=== PATIENT | female | born 1965 | race Caucasian/White ===

== ENCOUNTER → 2017-06-22 | Outpatient (CLI) | payer MEDICAID, SELFPAY | PROVIDERS: Visit Provider Nurse Practitioner | DX: R51 Headache (principal) | CPT/HCPCS: 70551 ==

== ENCOUNTER 2017-10-28 16:00 | Outpatient (RCR) | payer MEDICAID, SELFPAY ==
--- NOTE | 2017-09-26 09:28 | HMH.PTOPEV ---
Rehab Outpatient Evaluation Rehab OP Evaluation Start: 09/26/17 09:13 Freq: Status: Active Protocol: Document 09/26/17 09:14 JAYLAELMER (Rec: 09/26/17 09:28 STUART [id number]) Electronically Signed By Rudolph Verdugo PT 09/26/17 09:14 Outpatient Therapy Subjective History Subjective History This is the initial Physical Theapy evaluation for Anastasia Romero. Pt is a 51 y/o female reports to PT w/ c/o cervicalgia, URIBE's, Lumbago, and R hip pain. Pt reports she has been told she has OA. Pt reports pain in neck has been going on for years. Reports URIBE's have continued to worsen. Pt reports LBP for several months. All had insidious onset - no known trauma. Chief Complaint Pain Spasms Stiff Symptom Type Ache Throb Dull Symptoms Relieved By Rest/Positioning Prescription Meds Symptoms Aggravated By Bending/Stooping Physical Activity Prior Functional Limitations None Current Functional Limitations Housework Recreation Activity Bending/Stooping Symptom Description Intermittent Activity Dependent Pain scale - at its best (0-10) 0 Pain scale - at its worst (0-10) 7 Cervical Eval Palpation Cervical Muscles R Cervical Paraspinal L Cervical Paraspinal R SCM L SCM R Upper Trapezius L Upper Trapezius Cervical/Thoracic Palpation Findings Tenderness Passive Joint Mobility Cervical PIVM Dec: R C2/3 L C2/3 R C3/4 L C3/4 R C4/5 L C4/5 R C5/6 L C5/6 R C6/7 L C6/7 AROM Cervical Spine Extension Active Range of 20 Motion (degrees) Cervical Spine Flexion Active Range of 40 Motion (degrees)
== END 2017-10-28 16:01 | disposition home or self-care (01) ==
LOC: PT 16:00
PROVIDERS: PCP Family Medicine; Visit Provider Nurse Practitioner
DX: R51 Headache (principal); M25.50 Pain in unspecified joint; M79.7 Fibromyalgia
CPT/HCPCS: 97010; 97014; 97035; 97110; 97140; G0283

== ENCOUNTER → 2017-11-11 13:02 | Outpatient (CLI) | payer MEDICAID, SELFPAY ==
--- NOTE | 2017-11-11 13:04 | CT_ITS ---
CT sinus wo con CLINICAL INDICATION: Headache, head pressure, ringing in ears, chronic sinusitis ITS.REASON: chronic sinusitits ORDERING PHYSICIAN: Mark Newsome MD PATIENT AGE: 52 years TECHNIQUE:Axial, sagittal, and coronal images are generated and reviewed without contrast. All CT scans at the facility use one or more dose reduction, viz: automated exposure control; ma/kV adjustment per patient size (including targeted exams where dose is matched to indication; i.e. head); or iterative reconstruction technique. FINDINGS: Bones: Unremarkable. No fracture, lytic, or blastic changes evident Extracranial soft tissues: Unremarkable Sinuses: Unremarkable. No air-fluid levels or significant mucosal thickening Orbits: Unremarkable Other: No significant nasal septal deviation. No mastoid effusion. The middle ears are well aerated. Unremarkable TMJs IMPRESSION: Negative CT of the sinuses
== END ==
PROVIDERS: PCP Family Medicine; Visit Provider Otolaryngology
DX: J32.0 Chronic maxillary sinusitis (principal); J34.2 Deviated nasal septum; J30.9 Allergic rhinitis, unspecified
CPT/HCPCS: 70486

== ENCOUNTER → 2017-11-12 10:53 | Outpatient (CLI) | payer MEDICAID, SELFPAY ==
--- NOTE | 2017-11-12 | XR_ITS ---
XR foot RT min 3V HISTORY: ITS.REASON: RIGHT FOOT PAIN ORDERING PHYSICIAN: Jewell Dorado PATIENT AGE: 52 years COMPARISON: 01/22/2016 FINDINGS: There are moderate osteoarthritic changes of the first metatarsophalangeal joint which has developed since the previous exam. There are small osteophytes at the joint. Moderate osteoarthritic changes are also present at the calcaneal cuboid joint with bony hypertrophic change. No fracture or dislocation. No lytic or blastic change. IMPRESSION: Osteoarthritis of the first metatarsophalangeal joint and the calcaneocuboid joint
== END ==
PROVIDERS: PCP Nurse Practitioner; Visit Provider Nurse Practitioner
DX: M79.671 Pain in right foot (principal)
CPT/HCPCS: 73630

== ENCOUNTER 2017-12-26 08:30 | Outpatient (RCR) | payer MEDICAID, SELFPAY ==
--- NOTE | 2017-11-30 08:47 | HMH.PTOPEV ---
PT Outpatient Evaluation Rehab PT Outpatient Evaluation Start: 11/30/17 08:36 Freq: Status: Active Protocol: Document 11/30/17 08:36 TOYA (Rec: 11/30/17 08:46 TOYA [id number]) Electronically Signed By Wai Sosa, PT 11/30/17 08:36 Outpatient Therapy Subjective History Subjective History Pt reports h/o chronic B UE and LE pain and weakness secondary to fibromylagia and OA. Pt reports weakness and pain in the extremities with simple tasks daily. Pt also reports interruption of sleep and driving d/t pain. Chief Complaint Pain Weakness Symptom Type Ache Sharp Dull Symptoms Relieved By Prescription Meds Activity Symptoms Aggravated By Sitting Prior Functional Limitations Lifting Housework Current Functional Limitations Lifting Housework Driving Sleeping Sitting Symptom Description Constant but Variable Level of pain today (0-10) 7 Pain scale - at its best (0-10) 5 Pain scale - at its worst (0-10) 10 Shoulder/Elbow Eval Shoulder Objective Measurements Palpation Tenderness tenderness shoulder exam standard bilateral Shoulder Palpation Findings Tenderness Shoulder Palpation Overall Comment 2-3/4 Shoulder MMT Bilateral Anterior Deltoid Strength Grade 4- Good- Lower Trapezius Strength Grade 4- Good- Middle Trapezius Strength Grade 4- Good- Shoulder Abduction Strength Grade 3+ Fair+ Shoulder Flexion Strength Grade 3+ Fair+ Elbow Objective Measurements Elbow MMT Bilateral Elbow Flexion Strength Grade 4 Good Biceps Brachii Strength Grade 4 Good Triceps Brachii Strength Grade 4- Good- Wrist/Hand Eval Wrist Manual Muscle Testing Right Wrist Extension Strength Grade 4- Good- Wrist Flexion Strength Grade 4- Good- Left Wrist Extension Strength Grade 4- Good- Wrist Flexion Strength Grade 4- Good- Hip/Knee Eval Palpation Tenderness bilateral Knee Palpation Finding Tenderness Knee Palpation Overall Comment 2-3/4 Hip Palpation Findings Tenderness MMT Hip Flexion Strength Grade 4- Good- Hip Abduction Strength Grade 3+ Fair+ Hip Adduction Strength Grade 3+ Fair+ Hip Extension Strength Grade 3+ Fair+ Knee Extension Strength Grade 4- Good- Knee Flexion Strength Grade 4- G
== END 2017-12-26 08:31 | disposition home or self-care (01) ==
LOC: PT 08:30
PROVIDERS: PCP Nurse Practitioner; Visit Provider Nurse Practitioner
DX: M79.7 Fibromyalgia (principal)
CPT/HCPCS: 97010; 97014; 97110; 97163; G0283

== ENCOUNTER → 2018-01-09 08:43 | Outpatient (CLI) | payer MEDICAID, SELFPAY ==
[2018-01-09 10:44] LABS: Blood Urea Nitrogen 19 mg/dL (7-18); Calcium 9.1 mg/dL (8.5-10.1); Carbon Dioxide 32 mmol/L (21.0-32.0); Chloride 105 mmol/L (98-107); Creatinine,Serum 0.78 mg/dL (0.55-1.02); Estimated Glomerular Filt Rate 77 ml/min (>60); GFR (African American) 93 ML/MIN (>60); Glucose 109 mg/dL (74-106); Sodium 144 mmol/L (136-145)
== END ==
PROVIDERS: Visit Provider Surgery
DX: Z86.010 Personal history of colon polyps (principal)
CPT/HCPCS: 36415; 80048

== ENCOUNTER → 2018-01-12 08:00 | Outpatient (CLI) | payer MEDICAID, SELFPAY ==
[2018-01-11 10:33] VITALS: BMI 33.4
[2018-01-12 08:49] VITALS: BP 124/73; PULSE 73; RESP 20; TEMP 36.1; O2SAT 95
[2018-01-12 09:24] LABS: Anion Gap 10.9 mEq/L (5-15); Blood Urea Nitrogen 10 mg/dL (7-18); Calcium 9.3 mg/dL (8.5-10.1); Carbon Dioxide 32 mmol/L (21.0-32.0); Chloride 104 mmol/L (98-107); Creatinine Clearance Estimated 118 mL/min (0-300); Creatinine,Serum 0.81 mg/dL (0.55-1.02); Estimated Glomerular Filt Rate 74 ml/min (>60); GFR (African American) 89 ML/MIN (>60); Glucose 108 mg/dL (74-106); Sodium 144 mmol/L (136-145)
[2018-01-12 09:25] LABS: Potassium 2.9 mmoL/L (3.5-5.1)
--- NOTE | 2018-01-12 14:39 | SUR.PREOP ---
pt procedure cancelled today r/t low potassium 2.9. will replace potassium w/ 40 meq as ordered , pt given lab requisition of repeat potassium prior to reschedule of procedure. dr haro instructed pt to take 40 meq bid of potassium. pcp office notified per call and fax regarding potassium today of 2.9. kassie at [facility] office notified of need to reschedule and need for repeat potassium. kassie will call pt with reschedule date.
== END ==
PROVIDERS: PCP Nurse Practitioner; Visit Provider Surgery
DX: Z53.8 Procedure and treatment not carried out for other reasons (principal); E87.6 Hypokalemia
CPT/HCPCS: 80048

== ENCOUNTER → 2018-01-12 12:00 | Outpatient (CLI) | payer MEDICAID, SELFPAY | PROVIDERS: PCP Nurse Practitioner; Visit Provider Surgery | DX: Z01.818 Encounter for other preprocedural examination (principal); Z12.11 Encounter for screening for malignant neoplasm of colon | CPT/HCPCS: 80048 ==

== ENCOUNTER → 2018-01-17 08:31 | Outpatient (CLI) | payer MEDICAID, SELFPAY ==
[2018-01-17 10:02] LABS: Potassium 3.6 mmoL/L (3.5-5.1)
== END ==
PROVIDERS: Visit Provider Surgery
DX: Z01.812 Encounter for preprocedural laboratory examination (principal)
CPT/HCPCS: 36415; 84132

== ENCOUNTER → 2018-02-13 08:49 | Outpatient (CLI) | payer MEDICAID, SELFPAY ==
--- NOTE | 2018-02-13 08:51 | US_ITS ---
US abdomen limited History: Ordering Physician:Jewell Dorado Patient Age: 52 years Comparison:None Findings: Pancreas:Unremarkable. No obvious mass or abnormal fluid collection. No ductal dilatation Liver:No focal liver lesions demonstrated. Fatty liver. There is appropriate directional blood flow within the portal vein which does not appear enlarged. No intrahepatic biliary ductal dilatation evident Right Kidney:Unremarkable. Normal size and echogenicity. No hydronephrosis Gallbladder:No gallstones, gallbladder wall thickening, pericholecystic fluid, or biliary dilatation. Impression: 1. Negative gallbladder ultrasound. 2. Fatty liver
== END ==
PROVIDERS: PCP Nurse Practitioner; Visit Provider Nurse Practitioner
DX: R10.11 Right upper quadrant pain (principal)
CPT/HCPCS: 76705

== ENCOUNTER → 2018-02-22 10:50 | Outpatient (CLI) | payer MEDICAID, SELFPAY ==
--- NOTE | 2018-02-22 10:52 | XR_ITS ---
XR foot wt bearing LT 3V HISTORY: ITS.REASON: pain ORDERING PHYSICIAN: Brook Hutson DPM PATIENT AGE: 52 years COMPARISON: None FINDINGS: Moderate osteoarthritic changes involve the first metatarsophalangeal joint with dorsal bony spurring. There are mild osteoarthritic changes of the calcaneocuboid joint. No fracture or dislocation. No lytic or blastic change. Normal alignment. IMPRESSION: Osteoarthritis of the first metatarsophalangeal joint with prominent bony spurring and calcaneocuboid joint
--- NOTE | 2018-02-22 10:52 | XR_ITS ---
XR foot wt bearing RT 3V HISTORY: ITS.REASON: pain ORDERING PHYSICIAN: Brook Hutson DPM PATIENT AGE: 52 years COMPARISON: None FINDINGS: There are osteoarthritic changes of the first metatarsophalangeal joint with bony spurs posteriorly. Mild osteoarthritic changes are present at the calcaneal cuboid joint. Normal alignment. IMPRESSION: 1. Osteoarthritis of the first metatarsal phalangeal joint with bony spurring 2. Osteoarthritis of the calcaneal cuboid joint
== END ==
PROVIDERS: Visit Provider Podiatrist
DX: M79.673 Pain in unspecified foot (principal); B35.1 Tinea unguium
CPT/HCPCS: 73630; 87102; 87206; 87220

== ENCOUNTER → 2018-03-09 10:14 | Outpatient (CLI) | payer MEDICAID, SELFPAY ==
--- NOTE | 2018-03-09 10:45 | NM_ITS ---
NM hepatobiliary wo pharm HISTORY: Right upper quadrant pain ITS.REASON: ABD PAIN,RUQ PAIN ORDERING PHYSICIAN: Jewell Dorado PATIENT AGE: 52 years COMPARISON: None DOSE: 8.07 mCi technetium Choletec Fatty meal/ensure . No pain reported with fatty meal FINDINGS: Homogeneous activity is present within the hepatic parenchyma. Activity is present in the gallbladder by 30 minutes. Activity is present in the small bowel by 10 minutes. The gallbladder ejection fraction is calculated to be 63% The patient did not report pain or other symptoms during the fatty meal. IMPRESSION: Unremarkable hepatobiliary scan and gallbladder ejection fraction. No evidence of common or cystic duct obstruction with normal gallbladder ejection fraction
[2018-03-09 10:52] LABS: Anion Gap 9.1 mEq/L (5-15); Blood Urea Nitrogen 20 mg/dL (7-18); Calcium 8.7 mg/dL (8.5-10.1); Carbon Dioxide 31 mmol/L (21.0-32.0); Chloride 106 mmol/L (98-107); Creatinine,Serum 0.92 mg/dL (0.55-1.02); Estimated Glomerular Filt Rate 64 ml/min (>60); GFR (African American) 77 ML/MIN (>60); Glucose 110 mg/dL (74-106); Potassium 3.1 mmoL/L (3.5-5.1); Sodium 143 mmol/L (136-145)
--- NOTE | 2018-03-09 11:02 | HMH.ITSHM ---
topiramate pantoprazole metoprolol furosemide estradiol
--- NOTE | 2018-03-09 12:52 | MR_ITS ---
MR foot LT wo/w con Ordering Physician: Jewell Dorado Patient Age: 52 years: Female HISTORY: ITS.REASON: left foot pain . Left plantar fascial pain. History plantar fasciitis. History of surgery in 2012. Lateral and dorsal side foot pain currently. Symptoms 4years. TECHNIQUE: Multiplanar multisequence imaging 1.5 Cecilia MRI. Pre and postcontrast imaging performed. 19 mL ProHance utilized COMPARISON :Plain films both feet 02/22/2018 FINDINGS 1. Calcaneal Cuboid Arthritic Changes: Arthritic changes are seen at the calcaneus cuboid articulation. These are most evident along the lateral, superior aspect of this joint-with associated fragmented hypertrophic bone/buttressing seen most notable along lateral & superior aspect of this joint is well On precontrast STIR images note slight reactive bone changes about this narrowed and arthritic joint. On the postcontrast images there circumferential enhancement about margin of the joint best seen on coronal image 35. This enhancement is most focally pronounced laterally overlying this joint as seen on axial image 20, coronal image 34.. The enhancement surrounds the joint but also there is some mild enhancement at the narrowed/ hypertrophic lateral margin of the joint. Most likely reactive arthritic changes The peroneus longus and brevis tendons passed over this region but they appear to be intact with no significant inflammation themselves. -- 2. First MTP Joint Arthritic Changes: Is seen on previous previous plain film prominent Arthritic changes at the first metatarsophalangeal joint also noted. Pronounced Narrowing of the joint with mildly enhancing subchondral cystic changes most evident along the margin of the first metatarsal head. There is hypertrophic changes/ osteophytes circumferentially about the joint, both from the base proximal phalanx as well as about first metatarsal head. Spurring, most evident dorsally from from first metatarsal head as seen on sagittal images 9-7 \--- 3. Plantar Aponeurosis appears overall intact. No prominent findings No abnormal signal nor enhancement within plantar aponeurosis itself nor at the inferior aspect of the calcaneus... The insertion of the plantar aponeurosis appears intact with no definitive inflammation nor enhancement in this particular area... On final review there note upper normal to slightly increased signal along along inferior margin of the plantar aponeurosis as it approaches its insertion on sagittal images 16-15 extending towards heel pad. Unimpressive & equivocal observation but conceivably could reflect some scant edema & minor inflammation here. Is patient focally tender here. Small ankle joint effusion noted. Ankle Is only partially imaged on the sagittal & axial images on this study. However There is slight increased fluid most evident along the posterior aspect of the ankle joint as well at an overlying anterior aspect fibular-talar joint. The anterior talofibular ligament & anterior tibiofibular ligaments intact. IMPRESSION 1.. Arthritic changes at Calcaneal- Cuboid articulation. ... Joint space narrowing w/ reactive bone changes, hypertrophic changes about this narrowed joint. .... Also curious circumferential enhancement about, overlying this joint, along with mild enhancement bone... Suspect this reflects some enhancing inflamed synovitis in this region with mild enhancement of reactive bone changes about the noted arthritic areas. Doubt infection but requires correlation. ... Mild soft tissue swelling overlying this area also noted 2. Arthritic changes at first MTP joint No prominent joint space narrowing. Hypertrophic changes. Small Subchondral cyst shows slight enhancement. Findings again most likely reflecting arthritic
--- NOTE | 2018-03-09 14:05 | HMH.ITSHM ---
PANTOPRAZOLE HCTZ METOPROLOL POTASSIUM TOPIRAMATE MONTELUKAST CELECONXIB VITAMIN D3 VENLAFOXINE LEVOTHYROXINE TRAMADOL
== END ==
PROVIDERS: Surgery; PCP Nurse Practitioner; Visit Provider Nurse Practitioner
DX: R10.11 Right upper quadrant pain (principal); M72.2 Plantar fascial fibromatosis; M79.673 Pain in unspecified foot
CPT/HCPCS: 36415; 73720; 78226; 80048; A9537; A9576

== ENCOUNTER 2018-05-22 15:30 | Outpatient (RCR) | payer MEDICAID, SELFPAY ==
--- NOTE | 2018-05-12 17:29 | HMH.PTOPEV ---
PT Outpatient Evaluation Rehab PT Outpatient Evaluation Start: 05/12/18 16:14 Freq: Status: Active Protocol: Document 05/12/18 16:14 ALESSANDRALUANNE (Rec: 05/12/18 17:28 REJI [id number]) Electronically Signed By Jose E Santos, PT 05/12/18 16:14 Outpatient Therapy Subjective History Subjective History Patient is a 52 year old female presenting to outpatient PT with reports of L chronic foot/ankle pain of insidious onset. She reports 2 previous foot surgeries in 2010 and 2012. Patient unable to communicate particular procedures performed. Pt report previous episode of PT for current symtpom and was able to have minimal relief. Comorbidites include HTN, fibromyalgia, hypothyroidism and overall global OA. Chief Complaint Pain Stiff Gives out/Unstable Symptom Type Ache Sharp Burning Symptoms Relieved By Rest/Positioning Brace/Support Symptoms Aggravated By Standing Physical Activity Walking Prior Functional Limitations Housework Standing Squatting Recreation Activity Walking Stairs Balance Current Functional Limitations Standing Squatting Recreation Activity Walking Stairs Balance Symptom Description Intermittent Level of pain today (0-10) 0 Pain scale - at its best (0-10) 0 Pain scale - at its worst (0-10) 7 Ankle/Foot Eval Gait Observation General Gait Pattern Observation Antalgic Gait Decrease Weight Bear (L) Palpation Tenderness left Ankle/Foot Palpation Findings Tenderness Ankle/Foot Palpation Overall Comment peroneus longus and brevis distal insertions ROM right Ankle/Foot Dorsiflexion w/Knee Extended -1 Active Range Motion (degrees) Ankle/Foot Plantar Flexion Active Range 55 of Motion (degrees) Ankle/Foot Eversion Activ
== END 2018-05-22 15:35 | disposition home or self-care (01) ==
LOC: PT 15:30
PROVIDERS: Visit Provider Podiatrist
DX: M76.72 Peroneal tendinitis, left leg (principal)
CPT/HCPCS: 97010; 97014; 97033; 97035; 97163; G0283

== ENCOUNTER → 2018-09-22 15:40 | Outpatient (CLI) | payer MEDICAID, SELFPAY | PROVIDERS: PCP Nurse Practitioner; Visit Provider Nurse Practitioner | DX: G47.33 Obstructive sleep apnea (adult) (pediatric) (principal) | CPT/HCPCS: 95806 ==

== ENCOUNTER 2018-10-09 23:08 | Observation (INO) ==
[2018-10-09 23:21] LABS: Basophils # 0.1 K/mm3 (0-0.2); Basophils % 0.7 % (0.1-2.0); Eosinophils # 0.2 K/mm3 (0.0-0.4); Eosinophils % 2.5 % (0.1-12.0); Hematocrit 41.3 % (37.0-47.0); Hemoglobin 14.6 g/dL (12.2-16.2); Lymphocytes # 2.8 K/mm3 (0.7-4.5); Lymphocytes % 36.2 % (10-50); Mean Corpuscular HGB Conc 35.4 g/dL (31.8-35.4); Mean Corpuscular Hemoglobin 30.9 pg (27.0-31.2); Mean Corpuscular Volume 87.2 fl (81-99); Monocytes # 0.5 K/mm3 (0.1-1.0); Monocytes % 5.9 % (1.7-9.3); Neutrophils # 4.3 K/mm3 (1.8-7.8); Neutrophils % 54.8 % (37.0-80.0); Platelet Count 230 K/mm3 (142-424); Red Blood Count 4.73 M/mm3 (4.20-5.40); Red Cell Distribution Width 13.4 % (11.5-17.5); White Blood Count 7.8 K/mm3 (4.8-10.8)
--- NOTE | 2018-10-09 23:29 | Emergency Department Note ---
ED Disposition Clinical Impression: Hypokalemia, Obesity (BMI 30-39.9) Chest pain Qualifiers: Chest pain type: precordial pain Qualified Code(s): R07.2 - Precordial pain Disposition: Admitted as Observation Condition on Discharge: Good Referrals: Les Reeder MD [Primary Care Provider] - - Critical Care Critical Care Time: No Attestation: On 10/09/18, the high probability of a clinically significant, sudden or life threatening deterioration of the following system(s) required my full and direct attention, intervention and personal management. The time I documented below is in addition to time spent performing reported procedures but includes the following listed in this critical care notation. Medical Decision Making - Medical Records Medical records reviewed: Yes: I reviewed the patient's medical records. - [place] Inquiry Pt receiving controlled substance: No Vital Signs: 10/09/18 23:09 10/10/18 00:08 Temperature 97.8 F Temperature Source Oral Pulse Rate [Right Radial] 78 64 Respiratory Rate 18 15 Blood Pressure [Right Arm] 140/88 137/64 Blood Pressure Mean [Right Arm] 105 88 02 Sat by Pulse Oximetry 97 97 Oxygen Delivery Method Room Air - Lab Data Lab results reviewed: Yes: I reviewed the patient's lab results. Lab Results 10/09/18 23:15: WBC 7.8, RBC 4.73, Hgb 14.6, Hct 41.3, MCV 87.2, MCH 30.9, MCHC 35.4, RDW 13.4, Plt Count 230, MPV 8.0, Neut % (Auto) 54.8, Lymph % (Auto) 36.2, [place] % (Auto) 5.9, Eos % (Auto) 2.5, Baso % (Auto) 0.7, Neut # (Auto) 4.3, Lymph # (Auto) 2.8, [place] # (Auto) 0.5, Eos # (Auto) 0.2, Baso # (Auto) 0.1 10/09/18 23:15: Sodium 143, Potassium 3.1 L, Chloride 104, Carbon Dioxide 26, A nion Gap 16.1 H, BUN 21 H, Creatinine 0.95, Estimated Creat Clear 109, Estimated GFR 61, Est GFR ( Amer) 74, Glucose 108 H, Calcium 9.1, Troponin I < 0.02 Result diagrams: 10/09/18 23:15 10/09/18 23:15 Orders (Tests/Meds): ED MEDICATIONS Generic Name Dose Route Start Last Admin Trade Name Fregenoveva PRN Reason Stop Dose Admin Sodium Chloride 1,000 mls @ 999 mls/hr 10/09/18 23:15 10/09/18 23:30 Sod Chlor 0.9% 1000ml Bag IV 10/10/18 00:15 999 mls/hr .Q1H1M BAN Administration Sodium Chloride 10 ml 10/09/18 23:13 Saline Flush 10ml Syringe IV 11/08/18 23:12 NEEDED PRN Maintain IV Site Discontinued Medications Generic Name Dose Route Start Last Admin Trade Name Fregenoveva PRN Reason Stop Dose Admin Acetaminophen 1,000 mg 10/09/18 23:29 10/09/18 23:30 Tylenol 500mg Tablet PO 10/09/18 23:30 1,000 mg ONCE ONE Administration Famotidine 20 mg 10/09/18 23:13 10/09/18 23:30 Pepcid 20mg/2ml Vial IV 10/09/18 23:14 20 mg ONCE ONE Administration Ibuprofen 800 mg 10/09/18 23:14 10/09/18 23:29 Motrin 400mg Tablet PO 10/09/18 23:15 Not Given ONCE ONE Metoclopramide HCl 10 mg 10/09/18 23:13 10/09/18 23:30 Reglan 10mg/2ml Vial IVP 10/09/18 23:14 10 mg ONCE ONE Administration Morphine Sulfate 2 mg 10/10/18 00:07 10/10/18 00:13 Morphine 4mg/Ml Syringe IV 10/10/18 00:08 2 mg ONCE ONE Administration Nitroglycerin 1 gm 10/10/18 00:07 10/10/18 00:13 Nitroglycerin 1 Inch Oint Udp TD 10/10/18 00:08 1 gm ONCE ONE Administration Ondansetron HCl 4 mg 10/10/18 00:08 10/10/18 00:13 Zofran 4mg/2ml Vial IV 10/10/18 00:09 4 mg ONCE ONE Administration ORDERS Category Date Time Status XR chest 2V Stat Exams 10/09/18 23:13 Taken - Radiology Data #1 Image(s): Chest Image Reviewed: Yes I reviewed the patient's radiology image Preliminary Findings: Normal/NAD - ECG Data Tracing #1 Normal Sinus Rhythm: Yes Ischemic changes: t wave inversions ECG compared to prior tracings: this ECG reveals significant changes - Physician Consults Physician Consulted: charles Reason -: Admission Chest Pain HPI - General Chief Complaint: Chest Pain Stated Complaint: CHEST PAIN Time Seen by Provider: 10/09/18 23:15 Mode of Arrival: Family Vehicle Source of Information: Patient, Medical Record Limitations: No Limitations Description of Symptoms (Recalled from ER Triage Doc. by RN): MIDSTERNAL CHEST HEAVINESS, SHORTNESS OF BREATH, HEARTBURN AND HEADACHE THAT BEGAN LAST PM THAT HAS CONTINUED TODAY ON AND OFF. - History of Present Illness HPI narrative: new onset of chest pain with pain in midsternal chest pain with rad to shoulders -no known ht dis but has hx of cva MD complaint: chest pain indicative of cardiac Onset (ago): hour(s) Duration: intermittent Activity at onset: during rest Pain location: epigastric Severity: moderate Risk Factors for CAD: Family Hx of CAD Treatments prior to or on arrival for Cardiac Chest Pain: none - CHUYITA Score for Non-Stemi Age of Patient: 50-59 years old Heart Rate: 70-89 bpm Systolic Blood Pressure: 140-159 mmHg Serum Creatinine: 0.40-0.79 mg/dl CHF [place] Class: I-No CHF Other Risk Factors: None Non-Stemi Risk Score: 78 - Related Data On Oral Contraceptives: No Home Medications Medication Instructions Recorded Confirmed hydrochlorothiazide 25 mg tablet 12.5 mg PO QAM 10/31/17 10/09/18 levothyroxine 50 mcg tablet 50 mcg PO ONCE 10/31/17 10/09/[address] 40 mg granules 40 mg PO QAM 10/31/17 10/09/18 delayed-release for susp in packet potassium chloride 20 mEq oral 20 meq PO BID 10/31/17 10/09/18 packet topiramate 25 mg tablet 25 mg PO BID 10/31/17 10/09/18 duloxetine 30 mg capsule,delayed 30 mg PO DAILY 05/02/18 10/09/18 release meloxicam 7.5 mg tablet 7.5 mg PO DAILY 05/02/18 10/09/18 Aspirin [Aspir 81] 81 mg PO DAILY 08/27/18 10/09/18 Atorvastatin Calcium [Atorvastatin 20 mg PO DAILY 08/27/18 10/09/18 20mg Tab] Cholecalciferol (Vitamin D3) 1 tab PO DAILY 08/27/18 10/09/18 [Vitamin D3 50,000 unit Cap] Sucralfate [Sucralfate 1gm 1 tab PO DAILY 08/27/18 10/09/18 Tab] Tramadol HCl [Tramadol 50mg 50 mg PO DAILY 08/27/18 10/09/18 Tab] Previous Rx's Medication Instructions Recorded montelukast 10 mg tablet 10 mg PO QAM 90 Days #90 tab 02/22/18 Allergies Allergy/AdvReac Type Severity Reaction Status Date / Time ketorolac Allergy Mild I-HIVES Verified 10/09/18 23:14 Iodinated Contrast Media - Allergy Verified 10/09/18 23:14 Oral and [facility] History - Hepatitis A Screen Drug use history?: No High risk sexual behaviors?: No History of sexually transmitted infection?: No Currently employed?: No Childcare worker?: No Do you have indoor plumbing?: Yes Do you have electricity?: Yes Attestation statement:: This patient has been screened for Hepatitis A risk factors. I have reviewed the patient's past medical history: Yes Medical History: Reports:: Depression, Hypertension, Migraine Denies:: Cancer, Diabetes Mellitus Type 1, Diabetes Mellitus Type 2, Internal Pacemaker, Lung Disease, MRSA, Seizures Other Medical History: Reports: Arthritis, Hormone Therapy, Hypothyroidism, Thyroid Disease, Other Comment: chronic neck pain Laterality Cases: Left: Arthroscopy Knee, Bilateral: Other Other Surgeries: Yes: Appendectomy, Colonoscopy, , EGD. No: Pacemaker Amputation: No Fractures: No Comment: foot x2, left breast cyst, CTR right - Social History Smoking Status: Former smoker Alcohol Intake: never Alcohol Intake Frequency:: other Substance Use Type: denies use Occupational Status: unemployed - Psychiatric History Expresses thoughts of harming self/others: None Suicide Plan Description: No Plan Pschychiatric History:: Reports:: Depression Family Hx:: Diabetes ROS Obtained: Yes All systems reviewed & no additional complaints - Constitutional Constitutional: Denies fever(s) - Eyes Eyes: Denies change in vision - ENT Ears, Nose, Mouth, and Throat: Denies sore throat - Cardiovascular Cardiovascular: Reports chest pain - Respiratory Respiratory: No cough - Gastrointestinal Gastrointestingal: Denies: abdominal pain, vomiting - Genitourinary Female Genitourinary: Denies hematuria - Musculoskeletal Musculoskeletal: Denies joint swelling - Integumentary/Breasts Skin/Breast: Denies rash - Neurologic Neurologic: Denies seizure-like activity Physical Exam - General General appearance: in no apparent distress, obese - Head Head exam: normocephalic - Eye Eye exam: Present: PERRL, EOMI - ENT ENT exam: Present: mucous membranes moist - Neck Neck exam: Present: trachea midline - Respiratory Respiratory exam: Absent: respiratory distress - Cardiovascular Cardiovascular exam: Present: regular rate - Abdominal Exam Abdominal exam: Present: soft, tenderness Abdominal tenderness: Present: epigastrium, moderate - Extremities Exam Extremities exam: Present: full ROM. Absent: calf tenderness - Neurological Exam Neurological exam: Present: alert, oriented X3, CN II-XII intact - Psychiatric Psychiatric exam: Present: normal affect - Skin Skin exam: Absent: rash
[2018-10-09 23:39] LABS: Anion Gap 16.1 mEq/L (5-15); Blood Urea Nitrogen 21 mg/dL (7-18); Calcium 9.1 mg/dL (8.5-10.1); Carbon Dioxide 26 mmol/L (21.0-32.0); Chloride 104 mmol/L (98-107); Glucose 108 mg/dL (74-106); Potassium 3.1 mmoL/L (3.5-5.1); Sodium 143 mmol/L (136-145)
[2018-10-10 05:57] LABS: Basophils % 0.4 % (0.1-2.0); Eosinophils # 0.2 K/mm3 (0.0-0.4); Eosinophils % 2.4 % (0.1-12.0); Hemoglobin 13.6 g/dL (12.2-16.2); Lymphocytes # 2.6 K/mm3 (0.7-4.5); Lymphocytes % 40.6 % (10-50); Mean Corpuscular HGB Conc 34.9 g/dL (31.8-35.4); Mean Corpuscular Hemoglobin 30.9 pg (27.0-31.2); Mean Corpuscular Volume 88.4 fl (81-99); Mean Platelet Volume 8.2 fl (7.4-10.4); Monocytes # 0.4 K/mm3 (0.1-1.0); Monocytes % 6.6 % (1.7-9.3); Neutrophils # 3.2 K/mm3 (1.8-7.8); Neutrophils % 50.1 % (37.0-80.0); Platelet Count 201 K/mm3 (142-424); Red Blood Count 4.41 M/mm3 (4.20-5.40); Red Cell Distribution Width 13.5 % (11.5-17.5); White Blood Count 6.3 K/mm3 (4.8-10.8)
[2018-10-10 06:01] LABS: Anion Gap 13.2 mEq/L (5-15); Blood Urea Nitrogen 21 mg/dL (7-18); Calcium 8.2 mg/dL (8.5-10.1); Carbon Dioxide 27 mmol/L (21.0-32.0); Chloride 108 mmol/L (98-107); Chol/HDL Ratio 2.9 (1-3.5); Cholesterol 118 mg/dL (140-200); Glucose 101 mg/dL (74-106); HDL Cholesterol 41 mg/dL (29-89); LDL Cholesterol 63 mg/dL (0-130); Potassium 3.2 mmoL/L (3.5-5.1); Sodium 145 mmol/L (136-145); Triglycerides 70 mg/dL (30-200); VLDL Cholesterol 14 mg/dL (0-40)
--- NOTE | 2018-10-10 07:28 | History & Physical Report ---
*Admission Date: 10/10/18 *Chief complaint: Chest tightness *History of present illness: 52-year-old female presented to the emergency department with chest tightness that had been recurring throughout the day. Patient reports initial episode was around 3 PM on October 09 when she developed chest tightness and a burning sensation in the chest that radiated up into the shoulders. She became sick and vomited and chest discomfort resolved shortly thereafter. However she had a persistent discomfort in the shoulders as well as headache. Patient rested the remainder of the day and symptoms began again in the evening. They were not triggered by food. This time when chest tightness developed and radiated into the shoulder she decided to seek treatment at the emergency department. Patient has a history of multiple TIAs. Her manager rail is Dr. Samayoa. She has had cardiac catheterization in the past although she cannot recall the date. She does not know the date of any stress testing. She apparently had her last appointment with cardiology 2 weeks ago. [facility] History I have reviewed the patient's past medical history: Yes Medical History: Reports:: Atrial Fibrillation, Depression, Hyperlipidemia, Hypertension, Internal Pacemaker (INTERNAL LOOP RECORDER), Migraine, Palpitations Denies:: Cancer, Diabetes Mellitus Type 1, Diabetes Mellitus Type 2, Lung Disease, MRSA, Seizures *Have you ever received a pneumonia vaccine?: No *Have you received a flu vaccine this season?: Yes Other Medical History: Reports: Arthritis, Fibromyalgia, Hormone Therapy, Hyp othyroidism, Thyroid Disease, Other Laterality Cases: Left: Arthroscopy Knee, Bilateral: Other Other Surgeries: Yes: Appendectomy, Colonoscopy, , EGD, Pacemaker (INTERNAL LOOP RECORDER), Other (CYST REMOVAL L BREAST) Amputation: No Fractures: No - *Social History Educational Level: Completed GED/General Educational Development Smoking Status: Former smoker Tobacco Type: cigarettes # Packs/Day (cigarettes): 1 #Yrs smoked (if former smoker): 19 Smoking End Date: 1998 Alcohol Intake: never Alcohol Intake Frequency:: other Substance Use Type: denies use *Occupational Status:: unemployed *Travel in the last 8 weeks: None - Psychiatric History Expresses thoughts of harming self/others: None Suicide Plan Description: No Plan Pschychiatric History:: Reports:: Depression Family Hx:: Adopted, Diabetes, Hypertension Review of Systems - Review of Systems Review of systems:: pertinent systems reviewed and negative unless documented below - Constitutional Denies body ache(s), Denies chills - *Cardiovascular Reports chest pain, Reports chest pain at rest, Denies chest pain with activity, Denies shortness of breath with activity - *Respiratory Denies change in phlegm color, Denies chest congestion, Denies cough - *Gastrointestinal Reports vomiting - *Neurologic Denies seizure-like activity Meds Home Medications Medication Instructions Recorded Confirmed Type hydrochlorothiazide 25 mg tablet 12.5 mg PO QAM 10/31/17 10/09/18 History levothyroxine 50 mcg tablet 50 mcg PO ONCE 10/31/17 10/09/[address] 40 mg granules 40 mg PO QAM 10/31/17 10/09/18 History delayed-release for susp in packet potassium chloride 20 mEq oral 20 meq PO BID 10/31/17 10/09/18 History packet topiramate 25 mg tablet 25 mg PO BID 10/31/17 10/09/18 History montelukast 10 mg tablet 10 mg PO QAM 90 Days #90 tab 02/22/18 10/09/18 Rx duloxetine 30 mg capsule,delayed 30 mg PO DAILY 05/02/18 10/09/18 History release meloxicam 7.5 mg tablet 7.5 mg PO DAILY 05/02/18 10/09/18 History Aspirin [Aspir 81] 81 mg PO DAILY 08/27/18 10/09/18 History Atorvastatin Calcium [Atorvastatin 20 mg PO DAILY 08/27/18 10/09/18 History 20mg Tab] Cholecalciferol (Vitamin D3) 1 tab PO DAILY 08/27/18 10/09/18 History [Vitamin D3 50,000 unit Cap] Sucralfate [Sucralfate 1gm 1 tab PO DAILY 08/27/18 10/09/18 History Tab] Tramadol HCl [Tramadol 50mg 50 mg PO DAILY 08/27/18 10/09/18 History Tab] Allergies Allergy/AdvReac Type Severity Reaction Status Date / Time ketorolac Allergy Mild I-HIVES Verified 10/09/18 23:14 Iodinated Contrast Media - Allergy Verified 10/09/18 23:14 Oral and Exam Vital signs and Labs for Last 24 Hours: Temp Pulse Resp BP Pulse Ox 97.5 F L 58 L 18 94/56 L 99 10/10/18 04:50 10/10/18 04:50 10/10/18 04:50 10/10/18 04:50 10/10/18 04:50 Laboratory Results - last 24 hr 10/09/18 23:15: WBC 7.8, RBC 4.73, Hgb 14.6, Hct 41.3, MCV 87.2, MCH 30.9, MCHC 35.4, RDW 13.4, Plt Count 230, MPV 8.0, Neut % (Auto) 54.8, Lymph % (Auto) 36.2, [place] % (Auto) 5.9, Eos % (Auto) 2.5, Baso % (Auto) 0.7, Neut # (Auto) 4.3, Lymph # (Auto) 2.8, [place] # (Auto) 0.5, Eos # (Auto) 0.2, Baso # (Auto) 0.1 10/09/18 23:15: Sodium 143, Potassium 3.1 L, Chloride 104, Carbon Dioxide 26, Anion Gap 16.1 H, BUN 21 H, Creatinine 0.95, Estimated Creat Clear 109, Estimated GFR 61, Est GFR ( Amer) 74, Glucose 108 H, Calcium 9.1, Troponi n I < 0.02 10/10/18 03:30: Troponin I < 0.02 10/10/18 05:39: WBC 6.3, RBC 4.41, Hgb 13.6, Hct 39.0, MCV 88.4, MCH 30.9, MCHC 34.9, RDW 13.5, Plt Count 201, MPV 8.2, Neut % (Auto) 50.1, Lymph % (Auto) 40.6, [place] % (Auto) 6.6, Eos % (Auto) 2.4, Baso % (Auto) 0.4, Neut # (Auto) 3.2, Lymph # (Auto) 2.6, [place] # (Auto) 0.4, Eos # (Auto) 0.2, Baso # (Auto) 0.0 10/10/18 05:39: Sodium 145, Potassium 3.2 L, Chloride 108 H, Carbon Dioxide 27, Anion Gap 13.2, BUN 21 H, Creatinine 0.82, Estimated Creat Clear 131, Estimated GFR 73, Est GFR ( Amer) 88, Glucose 101, Calcium 8.2 L, Magnesium 2.0, Troponin I < 0.02, Triglycerides 70, Cholesterol 118 L, LDL Cholesterol 63, VLDL Cholesterol 14, HDL Cholesterol 41, Cholesterol/HDL Ratio 2.9 I & O for Last 24 hours: Intake & Output 10/07/18 10/08/18 10/09/18 10/10/18 11:59 11:59 11:59 11:59 Intake Total 1165 / 1165 Balance 1165 / 1165 Weight 232 lb 7 oz - Constitutional no acute distress - *Routine HEENT Exam Eye: Present: EOMI ENT: Present: mucous membranes moist - *Routine Neck Exam Present: supple - *Routine Respiratory Exam Present: CTA bilaterally - *Routine Cardiovascular Exam Present: RRR, Normal S1, Normal S2 - *Routine Abdominal Exam Present: soft, normoactive bowel sounds Assessment and Plan (1) Chest pain Current visit: Yes Status: Acute Qualifiers: Chest pain type: precordial pain Qualified Code(s): R07.2 - Precordial pain Category: Medical Code(s): R07.9 - Chest pain, unspecified (2) Hypokalemia Current visit: Yes Status: Acute Category: Medical Code(s): E87.6 - Hypokalemia (3) Obesity (BMI 30-39.9) Current visit: Yes Status: Acute Category: Medical Code(s): E66.9 - Obesity, unspecified - Assessment and plan all Dx Assessment and Plan for all problems:: Patient has had an echocardiogram with preliminary reading of ejection fraction of 45-50%. She will undergo Lexiscan stress test today
--- NOTE | 2018-10-10 07:28 | Pharmacy Consult Notes ---
[facility] Pharmacy VTE Monitoring - Patient Demographics Admission date: 10/09/18 Report Date: 10/10/18 Time: 07:28 Allergies/Adverse Reactions: Patient Allergies ketorolac Allergy (Mild, Verified 10/09/18 23:14) I-HIVES Iodinated Contrast Media - Oral and Allergy (Verified 10/09/18 23:14) Height: 1.68 m Weight: 105.432 kg Patient Problems: Current Active Problems Chest pain (Acute) Hypokalemia (Acute) Obesity (BMI 30-39.9) (Acute) - VTE Risk Labs: VTE Related Lab Results Hgb 13.6 g/dL (12.2-16.2) 10/10/18 05:39 Hct 39.0 % (37.0-47.0) 10/10/18 05:39 Plt Count 201 K/mm3 (142-424) 10/10/18 05:39 BUN 21 mg/dL (7-18) H 10/10/18 05:39 Creatinine 0.82 mg/dL (0.55-1.02) 10/10/18 05:39 Estimated Creat Clear 131 mL/min (50-200) 10/10/18 05:39 Was VTE Risk Assessment Performed: Yes VTE Score: 3 VTE Risk Level: Low Risk - Prophylaxis VTE Prophylaxis Ordered?: Yes Types of VTE Prophylaxis: TEDS Knee High Location of Applied Device: Bilateral Lower Extremeties - VTE Diagnosis Confirmed Treatment or plan recommended: Continue Current Treatment
--- NOTE | 2018-10-10 21:18 | Cardiology Report ---
PROCEDURE: 2-D M-mode and color Doppler study INDICATIONS FOR THE TEST: Chest pain+ COPD Heart Murmur Tobacco SmokingEX Palpitations Fatigue Syncope Edema Hypertension+Diabetes Mellitus Rheumatic Fever SOB FUENTES Obesity+Hyperlipidemia+ Family History HD Additional History AFIB, LOOP RECORDER PATIENT INFORMATION HEIGHT: 64 WEIGHT:232 GENDER: Female B/P:137/64 2-D/M-MODE INTERPRETATION: 2-D MEASUREMENTS OBSERVED VALUES IN CMS Right Ventricular Dimension (RVDd) 1.9 Interventricular Septum (Thickness)(IVsd) 0.7 Left Ventricular Internal Dimensions(LVIDd) 5.6 Left Ventricular Posterior Wall (Thickness)(LVPWd) 1.0 Aortic Root 2.8 Aortic Cusp Separation 1.9 Left Atrial Dimensions (LAD) 3.8 2D 1. Left atrium is mildly enlarged, left ventricle is normal size, mild concentric left ventricular hypertrophy visually estimated ejection fraction 50% with no regional wall motion abnormality, endocardial surfaces are poorly visualized. 2. The right atrium and right ventricle are normal size and contractility. 3. The aortic valve is minimally thickened and fibrosed . 4. The mitral and tricuspid valvular grossly normal. 5. The pulmonic valve is poorly present 6. No significant pericardial effusion noted. DOPPLER INTERROGATION: Doppler interrogation of the aortic, mitral and tricuspid valvular presence of mild mitral and tricuspid regurgitation, tricuspid regurgitation jet velocity is inadequate for calculation of the right ventricular systolic pressure, diastolic parameters are inconclusive. CONCLUSION: 1. Mildly enlarged left atrium, normal left ventricular size, mild concentric left ventricular hypertrophy, visually estimated ejection fraction 50% with no regional wall motion abnormality, diastolic parameters are inconclusive. 2. Mild mitral and tricuspid regurgitation 3. Significant pericardial effusion noted.
--- NOTE | 2018-10-11 07:20 | Progress Note ---
Internal Medicine - PN: Subj *Date: 10/11/18 *Time: 07:18 Interval history: Patient had abnormal stress test which resulted yesterday afternoon. Cardiology has been consulted. Patient reports continued to have some episodes of chest tightness Exam Vital signs and Labs for Last 24 Hours: Temp Pulse Resp BP Pulse Ox 97.6 F 57 L 17 106/60 L 96 10/11/18 04:00 10/11/18 04:00 10/11/18 04:00 10/11/18 04:00 10/11/18 04:00 I & O for Last 24 hours: Intake & Output 10/08/18 10/09/18 10/10/18 10/11/18 11:59 11:59 11:59 11:59 Intake Total 1165 / 1165 480 / 480 Output Total 1400 / 1400 Balance 1165 / 1165 -920 / -920 Weight 232 lb 7 oz 232 lb 7.992 oz Narrative: She is awake and alert sitting up in the chair this morning. Lungs are clear. Heart has a regular rate and rhythm. Assessment and Plan (1) Abnormal stress test Current visit: Yes Status: Acute Category: Medical Code(s): R94.39 - Abnormal result of other cardiovascular function study (2) Chest pain Current visit: Yes Status: Acute Qualifiers: Chest pain type: precordial pain Qualified Code(s): R07.2 - Precordial pain Category: Medical Code(s): R07.9 - Chest pain, unspecified (3) Hypokalemia Current visit: Yes Status: Acute Category: Medical Code(s): E87.6 - Hypokalemia (4) Obesity (BMI 30-39.9) Current visit: Yes Status: Acute Category: Medical Code(s): E66.9 - Obesity, unspecified (5) History of TIA (transient ischemic attack) Current visit: Yes Status: Acute Category: Medical Code(s): Z86.73 - Personal history of transient ischemic attack (TIA), and cerebral infarction without residual deficits - Assessment and plan all Dx Assessment and Plan for all problems:: 1. Cardiology consult
--- NOTE | 2018-10-11 07:30 | Consult Report ---
History of Present Illness Consult date: 10/11/18 Requesting physician: William Schmitt Consult reason: chest pain Chief complaint: chest pain Additional Medical History:: 1. History of CVA, 08/2018 with left-sided weakness, speech and memory imp airment A. Loop recorder in place, patient believes it is [employer] 2. History of cardiac catheterization approximately 2009, [place], [place], Dr. Samayoa, branch disease per patient. Reportedly has contrast allergy but patient is unsure of the severity. A. Stress myoview, 10/2018, 1. Ejection fraction of 62%. 2. Partially reversible defect in the anterolateral septal apical region with some reversibility at the apex consistent with an area of infarction with marlena- infarct ischemia. 3. Small fixed defect in the inferolateral aspect of the apex consistent with an area of infarction 3. Remote history of tobacco use, [id number] history, discontinued many years ago 4. History of hypertension A. Echo, 10/2018, mild left atrial enlargement, normal LV size with mild concentric LVH. EF 50% no wall motion abnormalities. Diastolic parameters inconclusive. Mild MR and TR. No significant pericardial effusion noted. 5. Hyperlipidemia History of present illness: 52-year-old white female admitted for shortness of breath and chest discomfort. Symptoms have been present with exertion for several weeks but recently have progressed to include waking her up from sleep. Patient was admitted and underwent nuclear stress testing yesterday which was abnormal with evidence of ischemia but normal ejection fraction. Cardiology consulted for evaluation and recommendations. [facility] History Medical History: Reports:: Atrial Fibrillation, Depression, Hyperlipidemia, Hypertension, Internal Pacemaker (INTERNAL LOOP RECORDER), Migraine, Palpitations Denies:: Cancer, Diabetes Mellitus Type 1, Diabetes Mellitus Type 2, Lung Disease, MRSA, Seizures *Have you ever received a pneumonia vaccine?: No *Have you received a flu vaccine this season?: Yes Other Medical History: Reports: Arthritis, Fibromyalgia, Hormone Therapy, Hypothyroidism, Thyroid Disease, Other Laterality Cases: Left: Arthroscopy Knee, Bilateral: Other Other Surgeries: Yes: Appendectomy, Colonoscopy, , EGD, Pacemaker (INTERNAL LOOP RECORDER), Other (CYST REMOVAL L BREAST) Amputation: No Fractures: No - *Social History Educational Level: Completed GED/General Educational Development Smoking Status: Former smoker Tobacco Type: cigarettes # Packs/Day (cigarettes): 1 #Yrs smoked (if former smoker): 19 Smoking End Date: 1998 Alcohol Intake: never Alcohol Intake Frequency:: other Substance Use Type: denies use *Occupational Status:: unemployed *Travel in the last 8 weeks: None - Psychiatric History Expresses thoughts of harming self/others: None Suicide Plan Description: No Plan Pschychiatric History:: Reports:: Depression Family Hx:: Adopted, Diabetes, Hypertension Meds Home Medications Medication Instructions Recorded Confirmed Type hydrochlorothiazide 25 mg tablet 12.5 mg PO DAILY 10/31/17 10/10/18 History levothyroxine 50 mcg tablet 50 mcg PO DAILY 10/31/17 10/10/18 History topiramate 25 mg tablet 25 mg PO BID 10/31/17 10/09/18 History duloxetine 30 mg capsule,delayed 30 mg PO DAILY 05/02/18 10/09/18 History release Atorvastatin Calcium [Atorvastatin 20 mg PO HS 08/27/18 10/10/18 History 20mg Tab] Tramadol HCl [Tramadol 50mg 50 mg PO Q6HP PRN 08/27/18 10/10/18 History Tab] Aspirin [Aspirin 325mg Tab] 325 mg PO DAILY 10/10/18 10/10/18 History Meloxicam 15 mg PO HS 10/10/18 10/10/18 History Montelukast Sodium [Montelukast 10 mg PO HS 10/10/18 10/10/18 History 10mg Tab] Pantoprazole Sodium [Protonix 40mg 40 mg PO DAILY 10/10/18 10/10/18 History tablet] Potassium Chloride 20 meq PO QID PRN 10/10/18 10/10/18 History Tizanidine HCl [Zanaflex 4mg 4 mg PO TID PRN 10/10/18 10/10/18 History tab] Allergies Allergy/AdvReac Type Severity Reaction Status Date / Time ketorolac Allergy Mild I-HIVES Verified 10/09/18 23:14 Iodinated Contrast Media - Allergy Verified 10/09/18 23:14 Oral and Review of Systems - *Cardiovascular Reports chest pain, Reports shortness of breath with activity - *Respiratory Reports shortness of breath with activity - *Gastrointestinal Reports nausea, Denies abdominal pain, Denies loose stools - *Genitourinary Denies blood in urine - *Musculoskeletal Denies joint pain, Denies back pain - *Neurologic Denies seizure-like activity Exam Vital signs and Labs for Last 24 Hours: Temp Pulse Resp BP Pulse Ox 97.6 F 57 L 17 106/60 L 96 10/11/18 04:00 10/11/18 04:00 10/11/18 04:00 10/11/18 04:00 10/11/18 04:00 I & O for Last 24 hours: Intake & Output 10/08/18 10/09/18 10/10/18 10/11/18 11:59 11:59 11:59 11:59 Intake Total 1165 / 1165 480 / 480 Output Total 1400 / 1400 Balance 1165 / 1165 -920 / -920 Weight 232 lb 7 oz 232 lb 7.992 oz - *Routine HEENT Exam Head: Present: normocephalic Eye: Present: EOMI, PERRL ENT: Present: mucous membranes moist - *Routine Neck Exam Present: supple. Absent: JVD, carotid bruit - *Routine Respiratory Exam Present: CTA bilaterally. Absent: accessory muscle use, rales, rhonchi, wheezes - *Routine Cardiovascular Exam Present: RRR. Absent: murmur, gallop, rubs - *Routine Abdominal Exam Present: soft. Absent: tenderness, distended, guarding - *Routine Extremities Exam Absent: edema, calf tenderness - *Routine Neurological Exam Present: alert, oriented X3, moving all extremities Assessment and Plan (1) Abnormal stress test Current visit: Yes Status: Acute Category: Medical Code(s): R94.39 - Abnormal result of other cardiovascular function study (2) Chest pain Current visit: Yes Status: Acute Qualifiers: Chest pain type: precordial pain Qualified Code(s): R07.2 - Precordial pain Category: Medical Code(s): R07.9 - Chest pain, unspecified (3) Hypokalemia Current visit: Yes Status: Acute Category: Medical Code(s): E87.6 - Hypokalemia (4) Obesity (BMI 30-39.9) Current visit: Yes Status: Acute Category: Medical Code(s): E66.9 - Obesity, unspecified (5) History of TIA (transient ischemic attack) Current visit: Yes Status: Acute Category: Medical Code(s): Z86.73 - Personal history of transient ischemic attack (TIA), and cerebral infarction without residual deficits - Assessment and plan all Dx Assessment and Plan for all problems:: 1. With abnormal stress test in former smoker with accelerating angina, will recommend LHC with contrast allergy precautions. Discussed with patient and she agrees to proceed. 2. Further recommendations to follow.
--- NOTE | 2018-10-11 16:19 | Discharge Summary ---
General - General Admission date:: 10/10/18 Discharge date: 10/11/18 HPI HPI: 52-year-old female presented to the emergency department with chest tightness that had been recurring throughout the day. Patient reports initial episode was around 3 PM on October 09 when she developed chest tightness and a burning sensation in the chest that radiated up into the shoulders. She became sick and vomited and chest discomfort resolved shortly thereafter. However she had a persistent discomfort in the shoulders as well as headache. Patient rested the remainder of the day and symptoms began again in the evening. They were not triggered by food. This time when chest tightness developed and radiated into the shoulder she decided to seek treatment at the emergency department. Patient has a history of multiple TIAs. 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 She has had cardiac catheterization in the past although she cannot recall the date. She does not know the date of any stress testing. She apparently had her last appointment with cardiology 2 weeks ago. Hospital Course Hospital Course: Patient was admitted to second floor medical surgical unit for additional observation, testing and referral to cardiology. Troponins were negative but due to risk factors of abnormal stress test and former tob use a LHC was performed. Site used: right radial. No intervention required and patient plan will be to medically manage. She will continue atorvastatin 20 mg daily as current LDL is 63. New discharge medications: lasix 40 mg BID and KCl 20 meq daily. Follow up will be with Jose Stevens APRN in one week, 11am please. Will draw BMP to evaluate electrolytes and renal function. Objective Vital signs: Temp Pulse Resp BP Pulse Ox 97.6 F 63 20 143/81 H 97 10/11/18 11:36 10/11/18 15:40 10/11/18 15:40 10/11/18 15:40 10/11/18 15:40 no acute distress, obese - *Routine HEENT Exam Head: Present: normocephalic, atraumatic ENT: Present: mucous membranes moist - *Routine Respiratory Exam Present: CTA bilaterally. Absent: accessory muscle use - *Routine Cardiovascular Exam Present: RRR, Normal S1, Normal S2. Absent: irregular rhythm - *Routine Abdominal Exam Present: soft, normoactive bowel sounds - *Routine Extremities Exam Absent: cyanosis, edema - *Routine Skin Exam Present: intact. Absent: pallor - *Routine Neurological Exam Present: alert, oriented X3 - Routine Psychiatric Exam Present: normal affect DS: Diagnosis - Discharge Diagnosis (1) Abnormal stress test Status: Acute (2) Chest pain Status: Acute (3) Hypokalemia Status: Acute (4) Obesity (BMI 30-39.9) Status: Acute (5) History of TIA (transient ischemic attack) Status: Acute Discharge Plan - Patient Discharge Instructions ACTIVITY: Continue current activity Patient Instructions: How to Care for a Surgical Wound, Angina, Cardiac Catheterization, Surgical Site Infection, Hypokalemia - Follow up Plan Follow up with: Lindy Stevens APRN [Nurse Practitioner] - 10/18/18 11:00 am Disposition: Home, Self-Alf Medications: Home Medications Medication Instructions Recorded Confirmed Type hydrochlorothiazide 25 mg tablet 12.5 mg PO DAILY 10/31/17 10/10/18 History levothyroxine 50 mcg tablet 50 mcg PO DAILY 10/31/17 10/10/18 History topiramate 25 mg tablet 25 mg PO BID 10/31/17 10/09/18 History duloxetine 30 mg capsule,delayed 30 mg PO DAILY 05/02/18 10/09/18 History release Atorvastatin Calcium [Atorvastatin 20 mg PO HS 08/27/18 10/10/18 History 20mg Tab] Tramadol HCl [Tramadol 50mg 50 mg PO Q6HP PRN 08/27/18 10/10/18 History Tab] Aspirin [Aspirin 325mg Tab] 325 mg PO DAILY 10/10/18 10/10/18 History Meloxicam 15 mg PO HS 10/10/18 10/10/18 History Montelukast Sodium [Montelukast 10 mg PO HS 10/10/18 10/10/18 History 10mg Tab] Pantoprazole Sodium [Protonix 40mg 40 mg PO DAILY 10/10/18 10/10/18 History tablet] Potassium Chloride 20 meq PO QID PRN 10/10/18 10/10/18 History Tizanidine HCl [Zanaflex 4mg 4 mg PO TID PRN 10/10/18 10/10/18 History tab] Furosemide [Furosemide 40MG tAB] 40 mg PO BID 30 Days #60 tab 10/11/18 Rx Potassium Chloride [Klor-con 20 40 meq PO DAILY 30 Days #60 tab 10/11/18 Rx mEq tablet] Prescriptions/Medication Reconciliation: New Furosemide [Furosemide 40MG tAB] 40 mg PO BID 30 Days #60 tab Continue hydrochlorothiazide 25 mg tablet 12.5 mg PO DAILY levothyroxine 50 mcg tablet 50 mcg PO DAILY topiramate 25 mg tablet 25 mg PO BID duloxetine 30 mg capsule,delayed release 30 mg PO DAILY Tramadol HCl [Tramadol 50mg Tab] 50 mg PO Q6HP PRN PRN Reason: pain Meloxicam 15 mg PO HS Tizanidine HCl [Zanaflex 4mg tab] 4 mg PO TID PRN PRN Reason: muscle relaxant Montelukast Sodium [Montelukast 10mg Tab] 10 mg PO HS Atorvastatin Calcium [Atorvastatin 20mg Tab] 20 mg PO HS Pantoprazole Sodium [Protonix 40mg tablet] 40 mg PO DAILY Aspirin [Aspirin 325mg Tab] 325 mg PO DAILY Discontinued Potassium Chloride 20 meq PO QID PRN PRN Reason: leg cramps
== END 2018-10-11 19:49 | disposition home or self-care (01) ==
LOC: 2ND 23:08 → ER 23:08 → 2ND 10-10 01:12
PROVIDERS: ADMIT Internal Medicine Adolescent Medicine; ATTEND Family Medicine
CPT/HCPCS: 36415; 71020; 71046; 78452; 80048; 80061; 83735; 84484; 85025; 93005; 93017; 93306; 93458; 96365; 96375; 99152; 99284; A9502; C1725; C1769; G0378; J1644; J2405; J2785; Q9967

== ENCOUNTER 2018-10-12 08:00 | Outpatient (RCR) | payer MEDICAID, SELFPAY ==
--- NOTE | 2018-09-22 15:50 | HMH.PTOPEV ---
PT Outpatient Evaluation Rehab PT Outpatient Evaluation Start: 09/22/18 15:38 Freq: Status: Active Protocol: Document 09/22/18 15:38 TOYA (Rec: 09/22/18 15:50 TOYA [id number]) Electronically Signed By Wai Sosa, PT 09/22/18 15:38 Outpatient Therapy Subjective History Subjective History Pt presents s/p CVA on 06/04/18 , L side effected. Pt reports global weakness, aphasia ( resolved), balance deficits, 2 falls, and decreased endurance. Pt reports L LE becomes heavy and weak w/ prolonged wt. bearing activities, leads to trip and falls. Pt reports episode on w/rapid increase and decrease in BP, O2, and HR d/t BP med issue, has since been resolved , 'I've felt really weak since then'. PMH: L knee sx. 'scope- meniscus, ACL'-2016 Chief Complaint Pain Gives out/Unstable Paresthesia Weakness Symptom Type Ache Dull Numbness Tingling Symptoms Relieved By Rest/Positioning Symptoms Aggravated By Sitting Standing Physical Activity Walking Prior Functional Limitations Lifting Housework Standing Sitting Squatting Walking Stairs Balance Current Functional Limitations Lifting Housework Standing Sitting Squatting Walking Stairs Balance Symptom Description Constant but Variable Level of pain today (0-10) 6 Pain scale - at its best (0-10) 2 Pain scale - at its worst (0-10) 6 Lumbopelvic Eval Palapation tenderness bilateral paraspinal tenderness Yes: 2/4 buttock tenderness Yes: 2/4 Lumbar/Sacral Palpation Findings Tenderness Manual Mu
== END 2018-10-12 08:05 | disposition home or self-care (01) ==
LOC: PT 08:00
PROVIDERS: Visit Provider Nurse Practitioner
DX: I63.9 Cerebral infarction, unspecified (principal)
CPT/HCPCS: 97163

== ENCOUNTER → 2018-10-23 10:51 | Outpatient (CLI) | payer MEDICAID, SELFPAY ==
[2018-10-23 12:29] LABS: Anion Gap 11.9 mEq/L (5-15); Blood Urea Nitrogen 19 mg/dL (7-18); Calcium 9.6 mg/dL (8.5-10.1); Carbon Dioxide 33 mmol/L (21.0-32.0); Chloride 101 mmol/L (98-107); Creatinine,Serum 0.83 mg/dL (0.55-1.02); Estimated Glomerular Filt Rate 72 ml/min (>60); GFR (African American) 87 ML/MIN (>60); Glucose 116 mg/dL (74-106); Sodium 143 mmol/L (136-145)
[2018-10-23 13:56] LABS: Potassium 2.9 mmoL/L (3.5-5.1)
== END ==
PROVIDERS: Visit Provider Nurse Practitioner Family
DX: R07.2 Precordial pain (principal); R06.09 Other forms of dyspnea; R94.30 Abnormal result of cardiovascular function study, unspecified; E66.9 Obesity, unspecified; I51.89 Other ill-defined heart diseases; Z86.73 Personal history of transient ischemic attack (TIA), and cerebral infarction without residual deficits
CPT/HCPCS: 36415; 80048

== ENCOUNTER 2018-11-02 14:55 | Outpatient (RCR) | payer MEDICAID, SELFPAY | END 2019-01-12 13:15 | disposition home or self-care (01) | LOC: PT 14:55 | PROVIDERS: Visit Provider Internal Medicine | DX: R94.30 Abnormal result of cardiovascular function study, unspecified (principal); I51.89 Other ill-defined heart diseases; R06.00 Dyspnea, unspecified; R60.9 Edema, unspecified | CPT/HCPCS: 93798 ==

== ENCOUNTER → 2018-11-04 11:43 | Outpatient (CLI) | payer MEDICAID, SELFPAY ==
[2018-11-04 13:10] LABS: Anion Gap 11.1 mEq/L (5-15); Blood Urea Nitrogen 30 mg/dL (7-18); Calcium 9.4 mg/dL (8.5-10.1); Carbon Dioxide 30 mmol/L (21.0-32.0); Chloride 102 mmol/L (98-107); Creatinine,Serum 0.93 mg/dL (0.55-1.02); Estimated Glomerular Filt Rate 63 ml/min (>60); GFR (African American) 76 ML/MIN (>60); Glucose 105 mg/dL (74-106); Potassium 4.1 mmoL/L (3.5-5.1); Sodium 139 mmol/L (136-145)
== END ==
PROVIDERS: Visit Provider Nurse Practitioner Family
DX: M79.10 Myalgia, unspecified site (principal); E87.6 Hypokalemia
CPT/HCPCS: 36415; 80048

== ENCOUNTER → 2019-01-01 09:43 | Outpatient (CLI) | payer MEDICAID, SELFPAY ==
[2019-01-01 11:58] LABS: Anion Gap 15.6 mEq/L (5-15); Blood Urea Nitrogen 17 mg/dL (7-18); Calcium 8.9 mg/dL (8.5-10.1); Carbon Dioxide 28 mmol/L (21.0-32.0); Chloride 104 mmol/L (98-107); Creatinine,Serum 0.88 mg/dL (0.55-1.02); Estimated Glomerular Filt Rate 67 ml/min (>60); GFR (African American) 81 ML/MIN (>60); Glucose 111 mg/dL (74-106); Potassium 3.6 mmoL/L (3.5-5.1); Sodium 144 mmol/L (136-145)
== END ==
PROVIDERS: Visit Provider Urology
DX: I51.89 Other ill-defined heart diseases (principal); R06.00 Dyspnea, unspecified; R60.0 Localized edema
CPT/HCPCS: 36415; 80048; 83880

== ENCOUNTER → 2019-01-05 09:21 | Outpatient (CLI) | payer MEDICAID, SELFPAY ==
--- NOTE | 2019-01-05 09:29 | MM_ITS ---
MM Dig screening mamm BI w/CAD CAD Screening COMPARISON: Digital mammograms with CAD 05/10/2017 and 03/02/2016 INDICATION: There is been previous biopsy left breast for benign disease. There is a history of breast cancer patient maternal aunt diagnosed after menopause. TECHNIQUE: Standard CC and MLO images were obtained. R2 CAD reviewed. FINDINGS: Scattered fibroglandular densities are seen throughout both breasts. There is metallic object inner quadrant left breast consistent with a loop recorder. There is a mole marker right breast. There are stable asymmetric density inner quadrant right breast. There is no suspicious lesion in either breast and there are no suspicious microcalcifications. IMPRESSION: Fibrofatty parenchyma with no suspicious lesion seen BI-RADS Category: 2 Benign Finding(s) RECOMMENDED FOLLOW-UP: 1YR - 1 YEAR FOLLOW-UP (A letter has been sent to the patient regarding results of the study.)
--- NOTE | 2019-01-05 09:30 | XR_ITS ---
XR knee LT 3V HISTORY: Knee pain ITS.REASON: JOINT PAIN ORDERING PHYSICIAN: Ramana Castro PATIENT AGE: 53 years COMPARISON: 10/12/2011 FINDINGS: There are moderate to severe osteoarthritic changes of the medial compartment with mild osteoarthritis of the lateral compartment and patellofemoral joint. No fracture or dislocation. IMPRESSION: Osteoarthritis. This has progressed since 10/12/2011
== END ==
PROVIDERS: PCP Nurse Practitioner; Visit Provider Obstetrics & Gynecology
DX: Z12.31 Encounter for screening mammogram for malignant neoplasm of breast (principal); M25.50 Pain in unspecified joint
CPT/HCPCS: 73562; 77067

== ENCOUNTER 2019-02-01 16:30 | Outpatient (RCR) | payer MEDICAID, SELFPAY ==
--- NOTE | 2019-01-16 09:07 | HMH.PTOPEV ---
PT Outpatient Evaluation Rehab PT Outpatient Evaluation Start: 01/16/19 08:55 Freq: Status: Active Protocol: Document 01/16/19 08:55 IRWINMALENA (Rec: 01/16/19 09:07 STUART [id number]) Electronically Signed By Rduolph Verdugo PT 01/16/19 08:55 Outpatient Therapy Subjective History Subjective History This is the initial physical therapy evaluation for for Anastasia Romero. Pt is a 53 y/o female referred to PT for c/o L knee pain. Pt reports she had arthroscopic debridement of meniscus and ACL in 2017 in L knee. Pt reports she did therapy and had some improvement, but recently had CVA w/ L side affect. Pt reprots she was doing therapy for CVA but her cardilogist insisted she do cardio- pulmonary therapy. Pt now reports t PT for continued PT for L knee pain and weakness. Chief Complaint Pain,Stiff,Swelling Symptom Type Ache,Throb,Sharp Symptoms Relieved By Rest/Positioning,Heat Symptoms Aggravated By Physical Activity,Twisting Prior Functional Limitations None Current Functional Limitations Housework,Squatting,Recreation Activity,Stairs Symptom Description Constant but Variable Level of pain today (0-10) 4 Pain scale - at its best (0-10) 2 Pain scale - at its worst (0-10) 8 Hip/Knee Eval Gait Observation General Gait Pattern Observation Antalgic Gait,Decrease Weight Bear (L) Assistive Device Assistive Devices None / NA Palpation Tenderness left Knee Palpation Finding Tenderness,Trigger Point MMT right Hip Strength Reason Not Measured WFL Knee Strength Reason Not Measured WFL left Hip Flexion Strength Grade 4- Good- Hip Abduction Strength Grade 4- Good- Hip Adduction Strength Grade 4- Good- Hip External Rotation Strength Grade 4- Good- Hip Internal Rotation Strength Grade 4- Good- Knee Extension Strength Grade 4- Good- Knee Flexion Strength Grade 4- Good- Knee Extensors Muscle Tone Description Mild Hypotonicity Knee Flexors Muscle Tone Description Mild Hypotonicity Hip Extensors Muscle Tone Description Mild Hypotonicity Hip Flexors Muscle Tone Description Mild Hypotonicity ROM right Knee ROM Reason Not Measured Within Functional Limits left Knee Extension Active Range of Motion ( 5 degrees) Knee Flexion Active Range of
== END 2019-02-01 16:35 | disposition home or self-care (01) ==
LOC: PT 16:30
PROVIDERS: Visit Provider Nurse Practitioner
DX: M17.12 Unilateral primary osteoarthritis, left knee (principal)
CPT/HCPCS: 97010; 97014; 97110; 97163; G0283

== ENCOUNTER → 2019-02-12 15:57 | Outpatient (CLI) | payer MEDICAID, SELFPAY ==
--- NOTE | 2019-02-12 16:01 | MR_ITS ---
MR knee LT wo con HISTORY: Left knee pain medial and anterior. ITS.REASON: PAIN IN LEFT KNEE, OTHER CHRONIC PAIN ORDERING PHYSICIAN: Jewell Dorado APRN PATIENT AGE: 53 years Comparison: 01/05/2019 TECHNIQUE: Standard multiplanar multiecho sequences are performed without contrast. FINDINGS: The ACL and TCL appear intact. The medial collateral and lateral collateral ligament complex appears intact. There is buckling of the patellar tendon but no evidence of tendon tear. Quadriceps tendon has an unremarkable appearance. There is severe osteoarthritis of the medial compartment with bone on bone. The medial meniscus is extruded medially. The anterior most aspect of the anterior horn of the medial meniscus is missing and could be due to prior meniscectomy or diffuse meniscal maceration/tear. There are no previous exams available for comparison. Please correlate with patient's surgical history. The lateral meniscus has an unremarkable appearance as does the posterior horn medial meniscus. There is decreased T1 and increased T2 signal along the proximal aspect of the medial tibial condyle and system with bone marrow edema from osteoarthritis versus osteochondrosis. Subcortical decreased T1 and increased T2 signal present in the medial femoral condyle and triangular pattern suggestive of osteochondrosis. There is severe thinning of the patellar cartilage. There is a small knee joint effusion. IMPRESSION: 1. Severe osteoarthritis of the medial compartment with bone on bone and medial extrusion of the body and anterior horn of the medial meniscus with increased T2 signal of the subarticular region of the medial femoral condyle and medial tibial plateau which may be due to osteochondrosis or reactive bone marrow edema. 2. The anterior horn medial meniscus is very small and could be due to chronic meniscal maceration or postsurgical change. 3. Severe thinning of the patellar cartilage with osteoarthritic change of the patellofemoral joint
== END ==
PROVIDERS: PCP Nurse Practitioner; Visit Provider Nurse Practitioner
DX: M25.562 Pain in left knee (principal); G89.29 Other chronic pain
CPT/HCPCS: 73721

== ENCOUNTER → 2019-03-09 07:41 | Outpatient (CLI) | payer MEDICAID, SELFPAY ==
--- NOTE | 2019-03-09 07:46 | US_ITS ---
PROCEDURE: US THYROID CLINICAL INDICATION: DYSPHAGIA Follow-up thyroid nodules COMPARISON: THY US THYROID from 04/22/2017 FINDINGS: Right lobe: The right lobe measures 1.5 x 3.9 x 1.6 cm. There is a solid slightly hypoechoic nodule upper pole right lobe measuring 0.8 by 0.9 x 0.4 cm showing homogeneous echogenicity. There is a 2nd solid nodule right lobe mid pole with slightly heterogenic echogenicity measuring 1.0 by 0.8 x 0.6 cm. There is a 3rd basically I seal colic nodule lower pole measuring 1.0 x 0.6 by 0.9 cm. Left lobe: There is a small hypoechoic nodule upper pole by 0.7 x 0.5 cm with fairly homogeneous echogenicity. There is a 2nd isoechoic nodule mid pole measuring 0.6 by 0.8 x 0.6 cm. There is a 3rd slightly hypoechoic nodule lower pole measuring 0.5 by 0.7 x 0.3 cm. There is no significant lymphadenopathy on either side of the neck. All of the thyroid nodules a basically stable unchanged in overall appearance and size from the previous exam. Isthmus: The isthmus measures 0.6 cm. Additional findings: IMPRESSION: Basically stable multinodular thyroid gland Dictated by: Dr. Pino Cavazos MD 03/09/2019 10:[address] Pino Cavazos MD in [facility] 03/09/2019 10:27
== END ==
PROVIDERS: PCP Nurse Practitioner; Visit Provider Nurse Practitioner
DX: R13.19 Other dysphagia (principal)
CPT/HCPCS: 76536

== ENCOUNTER → 2019-03-12 12:45 | Outpatient (CLI) | payer MEDICAID, SELFPAY ==
--- NOTE | 2019-03-12 12:47 | MR_ITS ---
PROCEDURE: MR HEAD/BRAIN WO CON CLINICAL INDICATION: SYNCOPE AND COLLAPSE, HEADACHE, DIZZINESS, FALLS FREQUENTLY Headaches, severe at times, dizziness COMPARISON: BRW/O MRI-BRAIN W/O from 06/22/2017 TECHNIQUE: Routine multiplanar multi echo sequences are performed without gadolinium enhancement. FINDINGS: No midline shift, mass effect, intracranial hemorrhage, hydrocephalus, or acute infarction is evident. The cerebellopontine angle, cerebellum, and brainstem are unremarkable. Unremarkable white matter signal intensity. The pituitary, optic chiasm, corpus callosum, and craniocervical junction have an unremarkable appearance. No mastoid effusion or sinus air-fluid level. There is a small asymmetric area of CSF signal intensity posterior medial to the left thalamus measuring approximately 1 cm. This may merely represent asymmetry in the subarachnoid space at this region versus a small arachnoid cyst. This is not changed compared to the previous study and is of doubtful clinical significance. IMPRESSION: No acute intracranial findings with no significant change compared to the previous exam Dictated by: Angel Gomez MD 03/15/2019 07:00 Electronically signed by Angel Gomez MD in [facility] 03/15/2019 07:00
== END ==
PROVIDERS: PCP Nurse Practitioner; Visit Provider Nurse Practitioner
DX: R55 Syncope and collapse (principal); R51 Headache; R42 Dizziness and giddiness; R29.6 Repeated falls
CPT/HCPCS: 70551

== ENCOUNTER → 2019-08-14 11:33 | Outpatient (CLI) | payer OTHER, SELFPAY ==
[2019-08-14 14:42] LABS: Alanine Aminotransferase 24 U/L (9-52); Albumin Level 3.7 g/dL (3.4-5.0); Alkaline Phosphatase 121 U/L (46-116); Anion Gap 15.6 mEq/L (5-15); Aspartate Amino Transferase 17 U/L (15-37); Bilirubin,Direct 0.1 mg/dL (0.0-0.2); Bilirubin,Indirect 0.4 mg/dL (0.0-0.9); Bilirubin,Total 0.5 mg/dL (0.2-1.0); Blood Urea Nitrogen 14 mg/dL (7-18); Calcium 9.6 mg/dL (8.5-10.1); Carbon Dioxide 25 mmol/L (21.0-32.0); Chloride 109 mmol/L (98-107); Chol/HDL Ratio 3.3 (1-3.5); Cholesterol 149 mg/dL (140-200); Creatinine,Serum 0.84 mg/dL (0.55-1.02); Estimated Glomerular Filt Rate 70 ml/min (>60); GFR (African American) 85 ML/MIN (>60); Glucose 104 mg/dL (74-106); HDL Cholesterol 45 mg/dL (29-89); LDL Cholesterol 86 mg/dL (0-130); Potassium 4.6 mmoL/L (3.5-5.1); Sodium 145 mmol/L (137-145); Total Protein,Serum 6.9 g/dL (6.4-8.2); Triglycerides 91 mg/dL (30-200); VLDL Cholesterol 18 mg/dL (0-40)
== END ==
PROVIDERS: Visit Provider Physician Assistant
DX: R06.00 Dyspnea, unspecified (principal); I25.10 Atherosclerotic heart disease of native coronary artery without angina pectoris; E78.5 Hyperlipidemia, unspecified; F41.9 Anxiety disorder, unspecified; I51.89 Other ill-defined heart diseases; R60.0 Localized edema; R94.30 Abnormal result of cardiovascular function study, unspecified
CPT/HCPCS: 36415; 80048; 80061; 80076; 83880

== ENCOUNTER 2019-10-15 15:47 | Emergency (ER) | payer OTHER, SELFPAY ==
[2019-10-15 15:47] VITALS: BP 156/79; PULSE 64; RESP 18; TEMP 36.8; O2SAT 97; BMI 35.5
--- NOTE | 2019-10-15 15:55 | CT_ITS ---
Procedure: CT ANGIO HEAD CLINICAL HISTORY: neuro symptoms Headaches with visual disturbance and left-sided deficits COMPARISON: CT HEAD/BRAIN WO CON from 10/15/2019 TECHNIQUE: IV Contrast: 100ml Optiray 350 Axial images obtained with sagittal and coronal reformats. All CT scans at the facility use one or more dose reduction, viz: automated exposure control, ma/kV adjustment per patient size (including targeted exams where dose is matched to indication, i.e. head), or iterative reconstruction technique. FINDINGS: No aneurysm, AVM, or major intracranial occlusive process is evident. No enhancing lesions. No midline shift or mass effect. IMPRESSION: Negative CTA of the brain Dictated by: Angel Gomez MD 10/15/2019 17:03 Electronically signed by Angel Gomez MD in [facility] 10/15/2019 17:03
--- NOTE | 2019-10-15 15:55 | CT_ITS ---
Procedure: CT ANGIO NECK CLINICAL HISTORY: neuro symptoms Headache, visual disturbance, left-sided deficits COMPARISON: No exams were available for comparison TECHNIQUE: IV Contrast: 100ml Optiray 350 Axial images obtained with sagittal and coronal reformats. All CT scans at the facility use one or more dose reduction, viz: automated exposure control, ma/kV adjustment per patient size (including targeted exams where dose is matched to indication, i.e. head), or iterative reconstruction technique. FINDINGS: The aortic arch and great vessels have an unremarkable appearance. There is a small segment of the proximal right common carotid artery which is not well demonstrated due to beam hardening artifact from contrast within the superior vena cava. No significant stenotic lesion or significant atheromatous changes are evident. There is a small amount of calcific and soft plaque involving the left carotid bifurcation with a mild amount of soft plaque in the left common carotid artery. There are scattered small nodes in the neck. Lung apices are clear. There is degenerative disc disease at C4-C5 with moderate bilateral foraminal narrowing. There is narrowing of the canal at 8 mm at that level. IMPRESSION: 1. No significant stenotic lesions evident. 2. Degenerative disc disease at C4-C5 with canal stenosis and bilateral foraminal narrowing Dictated by: Angel Gomez MD 10/15/2019 16:59 Electronically signed by Angel Gomez MD in [facility] 10/15/2019 16:59
--- NOTE | 2019-10-15 16:04 | HMH.EDGENADL ---
ED Disposition Clinical Impression: Left hand weakness, History of TIA (transient ischemic attack) Migraine headache with aura Qualifiers: Status migrainosus presence: without status migrainosus Intractability: not intractable Qualified Code(s): G43.109 - Migraine with aura, not intractable, without status migrainosus Disposition: Home, Self-Care Condition on Discharge: Fair Instructions: DI for Migraine Additional Instructions: You have been evaluated for left hand weakness, likely due to a complex migraine. It does not appear to be a new ischemic or hemorrhagic stroke. You should follow-up with your primary care doctor as soon as available. Take your prescribed medications for pain. Keep a headache journal. Return to the emergency department if you have new or worsening symptoms, headache, slurred speech, vision changes, numbness, weakness, tingling in your arms or legs. Referrals: Provider,Referral, [Primary Care Provider] - Time of Disposition: 17:27 - Critical Care Critical Care Time: No Attestation: On 10/15/19, the high probability of a clinically significant, sudden or life threatening deterioration of the following system(s) required my full and direct attention, intervention and personal management. The time I documented below is in addition to time spent performing reported procedures but includes the following listed in this critical care notation. Medical Decision Making - Medical Records Medical records reviewed: Yes: I reviewed the patient's medical records. - Doron Inquiry Pt receiving controlled substance: No Vital Signs: 10/15/19 15:47 Temperature 98.2 F Temperature Source Oral Pulse Rate [Radial] 64 Respiratory Rate 18 Blood Pressure [Right Arm] 156/79 H Blood Pressure Mean [Right Arm] 104 Blood Pressure Source [Right Arm] Automatic Cuff Blood Pressure Position [Right Arm] Sitting 02 Sat by Pulse Oximetry 97 Oxygen Delivery Method Room Air - Lab Data Lab Results 10/15/19 15:50: WBC 7.3, RBC 5.01, Hgb 15.3, Hct 45.4, MCV 90.7, MCH 30.6, MCHC 33.7, RDW 13.3, Plt Count 250, MPV 8.1, Neut % (Auto) 63.2, Lymph % (Auto) 29.8, Gentry % (Auto) 5.6, Eos % (Auto) 1.2, Baso % (Auto) 0.3, Neut # (Auto) 4.6, Lymph # (Auto) 2.2, Gentry # (Auto) 0.4, Eos # (Auto) 0.1, Baso # (Auto) 0.0 10/15/19 15:50: Sodium 138, Potassium 4.1, Chloride 102, Carbon Dioxide 29, Anion Gap 11.1, BUN 16, Creatinine 0.90, Estimated Creat Clear 111, Estimated GFR 65, Est GFR ( Amer) 79, Glucose 96, Calcium 9.7, Total Bilirubin 0.4, AST 29, ALT 16, Alkaline Phosphatase 115, Total Protein 7.9, Albumin 4.5, Globulin 3.4 H, Albumin/Globulin Ratio 1.3 10/15/19 15:50: PT 10.7, INR 1.03, APTT 27.5 Result diagrams: 10/15/19 15:50 10/15/19 15:50 Orders (Tests/Meds): ED MEDICATIONS Discontinued Medications Generic Name Dose Route Start Last Admin Trade Name Freq PRN Reason Stop Dose Admin Diphenhydramine HCl 12.5 mg 10/15/19 16:08 10/15/19 16:10 Benadryl 50mg/1ml Vial IV 10/15/19 16:09 12.5 mg ONCE ONE Administration Iohexol 100 ml 10/15/19 16:40 10/15/19 16:42 Rad-Omnipaque 350 100ml Bottle IV 10/15/19 16:41 100 ml ONCE ONE Administration Metoclopramide HCl 5 mg 10/15/19 17:03 10/15/19 17:08 Reglan 10mg/2ml Vial IVP 10/15/19 17:04 5 mg ONCE ONE Administration Sodium Chloride 50 ml 10/15/19 16:40 10/15/19 16:42 Rad-Ns 50ml Vial IV 10/15/19 16:41 50 ml ONCE ONE Administration Sodium Chloride 10 ml 10/15/19 16:40 10/15/19 16:42 Rad-Saline Flush 10ml Syringe IV 10/15/19 16:41 10 ml ONCE ONE Administration - CT Data CT Scan: Head Time Received: 17:[address] Reviewed: Yes: I have reviewed the patient's CT results, I have viewed the radiologist's interpretation Findings Narrative: CTA NECK IMPRESSION: 1. No significant stenotic lesions evident. 2. Degenerative disc disease at C4-C5 with canal stenosis and bilateral foraminal narrowing C
[2019-10-15 16:06] LABS: Basophils % 0.3 % (0.1-2.0); Chloride 102 mmol/L (98-107); Eosinophils # 0.1 K/mm3 (0.0-0.4); Eosinophils % 1.2 % (0.1-12.0); Hematocrit 45.4 % (37.0-47.0); Hemoglobin 15.3 g/dL (12.2-16.2); Lymphocytes # 2.2 K/mm3 (0.7-4.5); Lymphocytes % 29.8 % (10-50); Mean Corpuscular HGB Conc 33.7 g/dL (31.8-35.4); Mean Corpuscular Hemoglobin 30.6 pg (27.0-31.2); Mean Corpuscular Volume 90.7 fl (81-99); Mean Platelet Volume 8.1 fl (7.4-10.4); Monocytes # 0.4 K/mm3 (0.1-1.0); Monocytes % 5.6 % (1.7-9.3); Neutrophils # 4.6 K/mm3 (1.8-7.8); Neutrophils % 63.2 % (37.0-80.0); Platelet Count 250 K/mm3 (142-424); Potassium 4.1 mmoL/L (3.5-5.1); Red Blood Count 5.01 M/mm3 (4.20-5.40); Red Cell Distribution Width 13.3 % (11.5-17.5); Sodium 138 mmol/L (136-145); White Blood Count 7.3 K/mm3 (4.8-10.8)
[2019-10-15 16:09] LABS: Alanine Aminotransferase 16 U/L (12-78); Albumin Level 4.5 g/dl (3.5-5.0); Albumin/Globulin Ratio 1.3 (1.1-1.8); Alkaline Phosphatase 115 U/L (38-126); Anion Gap 11.1 mEq/L (5-15); Aspartate Amino Transferase 29 U/L (14-36); Bilirubin,Total 0.4 mg/dl (0.2-1.3); Blood Urea Nitrogen 16 mg/dl (7-17); Carbon Dioxide 29 mmol/L (22.0-30.0); Creatinine Clearance Estimated 111 mL/min (50-200); Estimated Glomerular Filt Rate 65 ml/min (>60); GFR (African American) 79 ML/MIN (>60); Globulin 3.4 g/dL (1.3-3.2); Total Protein,Serum 7.9 g/dl (6.3-8.2)
[2019-10-15 16:10] LABS: Calcium 9.7 mg/dl (8.4-10.2); Glucose 96 mg/dl (74-100)
--- NOTE | 2019-10-15 16:13 | CT_ITS ---
PROCEDURE: CT HEAD/BRAIN WO CON CLINICAL INDICATION: headache COMPARISON: HEADWO CT head/brain wo con from 08/27/2018 TECHNIQUE: Axial images obtained. All CT scans at the facility use one or more dose reduction, viz: automated exposure control, ma/kV adjustment per patient size (including targeted exams where dose is matched to indication, i.e. head), or iterative reconstruction technique. FINDINGS: No midline shift, mass effect, intracranial hemorrhage, hydrocephalus, or extra-axial fluid collection is evident. The calvarium has an unremarkable appearance. No mastoid effusion. No sinus air-fluid level. IMPRESSION: No acute intracranial finding Dictated by: Angel Gomez MD 10/15/2019 16:49 Electronically signed by Angel Gomez MD in [place] 10/15/2019 16:49
[2019-10-15 16:56] LABS: Activated Partial Thrombo Time 27.5 seconds (23.6-34.0); INR 1.03 (0.9-1.1); Prothrombin Time 10.7 seconds (9.4-11.8)
[2019-10-15 17:40] VITALS: BP 156/79; PULSE 64; RESP 18; TEMP 36.8; O2SAT 97
== END 2019-10-15 17:41 | disposition home or self-care (01) ==
PROVIDERS: Emergency Provider Emergency Medicine
DX: G43.109 Migraine with aura, not intractable, without status migrainosus (principal); G45.8 Other transient cerebral ischemic attacks and related syndromes; I48.91 Unspecified atrial fibrillation; E78.5 Hyperlipidemia, unspecified; I10 Essential (primary) hypertension; Z95.0 Presence of cardiac pacemaker; M79.7 Fibromyalgia; E03.9 Hypothyroidism, unspecified; Z87.891 Personal history of nicotine dependence
CPT/HCPCS: 70450; 70496; 70498; 80053; 85025; 85610; 85730; 96374; 96375; 99283; Q9967

== ENCOUNTER 2019-11-29 11:00 | Outpatient (RCR) | payer OTHER, SELFPAY | END 2019-11-29 11:05 | disposition home or self-care (01) | LOC: PT 11:00 | PROVIDERS: Visit Provider Orthopaedic Surgery Adult Reconstructive Orthopaedic Surgery | DX: M25.562 Pain in left knee (principal); Z96.652 Presence of left artificial knee joint | CPT/HCPCS: 97010; 97014; 97016; 97110; 97140; 97163; 97164; G0283 ==

== ENCOUNTER → 2020-02-05 11:12 | Outpatient (POV) | payer OTHER, SELFPAY | PROVIDERS: PCP Nurse Practitioner; Visit Provider Otolaryngology | DX: Z00.00 Encounter for general adult medical examination without abnormal findings (principal) ==

== ENCOUNTER 2020-02-05 14:00 | Outpatient (RCR) | payer OTHER, SELFPAY | END 2020-02-05 14:05 | disposition home or self-care (01) | LOC: PT 14:00 | PROVIDERS: Visit Provider Orthopaedic Surgery Adult Reconstructive Orthopaedic Surgery | DX: Z96.652 Presence of left artificial knee joint (principal); M25.562 Pain in left knee | CPT/HCPCS: 97010; 97014; 97016; 97110; 97140; 97163; G0283 ==

== ENCOUNTER → 2020-02-26 12:29 | Outpatient (CLI) | payer OTHER, SELFPAY ==
--- NOTE | 2020-02-26 12:41 | XR_ITS ---
PROCEDURE: XR CHEST PORTABLE CLINICAL HISTORY: COVID Cough and shortness of air with chest pain COMPARISON: CR CXR2V XR chest 2V from 08/27/2018 CR CXR2V XR chest 2V from 10/09/2018 CR CXR2V XR chest 2V from 11/12/[address] angio chest from 11/12/2018 FINDINGS: The cardiomediastinal silhouette and pulmonary vascularity are within normal limits. The lungs are clear without infiltrates, suspicious nodules, or pleural effusions. There is a loop recorder device projecting over the lower chest medially on the left. No acute bony anomalies. IMPRESSION: No acute findings. Dictated by: Angel Gomez MD 02/26/2020 13:04 Angel Gomez MD in [place] 02/26/2020 13:04
[2020-02-27 15:56] LABS: Covid-19 Nasal PCR Sendout Lex NOT DETECTED
== END ==
PROVIDERS: PCP Nurse Practitioner; Visit Provider Nurse Practitioner
DX: Z20.828 Contact with and (suspected) exposure to other viral communicable diseases (principal)
CPT/HCPCS: 71045; U0004

== ENCOUNTER → 2020-05-20 15:34 | Outpatient (CLI) | payer OTHER, SELFPAY ==
--- NOTE | 2020-05-20 15:37 | MM_ITS ---
PROCEDURE: MM DIG SCREENING MAMM BI W/CAD Digital Breast Tomosynthesis Included CLINICAL INDICATION: SCREENING There is a history of breast cancer in the patient's maternal aunt. There has been a previous biopsy left breast for benign disease. COMPARISON: MG DMSB DIG MAMM-SCREEN ADY W/CAD from 05/10/2017 MG DIG MAMM-SCREEN ADY from 01/05/2019 TECHNIQUE: Standard CC and MLO images and 3D Tomosynthesis was obtained. R2 CAD reviewed. FINDINGS: Scattered fibroglandular densities are seen in the central portions of both breasts. There is metallic loop recorder device within the left breast medially there is a mole marker upper right breast. There is no suspicious lesion in either breast and no suspicious microcalcifications.. IMPRESSION: Fibrofatty parenchyma with no suspicious lesions seen BI-RAD Category: 2 Benign Finding(s) FOLLOW-UP: 1YR 1 Year Follow-up (A letter has been sent to the patient regarding results of the study.) Dictated by: Dr. Pino Cavazos MD 05/23/2020 13:11 Dr. Pino Cavazos MD in [place] 05/23/2020 13:11
== END ==
PROVIDERS: PCP Nurse Practitioner; Visit Provider Nurse Practitioner
DX: Z12.31 Encounter for screening mammogram for malignant neoplasm of breast (principal)
CPT/HCPCS: 77063; 77067

== ENCOUNTER → 2020-05-21 08:58 | Outpatient (CLI) | payer OTHER, SELFPAY ==
--- NOTE | 2020-05-21 09:01 | US_ITS ---
PROCEDURE: US THYROID CLINICAL INDICATION: THYROID GOITER F/u thyroid nodules COMPARISON: US THY US THYROID from 04/22/2017 US US THYROID from 03/09/2019 FINDINGS: Right lobe: 1.5cm x 4.1cm 1.7cm Left lobe: 1.2cm x 3.5cm x 1.6cm Isthmus: The isthmus is thickened mm. There is a 10 mm isoechoic nodule along the central aspect of the isthmus which is not significantly changed There is diffuse heterogeneous echogenicity the thyroid gland with ill-defined areas of decreased echogenicity that may or not be due to small nodules overall not significantly changed. In the lower pole there is a hypoechoic nodule measuring 9 x 5 mm which is stable. On the left there is heterogeneous echogenicity with a 10 mm hypoechoic area/nodule in the upper pole probably not significantly changed given the difference in imaging technique. In the mid polar region there is a 9 mm hypoechoic area not significantly changed. In the lower pole there is a 6 mm hypoechoic region unchanged. Additional findings: IMPRESSION: Overall no significant change in the diffuse heterogeneous echogenicity of the thyroid gland with stable bilateral nodules. Stable isthmus nodule. Dictated by: Angel Gomez MD 05/22/2020 11:26 Angel Gomez MD in [place] 05/22/2020 11:26
--- NOTE | 2020-05-21 09:01 | US_ITS ---
PROCEDURE: US ABDOMEN LIMITED CLINICAL INDICATION: ABD PAIN,RUQ ABD PAIN COMPARISON: US ABDLM US abdomen limited from 02/13/2018 FINDINGS: PANCREAS: Unremarkable. No obvious mass or abnormal fluid collection. No ductal dilatation LIVER: No focal liver lesions demonstrated. Homogeneous echogenicity. No intrahepatic biliary ductal dilatation evident. There is appropriate direction of blood flow within a non dilated portal vein RIGHT KIDNEY: Unremarkable. Normal size and echogenicity. No hydronephrosis GALLBLADDER: No gallstones, gallbladder wall thickening, pericholecystic fluid, or biliary dilatation. IMPRESSION: Unremarkable limited abdominal ultrasound as detailed above disc Dictated by: Angel Gomez MD 05/21/2020 15:55 Angel Gomez MD in [place] 05/21/2020 15:55
== END ==
PROVIDERS: PCP Nurse Practitioner; Visit Provider Nurse Practitioner
DX: R10.11 Right upper quadrant pain (principal); R10.9 Unspecified abdominal pain; E04.9 Nontoxic goiter, unspecified
CPT/HCPCS: 76536; 76705

== ENCOUNTER → 2020-05-30 10:28 | Outpatient (CLI) | payer OTHER, SELFPAY ==
--- NOTE | 2020-05-30 10:31 | NM_ITS ---
PROCEDURE: NM HEPATOBILIARY W PHARM CLINICAL INDICATION: ABD PAIN COMPARISON: No exams were available for comparison TECHNIQUE: DOSE: 7.93 mCi technetium Choletec and 2 mcg of CCK FINDINGS: Homogeneous activity is present within the hepatic parenchyma. Activity is present in the gallbladder by 20 minutes. Activity is present in the small bowel by 5 minutes. The gallbladder ejection fraction is calculated to be 85 percent. CCK-The patient did not report pain or other symptoms during CCK infusion. IMPRESSION: Unremarkable hepatobiliary scan with normal gallbladder ejection fraction. No evidence of common or cystic duct obstruction. Dictated by: Angel Gomez MD 05/31/2020 10:47 Angel Gomez MD in [place] 05/31/2020 10:47
--- NOTE | 2020-05-30 11:04 | HMH.ITSHM ---
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 []tramadol TOPIRAMATE SPIRONOLACTONE METOPROLOL LEVOTHYROXINE DULOXETINE CYCLOBENZAPRINE PANTOPRAZOLE FUROSEMIDE ATORVASTATIN ASA
== END ==
PROVIDERS: PCP Nurse Practitioner; Visit Provider Nurse Practitioner
DX: R10.9 Unspecified abdominal pain (principal)
CPT/HCPCS: 78227; A9537; J2805

== ENCOUNTER → 2020-07-28 08:26 | Outpatient (POV) | payer OTHER, SELFPAY | PROVIDERS: Visit Provider Nurse Practitioner Family | DX: Z00.00 Encounter for general adult medical examination without abnormal findings (principal) ==

== ENCOUNTER → 2020-08-23 11:24 | Outpatient (CLI) | payer OTHER, SELFPAY ==
[2020-08-23 13:21] LABS: Coronavirus 19 IgG Antibody Positive (Negative); Coronavirus 19 IgM Antibody Negative (Negative)
== END ==
PROVIDERS: Visit Provider Internal Medicine Gastroenterology
DX: Z01.818 Encounter for other preprocedural examination (principal); Z20.822 Contact with and (suspected) exposure to COVID-19; Z86.16 Personal history of COVID-19; Z13.810 Encounter for screening for upper gastrointestinal disorder
CPT/HCPCS: 36415; 86328

== ENCOUNTER 2020-08-25 12:59 | Day surgery (SDC) | payer OTHER, SELFPAY ==
[2020-08-19 12:31] VITALS: BMI 35.8
[2020-08-25 13:37] VITALS: BP 148/80; PULSE 59; RESP 18; TEMP 36.3; O2SAT 99
--- NOTE | 2020-08-25 14:03 | P.PCN_ITS ---
[facility] Procedure Note Procedure Note:: Upper Endoscopy Procedure Report: Esophagogastroduodenoscopy with cold biopsies and TTS balloon dilation Endoscopost: Tra Amador II, MD Referring Physician: April MCKEON Date of Procedure: August 25, 2020 Equipment: Olympus GIF 180 standard upper endoscope Sedation: MAC sedation Indications: Mrs. Romero is a 54-year-old female who is here for diagnostic upper endoscopy secondary to some right upper quadrant pain and right precordial chest pain. She has had nausea, belching, bloating and gassiness. She reports early satiety and occasional regurgitation. She has heartburn and reflux. She has been taking Carafate, pantoprazole and the fiber bowel regimen (combined MiraLAX plus Metamucil). The patient has had multiple colonoscopies since 2014. She had a colonoscopy in [address] Endy Downey. She had subsequent colonoscopies at [facility]. She had been diagnosed with H. pylori in 2015 and treated with antibiotics. Procedure: Prior to the procedure, a history and physical exam was performed, and patient's medications and allergies were reviewed. The risks, benefits and alternatives of the sedation and procedure were discussed with the patient. All questions were answered and informed consent was obtained. The patient was brought to the procedure room. Patient identification and proposed procedure were verified by the physician and the nurse. The patient was placed in a left lateral decubitus position and the scope was passed under direct vision. Throughout the procedure, the patient's blood pressure, pulse, and oxygen saturations were monitored continuously. The upper GI endoscopy was accomplished without difficulty. The patient tolerated the procedure well. Findings: The scope was passed directly into the upper esophagus and advanced to the third portion of the duodenum. The post bulbar duodenum and duodenal bulb were normal with normal mucosa and conniventes. The scope was withdrawn through a normal duodenal bulb and pylorus into the stomach. There was bile reflux with moderate linear reactive gastropathy. There was a nodule/gastric polyp (6 mm) in the antrum of the stomach that was removed via cold biopsy. The remainder of the fundus of the stomach were grossly normal. Upon retroflexion there was no hiatal hernia. 2 biopsies were taken in the antrum and along the lesser curvature for histology to rule out gastritis and/or H pylori. The scope was then withdrawn into the esophagus. There was no evidence of reflux esophagitis, Hansen's or Schatzki's ring. There were strong tertiary contractions and evidence of moderate esophageal dysmotility. The entire esophagus was dilated to 60 [place]/20 mm with a TTS hydrostatic balloon. The remainder of the esophageal mucosa was normal. Impression: 1. Nonerosive GERD with moderate esophageal dysmotility 2. Bile reflux with linear reactive gastropathy 3. Antral nodule/polyp (6 mm) Plan: I will follow-up the biopsies. The patient does have functional dyspepsia and functional GERD with esophageal dyskinesia. We will discuss additional dietary measures and treatment options.
[2020-08-25 14:06] VITALS: O2SAT 97
[2020-08-25 14:29] VITALS: BP 94/62; PULSE 78; RESP 12; TEMP 36.6; O2SAT 92
[2020-08-25 14:39] VITALS: BP 111/68; PULSE 77; RESP 16; O2SAT 95
[2020-08-25 14:49] VITALS: BP 115/79; PULSE 75; RESP 16; O2SAT 97
[2020-08-25 14:59] VITALS: BP 124/90; PULSE 64; RESP 16; TEMP 36.6; O2SAT 100
--- NOTE | 2020-08-25 15:35 | P.PN_ITS ---
[facility] Anesthesia Checklist - Patient Identification Patient Identification: Verbal (Name & ) - Structural Data Admitted From: Home Planned Operative Procedure/s: egd Consent for Planned Operative Procedure(s) Verified: Yes Verified Documents: Surgical Consent - Additional verifications Anesthesia Reactions: No - Anesthesia Plan Anesthesia Risk discussed: Yes Anesthesia Plan: Verified ASA Class: II Anesthesia Type: General [facility] History Medical History: Reports:: Atrial Fibrillation, Depression, Hyperlipidemia, Hypertension, Internal Pacemaker, Migraine, Palpitations Denies:: Cancer, Diabetes Mellitus Type 1, Diabetes Mellitus Type 2, Lung Disease, MRSA, Seizures *Have you ever received a pneumonia vaccine?: Yes *Have you received a flu vaccine this season?: Yes Other Medical History: Reports: Arthritis, Fibromyalgia, Hormone Therapy, Hypothyroidism, Thyroid Disease, Other Anesthesia experience/problems:: none Laterality Cases: Left: Arthroscopy Knee, Carpal Tunnel Release, Total Knee Replacement, Bilateral: Other Other Surgeries: Yes: Appendectomy, Colonoscopy, , EGD, Pacemaker, Other (CYST REMOVAL L BREAST) Amputation: No Fractures: No - *Social History Last grade of school completed: 11th or 12th Smoking Status: Former smoker Tobacco Type: cigarettes # Packs/Day (cigarettes): 1 #Yrs smoked (if former smoker): 19 Alcohol Intake: never Alcohol Intake Frequency:: other Substance Use Type: denies use *Occupational Status:: other Housing: house Household Members: spouse *Travel in the last 8 weeks: None - Psychiatric History Pschychiatric History:: Reports:: Depression Family Hx:: Adopted, Diabetes, Hypertension
== END 2020-08-25 15:05 | disposition home or self-care (01) ==
LOC: OUTP 13:01
PROVIDERS: PCP Nurse Practitioner; Visit Provider Internal Medicine Gastroenterology
PROC: 0DJ08ZZ Inspection of Upper Intestinal Tract, Via Natural or Artificial Opening Endoscopic (ICD-10-PCS; CPT 43235; principal; 2020-08-25 14:00)
DX: K21.9 Gastro-esophageal reflux disease without esophagitis (principal); K22.4 Dyskinesia of esophagus; K31.9 Disease of stomach and duodenum, unspecified; K31.7 Polyp of stomach and duodenum; E78.5 Hyperlipidemia, unspecified; I10 Essential (primary) hypertension; I48.91 Unspecified atrial fibrillation; Z95.0 Presence of cardiac pacemaker; G43.909 Migraine, unspecified, not intractable, without status migrainosus; R00.2 Palpitations; M19.90 Unspecified osteoarthritis, unspecified site; Z79.899 Other long term (current) drug therapy
CPT/HCPCS: 43239; 43249; C1726

== ENCOUNTER → 2020-09-02 11:56 | Outpatient (CLI) | payer OTHER, SELFPAY ==
--- NOTE | 2020-09-02 | XR_ITS ---
PROCEDURE: XR LUMBAR SPINE MIN 4V CLINICAL INDICATION: ACUTE MIDLINE LOW BAKC PAIN W/ RT SIDED SCIATICA COMPARISON: No exams were available for comparison FINDINGS: Alignment: Normal alignment. Bony structures: No fracture or dislocation. No lytic or blastic change. Disc spaces: Degenerative disc disease is present in the lower thoracic spine and upper lumbar spine. Small anterior osteophytes are present involving the lumbar spine. Additional findings: IMPRESSION: Degenerative changes Dictated by: Angel Gomez MD 09/02/2020 16:49 Angel Gomez MD in [place] 09/02/2020 16:49
--- NOTE | 2020-09-02 | XR_ITS ---
PROCEDURE: XR HIP RT 2-3V W/PELVIS CLINICAL INDICATION: RT HIP PAIN COMPARISON: No exams were available for comparison FINDINGS: There are mild osteoarthritic changes involving the right hip. No fracture or dislocation. There are hypertrophic changes of the superior aspect of the right greater trochanter. Mixed sclerotic and lucency noted involving right greater trochanter. Minimal osteoarthritic changes are present involving the left hip is well. IMPRESSION: Mild osteoarthritis of the hips. Mixed sclerotic and lucent area of the right greater trochanter which could be response to previous trauma, infection or even neoplasm. CT may provide further evaluation. Dictated by: Angel Gomez MD 09/02/2020 16:55 Angel Gomez MD in [place] 09/02/2020 16:55
== END ==
PROVIDERS: PCP Nurse Practitioner Family; Visit Provider Nurse Practitioner Family
DX: M25.551 Pain in right hip (principal); M54.41 Lumbago with sciatica, right side
CPT/HCPCS: 72110; 73502

== ENCOUNTER → 2020-09-12 07:41 | Outpatient (CLI) | payer OTHER, SELFPAY ==
--- NOTE | 2020-09-12 07:44 | CT_ITS ---
PROCEDURE: CT HIP RT WO CON CLINICAL HISTORY: ABN RT HIP X-RAY Rt hip pain x2wks No injury COMPARISON: CR XR HIP RT 2-3V W/PELVIS from 09/02/2020 TECHNIQUE: Axial images obtained with sagittal and coronal reformats. All CT scans at the facility use one or more dose reduction, viz: automated exposure control, ma/kV adjustment per patient size (including targeted exams where dose is matched to indication, i.e. head), or iterative reconstruction technique. FINDINGS: No fracture or dislocation is evident. There is slight decrease in the joint space superiorly suggesting minimal osteoarthritic change. Enthesophyte is present at greater trochanter laterally. There was a question of a lucent region within the bone at this area. No bony destructive process is evident. The lucency was created by soft tissue between the exostosis and the greater trochanter. An additional small enthesophytes is present along the anterior aspect of the proximal femur laterally. Enthesophyte is also present along the iliac crest laterally. There is some mild prominence of the soft tissues along the enthesophyte of the greater trochanter. Inflammation of the soft tissues is a consideration. IMPRESSION: 1. No acute finding. 2. Enthesophyte/exostosis at the greater trochanter resulted in the radiographic abnormality. Mild soft tissue swelling at the enthesophyte of the greater trochanter which could be related overlying inflammation Dictated by: Angel Gomez MD 09/13/2020 13:17 Angel Gomez MD in [place] 09/13/2020 13:17
== END ==
PROVIDERS: PCP Nurse Practitioner Family; Visit Provider Nurse Practitioner Family
DX: M25.551 Pain in right hip (principal); R93.89 Abnormal findings on diagnostic imaging of other specified body structures
CPT/HCPCS: 73700

== ENCOUNTER 2020-10-10 16:00 | Outpatient (RCR) | payer OTHER, SELFPAY ==
--- NOTE | 2020-09-22 15:35 | HMH.PTOPEV ---
PT Outpatient Evaluation Rehab PT Outpatient Evaluation Start: 09/22/20 15:24 Freq: Status: Active Protocol: Document 09/22/20 15:24 TOYA (Rec: 09/22/20 15:35 TOYA [id number]) Electronically Signed By Wai Sosa, PT 09/22/20 15:24 Outpatient Therapy Subjective History Subjective History Pt reports acute injury to R hip ~3 weeks when she 'walked into the corner of the dresser ', direct impact to R greater trochanter. Pt reports immediate onset R hip pain, reports that pain has improved with Diclofenac, however, 'it 's still sore to the touch and I can't lay on that side'. PMH:fibromyalgia Chief Complaint Pain,Stiff Symptom Type Ache,Sharp,Dull Symptoms Relieved By Rest/Positioning,Heat,Ice, Prescription Meds Symptoms Aggravated By Physical Activity Prior Functional Limitations None Current Functional Limitations Housework,Squatting,Walking, Stairs Symptom Description Constant but Variable Level of pain today (0-10) 6 Pain scale - at its best (0-10) 3 Pain scale - at its worst (0-10) 7 Hip/Knee Eval Gait Observation General Gait Pattern Observation Antalgic Gait Assistive Device Assistive Devices None / NA Palpation Tenderness right Knee Palpation Overall Comment 3/4 GRT TRO Hip Palpation Findings Tenderness MMT Hip Flexion Strength Grade 4- Good- Hip Abduction Strength Grade 3+ Fair+ Hip Adduction Strength Grade 4 Good Hip Extension Strength Grade 4 Good Gluteus Tucker Strength Grade 4 Good Hip External Rotation Strength Grade 4 Good Hip Internal Rotation Strength Grade 4- Good- Knee Extension Strength Grade 4 Good Knee Flexion Strength Grade 4 Good ROM Hip Flexion w/Knee Flexed Passive Range 0-100 of Motion (degrees) Hip Flexion w/Knee Extended Passive 0-90 Range of Motion (degrees) Hip Abduction Active Range of Motion ( 0-20 degrees) Hip Abduction Passive Range of Motion ( 0-30 degrees) Outpatient Therapy Assessment Impairments Problems/Impairmments Palpation Tenderness,Impaired Range of Motion,Impaired Strength,Impaired Gait Pattern ,Impaired Walking,Impaired Stair Climbing,Impaired Squatting,Subjective C/O Pain,
== END 2020-10-10 16:05 | disposition home or self-care (01) ==
LOC: PT 16:00
PROVIDERS: PCP Nurse Practitioner Family; Visit Provider Nurse Practitioner Family
DX: M70.61 Trochanteric bursitis, right hip (principal)
CPT/HCPCS: 97010; 97014; 97033; 97035; 97110; 97163; G0283

== ENCOUNTER → 2020-10-13 14:45 | Outpatient (CLI) | payer OTHER, SELFPAY ==
--- NOTE | 2020-10-13 14:51 | MM_ITS ---
PROCEDURE: MM DIG SCREENING MAMM BI W/CAD Digital Breast Tomosynthesis Included CLINICAL INDICATION: SCREENING There is a history of breast cancer in the patient's maternal there has been a previous biopsy left breast disease. COMPARISON: MG DMSB DIG MAMM-SCREEN ADY W/CAD from 05/10/2017 MG DIG MAMM-SCREEN ADY from 01/05/2019 MG MM DIG SCREENING MAMM BI W/CAD from 05/20/2020 TECHNIQUE: Standard CC and MLO images and 3D Tomosynthesis was obtained. R2 CAD reviewed. FINDINGS: Scattered fibroglandular densities are seen in both breasts. Again noted is a loop recorder lower inner quadrant left breast. There is a stable benign-appearing asymmetric density upper-outer quadrant right breast. There is no new or suspicious lesion in either breast and no suspicious microcalcifications. IMPRESSION: Stable moderate breast density with no suspicious lesions seen BI-RAD Category: 2 Benign Finding(s) FOLLOW-UP: 1YR 1 Year Follow-up (A letter has been sent to the patient regarding results of the study.) Dictated by: Dr. Pino Cavazos MD 10/17/2020 08:04 Dr. Pino Cavazos MD in [place] 10/17/2020 08:04
--- NOTE | 2020-10-13 14:51 | XR_ITS ---
PROCEDURE: XR DEXA AXIAL SKELETON CLINICAL HISTORY: OSTEOPOROSIS SCREENING COMPARISON: No exams were available for comparison FINDINGS: The right hip BMD is 0.904 with a T-score of 0.5. The left hip BMD is 1.030 with a T-score of 0.7. The lumbar spine BMD is 1.26 with a T-score of 2.0. IMPRESSION: This patient is considered normal according to the World Health Organization criteria. Fracture risk is low. Based on these results a follow-up exam is recommended in 2 year. Dictated by: Angel Gomez MD 10/15/2020 09:41 Angel Gomez MD in [place] 10/15/2020 09:41
== END ==
PROVIDERS: PCP Nurse Practitioner Family; Visit Provider Nurse Practitioner
DX: Z12.31 Encounter for screening mammogram for malignant neoplasm of breast (principal); Z13.820 Encounter for screening for osteoporosis
CPT/HCPCS: 77063; 77067; 77080

== ENCOUNTER 2021-02-20 16:00 | Outpatient (RCR) | payer OTHER, SELFPAY ==
--- NOTE | 2021-01-30 15:17 | HMH.RHREAS ---
Rehab Reassessment Rehab OP Re-assessment Start: 01/30/21 15:12 Freq: Status: Active Protocol: Document 01/30/21 15:12 REJI (Rec: 01/30/21 15:16 REJI [id number]) Electronically Signed By Jose E Santos, PT 01/30/21 15:12 Rehab Re-assessment Subjective Subjective Patient reports 50% improvement since start of care. Objective Objective Notes AROM: -4-107 MMT: hip flx 4+5; hip abd 4+/5 ; hip add 4+/5; hip ext 4/5; hip ER/IR 4+/5; knee ext 4/5; knee flx 4+/5 Pain: 6/10 today; 9/10 at worst over past week Neuro: WNL Special tests: - Assessment Progress Assessment Progressing as Expected Assessment Notes Objective improvement as noted above. She has been experiencing some increased swelling over the past week. She will see a CLT next week to address this. Persistent funcitonal limitations with all standing/ambulatory activities. Patient goals met STG 2 Goals Not Met All others Revised Goals NA Plan Plan Continue with current POC Frequency of Therapy 2x/week Duration of therapy 4 weeks Time and Billing Re-Eval Time 15 Re-Eval Billing Units 1 PHYSICIAN CERTIFICATION: I certify the specified therapy services for Anastasia Romreo are required, authorized, and reviewed every 30 days.
== END 2021-02-20 16:05 | disposition home or self-care (01) ==
LOC: PT 16:00
PROVIDERS: PCP Internal Medicine; Visit Provider Orthopaedic Surgery Adult Reconstructive Orthopaedic Surgery
DX: M25.561 Pain in right knee (principal); Z96.651 Presence of right artificial knee joint
CPT/HCPCS: 97010; 97016; 97110; 97140; 97163; 97164; 97760

== ENCOUNTER → 2021-04-03 15:47 | Outpatient (CLI) | payer OTHER, SELFPAY ==
[2021-04-03 18:11] LABS: Alanine Aminotransferase 21 U/L (12-78); Albumin/Globulin Ratio 1.4 (1.1-1.8); Alkaline Phosphatase 109 U/L (38-126); Anion Gap 9.2 mEq/L (5-15); Aspartate Amino Transferase 25 U/L (14-36); Bilirubin,Total 0.5 mg/dl (0.2-1.3); Blood Urea Nitrogen 11 mg/dl (7-17); Calcium 9.1 mg/dl (8.4-10.2); Carbon Dioxide 30 mmol/L (22.0-30.0); Chloride 104 mmol/L (98-107); Chol/HDL Ratio 4.6 (1-3.5); Cholesterol 171 mg/dl (140-200); Estimated Glomerular Filt Rate 103 ml/min (>60); GFR (African American) 125 ML/MIN (>60); Globulin 2.8 g/dL (1.3-3.2); Glucose 81 mg/dl (74-100); HDL Cholesterol 37 mg/dl (40-60); Potassium 4.2 mmoL/L (3.5-5.1); Sodium 139 mmol/L (136-145); Total Protein,Serum 6.8 g/dl (6.3-8.2); Triglycerides 230 mg/dl (30-150); Uric Acid 6.9 mg/dl (2.5-6.2); VLDL Cholesterol 46 mg/dL (0-40)
[2021-04-03 18:15] LABS: Erythrocyte Sedimentation Rate 16 mm/hr (0-30)
[2021-04-03 18:22] LABS: C-Reactive Protein 8.3 mg/L (0-4); Direct LDL Cholesterol 93.55 mg/dL (100-129)
[2021-04-03 18:27] LABS: Free T4 (Free Thyroxine) 0.99 ng/dl (0.78-2.19)
[2021-04-05 09:09] LABS: RA Latex Turbid. <10.0 IU/mL (0.0-13.9)
[2021-04-06 18:42] LABS: Antinuclear Antibodies, IFA Positive (.)
[2021-07-01 04:02] LABS: Antinuclear Antibodies (ANA) NEGATIVE
== END ==
PROVIDERS: Visit Provider Nurse Practitioner Family
DX: E03.9 Hypothyroidism, unspecified (principal); E78.2 Mixed hyperlipidemia; M25.50 Pain in unspecified joint
CPT/HCPCS: 36415; 80053; 80061; 84439; 84443; 84550; 85651; 86038; 86140; 86431

== ENCOUNTER → 2022-01-15 12:41 | Outpatient (CLI) | payer MEDICARE, MEDICAID, SELFPAY ==
--- NOTE | 2022-01-15 12:44 | MM_ITS ---
PROCEDURE INFORMATION: Exam: MG Bilateral Screening 3D Mammography Exam date and time: 01/15/2022 1:03 PM Age: 56 years old Clinical indication: Screening mammogram TECHNIQUE: Imaging protocol: Bilateral Screening tomosynthesis and 2D mammography including computer-aided detection (CAD) when performed. COMPARISON: 1. MG MM DIG SCREENING MAMM BI W/CAD 10/13/2020 3:15 PM 2. MG MM DIG SCREENING MAMM BI W/CAD 05/20/2020 3:59 PM 3. MG DIG MAMM-SCREEN ADY 01/05/2019 10:00 AM 4. MG DMSB DIG MAMM-SCREEN ADY W/CAD 05/10/2017 3:53 PM FINDINGS: MAMMOGRAPHY: Breast composition: There are scattered areas of fibroglandular density. Mass: Stable benign-appearing subcentimeter nodules are present in the bilateral breasts. No new or morphologically suspicious nodule has developed to suggest malignancy. Architectural distortion: No new or suspicious architectural distortion. Calcifications: No new or suspicious calcifications are present Asymmetric density: No new or suspicious asymmetric density is present Skin thickening: None. Axillary adenopathy: None. IMPRESSION: No mammographic evidence of malignancy. Recommend annual screening mammography unless otherwise clinically indicated. ASSESSMENT: BI-RADS category 2: Benign
== END ==
PROVIDERS: PCP Nurse Practitioner Family; Visit Provider Nurse Practitioner Family
DX: Z12.31 Encounter for screening mammogram for malignant neoplasm of breast (principal)
CPT/HCPCS: 77063; 77067

== ENCOUNTER → 2022-07-15 14:14 | Outpatient (CLI) | payer MEDICARE, SELFPAY ==
[2022-07-15 16:16] LABS: Alanine Aminotransferase 23 U/L (12-78); Albumin Level 4.4 g/dl (3.5-5.0); Alkaline Phosphatase 116 U/L (38-126); Aspartate Amino Transferase 28 U/L (14-36); Bilirubin,Direct 0.2 mg/dl (0.0-0.4); Bilirubin,Indirect 0.3 mg/dL (0.0-0.9); Bilirubin,Total 0.5 mg/dl (0.2-1.3); Bilirubin,Unconjugated 0.3 mg/dL (0.0-1.1); Chol/HDL Ratio 6.1 (1-3.5); Cholesterol 215 mg/dl (140-200); HDL Cholesterol 35 mg/dl (40-60); Total Protein,Serum 7.3 g/dl (6.3-8.2); Triglycerides 383 mg/dl (30-150); VLDL Cholesterol 77 mg/dL (0-40)
[2022-07-15 16:27] LABS: Direct LDL Cholesterol 131.19 mg/dL (100-129)
== END ==
PROVIDERS: PCP Nurse Practitioner Family; Visit Provider Nurse Practitioner Family
DX: E78.5 Hyperlipidemia, unspecified (principal); I25.10 Atherosclerotic heart disease of native coronary artery without angina pectoris; R06.00 Dyspnea, unspecified; R94.30 Abnormal result of cardiovascular function study, unspecified; Z01.810 Encounter for preprocedural cardiovascular examination
CPT/HCPCS: 36415; 80061; 80076

== ENCOUNTER → 2022-09-22 09:21 | Day surgery (SDC) | payer MEDICARE, MEDICAID, SELFPAY ==
--- NOTE | 2022-09-22 09:27 | CA_ITS ---
APPROVED REPORT EXAM: Comprehensive 2D, Doppler, and color-flow Echocardiogram Quick Print Operator: Candi Loera, RCS, RVS Ht: 5 ft 6 in Wt: 235lbs BSA: 2.14 BP: 137/71 mmHg Rhythm: Bradycardia Indications: SOA, Loop recorder end of life-removal today. Abn EKG, CAD, Edema, FUENTES Echo Enhancing Agent Comments: Technically limited acoustic window due to large body habitus,and lung impedence 2D Dimensions IVSd 0.98 cm LVEF (Visual) 40.00 % PWd 1.06 cm LA Volume 72.20 mL LVDd 4.06 cm LA Volume Index 33.00 mL/m2 (M/F) 16-34 LVDs 3.11 cm Aortic Root 2.46 cm Left Atrium 3.70 cm LVOT 1.90 cm (M/F) 1.5-2.5 M-Mode Dimensions LA Diam 3.39 cm (1.9-4.0) LVDd 4.81 cm (3.5-5.7) Ao Diam 3.20 cm (2.0-3.7) LVDs 3.77 cm (3.5-5.7) EF (Teich) 43.70% EPSs 1.30 cm FS 21.60% EDV (Teich) 108.00 mL ESV (Teich) 60.80 mL LV Diastology E Decel Time 160.00 (160-240 msec) E/A Ratio 0.89 MED E' 5.30 (< 7 cm/sec) MED A' 7.50 cm/s E'/MED E' Ratio 17.02 (>14) LAT E' 5.90 (<10 cm/sec) LAT A' 9.70 cm/s E/LAT E' Ratio 15.29 (>14) Aortic Valve LVOT Max 90.00 (70-110 cm/s) LVOT VTI 20.49 cm AoV Peak Carlos. 112.00 (50-130 cm/s) AI PHT 330.00 ms AO Peak GR. 5.00 mmHg AO Mean GR. 2.60 (<5 mmHg) AO VTI 24.71 (18-25 cm) DEVYN (VTI) 2.35 (2.5-4.5 cm2) Mitral Valve MV A Velocity 101.00 (40-130 cm/s) E/A Ratio 0.89 MV Decel. Time 160.00 (160-240 ms) MV PHT 67.00 ms Pulmonary Valve PV Peak Velocity 100.00 (50-150 cm/s) NV End VMAX 181.00 cm/s Tricuspid Valve TR P. Velocity 237.00 cm/s RAP Estimate 10.00 mmHg RVSP 32.40 mmHg Left Ventricle Technically difficult study because of the patient factors and poor acoustic windows. Endocardial surfaces are poorly visualized. If clinically indicated repeat study with Definity contrast is recommended. Left atrium is mildly enlarged, left ventricle is normal size, mild concentric left ventricular hypertrophy, estimated ejection fraction is probably 40%, there appears to be moderate hypokinesis involving mid to distal septum, anterior apical and anterolateral wall. Grade 1 diastolic dysfunction seen with tissue Doppler evidence of late left atrial pressure. Right Ventricle Right atrium and right ventricular mildly enlarged with normal contractility. Aortic Valve Aortic valve is minimally thickened and calcified without aortic stenosis, there is trace aortic insufficiency. Mitral Valve Mitral valve is grossly normal, there is trace mitral regurgitation. Tricuspid Valve Tricuspid grossly normal, there is trace tricuspid regurgitation, calculated right ventricular systolic pressure is 32 mmHg. Pulmonic Valve Pulmonic valve is poorly visualized. Great Vessels Aortic root is normal size. Inferior vena cava is poorly visualized. Pericardium No significant pericardial effusion noted. Conclusion 1. Technically difficult study because of the patient factors and poor acoustic windows. If clinically indicated repeat study with Definity contrast is recommended. Mild biatrial enlargement, normal left ventricular size, estimated ejection fraction is probably 40% with multiple segmental wall motion abnormality described above, grade 1 diastolic dysfunction seen with tissue Doppler evidence of raise left atrial pressure. 2. Mildly enlarged right ventricle with normal contractility. 3. Trace aortic, mitral and tricus
[2022-09-22 09:54] VITALS: BMI 37.9
== END ==
PROVIDERS: PCP Nurse Practitioner Family; Visit Provider Internal Medicine
DX: I25.10 Atherosclerotic heart disease of native coronary artery without angina pectoris (principal); R06.00 Dyspnea, unspecified; R60.0 Localized edema
CPT/HCPCS: 93306

== ENCOUNTER 2022-09-23 07:52 | Day surgery (SDC) | payer MEDICARE, MEDICAID, SELFPAY ==
[2022-09-23 07:55] VITALS: BMI 37.9
[2022-09-23 08:16] VITALS: BP 156/100; PULSE 69; RESP 18; TEMP 36.9; O2SAT 95
[2022-09-23 08:32] VITALS: BP 173/100; PULSE 84; PULSE 98; RESP 18; O2SAT 97
[2022-09-23 08:38] VITALS: BP 172/91; PULSE 74; RESP 18; O2SAT 94
--- NOTE | 2022-09-23 08:39 | P.PCN_ITS ---
[facility] Loop Recorder Date: 09/23/22 Time: 08:40 Procedure Performed:: Loop recorder removal Indication:: End-of-life Technique:: Patient was brought to the cardiac Flooring Machine Operator as an outpatient. After informed consent was obtained, lidocaine with epinephrine was used to anesthetize the area over the loop recorder. Scalpel was used to dissect down to the loop recorder and forceps used for removal. Surgical glue was used for closure along with gauze and pressure dressing using Tegaderm. Patient tolerated procedure without complications. Impression:: Successful removal of loop recorder Serial Number:: Not recorded Plan:: Routine postop care
[2022-09-23 08:42] VITALS: BP 157/84; PULSE 76; RESP 18; O2SAT 96
== END 2022-09-23 08:44 | disposition home or self-care (01) ==
PROVIDERS: PCP Nurse Practitioner Family; Visit Provider Internal Medicine
DX: Z45.09 Encounter for adjustment and management of other cardiac device (principal); Z79.899 Other long term (current) drug therapy; I25.10 Atherosclerotic heart disease of native coronary artery without angina pectoris; E03.9 Hypothyroidism, unspecified
CPT/HCPCS: 33286

== ENCOUNTER → 2023-02-10 14:18 | Outpatient (CLI) | payer MEDICARE, SELFPAY ==
--- NOTE | 2023-02-10 14:28 | US_ITS ---
FINAL REPORT TECHNIQUE: Limited sonographic images of the thyroid were obtained. CLINICAL HISTORY: THYROID NODULE COMPARISON: 05/21/2020 FINDINGS: There is an echogenic, heterogeneous thyroid. The right lobe of the thyroid measures 3.4 x 1.3 x 1.5 cm. There is a solid, hypoechoic nodule in the upper pole measuring 7 x 6 x 4 mm consistent with TI-RADS category 4. This is stable since the prior. There is also a solid, hypoechoic nodule in the lower lobe measuring 8 x 5 x 7 cm consistent with TI-RADS category 4, also stable. The left lobe of the thyroid measures 3.9 x 1.4 x 1.5 cm. There is a solid, hypoechoic nodule in the lower lobe measuring 9 x 5 x 7 mm consistent with TI-RADS category 4. This is stable since the prior. The isthmus measures 0.43 cm. There is a solid, hypoechoic nodule measuring 12 mm consistent with TI-RADS category 4. IMPRESSION: Stable bilateral thyroid lobe nodules. Nodule in the isthmus measures 12 mm, not well seen on prior exam. Recommend follow-up ultrasound in 6-12 months. Reviewed, Interpreted and Dictated by Stanford Ross III, MD Transcribed by Genie Rand Authenticated and [facility]
[2023-02-10 15:39] LABS: Basophils % 0.6 % (0.1-2.0); Eosinophils # 0.1 K/mm3 (0.0-0.4); Eosinophils % 1.5 % (0.1-12.0); Hematocrit 46.9 % (37.0-47.0); Hemoglobin 15.3 g/dL (12.2-16.2); Lymphocytes # 2.6 K/mm3 (0.7-4.5); Mean Corpuscular HGB Conc 32.6 g/dL (31.8-35.4); Mean Corpuscular Hemoglobin 29.8 pg (27.0-31.2); Mean Corpuscular Volume 91.3 fl (81-99); Monocytes # 0.6 K/mm3 (0.1-1.0); Monocytes % 7.3 % (1.7-9.3); Neutrophils # 4.5 K/mm3 (1.8-7.8); Neutrophils % 57.7 % (37.0-80.0); Platelet Count 240 K/mm3 (142-424); Red Blood Count 5.13 M/mm3 (4.20-5.40); Red Cell Distribution Width 13.8 % (11.5-17.5); White Blood Count 7.8 K/mm3 (4.8-10.8)
[2023-02-10 16:27] LABS: Alanine Aminotransferase 23 U/L (12-78); Albumin Level 4.1 g/dl (3.5-5.0); Alkaline Phosphatase 98 U/L (38-126); Anion Gap 10.4 mEq/L (5-15); Aspartate Amino Transferase 27 U/L (14-36); Bilirubin,Indirect 0.5 mg/dL (0.0-0.9); Bilirubin,Total 0.5 mg/dl (0.2-1.3); Bilirubin,Unconjugated 0.6 mg/dL (0.0-1.1); Blood Urea Nitrogen 18 mg/dl (7-17); Calcium 9.2 mg/dl (8.4-10.2); Carbon Dioxide 33 mmol/L (22.0-30.0); Chloride 103 mmol/L (98-107); Chol/HDL Ratio 6.1 (1-3.5); Cholesterol 215 mg/dl (140-200); Estimated Glomerular Filt Rate 73 ml/min (>60); GFR (African American) 89 ML/MIN (>60); Glucose 89 mg/dl (74-100); HDL Cholesterol 35 mg/dl (40-60); Potassium 4.4 mmoL/L (3.5-5.1); Sodium 142 mmol/L (136-145); Total Protein,Serum 7.2 g/dl (6.3-8.2); Triglycerides 295 mg/dl (30-150); VLDL Cholesterol 59 mg/dL (0-40)
[2023-02-10 16:38] LABS: Direct LDL Cholesterol 127.39 mg/dL (100-129)
[2023-02-10 16:42] LABS: Free T4 (Free Thyroxine) 0.93 ng/dl (0.78-2.19)
[2023-02-10 17:00] LABS: Thyroid Stimulating Hormone 1.69 uIU/mL (0.465-4.68)
== END ==
PROVIDERS: Nurse Practitioner; PCP Internal Medicine; Visit Provider Otolaryngology
DX: E66.9 Obesity, unspecified (principal); E78.5 Hyperlipidemia, unspecified; I25.10 Atherosclerotic heart disease of native coronary artery without angina pectoris; R06.00 Dyspnea, unspecified; R07.9 Chest pain, unspecified; R60.9 Edema, unspecified; R94.30 Abnormal result of cardiovascular function study, unspecified; E11.9 Type 2 diabetes mellitus without complications; I63.9 Cerebral infarction, unspecified; I11.9 Hypertensive heart disease without heart failure; Z68.37 Body mass index [BMI] 37.0-37.9, adult
CPT/HCPCS: 36415; 76536; 80048; 80061; 80076; 84439; 84443; 85025

== ENCOUNTER → 2023-02-24 11:15 | Outpatient (CLI) | payer MEDICARE, SELFPAY ==
--- NOTE | 2023-02-24 11:15 | NM_ITS ---
APPROVED REPORT Exam: Nuclear Stress Test Indication: Chest pain, SOB, Palpitations, Fatigue, HTN, High cholesterol Patient Location: Outpatient Stress Tech: Koki Zuniga IN Tech:Maddison Silverio ARRT RT(R)(N) Ht: 5 ft 6 in Wt: 228 lbs Bra Size: 44DD HR: 57 bpm BP: 132/61 mmHg BSA: 2.11 m2 Rhythm: NSR, LBBB TID: 1.15 BMI: 36.7 History: Chest pain, SOB, Palpitations, Fatigue, HTN, High cholesterol Procedure: Patient received 0.4 mg of intravenous 4Lexiscan, resting heart rate 57 bpm, resting blood pressure 132/61 mmHg, with Lexiscan maximum heart rate achieved was 85 bpm which is % of the maximum predicted heart rate and blood pressure was 132/61 mmHg. With Lexiscan, patient denied any complaint of chest pain. Electrocardiogram Resting and stress imaging in both supine and prone positions demonstrate Cardiac Stress and Resting SPECT Images: Cardiac Stress and Resting SPECT images were obtained using technetium 99m Myoview 32.8 mCi stress and 10.17 mCi at rest. Resting and stress imaging in both supine and prone positions demonstrate a medium sized, moderate, fixed perfusion defect in the mid to distal anterior and anteroseptal LV back. Gated imaging demonstrates low normal global LV systolic function. There is mild hypokinesis of the mid to distal anterior and anteroseptal LV back. The septum appears asynchronous, consistent with history of LBBB. LVEF is calculated at 52%. Conclusion: Medium sized, moderate, fixed perfusion defect in the mid to distal anterior and anteroseptal LV back. No evidence of reversible ischemia. Gated imaging demonstrates low normal global LV systolic function. There is mild hypokinesis of the mid to distal anterior and anteroseptal LV back. The septum appears asynchronous, consistent with history of LBBB. LVEF is calculated at 52%. Electronically signed by : Mackenzie Jama, 02/28/2023 22:16:27
--- NOTE | 2023-02-24 13:18 | CA_ITS ---
APPROVED REPORT Exam: Pharmacologic Technologist: Koki Allen, Ht: 5 ft 6 in Wt: 234 lbs BSA: 2.14 m2 HR: 53 bpm BP: 132/61 mmHg Rhythm: NSR, LBBB Medical History Medications: Levothyroxine,,,,, Aspirin,,,,, Cephalexin,,,,, Diazepam,,,,, Metoprolol Tartrate,,,,, Pantoprazole,,,,, Estradiol,,,,, Tramadol,,,,, DulOXETINE,,,,, LoraTADINE,,,,, Aldactone,,,,, Vitamin D2,,,,, Stress Test Details Test: LEXISCAN Reason for pharmacologic stress test: physical limitation. HR Resting HR: 57 bpm Max Heart Rate (APMHR): 161 bpm Max HR Achieved: 85 bpm Target HR (85% APMHR): 137 bpm % of APMHR: 53 Recovery HR: 73 bpm BP Resting BP: 132/61 mmHg Max BP: 132/61 mmHg Recovery BP: 131.0/65.0 mmHg ECG Resting ECG: Sinus bradycardia, LBBB Stress ECG: No change Arrhythmia: None Clinical Exercise duration: 04:00 min Highest Stage Achieved: Stress ECG Conclusion Symptoms: Head discomfort, mild SOA & mild nausea. No CP. Arrhythmias/Ectopy: None ST-T Changes: No significant ST changes. Conclusion: Non-diagnostic Lexiscan stress due to LBBB. Myoview images reported separately. Test Summary REST . . . . . . . Resting REST 04:52 . . 57 . 132/ 61 . . Stage 1 01:00 . . 79 . . . . Stage 2 01:00 . . 83 . . . . Stage 3 01:00 . . 80 . 125/ 59 . . Stage 4 01:00 . . 77 . 119/ 45 . Stop exercise at 04:00 RECOVERY 01:00 . . 80 . . . . RECOVERY 02:00 . . 81 . 119/ 53 . . RECOVERY 03:00 . . 75 . 119/ 53 . . RECOVERY 04:00 . . 77 . 125/ 59 . . RECOVERY 04:55 . . 71 . 131/ 65 . . Electronically signed by : Mackenzie Jama, 02/28/2023 22:12:29
== END ==
LOC: RAD 11:15
PROVIDERS: PCP Nurse Practitioner Family; Visit Provider Nurse Practitioner
DX: E66.9 Obesity, unspecified (principal); E78.5 Hyperlipidemia, unspecified; I25.10 Atherosclerotic heart disease of native coronary artery without angina pectoris; I51.89 Other ill-defined heart diseases; R06.00 Dyspnea, unspecified; R07.9 Chest pain, unspecified; R60.9 Edema, unspecified; R94.30 Abnormal result of cardiovascular function study, unspecified; Z68.36 Body mass index [BMI] 36.0-36.9, adult
CPT/HCPCS: 78452; 93017; A9502; J2785

== ENCOUNTER → 2023-03-17 15:13 | Outpatient (CLI) | payer MEDICARE, SELFPAY ==
--- NOTE | 2023-03-17 15:20 | MM_ITS ---
PROCEDURE INFORMATION: Exam: MG Bilateral Screening 3D Mammography Exam date and time: 03/17/2023 3:12 PM Age: 57 years old Clinical indication: Screening examination TECHNIQUE: Imaging protocol: Bilateral Screening tomosynthesis and 2D mammography including computer-aided detection (CAD) when performed. COMPARISON: 1. MG MM DIG SCREENING MAMM BI W/CAD 01/15/2022 1:03 PM 2. MG MM DIG SCREENING MAMM BI W/CAD 10/13/2020 3:15 PM FINDINGS: MAMMOGRAPHY: Breast composition: There are scattered areas of fibroglandular density. Mass: None. Architectural distortion: None. Calcifications: No suspicious calcifications. Asymmetric density: None. Skin thickening: None. Axillary adenopathy: None. IMPRESSION: No mammographic evidence of malignancy. Annual screening is recommended unless otherwise clinically indicated. ASSESSMENT: BI-RADS Category 1: Negative
== END ==
PROVIDERS: PCP Nurse Practitioner Family; Visit Provider Nurse Practitioner Family
DX: Z12.31 Encounter for screening mammogram for malignant neoplasm of breast (principal)
CPT/HCPCS: 77063; 77067

== ENCOUNTER 2023-09-08 13:52 | Emergency (ER) | payer MEDICARE, SELFPAY ==
[2023-09-08] VITALS (13 sets, daily range): BP systolic 115–216; BP diastolic 64–103; PULSE 54–69; RESP 10–19; TEMP 36.4–36.6; O2SAT 92–99; BMI 36.4
--- NOTE | 2023-09-08 | ECG_ITS ---
APPROVED REPORT Exam: Resting ECG HR:70 bpm ECG Measurements Heart Rate 70 AXES [place] 173 P 64 QRSd 150 QRS -30 QT 429 T 86 QTc 451 Conclusion SINUS RHYTHM LEFT BUNDLE BRANCH BLOCK [120+ ms QRS DURATION, 80+ ms Q/S IN V1/V2, 85+ ms R IN I/aVL/V5/V6] ABNORMAL ECG UNCONFIRMED REPORT Electronically signed by : ELIZABETH LAURENT, 09/09/2023 05:37:05
--- NOTE | 2023-09-08 14:16 | CT_ITS ---
FINAL REPORT CLINICAL HISTORY: hypertensive emergency, acute confusion FINDINGS: Axial images of the head were obtained without contrast. Coronal reformatted images were also obtained.This study was performed with techniques to keep radiation doses as low as reasonably achievable (ALARA). Individualized dose reduction techniques using automated exposure control or adjustment of mA and/or kV according to the patient's size were employed. There is no evidence of intracranial hemorrhage or mass. The ventricular size is within normal limits. There is no evidence of shift of the midline structures. No abnormal extra axial fluid collection is identified. No skull abnormality is seen on the bone window images. IMPRESSION: No acute intracranial abnormality. Reviewed, Interpreted and Dictated by Stanford Ross III, MD Transcribed by Genie Rand Authenticated and . [facility]
--- NOTE | 2023-09-08 14:19 | ED_ITS ---
<Statement entered by Sera Hardy MD - 09/09/23 09:17> I was consulted by the ARMANDO, and we discussed the complexity of the problems being addressed. I approved the treatment and management plan for this patient's care in the emergency department, thus performing a substantive portion of the medical decision making. Sera Hardy MD, ADAN, FACEP Discharge Plan Disposition Patient Disposition: Home, Self-Care Condition: Good Prescriptions Prescriptions: No Action spironolactone [Aldactone] 100 mg tablet 100 mg PO DAILY tramadol 50 mg tablet 50 mg PO DAILY PRN (Reason: pain) diclofenac sodium 75 mg tablet,delayed release (DR/EC) 75 mg PO BID diazepam 2 mg tablet 2 mg PO HS PRN loratadine 10 mg tablet 10 mg PO DAILY Patient Comments: TAKE ONE (1) TABLET EVERY DAY BY ORAL ROUTE FOR 90 DAYS. losartan 25 mg tablet 25 mg PO DAILY Qty: 30 5RF levothyroxine [Synthroid] 50 mcg tablet 50 mcg PO DAILY duloxetine 30 mg capsule,delayed release(DR/EC) 30 mg PO DAILY metoprolol tartrate 25 mg tablet 25 mg PO DAILY ergocalciferol (vitamin D2) 1,250 mcg (50,000 unit) capsule 1,250 mcg PO WEEKLY Patient Comments: TAKE ONE (1) CAPSULE EVERY WEEK BY ORAL ROUTE FOR 90 DAYS. estradiol 0.01 % (0.1 mg/gram) cream vaginal cephalexin 500 mg capsule 500 mg PO BID rosuvastatin [Crestor] 40 mg tablet 40 mg PO DAILY Qty: 30 5RF Clenpiq 10 mg-3.5 gram- 12 gram/175 mL solution 175 ml PO DAILY Qty: 350 0RF Rx Instructions: take first dose at 5-9PM evening before colonoscopy; 2nd dose the next day approximately 5 hrs before colonoscopy pantoprazole 40 MG tablet,delayed release (DR/EC) 40 mg PO DAILY furosemide 40 MG tablet 40 mg PO NEEDED PRN (Reason: Edema) aspirin 81 MG tablet,delayed release (DR/EC) 81 mg PO DAILY Referrals Follow up/Referrals: Provider,Referral, MD [Primary Care Provider] - See instructions Activity Restrictions/Add. Instructions Additional Instructions/Restrictions: Please follow-up closely with cardiology. Return to PCP or to the emergency department if any return change or worsening of her symptoms. Clinical Impressions Clinical Impression: Hypertensive emergency, Acute confusion Chest pain Qualifiers: Chest pain type: unspecified Qualified Code(s): R07.9 - Chest pain, unspecified Discharge ED Provider: Zaid Martinez HPI <JOSE Quintana - Last Filed: 09/08/23 17:21> General Chief Complaint: Chest Pain Stated Complaint: CHEST PAIN Time Seen by Provider: 09/08/23 14:06 Mode of Arrival: Ambulatory Source of Information: Patient Limitations: No Limitations Description of Symptoms (Recalled from ER Triage Doc. by RN): Patient ambulatory to ED accompanied by PA from Cardiology office. Patient with complaints of right side chest pressure since this morning, arms feel heavy. Pt also expressed concerns with memory loss over past couple of weeks. History of Present Illness HPI narrative: Patient is a 57-year-old female presents to the emergency department with acute confusion and chest pain. Patient was at the cardiology clinic today for a routine cardiac visit follow-up. She was noted to be somewhat confused and hence sent to the emergency department for evaluation. At the time of my exam patient systolic blood pressure was 230 on the bedside monitor but showed what appeared to be sinus rhythm on the bedside monitor patient reports chest pain no shortness of breath fever chills hemoptysis hematochezia vomiting or diarrhea but does report nausea. Patient is oriented to self circumstance but not the year. Patient acknowledges that she feels confused but cannot describe how. She denies any loss of taste or smell inability to walk any altered sensorium she does report a headache. She has had a previous history of stroke several years ago but is not on any anticoagulants. Related Data Home Medications Medication Instructions Recorded Confirmed levothyroxine 50 mcg tablet 50 mcg PO DAILY thyroid 10/31/17 09/08/23 (Synthroid) duloxetine 30 mg capsule,delayed 30 mg PO DAILY Depression 05/02/18 09/08/23 release pantoprazole 40 mg tablet,delayed 40 mg PO DAILY GERD 10/10/18 09/08/23 release furosemide 40 mg tablet 40 mg PO NEEDED PRN Edema 11/12/18 09/08/23 spironolactone 100 mg tablet 100 mg PO DAILY Fluid 01/01/19 09/08/23 (Aldactone) tramadol 50 mg tablet 50 mg PO DAILY PRN pain 08/14/19 09/08/23 aspirin 81 mg tablet,delayed 81 mg PO DAILY heart health 08/19/20 09/08/23 release diazepam 2 mg tablet 2 mg PO HS PRN 09/16/20 09/08/23 diclofenac sodium 75 mg 75 mg PO BID 09/16/20 09/08/23 tablet,delayed release metoprolol tartrate 25 mg tablet 25 mg PO DAILY BP 09/16/20 09/08/23 ergocalciferol (vitamin D2) 1,250 1,250 mcg PO WEEKLY 07/15/22 09/08/23 mcg (50,000 unit) capsule estradiol 0.01% (0.1 mg/gram) g vaginal 07/15/22 09/08/23 vaginal cream cephalexin 500 mg capsule 500 mg PO BID 09/14/22 09/08/23 loratadine 10 mg tablet 10 mg PO DAILY 02/09/23 09/08/23 Previous Rx's Medication Instructions Recorded losartan 25 mg tablet 25 mg PO DAILY #30 tabs 02/09/23 rosuvastatin 40 mg tablet (Crestor) 40 mg PO DAILY #30 tabs 04/27/23 sod picosulf 10 mg-magnes 3.5 175 ml PO DAILY 2 doses #350 mL 09/02/23 gram-citric 12 gram/175 mL oral solution (Clenpiq) Allergies Allergy/AdvReac Type Severity Reaction Status Date / Time ketorolac Allergy Mild I-HIVES Verified 03/09/23 13:30 rosuvastatin [From Crestor] Allergy Mild Redness of Verified 09/08/23 13:21 Skin Iodinated Contrast Media Allergy Verified 03/09/23 13:30 [facility] <JOSE Quintana - Last Filed: 09/08/23 17:21> [facility] Disclaimer: The information contained in this section may have been updated after the patient was seen, as this information can be updated by other users. Medical History Encounter for pre-operative cardiovascular clearance HLD (hyperlipidemia) CAD (coronary artery disease) Social History Smoking Status: Former smoker tobacco type: cigarettes packs per day: 1 second hand exposure: No alcohol intake: never substance use type: denies use current occupational status: other Travel in the last 8 weeks: Inside the [place] household members: spouse housing: house current occupational exposures/hazards: No caffeine: Yes <JOSE Quintana - Last Filed: 09/08/23 17:21> ROS Obtained: Yes Systems reviewed as appropriate & no additional complaints except as documented Physical Exam <JOSE Quintana Last Filed: 09/08/23 17:21> General General appearance: alert and in no apparent distress Head Head exam: atraumatic and normal inspection Eye Eye exam: Present normal appearance, PERRL and EOMI; Absent conjunctival redness or jaundice ENT ENT exam: Present normal exam, normal oropharynx and mucous membranes moist Neck Neck exam: Present normal inspection, full ROM and trachea midline; Absent tenderness, meningismus or lymphadenopathy Chest Chest inspection: Present normal inspection and symmetric chest wall rise; Absent tenderness Respiratory Respiratory exam: Present normal lung sounds bilaterally; Absent respiratory distress, wheezes, stridor or accessory muscle use Cardiovascular Cardiovascular exam: Present regular rate, normal rhythm, normal heart sounds, +S1 and +S2 Abdominal Exam Abdominal exam: Present soft and normal bowel sounds; Absent tenderness, guarding or rebound Extremities Exam Extremities exam: Present normal inspection and full ROM Back Exam Back exam: Present normal inspection and full ROM Neurological Exam Neurological exam: Present alert, oriented X3, CN II-XII intact, normal gait (Patient ambulated to the bathroom without assistance but under my observation) and motor sensory deficit Psychiatric Psychiatric exam: Present normal affect and normal mood Skin Skin exam: Present warm, dry and normal color Lymphatic Lymphatic Findings: no adenopathy HEART Score <JOSE Quintana - Last Filed: 09/08/23 17:21> HEART Score HEART Score assessment performed?: Yes History (anamnesis): Moderately suspicious ECG: Non-specific disturbance Age: 45-65 years Risk factors: 3 or more risk factors Troponin: </= normal limit HEART Score: 5 Critical Care <JOSE Quintana Last Filed: 09/08/23 17:21> Critical Care Time Critical Care Time: No Medical Decision Making <JOSE Quintana Last Filed: 09/08/23 17:21> Medical Records Medical records reviewed: Yes I reviewed the patient's medical records. Doron Inquiry Pt receiving controlled substance: No Vital Signs Vital Signs: 09/08/23 13:53 09/08/23 14:34 09/08/23 14:45 Temperature 97.6 F Temperature Source Oral Pulse Rate 69 60 Pulse Rate [Left] 60 Respiratory Rate 10 L 14 19 Blood Pressure 124/73 147/68 H Blood Pressure [Right Arm] 216/103 H Blood Pressure Mean Blood Pressure Mean [Right Arm] 140 Blood Pressure Source Blood Pressure Source [Right Arm] Automatic Cuff Blood Pressure Position Blood Pressure Position [Right Arm] Sitting 02 Sat by Pulse Oximetry 99 97 97 Oxygen Delivery Method Room Air 09/08/23 14:53 09/08/23 15:00 09/08/23 15:11 Temperature Temperature Source Pulse Rate 58 L 58 L 60 Pulse Rate [Left] Respiratory Rate 16 13 Blood Pressure 127/66 122/72 Blood Pressure [Right Arm] Blood Pressure Mean Blood Pressure Mean [Right Arm] Blood Pressure Source Blood Pressure Source [Right Arm] Blood Pressure Position Blood Pressure Position [Right Arm] 02 Sat by Pulse Oximetry 96 97 Oxygen Delivery Method Room Air 09/08/23 15:12 09/08/23 15:15 09/08/23 15:30 Temperature Temperature Source Pulse Rate 60 55 L 56 L Pulse Rate [Left] Respiratory Rate 18 14 Blood Pressure 134/84 129/69 139/76 Blood Pressure [Right Arm] Blood Pressure Mean 89 Blood Pressure Mean [Right Arm] Blood Pressure Source Manual Cuff/ Auscultation Blood Pressure Source [Right Arm] Blood Pressure Position Supine Blood Pressure Position [Right Arm] 02 Sat by Pulse Oximetry 95 95 96 Oxygen Delivery Method Room Air Room Air Room Air 09/08/23 15:46 09/08/23 16:00 09/08/23 16:16 Temperature Temperature Source Pulse Rate 54 L 54 L 56 L Pulse Rate [Left] Respiratory Rate 16 12 13 Blood Pressure 115/64 120/68 125/65 Blood Pressure [Right Arm] Blood Pressure Mean Blood Pressure Mean [Right Arm] Blood Pressure Source Blood Pressure Source [Right Arm] Blood Pressure Position Blood Pressure Position [Right Arm] 02 Sat by Pulse Oximetry 93 L 96 92 L Oxygen Delivery Method Room Air Room Air Room Air Lab Data Lab results reviewed: Yes I reviewed the patient's lab results. Labs: Lab Results 09/08/23 14:00: WBC 9.1, RBC 5.29, Hgb 16.6 H, Hct 50.2 H, MCV 94.9, MCH 31.3 H, MCHC 33.0, RDW 13.6, Plt Count 260, MPV 9.2, Neut % (Auto) 62.9, Lymph % (Auto) 26.9, [place] % (Auto) 7.7, Eos % (Auto) 1.4, Baso % (Auto) 1.1, Neut # (Auto) 5.7, Lymph # (Auto) 2.4, [place] # (Auto) 0.7, Eos # (Auto) 0.1, Baso # (Auto) 0.1, PT 11.2, INR 1.04, D-Dimer 0.36, Sodium 139, Potassium 4.7, Chloride 102, Carbon Dioxide 31 H, Anion Gap 10.7, BUN 15, Creatinine 0.80, Estimated Creat Clear 123, Estimated GFR 73, Est GFR ( Amer) 89, Glucose 96, Calcium 9.4, Magnesium 2.1, Total Bilirubin 0.6, AST 41 H, ALT 28, Alkaline Phosphatase 90, Troponin I < 0.01, NT-Pro-B Natriuret Pep 37.9, Total Protein 7.2, Albumin 4.4, Globulin 2.8, Albumin/Globulin Ratio 1.6, Triglycerides 274 H, Cholesterol 135 L , LDL Cholesterol Direct 65.22 L, VLDL Cholesterol 55 H, HDL Cholesterol 32 L, C holesterol/HDL Ratio 4.2 H, TSH 1.70 09/08/23 14:25: SARS-CoV-2 (PCR) Not detected, Influenza A Untype (PCR) Not detected, Influenza Type B (PCR) Not detected 09/08/23 14:45: Urine Color Yellow, Urine Appearance Clear, Urine pH 7.5, Ur Specific Ralph 1.015, Urine Protein Negative, Urine Glucose (UA) Negative, Urine Ketones Negative, Urine Blood Negative, Urine Nitrate Negative, Urine Bilirubin Negative, Urine Urobilinogen 0.2, Ur Leukocyte Esterase 1+ A, Urine RBC None, Urine WBC Occasional, Ur Squamous Epith Cells Occasional, Urine Bacteria None 09/08/23 16:30: Troponin I 0.02 09/08/23 14:00 09/08/23 14:00 Response Orders (Tests/Meds): ED MEDICATIONS Generic Name Dose Route Start Last Admin Trade Name Freq PRN Reason Stop Dose Admin Nicardipine HCl 25 mg/ Sodium 250 mls @ 50 mls/hr 09/08/23 14:25 09/08/23 15:41 Chloride IV 10/08/23 14:24 Not Given .Q5H BAN Protocol Sodium Chloride 10 ml 09/08/23 14:10 Sodium Chloride 0.9% 10ml Flush Syringe IV 10/08/23 14:09 NEEDED PRN Maintain IV Site Discontinued Medications Generic Name Dose Route Start Last Admin Trade Name Anselmo PRN Reason Stop Dose Admin Acetaminophen 1,000 mg 09/08/23 14:13 09/08/23 14:22 Acetaminophen 1,000mg/100ml Vial IV 09/08/23 14:14 1,000 mg ONCE ONE Administration Nicardipine HCl 25 mg/ Sodium 250 mls @ 50 mls/hr 09/08/23 14:14 09/08/23 14:38 Chloride IV 10/08/23 14:13 Not Given .Q5H BAN Protocol Nicardipine HCl 25 mg 09/08/23 14:19 09/08/23 14:38 Nicardipine 25mg/10ml Vial IV 09/08/23 14:20 Not Given ONCE ONE Ondansetron HCl 4 mg 09/08/23 14:13 09/08/23 14:22 Ondansetron 4mg Odt SL 09/08/23 14:14 4 mg ONCE ONE Administration ORDERS Category Date Time Status CT head/brain wo con Stat Cat Scan 09/08/23 14:16 Completed Chest XR -- portable [XR chest portable] Stat Exams 09/08/23 14:24 Completed BNP [Brain Natriuretic Peptide] Stat Lab 09/08/23 14:00 Completed CBC w/Auto Diff [Complete Blood Count Auto Diff] Stat Lab 09/08/23 14:00 Completed CMP [Comprehensive Metabolic Panel] Stat Lab 09/08/23 14:00 Completed D-Dimer Stat Lab 09/08/23 14:00 Completed INR [Prothrombin Time INR] Stat Lab 09/08/23 14:00 Completed Lipid Panel Stat Lab 09/08/23 14:00 Completed Magnesium Stat Lab 09/08/23 14:00 Completed Rapid PCR Covid and Flu A/B Stat Lab 09/08/23 14:25 Completed TSH [Thyroid Stimulating Hormone] Stat Lab 09/08/23 14:00 Completed Trop I [Troponin I] Stat Lab 09/08/23 14:00 Completed Troponin I Q3H Lab 09/08/23 16:30 Completed Troponin I Q3H Lab 09/08/23 20:15 Ordered UA [Urinalysis and Microscopic] Stat Lab 09/08/23 14:45 Completed Urine Culture Stat Micro 09/08/23 14:45 Received MDM Narrative Medical Decision Narrative: In summary patient is a 87-year-old female who presents to the emergency department for evaluation of chest pain and acute confusion. Patient is malignantly hypertensive upon arrival with a systolic blood pressure greater than 230 at the time of my exam but with normal heart rate satting at 99% on room air, and afebrile. Physical exam is remarkable for flushed facies, tearful countenance and patient is somewhat confused/disoriented but is awake and interactive. Patient has no nuchal rigidity no meningeal signs and the remainder of her physical exam is unremarkable and nonfocal.. Differential diagnosis includes stroke, seizure, intracranial bleed, intracranial mass, PRES syndrome, ACS, etc. Initial workup will be conducted with hematologic labs twelve-lead EKG CT of the head without contrast and hypertension lowering strategies of no more than 25%. Initial interventions include Cardene drip Tylenol. Initial workup reviewed by me shows that her initial troponin is negative and the remainder of her hematologic labs are nonactionable. My informal interpretation of CT scan of the head shows no acute processes.. Upon repeat evaluation patient has had complete resolution of her chest pain and she is now normotensive with a systolic of 139 and [place] Coma Score 15 with no focal neurologic deficits or findings. Given this the patient was placed in observation status at 1533. Medical necessity for observational status is serial troponins. The patient was provided serial reevaluations and cardiac monitoring while awaiting results. Her repeat troponin wasb 0.02. 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 Total time in observation was 172 minutes. <Sera Hardy MD - Last Filed: 09/08/23 15:14> Vital Signs Vital Signs: 09/08/23 13:53 09/08/23 14:34 09/08/23 14:45 Temperature 97.6 F Temperature Source Oral Pulse Rate 69 60 Pulse Rate [Left] 60 Respiratory Rate 10 L 14 19 Blood Pressure 124/73 147/68 H Blood Pressure [Right Arm] 216/103 H Blood Pressure Mean Blood Pressure Mean [Right Arm] 140 Blood Pressure Source Blood Pressure Source [Right Arm] Automatic Cuff Blood Pressure Position Blood Pressure Position [Right Arm] Sitting 02 Sat by Pulse Oximetry 99 97 97 Oxygen Delivery Method Room Air 09/08/23 14:53 09/08/23 15:00 09/08/23 15:11 Temperature Temperature Source Pulse Rate 58 L 58 L 60 Pulse Rate [Left] Respiratory Rate 16 13 Blood Pressure 127/66 122/72 Blood Pressure [Right Arm] Blood Pressure Mean Blood Pressure Mean [Right Arm] Blood Pressure Source Blood Pressure Source [Right Arm] Blood Pressure Position Blood Pressure Position [Right Arm] 02 Sat by Pulse Oximetry 96 97 Oxygen Delivery Method Room Air 09/08/23 15:12 09/08/23 15:15 09/08/23 15:30 Temperature Temperature Source Pulse Rate 60 55 L 56 L Pulse Rate [Left] Respiratory Rate 18 14 Blood Pressure 134/84 129/69 139/76 Blood Pressure [Right Arm] Blood Pressure Mean 89 Blood Pressure Mean [Right Arm] Blood Pressure Source Manual Cuff/ Auscultation Blood Pressure Source [Right Arm] Blood Pressure Position Supine Blood Pressure Position [Right Arm] 02 Sat by Pulse Oximetry 95 95 96 Oxygen Delivery Method Room Air Room Air Room Air 09/08/23 15:46 09/08/23 16:00 09/08/23 16:16 Temperature Temperature Source Pulse Rate 54 L 54 L 56 L Pulse Rate [Left] Respiratory Rate 16 12 13 Blood Pressure 115/64 120/68 125/65 Blood Pressure [Right Arm] Blood Pressure Mean Blood Pressure Mean [Right Arm] Blood Pressure Source Blood Pressure Source [Right Arm] Blood Pressure Position Blood Pressure Position [Right Arm] 02 Sat by Pulse Oximetry 93 L 96 92 L Oxygen Delivery Method Room Air Room Air Room Air Lab Data Labs: Lab Results 09/08/23 14:00: WBC 9.1, RBC 5.29, Hgb 16.6 H, Hct 50.2 H, MCV 94.9, MCH 31.3 H, MCHC 33.0, RDW 13.6, Plt Count 260, MPV 9.2, Neut % (Auto) 62.9, Lymph % (Auto) 26.9, [place] % (Auto) 7.7, Eos % (Auto) 1.4, Baso % (Auto) 1.1, Neut # (Auto) 5.7, Lymph # (Auto) 2.4, [place] # (Auto) 0.7, Eos # (Auto) 0.1, Baso # (Auto) 0.1, PT 11.2, INR 1.04, D-Dimer 0.36, Sodium 139, Potassium 4.7, Chloride 102, Carbon Dioxide 31 H, Anion Gap 10.7, BUN 15, Creatinine 0.80, Estimated Creat Clear 123, Estimated GFR 73, Est GFR ( Amer) 89, Glucose 96, Calcium 9.4, Magnesium 2.1, Total Bilirubin 0.6, AST 41 H, ALT 28, Alkaline Phosphatase 90, Troponin I < 0.01, NT-Pro-B Natriuret Pep 37.9, Total Protein 7.2, Albumin 4.4, Globulin 2.8, Albumin/Globulin Ratio 1.6, Triglycerides 274 H, Cholesterol 135 L , LDL Cholesterol Direct 65.22 L, VLDL Cholesterol 55 H, HDL Cholesterol 32 L, C holesterol/HDL Ratio 4.2 H, TSH 1.70 09/08/23 14:25: SARS-CoV-2 (PCR) Not detected, Influenza A Untype (PCR) Not detected, Influenza Type B (PCR) Not detected 09/08/23 14:45: Urine Color Yellow, Urine Appearance Clear, Urine pH 7.5, Ur Specific Ralph 1.015, Urine Protein Negative, Urine Glucose (UA) Negative, Urine Ketones Negative, Urine Blood Negative, Urine Nitrate Negative, Urine Bilirubin Negative, Urine Urobilinogen 0.2, Ur Leukocyte Esterase 1+ A, Urine RBC None, Urine WBC Occasional, Ur Squamous Epith Cells Occasional, Urine Bacteria None 09/08/23 16:30: Troponin I 0.02 Response Orders (Tests/Meds): ED MEDICATIONS Generic Name Dose Route Start Last Admin Trade Name Freq PRN Reason Stop Dose Admin Nicardipine HCl 25 mg/ Sodium 250 mls @ 50 mls/hr 09/08/23 14:25 09/08/23 15:41 Chloride IV 10/08/23 14:24 Not Given .Q5H BAN Protocol Sodium Chloride 10 ml 09/08/23 14:10 Sodium Chloride 0.9% 10ml Flush Syringe IV 10/08/23 14:09 NEEDED PRN Maintain IV Site Discontinued Medications Generic Name Dose Route Start Last Admin Trade Name Freq PRN Reason Stop Dose Admin Acetaminophen 1,000 mg 09/08/23 14:13 09/08/23 14:22 Acetaminophen 1,000mg/100ml Vial IV 09/08/23 14:14 1,000 mg ONCE ONE Administration Nicardipine HCl 25 mg/ Sodium 250 mls @ 50 mls/hr 09/08/23 14:14 09/08/23 14:38 Chloride IV 10/08/23 14:13 Not Given .Q5H BAN Protocol Nicardipine HCl 25 mg 09/08/23 14:19 09/08/23 14:38 Nicardipine 25mg/10ml Vial IV 09/08/23 14:20 Not Given ONCE ONE Ondansetron HCl 4 mg 09/08/23 14:13 09/08/23 14:22 Ondansetron 4mg Odt SL 09/08/23 14:14 4 mg ONCE ONE Administration ORDERS Category Date Time Status CT head/brain wo con Stat Cat Scan 09/08/23 14:16 Completed Chest XR -- portable [XR chest portable] Stat Exams 09/08/23 14:24 Completed BNP [Brain Natriuretic Peptide] Stat Lab 09/08/23 14:00 Completed CBC w/Auto Diff [Complete Blood Count Auto Diff] Stat Lab 09/08/23 14:00 Completed CMP [Comprehensive Metabolic Panel] Stat Lab 09/08/23 14:00 Completed D-Dimer Stat Lab 09/08/23 14:00 Completed INR [Prothrombin Time INR] Stat Lab 09/08/23 14:00 Completed Lipid Panel Stat Lab 09/08/23 14:00 Completed Magnesium Stat Lab 09/08/23 14:00 Completed Rapid PCR Covid and Flu A/B Stat Lab 09/08/23 14:25 Completed TSH [Thyroid Stimulating Hormone] Stat Lab 09/08/23 14:00 Completed Trop I [Troponin I] Stat Lab 09/08/23 14:00 Completed Troponin I Q3H Lab 09/08/23 16:30 Completed Troponin I Q3H Lab 09/08/23 20:15 Ordered UA [Urinalysis and Microscopic] Stat Lab 09/08/23 14:45 Completed Urine Culture Stat Micro 09/08/23 14:45 Received ECG Data Tracing #1: Attestation: I reviewed this ECG and interpreted as documented below: ECG Narrative: Left bundle branch block negative Sgarbossa's criteria cannot rule out ischemia ventricular rate of 70 with sinus rhythm
[2023-09-08] MEDS: ACETAMINOPHEN 1,000MG/100ML VIAL 1000 MG IV (14:22)
[2023-09-08] MEDS: ONDANSETRON 4MG ODT 4 MG SL (14:22)
--- NOTE | 2023-09-08 14:24 | XR_ITS ---
FINAL REPORT CLINICAL HISTORY: Hypertensive emergency, acute confusion, chest jr FINDINGS: SINGLE-VIEW CHEST The heart size is normal. The mediastinum is normal. The lungs are clear. There is no pneumothorax. IMPRESSION: No acute cardiopulmonary process. Reviewed, Interpreted and Dictated by Stanford Ross III, MD Transcribed by Genie Rand Authenticated and [facility]
[2023-09-08 14:25] LABS: Basophils # 0.1 K/mm3 (0-0.2); Basophils % 1.1 % (0.1-2.0); Eosinophils # 0.1 K/mm3 (0.0-0.4); Eosinophils % 1.4 % (0.1-12.0); Hematocrit 50.2 % (37.0-47.0); Hemoglobin 16.6 g/dL (12.2-16.2); Lymphocytes # 2.4 K/mm3 (0.7-4.5); Lymphocytes % 26.9 % (10-50); Mean Corpuscular Hemoglobin 31.3 pg (27.0-31.2); Mean Corpuscular Volume 94.9 fl (81-99); Mean Platelet Volume 9.2 fl (7.4-10.4); Monocytes # 0.7 K/mm3 (0.1-1.0); Monocytes % 7.7 % (1.7-9.3); Neutrophils # 5.7 K/mm3 (1.8-7.8); Neutrophils % 62.9 % (37.0-80.0); Platelet Count 260 K/mm3 (142-424); Red Blood Count 5.29 M/mm3 (4.20-5.40); Red Cell Distribution Width 13.6 % (11.5-17.5); White Blood Count 9.1 K/mm3 (4.8-10.8)
[2023-09-08 14:29] LABS: Coronavirus 19, PCR Not Detected (NotDetected); Influenza A, PCR Not Detected (NotDetected); Influenza B, PCR Not Detected (NotDetected)
[2023-09-08 14:30] LABS: INR 1.04 (0.9-1.1); Prothrombin Time 11.2 seconds (10.1-12.5)
[2023-09-08 14:35] LABS: Alanine Aminotransferase 28 U/L (12-78); Albumin Level 4.4 g/dl (3.5-5.0); Albumin/Globulin Ratio 1.6 (1.1-1.8); Alkaline Phosphatase 90 U/L (38-126); Anion Gap 10.7 mEq/L (5-15); Aspartate Amino Transferase 41 U/L (14-36); Bilirubin,Total 0.6 mg/dl (0.2-1.3); Blood Urea Nitrogen 15 mg/dl (7-17); Calcium 9.4 mg/dl (8.4-10.2); Carbon Dioxide 31 mmol/L (22.0-30.0); Chloride 102 mmol/L (98-107); Chol/HDL Ratio 4.2 (1-3.5); Cholesterol 135 mg/dl (140-200); Creatinine Clearance Estimated 123 mL/min (50-200); Estimated Glomerular Filt Rate 73 ml/min (>60); GFR (African American) 89 ML/MIN (>60); Globulin 2.8 g/dL (1.3-3.2); Glucose 96 mg/dl (74-100); HDL Cholesterol 32 mg/dl (40-60); Magnesium 2.1 mg/dl (1.6-2.3); Potassium 4.7 mmoL/L (3.5-5.1); Sodium 139 mmol/L (136-145); Total Protein,Serum 7.2 g/dl (6.3-8.2); Triglycerides 274 mg/dl (30-150); VLDL Cholesterol 55 mg/dL (0-40)
[2023-09-08 14:45] LABS: Direct LDL Cholesterol 65.22 mg/dL (100-129)
[2023-09-08 14:46] LABS: NT Pro Brain Natriuretic Pep. 37.9 pg/mL (0-125)
[2023-09-08 14:47] LABS: D-Dimer 0.36 ug/mL (0.0-0.5)
[2023-09-08 14:51] LABS: Microscopic, Urine URINE MICROSCOPIC (MICROSCOPIC)
[2023-09-08 14:55] LABS: Troponin I < 0.01 ng/ml (0.00-0.034)
[2023-09-08 14:58] LABS: Appearance,Urine CLEAR (Clear); Bilirubin,Urine Negative (Negative); Blood, Urine Negative (Negative); Color,Urine YELLOW (Yellow); Glucose,Urine (UA) Negative (Negative); Ketones,Urine Negative (Negative); Leukocyte Esterase,Urine 1+ (Negative); Nitrate,Urine Negative (Negative); PH,Urine 7.5 (5.0-8.5); Protein,Urine Negative (Negative); Specific Gravity, Urine 1.015 (1.005-1.030); Urobilinogen,Urine 0.2 EU/dl (0.2)
--- NOTE | 2023-09-08 15:10 | PC.NURSE ---
pt went to the bathroom, ambulated back to bed, bp cuff and monitor hooked back up. bp at this time 127/66, retook the bp multi time (see chart) wnl, cardene held due to change in bp. Don aware and does not want the drip started at this time. Pt is more calm with at bs at this time
[2023-09-08 15:20] LABS: Squamous Epithelial Cell,Urine Occasional #/hpf (0-5); WBC,Urine Occasional #/hpf (0-3)
--- NOTE | 2023-09-08 16:44 | PC.NURSE ---
PT AMBULATED TO RESTROOM AND BACK TO ROOM. NURSE CEZAR JUST UPDATED PT THAT WE WERE WAITING ON TO COME BACK
[2023-09-08 17:13] LABS: Troponin I 0.02 ng/ml (0.00-0.034)
--- NOTE | 2023-09-11 10:07 | PC.NURSE ---
PRELIMINARY URINE CULTURE DISCUSSED WITH DR NICOLAS, SPOKE WITH PT AND NOTIFIED OF NEW RX CALLED INTO [facility] MACROBID 100MG PO BIDX 5 DAYS
== END 2023-09-08 17:43 | disposition home or self-care (01) ==
PROVIDERS: Physician Assistant; Emergency Provider Emergency Medicine
DX: I16.1 Hypertensive emergency (principal); R07.89 Other chest pain; B96.29 Other Escherichia coli [E. coli] as the cause of diseases classified elsewhere; B96.89 Other specified bacterial agents as the cause of diseases classified elsewhere; R41.0 Disorientation, unspecified; I44.7 Left bundle-branch block, unspecified; R51.9 Headache, unspecified; R11.0 Nausea; I11.9 Hypertensive heart disease without heart failure; I25.10 Atherosclerotic heart disease of native coronary artery without angina pectoris; E78.5 Hyperlipidemia, unspecified; E03.9 Hypothyroidism, unspecified; Z87.891 Personal history of nicotine dependence
CPT/HCPCS: 70450; 71045; 80053; 80061; 81001; 83735; 83880; 84443; 84484; 85025; 85378; 85610; 87086; 87636; 93005; 96365; 96366; 96375; 99285; J0131

== ENCOUNTER 2023-09-20 14:15 | Outpatient (CLI) | payer MEDICARE, SELFPAY ==
[2023-09-20 15:26] LABS: Basophils # 0.1 K/mm3 (0-0.2); Basophils % 1.5 % (0.1-2.0); Eosinophils # 0.1 K/mm3 (0.0-0.4); Eosinophils % 1.2 % (0.1-12.0); Hemoglobin 16.5 g/dL (12.2-16.2); Lymphocytes # 2.7 K/mm3 (0.7-4.5); Lymphocytes % 31.7 % (10-50); Mean Corpuscular HGB Conc 32.9 g/dL (31.8-35.4); Mean Corpuscular Hemoglobin 31.5 pg (27.0-31.2); Mean Corpuscular Volume 95.6 fl (81-99); Mean Platelet Volume 8.7 fl (7.4-10.4); Monocytes # 0.7 K/mm3 (0.1-1.0); Monocytes % 7.7 % (1.7-9.3); Neutrophils # 4.9 K/mm3 (1.8-7.8); Neutrophils % 57.9 % (37.0-80.0); Platelet Count 242 K/mm3 (142-424); Red Blood Count 5.23 M/mm3 (4.20-5.40); Red Cell Distribution Width 13.8 % (11.5-17.5); White Blood Count 8.5 K/mm3 (4.8-10.8)
[2023-09-20 15:41] LABS: Chloride 102 mmol/L (98-107); Potassium 4.4 mmoL/L (3.5-5.1); Sodium 139 mmol/L (136-145)
[2023-09-20 15:44] LABS: Alanine Aminotransferase 31 U/L (12-78); Albumin Level 4.3 g/dl (3.5-5.0); Albumin/Globulin Ratio 1.6 (1.1-1.8); Alkaline Phosphatase 107 U/L (38-126); Anion Gap 9.4 mEq/L (5-15); Aspartate Amino Transferase 35 U/L (14-36); Bilirubin,Total 0.6 mg/dl (0.2-1.3); Blood Urea Nitrogen 12 mg/dl (7-17); Calcium 9.5 mg/dl (8.4-10.2); Carbon Dioxide 32 mmol/L (22.0-30.0); Estimated Glomerular Filt Rate 64 ml/min (>60); GFR (African American) 78 ML/MIN (>60); Globulin 2.7 g/dL (1.3-3.2); Glucose 74 mg/dl (74-100)
[2023-09-21 15:38] LABS: Deamidated Gliadin Abs, IgA 4 units (0-19); Deamidated Gliadin Abs, IgG 3 units (0-19); Endomysial IgA Antibody Negative (Negative); Tissue Transglutaminase IgA Ab <2 U/mL (0-3); Tissue Transglutaminase IgG Ab <2 U/mL (0-5)
[2023-09-23 14:59] LABS: Reticulin IgA Antibody Negative titer (Neg:<1:2.5)
[2023-09-24 12:37] LABS: Antinuclear Antibodies, IFA Positive
== END 2023-09-20 23:59 ==
LOC: LAB 14:16
PROVIDERS: PCP Nurse Practitioner Family; Visit Provider Allergy & Immunology
DX: L30.8 Other specified dermatitis (principal); E04.1 Nontoxic single thyroid nodule; L29.8 Other pruritus; E66.9 Obesity, unspecified; Z68.35 Body mass index [BMI] 35.0-35.9, adult
CPT/HCPCS: 36415; 80053; 82306; 83516; 83520; 85025; 86038; 86255; 86256

== ENCOUNTER 2023-09-30 11:45 | Outpatient (CLI) | payer MEDICARE, SELFPAY ==
--- NOTE | 2023-09-30 | CA_ITS ---
APPROVED REPORT Exam: Pharmacologic Technologist: Laurie Burleson, Ht: 5 ft 6 in Wt: 221 lbs BSA: 2.09 m2 HR: 63 bpm BP: 133/77 mmHg Rhythm: NSR, LBBB Medical History Medical History: Hyperlipidemia, Smoking Medications: Levothyroxine,,,,, Aspirin,,,,, Metoprolol Tartrate,,,,, Pantoprazole,,,,, Tramadol,,,,, DulOXETINE,,,,, Nitroglycerin,,,,, SpirOnolactone,,,,, EnTRESTO,,,,, EMpagliflozin,,,,, Vit D2,,,,, NitrofurantioIN,,,,, Allergies: KETOROLAC, ROSUVASTATIN, IODINATED CONTRAST Cardiac Risk Factors: Hyperlipidemia, Smoking Stress Test Details Test: LEXISCAN HR Resting HR: 63 bpm Max Heart Rate (APMHR): 161 bpm Max HR Achieved: 93 bpm Target HR (85% APMHR): 137 bpm % of APMHR: 58 Recovery HR: 70 bpm BP Resting BP: 133/77 mmHg Max BP: 133/77 mmHg Recovery BP: 120.0/64.0 mmHg ECG Resting ECG: NSR, LBBB Stress ECG: No significant ST changes Clinical Exercise duration: 04:10 min Highest Stage Achieved: Stress ECG Conclusion PT PLACED IN [place] POSITION PT HAD SOA, LIGHT HEADED, HEADACHE, AND MILD STOMACH DISCOMFORT NO SIGNIFICANT ST CHANGES CONCLUSION: NON-DIAGNOSTIC LEXISCAN STRESS DUE TO BASELINE LBBB MYOVIEW IMAGES REPORTED SEPARATELY Test Summary REST 03:50 . . 63 . 133/ 77 . . Stage 1 01:00 . . 89 . . . . Stage 2 01:00 . . 91 . 120/ 63 . . Stage 3 01:00 . . 88 . 123/ 58 . . Stage 4 01:00 . . 87 . 109/ 56 . . Stage 4 01:10 . . 87 . 109/ 56 . Stop exercise at 04:10 RECOVERY 01:00 . . 88 . . . . RECOVERY 02:00 . . 85 . 94/ 57 . . RECOVERY 03:00 . . 83 . 113/ 62 . . RECOVERY 04:00 . . 85 . 113/ 62 . . RECOVERY 05:00 . . 80 . 123/ 59 . . RECOVERY 06:00 . . 84 . 123/ 59 . . RECOVERY 07:00 . . 78 . 123/ 68 . . RECOVERY 08:00 . . 75 . 124/ 76 . . RECOVERY 09:00 . . 73 . 124/ 76 . . RECOVERY 09:58 . . 76 . 124/ 76 . . Electronically signed by : Mackenzie Jama MD 10/03/2023 10:50:08
--- NOTE | 2023-09-30 11:46 | NM_ITS ---
APPROVED REPORT Exam: Nuclear Stress Test Indication: Chest pain, SOB, HTN, High cholesterol Patient Location: Outpatient Stress Tech: Laurie Burleson [place] Tech:Maddison SilverioAYLEEN RT(R)(N) Ht: 5 ft 6 in Wt: 216 lbs Bra Size: 44DD HR: 63 bpm BP: 133/77 mmHg BSA: 2.07 m2 TID: 1.39 BMI: 34.8 History: Chest pain, SOB, HTN, High cholesterol Procedure: Patient received 0.4 mg of intravenous Lexiscan, resting heart rate 63 bpm, resting blood pressure 133/77 mmHg, with Lexiscan maximum heart rate achieved was 93 bpm which is % of the maximum predicted heart rate and blood pressure was 133/77 mmHg. With Lexiscan, patient denied any complaint of chest pain. Cardiac Stress and Resting SPECT Images: Cardiac Stress and Resting SPECT images were obtained using technetium 99m Myoview 32.5 mCi stress and 10.68 mCi at rest. Resting and stress imaging in supine and prone positions demonstrate a medium sized, moderate, fixed perfusion defect in the mid to distal anterior, septal, and anteroseptal LV back towards the LV apex. There is also increased transient ischemic dilatation ratio (TID 1.39), suggestive of possible multivessel disease or balanced ischemia. Gated imaging demonstrates normal global LV systolic function. There is mild reduction and the distal anterior and anteroseptal LV back. LVEF is calculated at 54%. Conclusion: Medium sized, moderate, fixed perfusion defect in the mid to distal anterior, septal, and anteroseptal LV back towards the LV apex. There is also increased transient ischemic dilatation ratio (TID 1.39), suggestive of possible multivessel disease or balanced ischemia. Gated imaging demonstrates normal global LV systolic function. There is mild reduction and the distal anterior and anteroseptal LV back. LVEF is calculated at 54%. Electronically signed by : Mackenzie Jama MD 10/05/2023 12:59:31
--- NOTE | 2023-09-30 12:32 | CA_ITS ---
APPROVED REPORT EXAM: Comprehensive 2D, Doppler, and color-flow Echocardiogram Grid Operator: Candi Loera, RCS, RVS Ht: 5 ft 6 in Wt: 221lbs BSA: 2.09 BP: 136/76 mmHg Indications: Diastolic dysfunction, CAD, CP, Abn EKG, Exsmoker, obesity, HTN, HLD 2D Dimensions IVSd 1.29 cm LVEF (Visual) 67.90 % PWd 0.90 cm LA Volume 27.50 mL LVDd 4.71 cm LA Volume Index 12.90 mL/m2 (M/F) 16-34 LVDs 2.93 cm EF AP4 55.10 % Left Atrium 3.10 cm GL Strain -24.5 % M-Mode Dimensions RVDd 1.47 cm (0.9-2.6) LA Diam 3.87 cm (1.9-4.0) LVDd 4.95 cm (3.5-5.7) LVDs 3.51 cm (3.5-5.7) IVSd 0.97 cm (0.6-1.1) PWd 0.94 cm (0.6-1.1) EF (Teich) 55.70% EPSs 0.87 cm FS 29.10% EDV (Teich) 115.50 mL TAPSE 2.26 (<1.7) ESV (Teich) 51.20 mL LV Diastology E Decel Time 167 (160-240 msec) E/A Ratio 0.74 MED A' 8.20 cm/s LAT A' 9.40 cm/s Aortic Valve DEVYN Index 0.84 cm2/m2 AoV Peak Carlos. 121.0 (50-130 cm/s) AO Peak GR. 5.90 mmHg AO Mean GR. 2.90 (<5 mmHg) AO VTI 23.1 (18-25 cm) DEVYN (VTI) 1.80 (2.5-4.5 cm2) Mitral Valve MV A Velocity 93.0 (40-130 cm/s) E/A Ratio 0.74 Pulmonary Valve PV Peak Velocity 126.0 (50-150 cm/s) OR End VMAX 163.0 cm/s Tricuspid Valve TR P. Velocity 252.00 cm/s RAP Estimate 10.00 mmHg RVSP 35.40 mmHg Left Ventricle The left ventricle is normal size. The left ventricular systolic function is normal. The left ventricular ejection fraction is within the normal range. There is increased LV wall thickness. There is mild hypokinesis of the septal and anteroseptal LV back. The left ventricular diastolic function is normal. LVEF is 55%. Right Ventricle The right ventricle is normal size. The right ventricular systolic function is normal. Atria The left atrium size is normal. The right atrium size is normal. There is no Doppler evidence of interatrial shunt. Aortic Valve The aortic valve is mildly thickened. There is no aortic valvular stenosis. No aortic regurgitation is present. Mitral Valve The mitral valve leaflets are mildly thickened. No evidence of mitral valve stenosis. Trace mitral regurgitation. Tricuspid Valve The tricuspid valve leaflets are thin and pliable. Mild tricuspid regurgitation. RVSP is 24 mmHg + RA pressure. Pulmonic Valve The pulmonary valve is normal in structure. Mild pulmonic regurgitation. Great Vessels The aortic root is normal in size. The ascending aorta is not well-visualized. The IVC is not well-visualized. Pericardium There is no pericardial effusion. Other Information Study Quality: Fair Conclusion Normal biventricular systolic function. Mild hypokinesis of the septal and anteroseptal LV back. Mild TR, mild PI. Electronically signed by : Mackenzie Jama MD 10/03/2023 13:50:59
[2023-09-30] MEDS: ISOTOPE MYOVIEW (PER STUDY) 1 DOSE IV (13:31)
[2023-09-30] MEDS: SODIUM CHLORIDE 0.9% 10ML SYR (RAD ONLY) 10 ML IV ×2 (13:31)
[2023-09-30] MEDS: REGADENOSON 0.4MG/5ML SYRINGE 0.400000000000000022 MG IV (13:31)
== END 2023-09-30 23:59 ==
LOC: RAD 11:46
PROVIDERS: PCP Nurse Practitioner Family; Visit Provider Physician Assistant
DX: R07.9 Chest pain, unspecified (principal); R41.0 Disorientation, unspecified; I16.1 Hypertensive emergency; Z01.810 Encounter for preprocedural cardiovascular examination; I25.10 Atherosclerotic heart disease of native coronary artery without angina pectoris; E78.5 Hyperlipidemia, unspecified; I51.89 Other ill-defined heart diseases; R94.31 Abnormal electrocardiogram [ECG] [EKG]
CPT/HCPCS: 78452; 93017; 93018; 93306; A9502; J2785

== ENCOUNTER 2023-10-19 07:39 | Day surgery (SDC) | payer MEDICARE, SELFPAY ==
[2023-10-19] VITALS (12 sets, daily range): BP systolic 54–131; BP diastolic 44–84; PULSE 54–73; RESP 15–18; TEMP 36.9; O2SAT 90–100; BMI 35.6
--- NOTE | 2023-10-19 07:08 | IR_ITS ---
APPROVED REPORT Patient Location: Outpatient PROCEDURES Left heart catheterization Left ventriculogram Selective coronary angiogram INDICATION Abnormal Myoview, Angina pectoris, Informed consent was obtained prior to the procedure. COMPLICATIONS NONE Estimated Blood Loss: LESS THAN 10 ML TECHNIQUE One percent lidocaine used to anesthetize the right anterior aspect of the wrist. The right radial artery was accessed via the Seldinger technique. A 6 [place] sheath was placed in the right radial artery. 2.5 mg of Verapamil, 800 mcg of nitroglycerin, 1mg Lidocaine and 5000 U Heparin were given through the arterial sheath. The papa catheter was also used to perform left heart catheterization, left ventriculogram and selective coronary angiogram. At the end of the procedure the sheath was removed good hemostasis was achieved using Traclet band, patient was transferred to the postop holding area in stable condition. ANGIOGRAPHIC RESULTS The left main artery Normal The left anterior descending artery Proximally normal with mid vessel 10 to 20% luminal irregularity The circumflex artery Nondominant normal The right coronary artery Dominant with proximal mid vessel 10% luminal irregularity The STEINER ventriculogram reveals Normal 65% The left ventricular end-diastolic pressure 15 mmHg IMPRESSION Slow flow down the right coronary artery consistent with endothelial dysfunction Mild nonflow limiting coronary disease Normal ejection fraction Borderline LVEDP PLAN 1. Medical management Electronically signed by : William Sneed MD 10/19/2023 10:07:16
[2023-10-19 08:34] LABS: Basophils # 0.2 K/mm3 (0-0.2); Basophils % 2.3 % (0.1-2.0); Eosinophils # 0.1 K/mm3 (0.0-0.4); Eosinophils % 1.9 % (0.1-12.0); Hematocrit 48.4 % (37.0-47.0); Hemoglobin 16.2 g/dL (12.2-16.2); Lymphocytes % 26.9 % (10-50); Mean Corpuscular HGB Conc 33.4 g/dL (31.8-35.4); Mean Corpuscular Hemoglobin 31.5 pg (27.0-31.2); Mean Corpuscular Volume 94.4 fl (81-99); Mean Platelet Volume 8.7 fl (7.4-10.4); Monocytes # 0.5 K/mm3 (0.1-1.0); Monocytes % 7.2 % (1.7-9.3); Neutrophils # 4.6 K/mm3 (1.8-7.8); Neutrophils % 61.7 % (37.0-80.0); Platelet Count 229 K/mm3 (142-424); Red Blood Count 5.13 M/mm3 (4.20-5.40); Red Cell Distribution Width 13.9 % (11.5-17.5); White Blood Count 7.4 K/mm3 (4.8-10.8)
[2023-10-19 08:47] LABS: Chloride 104 mmol/L (98-107)
[2023-10-19 08:48] LABS: Sodium 140 mmol/L (136-145)
[2023-10-19 08:51] LABS: Blood Urea Nitrogen 13 mg/dl (7-17); Calcium 9.7 mg/dl (8.4-10.2); Carbon Dioxide 31 mmol/L (22.0-30.0); Creatinine Clearance Estimated 107 mL/min (50-200); Estimated Glomerular Filt Rate 64 ml/min (>60); GFR (African American) 78 ML/MIN (>60); Glucose 109 mg/dl (74-100)
[2023-10-19] MEDS: NITROGLYCERIN 800MCG/8ML SYR (CATH LAB) 800 MCG IA (09:25)
[2023-10-19] MEDS: 0.9 % SODIUM CHLORIDE 500 ML 25 ML IV (09:25)
[2023-10-19] MEDS: HEPARIN 1,000 UNITS/500ML NS (CATH LAB) 3000 UNIT IV (09:25)
[2023-10-19] MEDS: LIDOCAINE 1% 10ML MDV 20 ML IJ (09:26)
[2023-10-19] MEDS: METHYLPREDNISOLONE SOD SUCC 125MG VIAL 125 MG IV (09:26)
[2023-10-19] MEDS: VERAPAMIL 2.5MG/ML 2ML VIAL 2.5 MG IV (09:26)
[2023-10-19] MEDS: HEPARIN 1,000 UNITS/ML 10ML VIAL (CATH LAB) 10000 UNIT IV (09:26)
[2023-10-19] MEDS: diphenhydrAMINE 50MG/ML VIAL 50 MG IV (09:26)
[2023-10-19] MEDS: FAMOTIDINE 20MG/2ML VIAL 20 MG IV (09:27)
[2023-10-19] MEDS: MIDAZOLAM HCL 1MG/1ML 5ML VIAL 1 MG IV (10:03)
[2023-10-19] MEDS: FENTANYL 100MCG/2ML VIAL 50 MCG IV (10:03)
[2023-10-19] MEDS: IOPAMIDOL-370 (76%);100ML BOTTLE 50 ML IV (10:34)
== END 2023-10-19 12:54 | disposition home or self-care (01) ==
PROVIDERS: PCP Nurse Practitioner Family; Visit Provider Internal Medicine
DX: I25.118 Atherosclerotic heart disease of native coronary artery with other forms of angina pectoris (principal); Z79.899 Other long term (current) drug therapy; E78.5 Hyperlipidemia, unspecified; R94.31 Abnormal electrocardiogram [ECG] [EKG]; Z87.891 Personal history of nicotine dependence; R41.0 Disorientation, unspecified; I50.20 Unspecified systolic (congestive) heart failure; I11.0 Hypertensive heart disease with heart failure
CPT/HCPCS: 80048; 85025; 93458; 99152; C1725; C1760; C1769; J1644; Q9967

== ENCOUNTER 2023-11-15 12:06 | Outpatient (CLI) | payer MEDICARE, SELFPAY ==
--- NOTE | 2023-11-15 12:08 | US_ITS ---
FINAL REPORT CLINICAL HISTORY: thyroid nodule COMPARISON: 02/10/2023 FINDINGS: Sonographic images of the thyroid gland were obtained. The right thyroid lobe measures 4.6 cm. in length. The left thyroid lobe measures 4.6 cm. in length. The thyroid isthmus measures 0.4 cm. There is a heterogeneous echotexture of the thyroid gland, with several nodules in each lobe of the thyroid gland. The largest nodule is in the right lobe of the thyroid, measuring 10 x 10 x 5 mm in size, solid, hypoechoic, a TI-RADS category 4 nodule. Previously this nodule measured 9 x 7 x 5 mm in size. There are several other small nodules which are visually stable when compared to the prior exam. There is a nodule noted in the isthmus on the prior ultrasound, that on today's exam measures 12 x 10 x 3 mm in size, was previously noted to measure 12 mm in size. This appears visually slightly increased in size when compared to the prior exam. IMPRESSION: Heterogeneous echotexture and multiple nodules remain present in the thyroid gland. The majority of nodules are stable in size and appearance. There is a slight increase in the size of the nodule in the isthmus of the thyroid gland, and would recommend 12-month follow-up thyroid ultrasound for further evaluation. Reviewed, Interpreted and Dictated by Stanford Ross III, MD Transcribed by Linda Fernandez Authenticated and [facility]
[2023-11-15 13:52] LABS: Free T4 (Free Thyroxine) 0.94 ng/dl (0.78-2.19)
[2023-11-15 14:07] LABS: Thyroid Stimulating Hormone 1.54 uIU/mL (0.465-4.68)
== END 2023-11-15 23:59 | disposition home or self-care (01) ==
LOC: RAD 12:08
PROVIDERS: PCP Nurse Practitioner Family; Visit Provider Nurse Practitioner
DX: E04.1 Nontoxic single thyroid nodule (principal)
CPT/HCPCS: 36415; 76536; 84439; 84443

== ENCOUNTER 2024-05-17 12:31 | Outpatient (CLI) | payer MEDICARE, MEDICAID, SELFPAY ==
--- NOTE | 2024-05-17 12:38 | MM_ITS ---
PROCEDURE INFORMATION: Exam: MG Bilateral Screening 3D Mammography Exam date and time: 05/17/2024 12:47 PM Age: 58 years old Clinical indication: Screening examination TECHNIQUE: Imaging protocol: Bilateral Screening tomosynthesis and 2D mammography including computer-aided detection (CAD) when performed. COMPARISON: MG MM DIG SCREENING MAMM BI W/CAD 03/17/2023 3:12 PM FINDINGS: MAMMOGRAPHY: Breast composition: There are scattered areas of fibroglandular density. Mass: No suspicious masses. Architectural distortion: None. Calcifications: No suspicious calcifications. Asymmetric density: None. Skin thickening: None. Axillary adenopathy: None. IMPRESSION: No mammographic evidence of malignancy. Annual screening is recommended unless otherwise clinically indicated. ASSESSMENT: BI-RADS Category 1: Negative.
--- NOTE | 2024-05-17 12:38 | XR_ITS ---
PROCEDURE INFORMATION: Exam: XR Left Foot Exam date and time: 05/17/2024 12:40 PM Age: 58 years old Clinical indication: Injury or trauma; Other: Crushing; Foot; Left; Additional info: Crushing injury of left foot TECHNIQUE: Imaging protocol: Radiologic exam of the left foot. Views: 1 or 2 views. COMPARISON: No relevant prior studies available. FINDINGS: Bones/joints: There is a plantar calcaneal enthesophyte. There is mild degenerative change of the tarsus and interphalangeal joints. The osseous structures are intact, with no signs of acute fracture, dislocation, or malalignment. Age-related degenerative changes are observed. There is no evidence of abnormal bone density or destructive lesions. Soft tissues: The soft tissues appear within normal limits. IMPRESSION: At the time of imaging, the study shows no acute osseous abnormalities but does reveal signs of age-related degenerative changes.
== END 2024-05-17 23:59 | disposition home or self-care (01) ==
LOC: RAD 12:32
PROVIDERS: PCP Nurse Practitioner Family; Visit Provider Nurse Practitioner Family
DX: Z12.31 Encounter for screening mammogram for malignant neoplasm of breast (principal); S97.82XA Crushing injury of left foot, initial encounter
CPT/HCPCS: 73620; 77063; 77067

== ENCOUNTER 2024-06-19 09:22 | Day surgery (SDC) | payer MEDICARE, MEDICAID, SELFPAY ==
[2024-06-18 13:49] VITALS: BMI 35.5
--- NOTE | 2024-06-19 09:52 | HMH.SCOPE ---
Procedure: Date: 06/19/24 Patient Date of :: 1965 Procedure Performed:: Colonoscopy with polypectomy Indications:: History of colon polyps Note: January 2018 she underwent colonoscopy at this facility with noted benign polypoid tissue at 60 cm and at 45 cm. Prior colonoscopy in 2014 revealed an adenomatous polyp at 30 cm. She states that she has undergone a colonoscopy since 2018 in [place] . She states that her most recent colonoscopy was normal . Performing Provider:: Man Downey MD Referring Provider:: . Sedation:: Monitored anesthesia care Procedure:: After informed consent was obtained the patient was taken to the endoscopy suite. Sedation ensued after the patient was transferred to the left lateral decubitus position. Pulse, blood pressure, and oxygen saturation were monitored throughout the procedure. Digital rectal exam revealed no significant abnormality. The colonoscope was placed in position. The entire colon was evaluated. The colonoscope was carefully removed and the patient was transferred to recovery in stable condition. Please see findings and specimens below for detail. Findings:: Bowel preparation fair Moderate spasticity/lack of relaxation Moderate tortuosity Right colon polyp Specimens:: Right colon polyp (cold snare) Recommendations:: Timing of repeat colonoscopy is pending pathology will likely be around 3 years secondary to history of multiple polyps on multiple occasions, spasticity/lack of relaxation, and tortuosity. Complications:: No immediate Estimated blood obtained (mL): 1 Colonoscopy Component Colonoscopy Component Was a colonoscopy performed during today's procedure?: Yes Recommended follow up colonoscopy of at least 10 years?: No If no, follow up colonoscopy recommended in ___ years?: (See above) Reason for not recommending >/= 10 yr follow-up interval?: (See above)
--- NOTE | 2024-06-19 09:52 | EXP.ANES.CKL ---
[facility] Disclaimer: The information contained in this section may have been updated after the patient was seen, as this information can be updated by other users. Medical History Hypothyroidism Thyroid nodule Abnormal electrocardiogram [ECG] [EKG] Encounter for pre-operative cardiovascular clearance HLD (hyperlipidemia) CAD (coronary artery disease) Surgical History History of colonoscopy with polypectomy History of foot surgery History of removal of cyst History of appendectomy History of section Family History Other No significant family history Social History Smoking Status: Former smoker tobacco type: cigarettes packs per day: 1 second hand exposure: No alcohol intake: never substance use type: denies use current occupational status: other Travel in the last 8 weeks: None household members: spouse housing: house current occupational exposures/hazards: No caffeine: Yes Have you lived/traveled outside [place] in past 30 days?: No Contact w/someone who lives/traveled outside US past 30 days?: No Exposure to someone with infectious disease in past 14 days?: No Do you have a fever (greater than 100.4 F or 38 C)?: No Have you tested positive for COVID-19: No Exposed to someone with COVID-19 in past 14 days?: No Do you have a sore throat?: No Do you have a cough?: No Do you have any weakness?: No Are you experiencing any nausea/vomitting?: No Do you have any diarrhea?: No Are you experiencing any unusual bleeding?: No Do you have any muscle aches/pain?: No Do you have any abdominal pain?: No Are you experiencing loss of taste or smell?: No [facility] Anesthesia Checklist Patient Identification Patient Identification: Arm Band and Verbal (Name & ) Structural Data Admitted From: Home Planned Operative Procedure/s: Colonoscopy Consent for Planned Operative Procedure(s) Verified: Yes Verified Documents: Surgical Consent and History and Physical NPO Status Verified Time NPO: 00:00 Additional verifications Anesthesia Reactions: No Airway Assessment Mallampati Score:: Class II C-Spine Mobility Assessed: Yes TMJ Mobility Assessed: Yes Dentition: Good Dentition Neurological Assessment Level of Consciousness: Awake Hx Seizures: No Numbness or tingling in extremities: No Anesthesia Plan Anesthesia Risk discussed: Yes Anesthesia Plan: Verified ASA Class: III Anesthesia Type: MAC
[2024-06-19] MEDS: LACTATED RINGERS 1000ML 1,000 ML 25 ML IV (09:53)
[2024-06-19 09:54] VITALS: BP 118/61; PULSE 65; RESP 18; TEMP 36.3; O2SAT 98
[2024-06-19 10:08] VITALS: O2SAT 100
[2024-06-19 10:32] VITALS: BP 89/45; PULSE 72; RESP 16; TEMP 36.1; O2SAT 100
[2024-06-19 10:42] VITALS: BP 106/61; PULSE 72; RESP 16; O2SAT 100
[2024-06-19 10:52] VITALS: BP 97/68; PULSE 72; RESP 16; O2SAT 100
[2024-06-19 10:53] VITALS: BP 111/61; PULSE 74; RESP 16; O2SAT 100
== END 2024-06-19 11:03 | disposition home or self-care (01) ==
PROVIDERS: PCP Nurse Practitioner Family; Visit Provider Surgery
PROC: 0DJD8ZZ Inspection of Lower Intestinal Tract, Via Natural or Artificial Opening Endoscopic (ICD-10-PCS; CPT 45385; principal; 2024-06-19 10:30)
DX: K63.5 Polyp of colon (principal); Z09 Encounter for follow-up examination after completed treatment for conditions other than malignant neoplasm; Z86.0100 Personal history of colon polyps, unspecified
CPT/HCPCS: 45385; J7120

== ENCOUNTER 2024-09-27 09:36 | Outpatient (CLI) | payer MEDICARE, MEDICAID, SELFPAY ==
--- NOTE | 2024-09-27 09:40 | XR_ITS ---
FINAL REPORT CLINICAL HISTORY: PAIN nki FINDINGS: AP, oblique, and lateral views of the right ankle were obtained. There is no prior for comparison. There is no fracture or dislocation. Degenerative joint disease is noted. Soft tissues are unremarkable. IMPRESSION: Degenerative change without acute osseous abnormality of the right ankle. Reviewed, Interpreted and Dictated by Franci Thompson MD Transcribed by Renuka Benedict Authenticated and [facility]
--- NOTE | 2024-09-27 09:40 | XR_ITS ---
FINAL REPORT CLINICAL HISTORY: right foot pain nki COMPARISON: None FINDINGS: AP, oblique and lateral views of the right foot were obtained. There is no acute fracture or dislocation. Multijoint degenerative disease is most pronounced at the first MTP joint and midfoot. Soft tissues are unremarkable. IMPRESSION: Degenerative changes without acute osseous abnormality of the right foot. Reviewed, Interpreted and Dictated by Franci Thompson MD Transcribed by Renuka Benedict Authenticated and [facility]
--- NOTE | 2024-09-27 10:02 | XR_ITS ---
FINAL REPORT CLINICAL HISTORY: Foot Pain states heel pain COMPARISON: 05/17/2024 FINDINGS: AP, oblique and lateral views of the left foot were obtained. There is no acute fracture or dislocation. Multijoint degenerative disease is unchanged. Soft tissues are unremarkable. IMPRESSION: No acute osseous abnormality of the left foot. Reviewed, Interpreted and Dictated by Franci Thompson MD Transcribed by Renuka Benedict Authenticated and [facility]
[2024-09-27 10:12] LABS: Basophils % 0.3 % (0.1-2.0); Eosinophils # 0.1 K/mm3 (0.0-0.4); Eosinophils % 1.8 % (0.1-12.0); Hematocrit 45.8 % (37.0-47.0); Hemoglobin 15.7 g/dL (12.2-16.2); Lymphocytes # 1.8 K/mm3 (0.7-4.5); Lymphocytes % 29.3 % (10-50); Mean Corpuscular HGB Conc 34.3 g/dL (31.8-35.4); Mean Corpuscular Hemoglobin 30.8 pg (27.0-31.2); Mean Corpuscular Volume 89.8 fl (81-99); Mean Platelet Volume 10.8 fl (7.4-10.4); Monocytes # 0.6 K/mm3 (0.1-1.0); Monocytes % 9.4 % (1.7-9.3); Neutrophils # 3.6 K/mm3 (1.8-7.8); Platelet Count 220 K/mm3 (142-424); Red Cell Distribution Width 12.6 % (11.5-17.5); White Blood Count 6.1 K/mm3 (4.8-10.8)
[2024-09-27 10:33] LABS: Albumin Level 4.5 g/dl (3.5-5.0); Chloride 102 mmol/L (98-107)
[2024-09-27 10:34] LABS: Potassium 4.4 mmoL/L (3.5-5.1); Sodium 139 mmol/L (136-145)
[2024-09-27 10:36] LABS: Alanine Aminotransferase 27 U/L (12-78); Anion Gap 9.4 mEq/L (5-15); Aspartate Amino Transferase 30 U/L (14-36); Bilirubin,Unconjugated 0.6 mg/dL (0.0-1.1); Blood Urea Nitrogen 14 mg/dl (7-17); Carbon Dioxide 32 mmol/L (22.0-30.0); Estimated Glomerular Filt Rate 85 ml/min (>60); GFR (African American) 103 ML/MIN (>60); Total Protein,Serum 6.6 g/dl (6.3-8.2)
[2024-09-27 10:37] LABS: Alkaline Phosphatase 83 U/L (38-126); Bilirubin,Indirect 0.6 mg/dL (0.0-0.9); Bilirubin,Total 0.6 mg/dl (0.2-1.3); Calcium 9.8 mg/dl (8.4-10.2); Chol/HDL Ratio 2.5 (1-3.5); Cholesterol 103 mg/dl (140-200); Glucose 107 mg/dl (74-100); HDL Cholesterol 41 mg/dl (40-60); Triglycerides 107 mg/dl (30-150); VLDL Cholesterol 21 mg/dL (0-40)
[2024-09-27 10:48] LABS: Direct LDL Cholesterol 43.26 mg/dL (100-129)
[2024-09-27 10:53] LABS: Free T4 (Free Thyroxine) 0.91 ng/dl (0.78-2.19)
[2024-09-27 11:08] LABS: Thyroid Stimulating Hormone 2.52 uIU/mL (0.465-4.68)
[2024-09-27 12:06] LABS: Hemoglobin A1C 5.6 % (4.0-6.0)
== END 2024-09-27 23:59 | disposition home or self-care (01) ==
LOC: RAD 09:37
PROVIDERS: Nurse Practitioner; PCP Nurse Practitioner; Visit Provider Nurse Practitioner
DX: M79.671 Pain in right foot (principal); M79.672 Pain in left foot; M25.571 Pain in right ankle and joints of right foot; E87.6 Hypokalemia; E03.9 Hypothyroidism, unspecified; E78.5 Hyperlipidemia, unspecified; I25.10 Atherosclerotic heart disease of native coronary artery without angina pectoris; Z13.1 Encounter for screening for diabetes mellitus
CPT/HCPCS: 36415; 73610; 73630; 80048; 80061; 80076; 83036; 84439; 84443; 85025

== ENCOUNTER 2025-03-28 08:02 | Outpatient (CLI) | payer MEDICARE, MEDICAID, SELFPAY ==
--- NOTE | 2025-03-28 08:00 | US_ITS ---
FINAL REPORT TECHNIQUE: Sonographic images of the thyroid gland were obtained in the longitudinal and transverse planes. CLINICAL HISTORY: yearly f/u COMPARISON: 04/22/2017 FINDINGS: The right lobe measures 1.5 x 3.5 x 1.2 cm. Hypoechoic nodule in the mid right thyroid measuring 8 mm was 11 mm. Hypoechoic lower pole nodule is stable measuring 8 mm. Subcentimeter hypoechoic nodule is also stable. The left lobe measures 3.5 x 1.2 x 1.4 cm. Hypoechoic 11 mm upper pole nodule is unchanged. 10 mm hypoechoic mid thyroid nodule is also unchanged. The isthmus measures 5 mm. Isoechoic right isthmus nodule is unchanged from 2017 measuring 10 mm. No new nodules or masses identified. IMPRESSION: Bilateral stable thyroid nodules since 2017. No further follow-up required per TI-RADS criteria. Reviewed, Interpreted and Dictated by Franci Thompson MD Transcribed by Renuka Benedict Authenticated and [facility]
[2025-03-28 10:25] LABS: Free T4 (Free Thyroxine) 0.85 ng/dl (0.78-2.19)
[2025-03-28 10:37] LABS: Thyroid Stimulating Hormone 3.25 uIU/mL (0.465-4.68)
== END 2025-03-28 23:59 | disposition home or self-care (01) ==
LOC: RAD 08:02
PROVIDERS: PCP Nurse Practitioner; Visit Provider Nurse Practitioner
DX: E04.2 Nontoxic multinodular goiter (principal); E03.9 Hypothyroidism, unspecified
CPT/HCPCS: 36415; 76536; 84439; 84443

== ENCOUNTER 2025-05-09 09:04 | Outpatient (CLI) | payer MEDICARE, MEDICAID, SELFPAY ==
--- NOTE | 2025-05-09 09:10 | XR_ITS ---
FINAL REPORT CLINICAL HISTORY: RT WRIST PAIN pt states that she hit the posterior aspect of the wrist 2 wks ago, there is a knot/swelling FINDINGS: AP, oblique, and lateral views of the right wrist were obtained. There is no prior exam for comparison. There is no acute fracture or dislocation. There is a bony protuberance along the dorsal wrist, likely related to degenerative disease. There is multilevel degenerative joint disease, most pronounced at the first carpometacarpal joint. The soft tissues are normal. IMPRESSION: Multilevel degenerative joint disease. Reviewed, Interpreted and Dictated by Franci Thompson MD Transcribed by Genie Rand Authenticated and [facility]
--- OUTSIDE RECORDS SUMMARY | 2025-05-09 09:11 | XMS_ITS | Encounter Summary ---
Author Organization [employer] ([place], [place], [place], [place], [place]) Address [address] [place] [address] Care Team Providers Care Shot Bagger Name Role Phone Unavailable Primary Care Provider Unavailabl e Encounter Details Date Type Department Care Team (Late st Contact Info) Description 07/21/2018 Transcribed Document [facility] [place] [facility] [place] [address] ProviderLisbet MD [address] [place] [address] Social History Tobacco Use Types Packs/Day Years Used Date Smoking Tobacco: Never Assessed Comments Unknown Sex and Gender Information Value Date Recorded Sex Assigned at Not on file Legal Sex Female 3:31 PM CDT Gender Identity Not on file Sexual Orientation Not on file documented as of this encounter Miscellaneous Notes * Cerner Conversion Note - Lisbet ProviderMD - 07/21/2018 9:48 AM TOP FRAME FITTER [address] , [place] [address] Patient Copy Patient Information: Name: DANYEL HOGUE Current Date: 07/21/2018 09:48:25 : 1965 Patient Address: [address] [facility] [id number] Patient Attending Physician: SOFIA ANDINO MD-CAR Primary Care Provider: CORINNA CROOKS APRN Primary Care Provider Discharge Diagnosis: Weight at Discharge: 220 lb Comment: Follow-up Instructions: With: Address: When: RINA DICK [address] [place] [address], [address] [place] [address] Business (1) Within 1 month Discharge Instructions: Diet after Discharge: Resume usual diet as tolerated Activity after Discharge: As tolerated Driving after Discharge: May drive today Showering/Bathing:Other: May shower in 2 days. Keep back to spray and pat site dry Notify Provider of: Any signs of infection Wound/Incision Care after Discharge: Keep operative site/wound site clean and dry, Other: Remove dressing in AM. Steri-strips will come off on their own over the next 2 weeks Immunizations Documented During Stay: No Immunizations Found Heart Failure Discharge Instructions (if any): Stroke Related Discharge Instructions (if any): Warfarin Related Discharge Instructions (if any): Final Medication List: Other Medications aspirin (aspirin 325 mg oral tablet) 1 Tablet(s) Oral Every Day. atorvastatin 20 Milligram(s) Oral At Bedtime. DULoxetine (Cymbalta 30 mg oral delayed release capsule) 1 Capsule(s) Oral Every Day. hydroCHLOROthiazide (hydroCHLOROthiazide 25 mg oral tablet) 1 Tablet(s) Oral Every Day. levothyroxine (levothyroxine 50 mcg (0.05 mg) oral tablet) 1 Tablet(s) Oral Every Day. meclizine 25 Milligram(s) Oral Two Times A Day. meloxicam (meloxicam 15 mg oral tablet) 1 Tablet(s) Oral Every Day. metoprolol (Lopressor 50 mg oral tablet) 1 Tablet(s) Oral Two Times A Day. montelukast (montelukast 10 mg oral tablet) 1 Tablet(s) Oral Every Evening. pantoprazole (pantoprazole 40 mg oral delayed release tablet) 1 Tablet(s) Oral Every Day. potassium chloride (potassium chloride 20 mEq oral tablet, extended release) 1 Tablet(s) Oral Every Day as needed Cramping. predniSONE 20 Milligram(s) Oral Two Times A Day. sucralfate (sucralfate 1 g oral tablet) 1 Tablet(s) Oral Two Times A Day as needed Indigestion. tiZANidine 4 Milligram(s) Oral Three Times A Day as needed Muscle Spasms. topiramate (topiramate 25 mg oral tablet) 1 Tablet(s) Oral Two Times A Day. traMADol (traMADol 50 mg oral tablet) 1 Tablet(s) Oral Every 6 Hours as needed for pain. Patient Allergies: iodinated radiocontrast dyes; ketorolac Medication Instructions: Take your medications faithfully. Do NOT skip medication. Do NOT stop taking medications without the direction of a physician. Carry a list of your medications with you at all times, and take this medication list with you to your first follow up visit. Report any side effects. Avoid herbal remedies unless discussed with your physician. As part of your treatment plan, your physician may have prescribed a limited course of a controlled substance. This medication may be given to help people with moderate or severe pain or for other medical conditions, but there are risks involved with treatment. Common side effects may include nausea, constipation, drowsiness, sweating, itching, dry mouth, and rash. More serious side effects may include cognitive and motor impairment, like problems with thinking, concentrating, alertness, and movement (e.g. slowed reflexes), and driving and operating heavy machinery can be dangerous. It is important for you to talk to your physician if you have these side effects or questions. These controlled substances can produce physical dependence and be habit-forming if taken for an extended period of time, which means that the body has gotten used to them and may experience withdrawal symptoms if they are abruptly stopped. Withdrawal symptoms can include runny nose, sweating, goose bumps, diarrhea, abdominal cramping, rapid heartbeat, difficulty sleeping, and nervousness. Patient education materials: Implantable Loop Recorder Placement, Care After Introduction Refer to this sheet in the next few weeks. These instructions provide you with information about caring for yourself after your procedure. Your health care provider may also give you more specific instructions. Your treatment has been planned according to current medical practices, but problems sometimes occur. Call your health care provider if you have any problems or questions after your procedure. What can I expect after the procedure? After the procedure, it is common to have:??? Soreness or pain near the cut from surgery (incision). ??? Some swelling or bruising near the incision. Follow these instructions at home: Medicines??? Take qjdb-psv-xppixfk and prescription medicines only as told by your health care provider. ??? If you were prescribed an antibiotic medicine, take it as told by your health care provider. Do not stop taking the antibiotic even if you start to feel better. Bathing??? Do nottake baths, swim, or use a hot tub until your health care provider approves. Ask your health care provider if you can take showers. You may only be allowed to take sponge baths for bathing. Incision care??? Follow instructions from your health care provider about how to take care of your incision. Make sure you:? Wash your hands with soap and water before you change your bandage (dressing). If soap and water are not available, use hand licensed psychologist manager. ? Change your dressing as told by your health care provider. ? Keep your dressing dry. ? Leave stitches (sutures), skin glue, or adhesive strips in place. These skin closures may need to stay in place for 2 weeks or longer. If adhesive strip edges start to loosen and curl up, you may trim the loose edges. Do not remove adhesive strips completely unless your health care provider tells you to do that. ??? Check your incision area every day for signs of infection. Check for:? More redness, swelling, or pain. ? Fluid or blood. ? Warmth. ? Pus or a bad smell. Driving??? If you received a sedative, do not drive for 24 hours after the procedure. ??? If you did not receive a sedative, ask your health care provider when it is safe to drive. Activity??? Return to your normal activities as told by your health care provider. Ask your health care provider what activities are safe for you. ??? Until your health care provider says it is safe:? Do notlift anything that is heavier than 10 lb (4.5 kg). ? Do notdo activities that involve lifting your arms over your head. General instructions ??? Follow instructions from your health care provider about how and when to use your implantable loop recorder. ??? Do notgo through a metal detection gate, and do not let someone hold a metal detector over your chest. Show your ID card. ??? Do nothave an MRI unless you check with your health care provider first. ??? Do notuse any tobacco products, such as cigarettes, chewing tobacco, and e-cigarettes. Tobacco can delay healing. If you need help quitting, ask your health care provider. ??? Keep all follow-up visits as told by your health care provider. This is important. Contact a health care provider if: ??? You have more redness, swelling, or pain around your incision. ??? You have more fluid or blood coming from your incision. ??? Your incision feels warm to the touch. ??? You have pus or a bad smell coming from your incision. ??? You have a fever. ??? You have pain that is not relieved by your pain medicine. ??? You have triggered your device because of fainting (syncope) or because of a heartbeat that feels like it is racing, slow, fluttering, or skipping (palpitations). Get help right away if: ??? You have chest pain. ??? You have difficulty breathing. This information is not intended to replace advice given to you by your health care provider. Make sure you discuss any questions you have with your health care provider. Document Released: 05/31/2016 Document Revised: 11/25/2016 Document Reviewed: 03/24/2016 ? 2017 Elsevier CIGARETTE SMOKING: The facts are clear, cigarette smoking will shorten your life. Smoking can cause many illnesses along the way. As a healthcare provider, we recommend that you stop smoking. Assistance with quitting is available by contacting 0-010-TRAI-NOW. This is a free resource providing counseling, support, and referral. Or you may contact your personal physician. STROKE is an EMERGENCY Every Minute Counts ACT F.A.S.T! FACE ?? Facial droop ?? Uneven smile ARM ?? Arm numbness ?? Arm weakness SPEECH ?? Slurred speech ?? Difficulty speaking or understanding TIME ?? Call 911 and get to the hospital immediately Have the ambulance go to the nearest stroke center. STROKE Risk Factors High blood pressure High cholesterol Heart Disease Diabetes Smoking Heavy alcohol use Physical inactivity and obesity Atrial Fibrillation (irregular heartbeat) Family history of stroke Reminder: Be sure to sign up for the [employer] patient portal, which gives you 24/01 access to your medical information ??? including these discharge instructions ??? using your computer, smartphone, or tablet. Just go to [employer] to get started. Questions? Call . [facility] would like to thank you for allowing us to assist you with your healthcare needs. MYKEL Mascorro CAROLYN ELIZABETH, (or desk representative) have received the above patient education materials/instructions and have verbalized understanding: Patient Signature _ Date/Time Patient Pharmacology Associate Signature (if needed) Date/Time Clinician/Hospital Pharmacology Associate Signature (if needed) Date/Time Electronically signed by Mikael, [facility] Conversion Ordnance Handler Ita at 10/19/2022 9:45 AM CDT documented in this encounter Plan of Treatment Not on file documented as of this encounter Visit Diagnoses Not on filedocumented in this encounter
--- OUTSIDE RECORDS SUMMARY | 2025-05-09 09:11 | XMS_ITS | Encounter Summary ---
Author Organization [employer] ([place], [place], [place], [place], [place]) Address [address] [place] [address] Care Team Providers Care Design Engineer Name Role Phone Unavailable Primary Care Provider Unavailabl e Encounter Details Date Type Department Care Team (Late st Contact Info) Description 07/21/2018 Transcribed Document [facility] [facility] [place] [address] [place] [address] ProviderLisbet MD [address] [place] [address] Social History Tobacco Use Types Packs/Day Years Used Date Smoking Tobacco: Never Assessed Comments Unknown Sex and Gender Information Value Date Recorded Sex Assigned at Not on file Legal Sex Female 3:31 PM CDT Gender Identity Not on file Sexual Orientation Not on file documented as of this encounter Miscellaneous Notes * Cerner Conversion Note - Lisbet ProviderMD - 07/21/2018 9:37 AM SCHEDULING ADMINISTRATOR [address] [address] Patient Copy Patient Information: Name: DANYEL HOGUE Current Date: 07/21/2018 09:37:25 : 1965 Patient Address: [address] [facility] [id number] Patient Attending Physician: SOFIA ANDINO MD-CAR Primary Care Provider: CORINNA CROKOS APRN Primary Care Provider Discharge Diagnosis: Weight at Discharge: 220 lb Comment: Discharge Instructions: Diet after Discharge: Resume usual diet as tolerated Activity after Discharge: As tolerated Driving after Discharge: May drive today Wound/Incision Care after Discharge: Keep operative site/wound site clean and dry, Other: Remove dressing in 3 days. Steri-strips will come off on their own [...] Follow these instructions at home: Medicines??? Take wgkd-ecm-cktqpgg and prescription medicines only as told by [...] and water are not available, use hand rigging loft repairer. ? Change your dressing as told by [...] Assistance with quitting is available by contacting 5-193-JYNG-NOW. This is a free resource providing counseling, [...] Be sure to sign up for the [facility] patient portal, which gives you 24/ access to your medical information ??? including these discharge instructions ??? using your computer, smartphone, or tablet. Just go to [employer] to get started. Questions? Call . [facility] would like to thank you for allowing us to assist you with your healthcare needs. MYKEL Mascorro CAROLYN ELIZABETH, (or senior patient account representative) have received the above patient education materials/instructions and have verbalized understanding: Patient Signature _ Date/Time Patient Logging Assistant Signature (if needed) Date/Time Clinician/Hospital Logging Assistant Signature (if needed) Date/Time documented in this encounter Plan of Treatment Not on file documented as of this encounter Visit Diagnoses Not on filedocumented in this encounter
--- OUTSIDE RECORDS SUMMARY | 2025-05-09 09:11 | XMS_ITS | Encounter Summary ---
Author Organization [employer] ([place], [place], [place], [place], [place]) Address [address] [place] [address] Care Team Providers Care Chief Of Hospital Medicine Name Role Phone Unavailable Primary Care Provider Unavailabl e Encounter Details Date Type Department Care Team (Late st Contact Info) Description 07/11/2018 Transcribed Document [facility] [place] [address] [place] [address] ProviderLisbet MD [address] [place], [place] [id number] Social History Tobacco Use Types Packs/Day Years Used Date Smoking Tobacco: Never Assessed Comments Unknown Sex and Gender Information Value Date Recorded Sex Assigned at Not on file Legal Sex Female 3:31 PM CDT Gender Identity Not on file Sexual Orientation Not on file documented as of this encounter Miscellaneous Notes * Cerner Conversion Note - Historical ProviderMD - 07/11/2018 10:31 AM GOLD RECLAIMER Nursing Discharge Summary Entered On: 07/11/2018 10:33 EST Performed On: 07/11/2018 10:31 EST by MAYELA BUCKLEY, electronic data interchange specialist Documentation Patient Disposition, General : Discharge Discharge To : Other: dc per wheelcahir IV Discontinued : Yes Discharge, Comment : 1. No driving or operation of machinery for 24 hrs post sedation. 2. Return 07-21-2017. 0800. link- loop device 3. Report any changes from your baseline health to md immediately. MAYELA BUCKLEY, RAJNI - 07/11/2018 10:31 EST documented in this encounter Plan of Treatment Not on file documented as of this encounter Visit Diagnoses Not on filedocumented in this encounter
--- OUTSIDE RECORDS SUMMARY | 2025-05-09 09:11 | XMS_ITS | Encounter Summary ---
Author Organization [employer] ([place], [place], [place], [place], [place]) Address [address] [place] [address] Care Team Providers Care Hand Mold Maker Name Role Phone Unavailable Primary Care Provider Unavailabl e Encounter Details Date Type Department Care Team (Late st Contact Info) Description 07/21/2018 Transcribed Document [facility] [place] [address] [place] [address] ProviderLisbet MD [address] [place], [place] [id number] Social History Tobacco Use Types Packs/Day Years Used Date Smoking Tobacco: Never Assessed Comments Unknown Sex and Gender Information Value Date Recorded Sex Assigned at Not on file Legal Sex Female 3:31 PM CDT Gender Identity Not on file Sexual Orientation Not on file documented as of this encounter Miscellaneous Notes * Cerner Conversion Note - Lisbet ProviderMD - 07/21/2018 9:36 AM SAP ENTERPRISE PORTAL CONSULTANT Discharge Instructions Entered On: 07/21/2018 9:37 EST Performed On: 07/21/2018 9:36 EST by Marcy Allen RN DC Instructions HWD Showering/Bathing : Other: May shower in 2 days. Keep back to spray and pat site dry Notify Provider of : Any signs of infection Marcy Allen RN - 07/21/2018 9:47 EST Stroke/TIA Discharge Ins : N/A Heart Failure Discharge Ins : N/A Warfarin Discharge Ins : N/A Diet After Discharge : Resume usual diet as tolerated Activity After Discharge : As tolerated Driving After Discharge : May drive today Marcy Allen RN - 07/21/2018 9:36 EST Wound/Incision Care After Discharge : Keep operative site/wound site clean and dry, Other: Remove dressing in AM. Steri-strips will come off on their own over the next 2 weeks Marcy Allen RN - 07/21/2018 9:47 EST Electronically signed by Mikael, [facility] Conversion Double End Tenoner Operator Cerner at 10/19/2022 9:55 AM CDT documented in this encounter Plan of Treatment Not on file documented as of this encounter Visit Diagnoses Not on filedocumented in this encounter
--- OUTSIDE RECORDS SUMMARY | 2025-05-09 09:11 | XMS_ITS | Encounter Summary ---
Author Organization [employer] ([place], [place], [place], [place], [place]) Address [address] [place] [address] Care Team Providers Care Tire Mechanic Name Role Phone Unavailable Primary Care Provider Unavailabl e Encounter Details Date Type Department Care Team (Late st Contact Info) Description 07/21/2018 Transcribed Document [facility] [place] [address] [place] [address] ProviderLisbet MD [address] [id number] Social History Tobacco Use Types Packs/Day Years Used Date Smoking Tobacco: Never Assessed Comments Unknown Sex and Gender Information Value Date Recorded Sex Assigned at Not on file Legal Sex Female 3:31 PM CDT Gender Identity Not on file Sexual Orientation Not on file documented as of this encounter Miscellaneous Notes * Cerner Conversion Note - Lisbet ProviderMD - 07/21/2018 9:48 AM NIB ASSEMBLER Patient Education Materials Follows: Implantable Loop Recorder Placement, Care After Introduction [...] Follow these instructions at home: Medicines??? Take wahl-ugs-asjhsux and prescription medicines only as told by [...] and water are not available, use hand wooden barrel mechanic. ? Change your dressing as told by [...] 11/25/2016 Document Reviewed: 03/24/2016 ? 2017 Elsevier documented in this encounter Plan of Treatment Not on file documented as of this encounter Visit Diagnoses Not on filedocumented in this encounter
--- OUTSIDE RECORDS SUMMARY | 2025-05-09 09:11 | XMS_ITS | Encounter Summary ---
Author Organization [employer] ([place], [place], [place], [place], [place]) Address [address] [place] [address] Care Team Providers Care Supervisor Ovens Name Role Phone Unavailable Primary Care Provider Unavailabl e Encounter Details Date Type Department Care Team (Late st Contact Info) Description 07/11/2018 Transcribed Document [facility] [place] [address] [place] [address] ProviderLisbet MD [address] [place], [place] [id number] Social History Tobacco Use Types Packs/Day Years Used Date Smoking Tobacco: Never Assessed Comments Unknown Sex and Gender Information Value Date Recorded Sex Assigned at Not on file Legal Sex Female 3:31 PM CDT Gender Identity Not on file Sexual Orientation Not on file documented as of this encounter Miscellaneous Notes * Cerner Conversion Note - Historical ProviderMD - 07/11/2018 7:34 AM TRACK BROOM OPERATOR Event Note Entered On: 07/11/2018 7:36 EST Performed On: 07/11/2018 7:34 EST by MAYELA BUCKLEY, RAJNI Event Note Event Location : Other: 0734- iv pedal - started in left foot- 22 gauge.flushed well Description of Event : iv site - cdi left foot. flushed well. started as directed to do, secondary to the nature of the testing being done today - pedal iv requested. MAYELA BUCKLEY, RAJNI - 07/11/2018 7:34 EST Electronically signed by Todd Youssef Conversion Integrated Circuit Design Engineer Ita at 10/19/2022 10:03 AM CDT documented in this encounter Plan of Treatment Not on file documented as of this encounter Visit Diagnoses Not on filedocumented in this encounter
--- OUTSIDE RECORDS SUMMARY | 2025-05-09 09:11 | XMS_ITS | Encounter Summary ---
Author Organization [employer] ([place], [place], [place], [place], [place]) Address [address] [place] [address] Care Team Providers Care Communications Project Manager Name Role Phone Unavailable Primary Care Provider Unavailabl e Encounter Details Date Type Department Care Team (Late st Contact Info) Description 07/21/2018 Transcribed Document [facility] [place] [address] [place] [address] ProviderLisbet MD [address] [place], [place] [phone] Social History Tobacco Use Types Packs/Day Years Used Date Smoking Tobacco: Never Assessed Comments Unknown Sex and Gender Information Value Date Recorded Sex Assigned at Not on file Legal Sex Female 3:31 PM CDT Gender Identity Not on file Sexual Orientation Not on file documented as of this encounter Miscellaneous Notes * Cerner Conversion Note - Historical ProviderMD - 07/21/2018 9:30 AM MEDICAL CUSTOMER SERVICE REPRESENTATIVE Event Note Entered On: 07/21/2018 9:38 EST Performed On: 07/21/2018 9:30 EST by Marcy Allen, RAJNI Event Note Description of Event : Pt returned from EP lab with dressing to mid-chest, CDI. Pt placed on monitor, call nuñez within reach, family at BS. Marcy Allen, RN - 07/21/2018 9:38 EST Electronically signed by Mikael [facility] Conversion Bilingual Social Worker Cerner at 10/19/2022 9:57 AM CDT documented in this encounter Plan of Treatment Not on file documented as of this encounter Visit Diagnoses Not on filedocumented in this encounter
--- OUTSIDE RECORDS SUMMARY | 2025-05-09 09:11 | XMS_ITS | Encounter Summary ---
Author Organization [employer] ([place], [place], [place], [place], [place]) Address [address] [place] [address] Care Team Providers Care Risk Officer Name Role Phone Unavailable Primary Care Provider Unavailabl e Encounter Details Date Type Department Care Team (Late st Contact Info) Description 07/11/2018 Transcribed Document [facility] [place] Family Medicine [facility] [place] [address] ProviderLisbet MD [address] [place] [address] Social History Tobacco Use Types Packs/Day Years Used Date Smoking Tobacco: Never Assessed Comments Unknown Sex and Gender Information Value Date Recorded Sex Assigned at Not on file Legal Sex Female 3:31 PM CDT Gender Identity Not on file Sexual Orientation Not on file documented as of this encounter Miscellaneous Notes * [employer]ner Conversion Note - Lisbet ProviderMD - 07/11/2018 10:33 AM PARTS DELIVERY DRIVER [address] [address] Patient Copy Patient Information: Name: DANYEL HOGUE Current Date: 07/11/2018 10:33:46 : 1965 Patient Address: [address] [facility] [id number] Patient Attending Physician: SOFIA ANDINO MD-CAR Primary Care Provider: CORINNA CROOKS APRN Primary Care Provider Discharge Diagnosis: Weight on Admission: 215 lb, 0 oz Comment: Follow-up Instructions: With: Address: When: Follow up - 07-21-2017. 0800 - loop/link device placement Within 2 to 3 days Discharge Instructions: Diet after Discharge: Resume usual diet as tolerated Activity after Discharge: Rest and relax today, No strenuous activities Driving after Discharge: Other: no driving- for 24 hrs post procedure Immunizations Documented During Stay: No Immunizations Found Heart Failure Discharge Instructions (if any): Stroke Related Discharge Instructions (if any): Warfarin Related Discharge Instructions (if any): Final Medication List: Other Medications aspirin (aspirin 325 mg oral tablet) 1 Tablet(s) Oral Every Day. atorvastatin 1 Tablet(s) Oral Every Day. cholecalciferol (Vitamin D3 50,000 units oral capsule) 1 Capsule(s) Oral Tuesday, Tuesday. DULoxetine (Cymbalta 30 mg oral delayed release capsule) 1 Capsule(s) Oral Every Day. hydroCHLOROthiazide (hydroCHLOROthiazide 25 mg oral tablet) 1 Tablet(s) Oral Every Day. levothyroxine (levothyroxine 50 mcg (0.05 mg) oral tablet) 1 Tablet(s) Oral Every Day. meclizine 25 mg Oral TID. meloxicam (meloxicam 15 mg oral tablet) 1 [...] Tablet(s) Oral Every Day as needed Cramping. sucralfate (sucralfate 1 g oral tablet) 1 Tablet(s) Oral Two Times A Day as needed Indigestion. topiramate (topiramate 25 mg oral tablet) 1 [...] difficulty sleeping, and nervousness. Patient education materials: Transesophageal Echocardiogram Transesophageal echocardiography (YISSEL) is a picture test of your heart using sound waves. The pictures taken can give very detailed pictures of your heart. This can help your doctor see if there are problems with your heart. YISSEL can check: ??? If your heart has blood clots in it. ??? How well your heart valves are working. ??? If you have an infection on the inside of your heart. ??? Some of the major arteries of your heart. ??? If your heart valve is working after a repair. ??? Your heart before a procedure that uses a shock to your heart to get the rhythm back to normal. What happens before the procedure? Do noteat or drink for 6 hours before the procedure or as told by your doctor. ??? Make plans to have someone drive you home after the procedure. Do not drive yourself home. ??? An IV tube will be put in your arm. What happens during the procedure? You will be given a medicine to help you relax (sedative). It will be given through the IV tube. ??? A numbing medicine will be sprayed or gargled in the back of your throat to help numb it. ??? The tip of the probe is placed into the back of your mouth. You will be asked to swallow. This helps to pass the probe into your esophagus. ??? Once the tip of the probe is in the right place, your doctor can take pictures of your heart. ??? You may feel pressure at the back of your throat. What happens after the procedure? You will be taken to a recovery area so the sedative can wear off. ??? Your throat may be sore and scratchy. This will go away slowly over time. ??? You will go home when you are fully awake and able to swallow liquids. ??? You should have someone stay with you for the next 24 hours. ??? Do not drive or operate machinery for the next 24 hours. This information is not intended to replace advice given to you by your health care provider. Make sure you discuss any questions you have with your health care provider. Document Released: 04/17/2010 Document Revised: 11/25/2016 Document Reviewed: 12/20/2013 [employer] Interactive Patient Education ? 2017 [employer] Moderate Conscious Sedation, Adult, Care After These instructions provide you with information about caring for yourself after your procedure. Your health care provider may also give you more specific instructions. Your treatment has been planned according to current medical practices, but problems sometimes occur. Call your health care provider if you have any problems or questions after your procedure. What can I expect after the procedure? After your procedure, it is common: ??? To feel sleepy for several hours. ??? To feel clumsy and have poor balance for several hours. ??? To have poor judgment for several hours. ??? To vomit if you eat too soon. Follow these instructions at home: For at least 24 hours after the procedure: ??? Do not: ? Participate in activities where you could fall or become injured. ? Drive. ? Use heavy machinery. ? Drink alcohol. ? Take sleeping pills or medicines that cause drowsiness. ? Make important decisions or sign legal documents. ? Take care of children on your own. ??? Rest. Eating and drinking ??? Follow the diet recommended by your health care provider. ??? If you vomit: ? Drink water, juice, or soup when you can drink without vomiting. ? Make sure you have little or no nausea before eating solid foods. General instructions ??? Have a responsible adult stay with you until you are awake and alert. ??? Take [id number] and prescription medicines only as told by your health care provider. ??? If you smoke, do not smoke without supervision. ??? Keep all follow-up visits as told by your health care provider. This is important. Contact a health care provider if: ??? You keep feeling nauseous or you keep vomiting. ??? You feel light-headed. ??? You develop a rash. ??? You have a fever. Get help right away if: ??? You have trouble breathing. This information is not intended to replace advice given to you by your health care provider. Make sure you discuss any questions you have with your health care provider. Document Released: 04/10/2014 Document Revised: 11/22/2016 Document Reviewed: 10/09/2016 [employer] Interactive Patient Education ? 2017 [employer] CIGARETTE SMOKING: The facts are clear, cigarette smoking will shorten your life. Smoking can cause many illnesses along the way. As a healthcare provider, we recommend that you stop smoking. Assistance with quitting is available by contacting 1-335-BPPV-NOW. This is a free resource providing counseling, [...] Be sure to sign up for the [facility] patient portal, which gives you 24 access to your medical information ??? including these discharge instructions ??? using your computer, smartphone, or tablet. Just go to [employer] to get started. Questions? Call . [facility] would like to thank you for allowing us to assist you with your healthcare needs. MYKEL Mascorro CAROLYN ELIZABETH, (or loan servicing representative) have received the above patient education materials/instructions and have verbalized understanding: Patient Signature _ Date/Time Patient Data Quality Consultant Signature (if needed) Date/Time Clinician/Hospital Data Quality Consultant Signature (if needed) Date/Time Electronically signed by Mikael, [facility] Conversion Data Input Clerk Zananer at 10/19/2022 10:08 AM CDT documented in this encounter Plan of Treatment Not on file documented as of this encounter Visit Diagnoses Not on filedocumented in this encounter
--- OUTSIDE RECORDS SUMMARY | 2025-05-09 09:11 | XMS_ITS | Encounter Summary ---
Author Organization [employer] ([place], [place], [place], [place], [place]) Address [address] [place] [address] Care Team Providers Care Double Cut Off Saw Operator Name Role Phone Unavailable Primary Care Provider Unavailabl e Encounter Details Date Type Department Care Team (Late st Contact Info) Description 07/21/2018 Transcribed Document [facility] [place] Family Medicine [address] [place] [address] ProviderLisbet MD [address] [place], [place] [id number] Social History Tobacco Use Types Packs/Day Years Used Date Smoking Tobacco: Never Assessed Comments Unknown Sex and Gender Information Value Date Recorded Sex Assigned at Not on file Legal Sex Female 3:31 PM CDT Gender Identity Not on file Sexual Orientation Not on file documented as of this encounter Miscellaneous Notes * [employer]ner Conversion Note - Historical ProviderMD - 07/21/2018 9:26 AM VOLUNTEER SERVICES MANAGER Nursing Discharge Summary Entered On: 07/21/2018 9:36 EST Performed On: 07/21/2018 9:26 EST by Marcy Allen cruller maker machine Documentation Discharge Date/Time : 07/21/2018 10:54 EST Marcy Allen RN - 07/21/2018 10:56 EST Discharge To : Home with ambulatory/outpatient follow-up Marcy Allen RN - 07/21/2018 9:47 EST Patient Disposition, General : Discharge Mode Of Departure, General Discharge : Private vehicle Accompanied By, Discharge : Spouse IV Discontinued : Yes Personal Belongings With Patient : Yes Discharge Instructions Reviewed With, Opportunity For Questions Given : Patient, Spouse Patient Education Completed : Yes Teaching Method : Explanation Teaching Evaluation : Returns demonstration, Verbalizes understanding Marcy Allen RN - 07/21/2018 9:26 EST documented in this encounter Plan of Treatment Not on file documented as of this encounter Visit Diagnoses Not on filedocumented in this encounter
--- OUTSIDE RECORDS SUMMARY | 2025-05-09 09:12 | XMS_ITS | Encounter Summary ---
Author Organization [employer] ([place], [place], [place], [place], [place]) Address [address] [place] [address] Care Team Providers Care Data Entry Email Processor Name Role Phone Unavailable Primary Care Provider Unavailabl e Encounter Details Date Type Department Care Team (Late st Contact Info) Description 07/25/2018 Transcribed Document [facility] Cardiology [address] [place] [address] Juli Samayoa MD [address] [facility] [address] [place] [address] Social History Tobacco Use Types Packs/Day Years Used Date Smoking Tobacco: Never Assessed Comments Unknown Sex and Gender Information Value Date Recorded Sex Assigned at Not on file Legal Sex Female 3:31 PM CDT Gender Identity Not on file Sexual Orientation Not on file documented as of this encounter Miscellaneous Notes * Cerner Conversion Note - Juli Samayoa MD - 07/25/2018 5:18 PM EST DATE OF PROCEDURE: 07/21/2018 PROCEDURE DONE: Loop recorder implantation. PARKING LOT ATTENDANT AND CASHIER: Juli Samayoa MD PROCEDURE IN DETAIL: The patient was brought to the cardiac procedure laboratory. The site of the deployment of the LINQ loop recorder was anesthetized appropriately with the use of lidocaine then the device was deployed in the usual fashion. Subsequent assessment revealed a R-wave of 0.21 millivolt essentially affirming an effective and appropriate device function. At that point in time, the procedure ended without any complication. IMPRESSION: Successful loop recorder implantation. Juli Samayoa M.D. Dict: 07/25/2018 16:18:51 Trans: 07/25/2018 19:51:57 CC1: Juli Samayoa M.D. documented in this encounter Plan of Treatment Not on file documented as of this encounter Visit Diagnoses Not on filedocumented in this encounter
--- OUTSIDE RECORDS SUMMARY | 2025-05-09 09:12 | XMS_ITS | Encounter Summary ---
Author Organization [employer] ([place], [place], [place], [place], [place]) Address [address] [place] [address] Care Team Providers Care Heating Equipment Installer Name Role Phone Unavailable Primary Care Provider Unavailabl e Encounter Details Date Type Department Care Team (Late st Contact Info) Description 08/27/2018 Transcribed Document [facility] [place] [address] [place] [address] ProviderLisbet MD [address] [place] [address] Social History Tobacco Use Types Packs/Day Years Used Date Smoking Tobacco: Never Assessed Comments Unknown Sex and Gender Information Value Date Recorded Sex Assigned at Not on file Legal Sex Female 3:31 PM CDT Gender Identity Not on file Sexual Orientation Not on file documented as of this encounter Miscellaneous Notes * [employer]ner Conversion Note - Lisbet ProviderMD - 08/27/2018 8:51 PM SENIOR LANDSCAPE ARCHITECT Spiritual Care Assessment Entered On: 08/28/2018 10:51 EST Performed On: 08/28/2018 10:17 EST by REBECCA REID General Information Initial Visit : Yes Referred by : Patient Referral Reason Comment : Advance directive Ministry Provided to : Patient, Family/Significant other Active in a Yazdanism/Yoanna Group : Yes REBECCA REID - 08/28/2018 10:40 EST Spiritual Assessment Patient's Community/Relationship : Strength in patient's life Supportive/Healthy Relationships : Yes Supportive Uatsdin Community : Yes Spiritual Assessment Comment/Summary Points : Provided advance directive info. to patient, daughter and son in law. Patient supported by her adventist. She plans to discuss living will with . District Claims Manager available as needed. Spirital Assessment Comment/Summary Report : SPIRITUAL ASSESSMENT COMMENT/SUMMARY No qualifying data available. REBECCA REID - 08/28/2018 10:40 EST Interventions Advance Directive Information Provided : Yes Emotional Support : Empathic/Engaged listening, Family/Significant other supported, Information provided Spiritual and Uatsdin : Verify yoanna group connection, Spiritual/Uatsdin support provided REBECCA REID - 08/28/2018 10:40 EST Electronically signed by Mikael, [facility] Conversion Facilities Supervisor Cerner at 10/19/2022 9:43 AM CDT documented in this encounter Plan of Treatment Not on file documented as of this encounter Visit Diagnoses Not on filedocumented in this encounter
--- OUTSIDE RECORDS SUMMARY | 2025-05-09 09:12 | XMS_ITS | Data Portability ---
Author Organization [facility] Address [address] [place] [address] Assessment Encounter Date Assessment Date Assessment LastModified by Organization Details LastModified Time 05/17/2023 05/17/2023 -stop crestor at this time -stop claritin and start xyzal -monitor for continued itching, continue moisturizer free of dyes/perfumes -f/u prn continued or worsening symptoms. [email or web address] Not available 05/17/2023 22:05:32 06/16/2023 06/16/2023 Advised to drink plenty of fluids, run a cool-mist humidifier in room at night, and get plenty of rest. Patient should avoid over-exertion and reduce exposure to irritants such as smoke, cold, dry air, and dust. Antihistamine and decongestant usage was discussed and recommendations made. Injection administered as written below. Patient understood these instructions and will follow up in the office in 7-10 days if symptoms not improving. Or sooner if symptoms worsen. [email or web address] Not available 07/05/2023 13:40:26 08/08/2023 08/08/2023 stop losartan, continue antihistamines as needed. referral to vocational training instructor if symptoms continue. [email or web address] Not available 08/14/2023 21:41:03 10/26/2023 10/26/2023 continue meds as prescribed, continue care with Dr. Ramirez as recommended [email or web address] Not available 12/08/2023 22:07:45 Plan of Treatment Reminders Order Date Submit Date Provider Last Modified By Organization Details Last Modified Time Details Appointments None recorded. Lab HIV 1 + 2, meaningful use set 2023 024 KATHLEEN [facility], [address], [place] [address], [place], [address], 4 07:37:18 Hepatitis C IgG Ab, qual, serum 2023 024 KATHLEEN [facility], [address], [place], [place], [address], 4 07:37:19 CMP, serum or plasma 2023 024 KATHLEEN [facility], [address], [place], [place], [address], 4 07:37:17 food allergen panel, serum 2023 024 KATHLEEN [facility], [address], [place], [place], [address], 4 07:37:21 unlisted lab - allergens, zone 5 2023 024 KATHLEEN [facility], [address], [place] [address], [place], [address], 4 07:37:19 TSH + free T4, serum 2023 024 KATHLEEN [facility], [address], [place], [place], [address], 4 07:37:16 uric acid, serum or plasma 2022 023 KATHLEEN [facility], [address], [place], [place], [address], 3 04:36:19 CMP, serum or plasma 2022 023 KATHLEEN [facility], [address], [place], [place], [address], 3 04:36:17 vitamin B12 + folate, serum or blood 2022 023 KATHLEEN [facility], [address], [place], [place], [address], 3 04:36:18 TSH + free T4, serum 2022 023 KATHLEEN [facility], [address], [place], [place], [address], 3 04:36:16 T3, free, serum or plasma 2022 023 KATHLEEN [facility], [address], [place], [place], [address], 3 04:36:20 CBC w/ auto diff 2022 023 KATHLEEN [facility], [address], [place], [place], [address], 3 04:36:17 rapid strep group A, throat [address], [address] [place] [address] Rd[address] [place], [address], 3 15:32:42 urinalysis, dipstick [address], [address] [place] [address] Rd[address] [place], [address], 3 15:32:42 culture, urine 2022 023 WAYNE [facility], [address], [place], [place], [address], 3 04:36:14 Referral None recorded. Procedures None recorded. Surgeries None recorded. Imaging None recorded. Medication Orders dexamethaso ne sodium phosphate 4 mg/mL injection solution 2022 023 [email or web address] [facility], [address], [place], [address], 3 13:52:01 levocetiriz ine 5 mg tablet 2022 023 [email or web address] [facility], [address] [place] [address], [place], [address], 3 11:20:10 amoxicillin 500 mg-potisakiu m clavulanate 125 mg tablet 2022 023 [email or web address] [facility], [address] [place] [address], [place], [address], 3 08:57:25 Patient TargetsNo targets recorded. Patient Instructions Encounter Date Encounter Id Patient Instructions Last Modified By Organization Details Last Modified Time 04/13/2023 [id number] All questions answered and pt/guardian satisfied with treatment plan. Call with changes RTC or ED if symptoms change or worsen Keep next interval checkup Cont. chronic meds as prescribed Chronic conditions are stable Discussed natural and expected course of this diagnosis and need to alert the office if symptoms do not follow expected course or if any worsens Declines scheduling FU visit at this time, will FU PRN. [email or web address] Not available 04/13/2023 15:23:48 08/08/2023 [id number] learning about healthy weight [email or web address] Not available 08/08/2023 17:41:22 body mass index: care instructions [email or web address] Not available 08/08/2023 17:41:22 10/26/2023 [id number] learning about healthy weight [email or web address] Not available 10/26/2023 18:30:10 body mass index: care instructions [email or web address] Not available 10/26/2023 18:30:10 Reason for Referral None Reported. Results Created Date Observation Date Name Description Value Unit Range Abnormal Flag Note LastModifiedBy Organization Detail LastModifiedTime 04/13/2004/15/2023 URINE CULTU RE, RUDDY NE urine culture, routine Final report abnormal Not Available [facility] ([facility]) [address], [place], [address], 04/15/2023 04:36:13 04/13/2004/15/2023 URINE CULTU RE, ROUTI NE result 1 COMMEN T abnormal Beta hemol ytic Strep tococ cus, group B 25,00 0-50, 000 colon y formi ng units per mL Penic illin and ampic illin are drugs of choic e for treat ment of beta- hemol ytic strep tococ joseph infec tions . Susce ptibi lity testi ng of penic illin s and other beta- lacta m agent s appro jerry by the FDA for treat ment of beta- hemol ytic strep tococ joseph infec tions need not be perfo rmed routi lashay becau se nonsu scept ible isola willi are extre ivelisse rare in any beta- hemol ytic strep tococ cus and have not been repor jodie for Strep tococ cus pyoge reyna (grou p A). (CLSI ) Not Available [facility] ([facility]) [address] [facility], [place], [address], 04/15/2023 04:36:13 04/13/2004/13/2023 urina lysis , dipst ick Leukocytes Small Not Available [address] [place], [address], 04/13/2023 15:01:51 04/13/20 23 04/13/2023 urina lysis , dipst ick Nitrite negati ve Not Available [facility] [address] [place], [address], 04/13/2023 15:01:51 04/13/20 23 04/13/2023 urina lysis , dipst ick Urobilinogen .2 Not Available [facility] [address] [place], [address], 04/13/2023 15:01:51 04/13/20 23 04/13/2023 urina lysis , dipst ick Protein Negati ve Not Available [address] [place], [address], 04/13/2023 15:01:51 04/13/20 23 04/13/2023 urina lysis , dipst ick pH 5.5 Not Available [address] [place], [address], 04/13/2023 15:01:51 04/13/2004/13/2023 urina lysis , dipst ick Blood Negati ve Not Available [address] [place], [address], 04/13/2023 15:01:51 04/13/20 23 04/13/2023 urina lysis , dipst ick Specific [place] 1.020 Not Available [address] [place], [address], 04/13/2023 15:01:51 04/13/2004/13/2023 urina lysis , dipst ick Ketone Negati ve Not Available [address] [place], [address], 04/13/2023 15:01:51 04/13/20 23 04/13/2023 urina lysis , dipst ick Bilirubin Negati ve Not Available [address] [place], [address], 04/13/2023 15:01:51 04/13/2004/13/2023 urina lysis , dipst ick Glucose Negati ve Not Available [address] [place], [address], 04/13/2023 15:01:51 04/13/20 23 04/13/2023 urina lysis , dipst ick Appearance Slight ly Cloudy Not Available [address] [place], [address], 04/13/2023 15:01:51 04/13/20 23 04/13/2023 urina lysis , dipst ick Color Pale Yellow Not Available [address] [place], [address], 04/13/2023 15:01:51 04/13/20 23 04/13/2023 rapid strep group A, throa t Strep positi ve Not Available [address] [place], [address], 04/13/2023 14:56:12 04/13/2004/13/2023 rapid strep group A, throa t Culture No Not Available [address] [place], [address], 04/13/2023 14:56:12 05/17/20 23 05/18/2023 TSH+F REE T4 TSH 2.350 uIU/m L 0.450- 4.500 Not Available [facility] ([facility]) [address] [place], [address], 05/18/2023 04:36:16 05/17/20 23 05/18/2023 TSH+F REE T4 T4,free(dire ct) 1.08 NG/dL 0.82-1 .77 Not Available [facility] ([facility]) [address] [facility], [place], [address], 05/18/2023 04:36:16 05/17/20 23 05/18/2023 CBC WITH DIFFE RENTI AL/PL ATELE T WBC 6.6 x10e3 /uL 3.4-10 .8 Not Available [facility] ([facility]) [address] [facility], [place], [address], 05/18/2023 04:36:17 05/17/20 23 05/18/2023 CBC WITH DIFFE RENTI AL/PL ATELE T RBC 4.67 x10e6 /uL 3.77-5 .28 Not Available [facility] ([facility]) [address] [facility], [place], [address], 05/18/2023 04:36:17 05/17/20 23 05/18/2023 CBC WITH DIFFE RENTI AL/PL ATELE T hemoglobin 14.4 g/dL 11.1-1 5.9 Not Available [facility] ([facility]) [address] [facility], [place], [address], 05/18/2023 04:36:17 05/17/20 23 05/18/2023 CBC WITH DIFFE RENTI AL/PL ATELE T hematocrit 43.0 % 34.0-4 6.6 Not Available [facility] ([facility]) [address] [facility], [place], [address], 05/18/2023 04:36:17 05/17/20 23 05/18/2023 CBC WITH DIFFE RENTI AL/PL ATELE T MCV 92 fL 79-97 Not Available [facility] ([facility]) [address] [place], [address], 05/18/2023 04:36:17 05/17/20 23 05/18/2023 CBC WITH DIFFE RENTI AL/PL ATELE T MCH 30.8 pg 26.6-3 3.0 Not Available [facility] ([facility]) [address] [place], [address], 05/18/2023 04:36:17 05/17/20 23 05/18/2023 CBC WITH DIFFE RENTI AL/PL ATELE T MCHC 33.5 g/dL 31.5-3 5.7 Not Available [facility] ([facility]) [address] [facility], [place], [address], 05/18/2023 04:36:17 05/17/20 23 05/18/2023 CBC WITH DIFFE RENTI AL/PL ATELE T RDW 13.1 % 11.7-1 5.4 Not Available [facility] ([facility]) [address] [facility], [place], [address], 05/18/2023 04:36:17 05/17/20 23 05/18/2023 CBC WITH DIFFE RENTI AL/PL ATELE T platelets 227 x10e3 /uL 150-45 0 Not Available [facility] ([facility]) [address] [facility], [place], [address], 05/18/2023 04:36:17 05/17/20 23 05/18/2023 CBC WITH DIFFE RENTI AL/PL ATELE T neutrophils 62 % not estab. Not Available [facility] ([facility]) [address] [facility], [place], [address], 05/18/2023 04:36:17 05/17/20 23 05/18/2023 CBC WITH DIFFE RENTI AL/PL ATELE T lymphs 26 % not estab. Not Available [facility] ([facility]) [address] [facility], [place], [address], 05/18/2023 04:36:17 05/17/20 23 05/18/2023 CBC WITH DIFFE RENTI AL/PL ATELE T monocytes 10 % not estab. Not Available [facility] ([facility]) [address] [facility], [place], [address], 05/18/2023 04:36:17 05/17/20 23 05/18/2023 CBC WITH DIFFE RENTI AL/PL ATELE T eos 2 % not estab. Not Available [facility] ([facility]) [address] [facility], [place], [address], 05/18/2023 04:36:17 05/17/20 23 05/18/2023 CBC WITH DIFFE RENTI AL/PL ATELE T basos 0 % not estab. Not Available [facility] ([facility]) [address] [place], [address], 05/18/2023 04:36:17 05/17/20 23 05/18/2023 CBC WITH DIFFE RENTI AL/PL ATELE T immature cells CODER OPERATOR Not Available [facility] ([facility]) [address] [place], [address], 05/18/2023 04:36:17 05/17/20 23 05/18/2023 CBC WITH DIFFE RENTI AL/PL ATELE T neutrophils (absolute) 4.1 x10e3 /uL 1.4-7. 0 Not Available [facility] ([facility]) [address] [place], [address], 05/18/2023 04:36:17 05/17/20 23 05/18/2023 CBC WITH DIFFE RENTI AL/PL ATELE T lymphs (absolute) 1.7 x10e3 /uL 0.7-3. 1 Not Available [facility] ([facility]) [address] [place], [address], 05/18/2023 04:36:17 05/17/20 23 05/18/2023 CBC WITH DIFFE RENTI AL/PL ATELE T monocytes(ab solute) 0.6 x10e3 /uL 0.1-0. 9 Not Available [facility] ([facility]) [address] [place], [address], 05/18/2023 04:36:17 05/17/20 23 05/18/2023 CBC WITH DIFFE RENTI AL/PL ATELE T eos (absolute) 0.1 x10e3 /uL 0.0-0. 4 Not Available [facility] ([facility]) [address] [place], [address], 05/18/2023 04:36:17 05/17/20 23 05/18/2023 CBC WITH DIFFE RENTI AL/PL ATELE T baso (absolute) 0.0 x10e3 /uL 0.0-0. 2 Not Available [facility] ([facility]) [address] [facility], [place], [address], 05/18/2023 04:36:17 05/17/20 23 05/18/2023 CBC WITH DIFFE RENTI AL/PL ATELE T immature granulocytes 0 % not estab. Not Available [facility] ([facility]) [address] [facility], [place], [address], 05/18/2023 04:36:17 05/17/20 23 05/18/2023 CBC WITH DIFFE RENTI AL/PL ATELE T immature grans (abs) 0.0 x10e3 /uL 0.0-0. 1 Not Available [facility] ([facility]) [address] [facility], [place], [address], 05/18/2023 04:36:17 05/17/20 23 05/18/2023 CBC WITH DIFFE RENTI AL/PL ATELE T NRBC CODER OPERATOR Not Available [facility] ([facility]) [address] [facility], [place], [address], 05/18/2023 04:36:17 05/17/20 23 05/18/2023 CBC WITH DIFFE RENTI AL/PL ATELE T hematology comments: CODER OPERATOR Not Available [facility] ([facility]) [address] [facility], [place], [address], 05/18/2023 04:36:17 05/17/20 23 05/18/2023 COMP. METAB OLIC PANEL (14) glucose 114 mg/dL 70-99 above high normal Not Available [facility] ([facility]) [address] [facility], [place], [address], 05/18/2023 04:36:17 05/17/20 23 05/18/2023 COMP. METAB OLIC PANEL (14) BUN 12 mg/dL 6-24 Not Available [facility] ([facility]) [address] [place], [address], 05/18/2023 04:36:17 05/17/20 23 05/18/2023 COMP. METAB OLIC PANEL (14) creatinine 0.82 mg/dL 0.57-1 .00 Not Available [facility] ([facility]) [address] [facility], [place], [address], 05/18/2023 04:36:17 05/17/20 23 05/18/2023 COMP. METAB OLIC PANEL (14) eGFR 82 mL/mi n/1.7 3 >59 Not Available [facility] ([facility]) [address] [facility], [place], [address], 05/18/2023 04:36:17 05/17/20 23 05/18/2023 COMP. METAB OLIC PANEL (14) BUN/creatini ne ratio 15 9-23 Not Available [facility] ([facility]) [address] [place], [address], 05/18/2023 04:36:17 05/17/20 23 05/18/2023 COMP. METAB OLIC PANEL (14) sodium 141 mmol/ L 134-14 4 Not Available [facility] ([facility]) [address] [place], [address], 05/18/2023 04:36:17 05/17/20 23 05/18/2023 COMP. METAB OLIC PANEL (14) potassium 4.2 mmol/ L 3.5-5. 2 Not Available [facility] ([facility]) [address] [place], [address], 05/18/2023 04:36:17 05/17/20 23 05/18/2023 COMP. METAB OLIC PANEL (14) chloride 101 mmol/ L 96-106 Not Available [facility] ([facility]) [address], [place], [address], 05/18/2023 04:36:17 05/17/20 23 05/18/2023 COMP. METAB OLIC PANEL (14) carbon dioxide, total 25 mmol/ L 20-29 Not Available [facility] ([facility]) [address], [place], [address], 05/18/2023 04:36:17 05/17/20 23 05/18/2023 COMP. METAB OLIC PANEL (14) calcium 9.2 mg/dL 8.7-10 .2 Not Available [facility] ([facility]) [address], [address], 05/18/2023 04:36:17 05/17/20 23 05/18/2023 COMP. METAB OLIC PANEL (14) protein, total 6.5 g/dL 6.0-8. 5 Not Available [facility] ([facility]) [address] [place], [address], 05/18/2023 04:36:17 05/17/20 23 05/18/2023 COMP. METAB OLIC PANEL (14) albumin 4.0 g/dL 3.8-4. 9 Not Available [facility] ([facility]) [address], [address], 05/18/2023 04:36:17 05/17/20 23 05/18/2023 COMP. METAB OLIC PANEL (14) globulin, total 2.5 g/dL 1.5-4. 5 Not Available [facility] ([facility]) [address] [place], [address], 05/18/2023 04:36:17 05/17/20 23 05/18/2023 COMP. METAB OLIC PANEL (14) A/G ratio 1.6 1.2-2. 2 Not Available [facility] ([facility]) [address] [place], [address], 05/18/2023 04:36:17 05/17/20 23 05/18/2023 COMP. METAB OLIC PANEL (14) bilirubin, total 0.5 mg/dL 0.0-1. 2 Not Available [facility] ([facility]) [address] [place], [address], 05/18/2023 04:36:17 05/17/20 23 05/18/2023 COMP. METAB OLIC PANEL (14) alkaline phosphatase 100 IU/L 44-121 Not Available [facility] ([facility]) [address] [place], [address], 05/18/2023 04:36:17 05/17/20 23 05/18/2023 COMP. METAB OLIC PANEL (14) AST (SGOT) 18 IU/L 0-40 Not Available [facility] ([facility]) [address] [place], [address], 05/18/2023 04:36:17 05/17/20 23 05/18/2023 COMP. METAB OLIC PANEL (14) ALT (SGPT) 19 IU/L 0-32 Not Available [facility] ([facility]) [address] [place], [address], 05/18/2023 04:36:17 05/17/20 23 05/18/2023 VITAM IN B12 AND FOLAT E vitamin B12 1889 pg/mL 232-12 45 above high normal Not Available [facility] ([facility]) [address] [place], [address], 05/18/2023 04:36:18 05/17/20 23 05/18/2023 VITAM IN B12 AND FOLAT E folate (folic acid), serum 19.5 NG/mL >3.0 A serum folat e andrew ntrat ion of less than 3.1 ng/mL is consi dered to repre sent clini joseph defic iency . Not Available [facility] ([facility]) [address] [place], [address], 05/18/2023 04:36:18 05/17/20 23 05/18/2023 URIC ACID uric acid 5.2 mg/dL 3.0-7. 2 Thera peuti c targe t for gout patie nts: <6.0 Not Available [facility] ([facility]) [address] [place], [address], 05/18/2023 04:36:19 05/17/20 23 05/18/2023 TRIIO DOTHY NANNETTE E (T3), FREE triiodothyro nine (T3), free 3.0 pg/mL 2.0-4. 4 Not Available [facility] ([facility]) [address] [place], [address], 05/18/2023 04:36:20 08/08/19 24 08/10/2023 TSH+F REE T4 TSH 1.720 uIU/m L 0.450- 4.500 Not Available [facility] ([facility]) [address] [place], [address], 08/13/2023 07:37:16 08/08/19 24 08/10/2023 TSH+F REE T4 T4,free(dire ct) 1.07 NG/dL 0.82-1 .77 Not Available [facility] ([facility]) [address] [place], [address], 08/13/2023 07:37:16 08/08/19 24 08/10/2023 COMP. METAB OLIC PANEL (14) glucose 97 mg/dL 70-99 Not Available [facility] ([facility]) [address] [place], [address], 08/13/2023 07:37:17 08/08/19 24 08/10/2023 COMP. METAB OLIC PANEL (14) BUN 14 mg/dL 6-24 Not Available [facility] ([facility]) [address] [place], [address], 08/13/2023 07:37:17 08/08/19 24 08/10/2023 COMP. METAB OLIC PANEL (14) creatinine 0.81 mg/dL 0.57-1 .00 Not Available [facility] ([facility]) [address] [place], [address], 08/13/2023 07:37:17 08/08/19 24 08/10/2023 COMP. METAB OLIC PANEL (14) eGFR 84 mL/mi n/1.7 3 >59 Not Available [facility] ([facility]) [address] [place], [address], 08/13/2023 07:37:17 08/08/19 24 08/10/2023 COMP. METAB OLIC PANEL (14) BUN/creatini ne ratio 17 9-23 Not Available [facility] ([facility]) [address] [place], [address], 08/13/2023 07:37:17 08/08/19 24 08/10/2023 COMP. METAB OLIC PANEL (14) sodium 141 mmol/ L 134-14 4 Not Available [facility] ([facility]) [address] [place], [address], 08/13/2023 07:37:17 08/08/19 24 08/10/2023 COMP. METAB OLIC PANEL (14) potassium 4.3 mmol/ L 3.5-5. 2 Not Available [facility] ([facility]) [address] [place], [address], 08/13/2023 07:37:17 08/08/19 24 08/10/2023 COMP. METAB OLIC PANEL (14) chloride 103 mmol/ L 96-106 Not Available [facility] ([facility]) [address] [place], [address], 08/13/2023 07:37:17 08/08/19 24 08/10/2023 COMP. METAB OLIC PANEL (14) carbon dioxide, total 25 mmol/ L 20-29 Not Available [facility] ([facility]) [address] [facility], [place], [address], 08/13/2023 07:37:17 08/08/19 24 08/10/2023 COMP. METAB OLIC PANEL (14) calcium 9.4 mg/dL 8.7-10 .2 Not Available [facility] ([facility]) [address] [place], [address], 08/13/2023 07:37:17 08/08/19 24 08/10/2023 COMP. METAB OLIC PANEL (14) protein, total 6.6 g/dL 6.0-8. 5 Not Available [facility] ([facility]) [address] [place], [address], 08/13/2023 07:37:17 08/08/19 24 08/10/2023 COMP. METAB OLIC PANEL (14) albumin 4.1 g/dL 3.8-4. 9 Not Available [facility] ([facility]) [address] [facility], [place], [address], 08/13/2023 07:37:17 08/08/19 24 08/10/2023 COMP. METAB OLIC PANEL (14) globulin, total 2.5 g/dL 1.5-4. 5 Not Available [facility] ([facility]) [address] [place], [address], 08/13/2023 07:37:17 08/08/19 24 08/10/2023 COMP. METAB OLIC PANEL (14) A/G ratio 1.6 1.2-2. 2 Not Available [facility] ([facility]) [address] [place], [address], 08/13/2023 07:37:17 08/08/19 24 08/10/2023 COMP. METAB OLIC PANEL (14) bilirubin, total 0.3 mg/dL 0.0-1. 2 Not Available [facility] ([facility]) [address] [place], [address], 08/13/2023 07:37:17 08/08/19 24 08/10/2023 COMP. METAB OLIC PANEL (14) alkaline phosphatase 95 IU/L 44-121 Not Available [facility] ([facility]) [address] [place], [address], 08/13/2023 07:37:17 08/08/19 24 08/10/2023 COMP. METAB OLIC PANEL (14) AST (SGOT) 17 IU/L 0-40 Not Available [facility] ([facility]) [address] [place], [address], 08/13/2023 07:37:17 08/08/19 24 08/10/2023 COMP. METAB OLIC PANEL (14) ALT (SGPT) 15 IU/L 0-32 Not Available [facility] ([facility]) [address] [place], [address], 08/13/2023 07:37:17 08/08/19 24 08/10/2023 HIV AB/P2 4 AG WITH REFLE X HIV Ab/P24 Ag screen Non Reacti ve non reacti ve HIV Negat lavelle HIV-1 /HIV- 2 antib odies and HIV-1 p24 antig en were NOT detec jodie. There is no labor atory evide nce of HIV infec tion. Not Available [facility] ([facility]) [address] [facility], [place], [address], 08/13/2023 07:37:18 08/08/19 24 08/11/2023 HCV ANTIB TERESA hep C virus Ab Non Reacti ve non reacti ve HCV antib teresa alone does not diffe renti ate betwe en previ ously resol jerry infec tion and activ e infec tion. Equiv ocal and React lavelle HCV antib teresa resul ts shoul d be follo wed up with an HCV RNA test to suppo rt the diagn osis of activ e HCV infec tion. Not Available [facility] ([facility]) [address] [facility], [place], [address], 08/13/2023 07:37:19 08/08/19 24 08/09/2023 ALLER GENS, ZONE 5 class description Commen t Level s of Speci fic IgE Class Descr iptio n of Class ----- ----- ----- ----- ----- -- ----- ----- ----- ----- ----- < 0.10 0 Negat lavelle 0.10 - 0.31 0/I Equiv ocal/ Low 0.32 - 0.55 I Low 0.56 - 1.40 II Moder ate 1.41 - 3.90 III High 3.91 - 19.00 IV Very High 19.01 - 100.0 0 V Very High >100. 00 Very High Not Available [facility] ([facility]) [address] [place], [address], 08/13/2023 07:37:19 08/08/19 24 08/13/2023 ALLER GENS, ZONE 5 [id number] D pteronyssinu s <0.10 kU/L class 0 Not Available [facility] ([facility]) [address] [place], [address], 08/13/2023 07:37:19 08/08/19 24 08/13/2023 ALLER GENS, ZONE 5 [id number] D farinae <0.10 kU/L class 0 Not Available [facility] ([facility]) [address] [place], [address], 08/13/2023 07:37:19 08/08/19 24 08/13/2023 ALLER GENS, ZONE 5 [id number] CAT dander <0.10 kU/L class 0 Not Available [facility] ([facility]) [address] [place], [address], 08/13/2023 07:37:19 08/08/19 24 08/13/2023 ALLER GENS, ZONE 5 [id number] dog dander <0.10 kU/L class 0 Not Available [facility] ([facility]) [address] [place], [address], 08/13/2023 07:37:19 08/08/19 24 08/13/2023 ALLER GENS, ZONE 5 k282-ZcJ bermuda grass <0.10 kU/L class 0 Not Available [facility] ([facility]) [address] [facility], [place], [address], 08/13/2023 07:37:19 08/08/19 24 08/13/2023 ALLER GENS, ZONE 5 z106-ThT rye grass, perennial <0.10 kU/L class 0 Not Available [facility] ([facility]) [address] [place], [address], 08/13/2023 07:37:19 08/08/19 24 08/13/2023 ALLER GENS, ZONE 5 e203-KpM remington grass <0.10 kU/L class 0 Not Available [facility] ([facility]) [address] [place], [address], 08/13/2023 07:37:19 08/08/19 24 08/13/2023 ALLER GENS, ZONE 5 d329-LyZ bahia grass <0.10 kU/L class 0 Not Available [facility] ([facility]) [address] [place], [address], 08/13/2023 07:37:19 08/08/19 24 08/13/2023 ALLER GENS, ZONE 5 L770-OvJ cockroach, french <0.10 kU/L class 0 Not Available [facility] ([facility]) [address] [place] [place], [address], 08/13/2023 07:37:19 08/08/19 24 08/13/2023 ALLER GENS, ZONE 5 L639-FpJ penicillium chrysogen <0.10 kU/L class 0 Not Available [facility] ([facility]) [address] [place] [place], [address], 08/13/2023 07:37:19 08/08/19 24 08/13/2023 ALLER GENS, ZONE 5 R889-KcY cladosporium herbarum <0.10 kU/L class 0 Not Available [facility] ([facility]) [address] [place] [place], [address], 08/13/2023 07:37:19 08/08/19 24 08/13/2023 ALLER GENS, ZONE 5 X242-OpB aspergillus fumigatus <0.10 kU/L class 0 Not Available [facility] ([facility]) [address] [place] [place], [address], 08/13/2023 07:37:19 08/08/19 24 08/13/2023 ALLER GENS, ZONE 5 A377-HaX mucor racemosus <0.10 kU/L class 0 Not Available [facility] ([facility]) [address] [place] [place], [address], 08/13/2023 07:37:19 08/08/19 24 08/13/2023 ALLER GENS, ZONE 5 C143-QoY alternaria alternata <0.10 kU/L class 0 Not Available [facility] ([facility]) [address] [place] [place], [address], 08/13/2023 07:37:19 08/08/19 24 08/13/2023 ALLER GENS, ZONE 5 D347-EvG stemphylium herbarum <0.10 kU/L class 0 Not Available [facility] ([facility]) [address], [place], [address], 08/13/2023 07:37:19 08/08/19 24 08/13/2023 ALLER GENS, ZONE 5 G265-CuL elm, french <0.10 kU/L class 0 Not Available [facility] ([place] [facility]) [address], [place], [address], 08/13/2023 07:37:19 08/08/19 24 08/13/2023 ALLER GENS, ZONE 5 K319-OuD eucalyptus <0.10 kU/L class 0 Not Available [facility] ([place] [facility]) [address], [place], [address], 08/13/2023 07:37:19 08/08/19 24 08/13/2023 ALLER GENS, ZONE 5 L701-TtO maple/box elder <0.10 kU/L class 0 Not Available [facility] ([place] [facility]) [address], [place], [address], 08/13/2023 07:37:19 08/08/19 24 08/13/2023 ALLER GENS, ZONE 5 C560-EwM cypress, taiwanese <0.10 kU/L class 0 Not Available [facility] ([place] [facility]) [address] [facility], [place], [address], 08/13/2023 07:37:19 08/08/19 24 08/13/2023 ALLER GENS, ZONE 5 X359-CgK pepper tree <0.10 kU/L class 0 Not Available [facility] ([place] [facility]) [address] [facility], [place], [address], 08/13/2023 07:37:19 08/08/19 24 08/13/2023 ALLER GENS, ZONE 5 X288-ZqC oak, live/virgini a <0.10 kU/L class 0 Not Available [facility] ([place] [facility]) [address] [facility], [place], [address], 08/13/2023 07:37:19 08/08/19 24 08/13/2023 ALLER GENS, ZONE 5 P802-MxV privet, common <0.10 kU/L class 0 Not Available [facility] ([place] [facility]) [address], [place], [address], 08/13/2023 07:37:19 08/08/19 24 08/13/2023 ALLER GENS, ZONE 5 E136-HsR bayberry/swe et gale <0.10 kU/L class 0 Not Available [facility] ([place] [facility]) [address], [place], [address], 08/13/2023 07:37:19 08/08/19 24 08/13/2023 ALLER GENS, ZONE 5 I983-SbC palm, bobby <0.10 kU/L class 0 Not Available [facility] ([place] [facility]) [address], [place], [address], 08/13/2023 07:37:19 08/08/19 24 08/13/2023 ALLER GENS, ZONE 5 E301-KwW ragweed, short <0.10 kU/L class 0 Not Available [facility] ([place] [facility]) [address], [place], [address], 08/13/2023 07:37:19 08/08/19 24 08/13/2023 ALLER GENS, ZONE 5 N693-RvQ plantain, amharic <0.10 kU/L class 0 Not Available [facility] ([place] [facility]) [address], [place], [address], 08/13/2023 07:37:19 08/08/19 24 08/13/2023 ALLER GENS, ZONE 5 M391-UkX davis's quarters <0.10 kU/L class 0 Not Available [facility] ([place] [facility]) [address], [place], [address], 08/13/2023 07:37:19 08/08/19 24 08/13/2023 ALLER GENS, ZONE 5 I714-LxX sheep sorrel <0.10 kU/L class 0 Not Available [facility] ([facility]) [address] [facility], [place], [address], 08/13/2023 07:37:19 08/08/19 24 08/13/2023 ALLER GENS, ZONE 5 Z055-EdO fennel, dog <0.10 kU/L class 0 Not Available [facility] ([facility]) [address] [facility], [place], [address], 08/13/2023 07:37:19 08/08/19 24 08/13/2023 ALLER GENS W/TOT AL IGE AREA 8 immunoglobul in E, total 6 IU/mL 6-495 Not Available [facility] ([facility]) [address] [place], [address], 08/13/2023 07:37:20 08/08/19 24 08/13/2023 ALLER GENS W/TOT AL IGE AREA 8 l133-HqR adriano grass <0.10 kU/L class 0 Not Available [facility] ([facility]) [address] [facility], [place], [address], 08/13/2023 07:37:20 08/08/19 24 08/13/2023 ALLER GENS W/TOT AL IGE AREA 8 S042-YrT cockroach, south african <0.10 kU/L class 0 Not Available [facility] ([place] [facility]) [address] [facility], [place], [address], 08/13/2023 07:37:20 08/08/19 24 08/13/2023 ALLER GENS W/TOT AL IGE AREA 8 S376-RqF cedar, mountain <0.10 kU/L class 0 Not Available [facility] ([place] [facility]) [address] [place], [address], 08/13/2023 07:37:20 08/08/19 24 08/13/2023 ALLER GENS W/TOT AL IGE AREA 8 R647-XaR oak, white <0.10 kU/L class 0 Not Available [facility] ([place] [facility]) [address], [place], [address], 08/13/2023 07:37:20 08/08/19 24 08/13/2023 ALLER GENS W/TOT AL IGE AREA 8 T645-PxX maple leaf sycamore <0.10 kU/L class 0 Not Available [facility] ([place] [facility]) [address], [place], [address], 08/13/2023 07:37:20 08/08/19 24 08/13/2023 ALLER GENS W/TOT AL IGE AREA 8 Y130-EhS cottonwood <0.10 kU/L class 0 Not Available [facility] ([place] [facility]) [address], [place], [address], 08/13/2023 07:37:20 08/08/19 24 08/13/2023 ALLER GENS W/TOT AL IGE AREA 8 B165-HqJ chase, white <0.10 kU/L class 0 Not Available [facility] ([place] [facility]) [address], [place], [address], 08/13/2023 07:37:20 08/08/19 24 08/13/2023 ALLER GENS W/TOT AL IGE AREA 8 G706-NwG walnut <0.10 kU/L class 0 Not Available [facility] ([place] [facility]) [address], [place], [address], 08/13/2023 07:37:20 08/08/19 24 08/13/2023 ALLER GENS W/TOT AL IGE AREA 8 M352-XrB pecan, hickory <0.10 kU/L class 0 Not Available [facility] ([place] [facility]) [address], [place], [address], 08/13/2023 07:37:20 08/08/19 24 08/13/2023 ALLER GENS W/TOT AL IGE AREA 8 I473-SjG white mulberry <0.10 kU/L class 0 Not Available [facility] ([facility]) [address] [place], [address], 08/13/2023 07:37:20 08/08/19 24 08/13/2023 ALLER GENS W/TOT AL IGE AREA 8 M687-NeD thistle, anguillan <0.10 kU/L class 0 Not Available [facility] ([facility]) [address] [place], [address], 08/13/2023 07:37:20 08/08/19 24 08/13/2023 ALLER GENS W/TOT AL IGE AREA 8 E522-MwE pigweed, common <0.10 kU/L class 0 Not Available [facility] ([facility]) [address] [place], [address], 08/13/2023 07:37:20 08/08/19 24 08/13/2023 ALLER GENS W/TOT AL IGE AREA 8 D363-UuH rough marshelder <0.10 kU/L class 0 Not Available [facility] ([facility]) [address] [place], [address], 08/13/2023 07:37:20 08/08/19 24 08/13/2023 ALLER GENS W/TOT AL IGE AREA 8 G043-AhI mouse urine <0.10 kU/L class 0 Not Available [facility] ([facility]) [address] [place], [address], 08/13/2023 07:37:20 08/08/19 24 08/13/2023 FOOD ALLER GY PROFI LE R311-IeS egg white <0.10 kU/L class 0 Not Available [facility] ([facility]) [address] [place], [address], 08/13/2023 07:37:21 08/08/19 24 08/13/2023 FOOD ALLER GY PROFI LE D199-QnP peanut <0.10 kU/L class 0 Not Available [facility] ([facility]) [address] [facility], [place], [address], 08/13/2023 07:37:21 08/08/19 24 08/13/2023 FOOD ALLER GY PROFI LE I339-HpQ soybean <0.10 kU/L class 0 Not Available [facility] ([facility]) [address] [facility], [place], [address], 08/13/2023 07:37:21 08/08/19 24 08/13/2023 FOOD ALLER GY PROFI LE M022-ZxN milk <0.10 kU/L class 0 Not Available [facility] ([facility]) [address] [place], [address], 08/13/2023 07:37:21 08/08/19 24 08/13/2023 FOOD ALLER GY PROFI LE L342-OcO clam <0.10 kU/L class 0 Not Available [facility] ([facility]) [address] [place], [address], 08/13/2023 07:37:21 08/08/19 24 08/13/2023 FOOD ALLER GY PROFI LE J230-EfZ shrimp <0.10 kU/L class 0 Not Available [facility] ([facility]) [address] [place], [address], 08/13/2023 07:37:21 08/08/19 24 08/13/2023 FOOD ALLER GY PROFI LE K108-YbI walnut <0.10 kU/L class 0 Not Available [facility] ([facility]) [address] [place], [address], 08/13/2023 07:37:21 08/08/19 24 08/13/2023 FOOD ALLER GY PROFI LE O321-DyS codfish <0.10 kU/L class 0 Not Available [facility] ([facility]) [address] [place], [address], 08/13/2023 07:37:21 08/08/19 24 08/13/2023 FOOD ALLER GY PROFI LE Q637-FpY scallop <0.10 kU/L class 0 Not Available [facility] ([facility]) [address] [facility], [place], [address], 08/13/2023 07:37:21 08/08/19 24 08/13/2023 FOOD ALLER GY PROFI LE R404-VbH wheat <0.10 kU/L class 0 Not Available [facility] ([facility]) [address] [facility], [place], [address], 08/13/2023 07:37:21 08/08/19 24 08/13/2023 FOOD ALLER GY PROFI LE Y851-UrW corn <0.10 kU/L class 0 Not Available [facility] ([facility]) [address] [facility], [place], [address], 08/13/2023 07:37:21 08/08/19 24 08/13/2023 FOOD ALLER GY PROFI LE G945-TaU sesame seed <0.10 kU/L class 0 Not Available [facility] ([facility]) [address] [place], [address], 08/13/2023 07:37:21 03/18/20 23 03/17/2023 MAMMO , scree luda, bilat eral No observ ation record ed. [facility] [address], [place], [address], 03/20/2023 14:29:35 10/03/19 24 09/30/2023 katina can cardi olite stres s test (PROC ) No observ ation record ed. [email or web address] [facility] [address], [place], [address], 10/10/2023 09:00:53 10/03/19 24 09/30/2023 [place], echoc ardio gram No observ ation record ed. [address], [place], [place], [address], 10/10/2023 09:00:32 10/05/19 24 09/30/2023 NM, myoca rdial perfu roxanna scan No observ ation record ed. [address], [place], [place], [address], 10/10/2023 09:00:15 11/16/19 24 11/15/2023 US, thyro id No observ ation record ed. [email or web address] [facility] [address], [place], [address], 12/14/2023 08:56:06 Result Notes None recorded. Problems Name Problem SNOMED Code Status Onset Date Resolution Date Notes Provider Name and Address Organization Details Recorded Time Gastroesop hageal reflux disease 540398985 Active 2020 Laurie Whitt APRN [address], [place], [address], [place] - [facility] 15:36:37 Hypothyroi dism 44401317 Active 2020 Laurie Whitt APRN [address], [place], [address], [place] [facility] 22:06:13 Hypertensi ve disorder 24274190 Active 2020 Laurie Whitt APRN [address], [place], [address], [place] [facility] 4 22:06:10 Hyperlipid emia 15730731 Active 2020 Laurie Whitt APRN [address], [place], [address], [place] [facility] 4 22:06:08 Thyroid nodule 164983334 Active 2020 stable on ULS 11/24 Lauriesara Whitt APRN [address], [place], [address] [facility] 4 08:56:25 History of cerebrovas cular accident 431663612 Active 2020 Lauriesara Whitt APRN [address], [place], [address] [facility] 4 22:06:06 Fibromyalg ia 082677680 Active 2020 Lauriesara Whitt APRN [address], [place], [address] [facility] 15:36:12 Neuropathy 274118551 Active 2020 Lauriesara Whitt APRN [address], [place], [address] [facility] 4 22:06:20 Genital lichen sclerosus 785684858 Active 2021 Lauriesara Whitt APRN [address], [place], [address] [facility] 15:36:17 Acute bronchitis 80988132 Completed 202103/22/2022 Lauriesara Whitt APRN [address], [place], [address] [facility] 2 23:17:26 Vitamin D deficiency 21689663 Active 2021 Laurie Whitt APRN [address], [place], [address] [facility] 4 22:06:39 Postmenopa usal bleeding 56105964 Completed 202112/08/2023 Laurie Whitt APRN [address], [place], [address] [facility] 4 22:06:27 Body mass index 30+ - obesity 571275202 Active 2021 Laurie Whitt APRN [address], [place], [address] [facility] 4 22:06:03 Stenosis of cervix 76842919 Active 2021 Laurie Whitt APRN [address], [place], [address], [place] [facility] 4 22:06:30 Postcoital bleeding 69645388 Completed 202112/08/2023 Laurie Whitt APRN [address], [place], [address], [place] [facility] 4 22:06:24 Streptococ joseph sore throat 27348833 Completed 202212/08/2023 Laurie Whitt APRN [address], [place], [address], [place] [facility] 4 22:06:34 Acute urinary tract infection 493767667 Completed 202212/08/2023 Laurie Whitt APRN [address], [place], [address], [place] [facility] 4 22:05:59 Itching of skin 353253958 Completed 202312/08/2023 Laurie Whitt APRN [address], [place], [address], [place] [facility] 4 22:06:17 Problem Notes None recorded. Procedures Surgical History Date Name Laterality Status Provider Name and Address Organization Details Recorded Time 10/19 cardiac catheterization completed Kia Castillo [place] - [facility] 4 16:30:32 10/18 cardiac catheterization completed Jake Elizabeth [place] - [facility] 4 11:38:17 12/27 Advance Care Planning completed Jake Elizabeth [place] [facility] 08:14:35 12/27 Functional Status Assessed completed Get Rehmanbestclifford [place] - [facility] 08:14:35 07/27 Hysteroscopy completed Zoila [place] [facility] 12:57:45 06/17 Endometrial Biopsy completed Anaya Castro APRN [address], [place], [address], [place] [facility] 11:24:00 04/12 Date of Last Pap Smear completed Anaya Castro, SURVEILLANCE DIRECTOR [address], [place], [address], [place] - [facility] 13:12:36 01/15 Date of Last Mammogram completed Laurie Jose Eduardo, SURVEILLANCE DIRECTOR [address], [place], [address], [place] [facility] 2 20:52:55 07/06 Advance Care Planning completed Jake Martinezeganohelia [place] - [facility] 09:17:54 07/06 Functional Status Assessed completed Get on Snedegar [place] - [facility] 09:17:54 10/13 Most Recent Bone Density completed Guero [place] [facility] 07:44:39 08/20 Knee Surgery [place]aci Tan [place] [facility] 15:54:37 10/10 cardiac catheterization completed Jay [place] [facility] 16:01:55 05/08 esophagogastroduodenoscopy completed Ana María [place] [facility] 16:02:05 04/03 Appendectomy completed [place]aci [place] [facility] 15:44:55 03/20 Caesarean Section [place]aci [place] [facility] 16:01:13 05/31 Caesarean Section [place]aci [place] [facility] 16:01:13 10/04 Caesarean Section [place]aci [place] [facility] 15:44:55 plantar fasciectomy completed Get avila [place] [facility] 14:14:44 total knee replacement completed Socrates Rehmanedegar [place] [facility] 14:14:53 Carpal tunnel surgery completed Ger Rehmanedegar [place] [facility] 14:15:09 Breast Cystectomy completed Laurie Jose Eduardo, SURVEILLANCE DIRECTOR [address], [place], [address], [place] [facility] 09:44:49 cryosurgery completed Zoila [place] [facility] 3 11:59:55 Tubal Ligation completed [place]aci Tan [place] [facility] 16:02:58 Endometrial Ablation completed Rey [place] [facility] 12:00:18 Imaging Results None recorded. Procedure Notes None recorded. Medical Equipment None Reported. Allergies Allergen ID Allergen Name Allergen Category Reaction Reaction Severity Criticality Documentation Date Start Date Code Code System Note Provider Name and Address Organization Details Recorded Time 087999 Toradol medicatio n hives Not available Not available 06/05/2021 50535 RxNorm Kaci bee, [place] - [facility] 2 16:01:34 586288 Iodinated contrast media (substanc e) medicatio n Not available Not available Not available 06/05/2021 19827 2004 SNOMED Kaci bee, [place] - [facility] 2 16:01:32 905879 Jardiance medicatio n dyspnea Not available Not available 10/26/2023 19219 59 RxNorm jitte ry/so b-sto pped by vidal sweeney Laurie Garcíaall, SURVEILLANCE DIRECTOR [address], [place], [address], [place] [facility] 4 16:48:50 Medications Name Sig Start Date Stop Date Status Note LastModified by Organization Details LastModified Time amoxicillin 500 mg capsule TAKE ONE (1) CAPSULE TWICE A DAY BY ORAL ROUTE FOR 10 DAYS. 01/25 completed Not Available Not Available Not Available furosemide 40 mg tablet TAKE ONE (1) TABLET EVERY DAY BY ORAL ROUTE DIRECTED. 09/09 completed Not Available Not Available Not Available atorvastati n 20 mg tablet Take 1 tablet every day by oral route as directed for 30 days. 09/09 completed Not Available Not Available Not Available azithromyci n 250 mg tablet TAKE 2 TABLETS (500 MG) BY ORAL ROUTE ONCE DAILY FOR 1 DAY THEN 1 TABLET (250 MG) BY ORAL ROUTE ONCE DAILY FOR 4 DAYS 06/17 completed Not Available Not Available Not Available benzonatate 200 mg capsule TAKE ONE (1) CAPSULE THREE (3) TIMES A DAY BY ORAL ROUTE NEEDED FOR 7 DAYS. 01/25 completed Not Available Not Available Not Available spironolact one 100 mg tablet TAKE 1 TABLET BY MOUTH ONCE DAILY DIRECTED active Not Available Not Available No t Available clindamycin HCl 150 mg capsule 01/25 completed Not Available Not Available Not Available promethazin e 6.25 mg-codeine 10 mg/5 mL syrup ONE TEASPOON EVERY FOUR HOURS NEEDED 02/22 completed Not Available Not Available Not Available dextrometho rphan-guaif enesin 10 mg-100 mg/5 mL oral syrup Take 10 mL every 4 hours by oral route as needed for 7 days. 08/08 completed Not Available Not Available Not Available ciprofloxac in 500 mg tablet TAKE ONE (1) TABLET EVERY 12 HOURS BY ORAL ROUTE FOR 7 DAYS. 03/22 completed Not Available Not Available Not Available tramadol 50 mg tablet TAKE ONE (1) TABLET EVERY SIX (6) HOURS BY ORAL ROUTE NEEDED FOR 10 DAYS. 12/27 completed Not Available Not Available Not Available triamcinolo ne acetonide 0.1 % topical cream APPLY A THIN LAYER TO THE AFFECTED AREA(S) BY TOPICAL ROUTE TWO (2) TIMES PER DAY 08/08 completed Not Available Not Available Not Available ceftriaxone 1 gram solution for injection Take 500 mg by injection route. 03/08 completed Not Available Not Available Not Available linezolid 600 mg tablet TAKE ONE (1) TABLET EVERY 12 HOURS BY ORAL ROUTE FOR 7 DAYS. 03/22 completed Not Available Not Available Not Available phenazopyri dine 100 mg tablet TAKE ONE (1) TABLET THREE (3) TIMES A DAY BY ORAL ROUTE DIRECTED FOR 7 DAYS. 03/24 completed Not Available Not Available Not Available levothyroxi ne 50 mcg tablet TAKE 1 TABLET BY MOUTH ONCE DAILY DIRECTED active Not Available Not Available No t Available cephalexin 500 mg capsule Take 1 capsule twice a day by oral route for 10 days. 12/27 completed Not Available Not Available Not Available pantoprazol e 40 mg tablet,zak yed release TAKE 1 TABLET BY MOUTH ONCE DAILY active Not Available Not Available No t Available losartan 25 mg tablet Take 1 tablet every day by oral route as directed for 30 days. 10/25 completed Not Available Not Available Not Available nitroglycer in 0.[address] 1 tablet as needed by sublingua l route. active Not Available Not Available No t Available diclofenac sodium 75 mg tablet,zak yed release TAKE ONE (1) TABLET TWICE A DAY BY ORAL ROUTE WITH MEALS FOR 90 DAYS. 06/16 completed Not Available Not Available Not Available clobetasol 0.05 % topical ointment APPLY A THIN LAYER TO THE AFFECTED AREA(S) BY TOPICAL ROUTE TWO (2) TIMES PER DAY 02/14 completed Not Available Not Available Not Available dexamethaso ne sodium phosphate 4 mg/mL injection solution Inject 4 mg by intramusc ular route. 06/22 completed Not Available Not Available Not Available prednisone 5 mg tablets in a dose pack TAKE ONE (1) DOSE PACKET BY ORAL ROUTE DIRECTED. 12/17 completed Not Available Not Available Not Available estradiol 0.01% (0.1 mg/gram) vaginal cream Insert 1 g twice a week by vaginal route at bedtime. 02/14 completed Not Available Not Available Not Available methylpredn isolone 4 mg tablets in a dose pack TAKE PER PACKAGE INSTRUCTI ONS FOR SIX (6) DAYS 12/08 completed Not Available Not Available Not Available albuterol sulfate HFA 90 mcg/actuati on aerosol inhaler INHALE TWO (2) PUFFS EVERY FOUR (4) HOURS BY INHALATIO N ROUTE NEEDED. active Not Available Not Available No t Available Vitamin D2 1,250 mcg (50,000 unit) capsule TAKE 1 CAPSULE BY MOUTH ONCE A WEEK active Not Available Not Available No t Available bromphenira mine-pseudo ephedrine-D M 2 mg-30 mg-10 mg/5 mL oral syrup TAKE 10 ML EVERY FOUR (4) HOURS BY ORAL ROUTE NEEDED. 05/17 completed Not Available Not Available Not Available fluticasone propionate 50 mcg/actuati on nasal spray,suspe nsion INSTILL ONE (1) SPRAY IN EACH NOSTRIL EVERY DAY 09/09 completed Not Available Not Available Not Available doxycycline hyclate 100 mg tablet Take 1 tablet twice a day by oral route for 7 days. 12/08 completed Not Available Not Available Not Available loratadine 10 mg tablet TAKE ONE (1) TABLET EVERY DAY BY ORAL ROUTE FOR 90 DAYS. 05/17 completed Not Available Not Available Not Available metoclopram dayna 10 mg tablet TAKE ONE (1) TABLET FOUR (4) TIMES A DAY BY ORAL ROUTE DIRECTED FOR 90 DAYS. 09/09 completed Not Available Not Available Not Available amoxicillin 500 mg-potassiu m clavulanate 125 mg tablet TAKE ONE (1) TABLET EVERY 12 HOURS BY ORAL ROUTE FOR 10 DAYS. 05/17 completed Not Available Not Available Not Available Asprin Ec Low Dose 81 mg tablet,zak yed release Take 1 tablet every day by oral route. 06/16 completed Not Available Not Available Not Available rosuvastati n 40 mg tablet Take 1 tablet every day by oral route as directed for 100 days. active Not Available Not Available No t Available metoprolol tartrate 25 mg tablet TAKE (1/2) TABLET BY MOUTH EVERY 12 HOURS DIRECTED 2023 active Not Available Not Available Not Avai lable nitrofurant oin monohydrate /macrocryst als 100 mg capsule 10/25 completed Not Available Not Available Not Available duloxetine 30 mg capsule,del ayed release TAKE 1 CAPSULE BY MOUTH ONCE DAILY active Not Available Not Available No t Available Vitamin C ONE TABLET DAILY 10/25 completed Not Available Not Available Not Available levocetiriz ine 5 mg tablet TAKE ONE (1) TABLET EVERY DAY BY ORAL ROUTE FOR 90 DAYS. 06/16 completed Not Available Not Available Not Available cetirizine 10 mg capsule Take 1 capsule every day by oral route as directed. active Not Available Not Available No t Available levothyroxi ne 50 mcg capsule Take 1 capsule every day by oral route as directed for 90 days. 06/17 completed Not Available Not Available Not Available Mucus Relief ER 600 mg tablet, extended release TAKE ONE (1) TABLET EVERY 12 HOURS BY ORAL ROUTE NEEDED FOR 7 DAYS. 08/08 completed Not Available Not Available Not Available Jardiance 10 mg tablet Take 1 tablet every day by oral route in the morning. 10/25 completed Not Available Not Available Not Available Womens Daily Gummies ONE GUMMY DAILY active Not Available Not Available No t Available Entresto 24 mg-26 mg tablet Take 1 tablet twice a day by oral route. active Not Available Not Available No t Available Fish Oil 1,000 mg (120 mg-180 mg) capsule Take 2 capsules every day by oral route in the morning. 10/25 completed Not Available Not Available Not Available clobetasol 0.025 % topical cream APPLY A THIN LAYER TO THE AFFECTED AREA(S) BY TOPICAL ROUTE 2 TIMES PER DAY ; RUB IN GENTLY AND COMPLETEL Y 09/04 completed Not Available Not Available Not Available Ruchi-Tussin DM 10 mg-100 mg/5 mL oral liquid TAKE 10 ML EVERY FOUR (4) HOURS BY ORAL ROUTE NEEDED FOR 7 DAYS. 08/08 completed Not Available Not Available Not Available aspirin 81 mg capsule Take 1 capsule every day by oral route as directed. active Not Available Not Available No t Available Clenpiq 10 mg-3.5 gram-12 gram/175 mL oral solution 10/25 completed Not Available Not Available Not Available Vitals Date Recorded Body height Body mass index (BMI) Body weight Body temperature Heart rate Oxygen saturation Oxygen saturation in Arterial blood by Pulse oximetry Respiratory rate Pain severity - 0-10 verbal numeric rating [Score] - Reported Systolic And Diastolic Provider Name and Address Organization Details Last Updated DateTime 4 167.64 cm 35.9 kg/m2 027853. 61 g 97.7 [degF] 63 /min 97 % 97 % 18 /min 0 122/68 mm[Hg] [facility] 15:51:37 Date Recorded Body height Body mass index (BMI) Body weight Body temperature Heart rate Oxygen saturation Oxygen saturation in Arterial blood by Pulse oximetry Respiratory rate Pain severity - 0-10 verbal numeric rating [Score] - Reported Systolic And Diastolic Provider Name and Address Organization Details Last Updated DateTime 4 167.64 cm 35.7 kg/m2 533361. 91 g 98 [degF] 64 /min 98 % 98 % 18 /min 0 108/62 mm[Hg] Kia Castillo [place] - [facility] 4 16:15:28 Date Recorded Body height Body mass index (BMI) Body weight Body temperature Heart rate Oxygen saturation Oxygen saturation in Arterial blood by Pulse oximetry Systolic And Diastolic Provider Name and Address Organization Details Last Updated DateTime 3 167.64 cm 35.7 kg/m2 619676. 91 g 97.6 [degF] 60 /min 97 % 97 % 118/72 mm[Hg] Candida Ochoa [facility] 3 14:59:17 Date Recorded Body height Body mass index (BMI) Body weight Body temperature Heart rate Oxygen saturation Oxygen saturation in Arterial blood by Pulse oximetry Respiratory rate Pain severity - 0-10 verbal numeric rating [Score] - Reported Systolic And Diastolic Provider Name and Address Organization Details Last Updated DateTime 3 167.64 cm 35.5 kg/m2 89345.3 2 g 97.8 [degF] 51 /min 98 % 98 % 18 /min 0 124/70 mm[Hg] Kia Castillo [facility] 3 08:57:12 Date Recorded Body height Body mass index (BMI) Body weight Body temperature Heart rate Oxygen saturation Oxygen saturation in Arterial blood by Pulse oximetry Respiratory rate Pain severity - 0-10 verbal numeric rating [Score] - Reported Systolic And Diastolic Provider Name and Address Organization Details Last Updated DateTime 3 167.64 cm 35 kg/m2 55959.2 4 g 98 [degF] 94 /min 96 % 96 % 20 /min 0 126/78 mm[Hg] Lisette Zarate [facility] 3 11:18:49 Social History Question Answer Notes LastModified by Organizat ion Details LastModified Time Tobacco Smoking Status Former Smoker Jake bestclifford bee [facility] 06/05/2021 14:16:38 Do You Have An Advance Directive? No [email or web address] Information not available 04/12/2022 Are You Blind Or Do You Have Difficulty Seeing? No [email or web address] Information not available 04/12/2022 Is Blood Transfusion Acceptable In An Emergency? Yes [email or web address] Information not available 04/12/2022 What Is Your Level Of Caffeine Consumption? Moderate [email or web address] Information not available 04/12/2022 How Much Tobacco Do You Chew? None Information not available 04/12/2022 In The 14 Days Before Symptom Onset, Have You Had Close Contact With A Laboratory-confir med COVID-19 While That Case Was Ill? No [email or web address] Information not available 06/17/2022 In The 14 Days Before Symptom Onset, Have You Had Close Contact With A Person Who Is Under Investigation For COVID-19 While That Person Was Ill? No [email or web address] Information not available 06/17/2022 Have You Been To An Area Known To Be High Risk For COVID-19? No [email or web address] Information not available 06/17/2022 Are You Deaf Or Do You Have Serious Difficulty Hearing? No Information not available 06/05/2021 What Type Of Diet Are You Following? REGULAR [email or web address] Information not available 04/12/2022 Which Illicit Or Recreational Drugs Have You Used? None [email or web address] Information not available 04/12/2022 Have You Processed Blood Or Body Fluids From An Ebola Virus Disease Patient Without Appropriate PPE? No [email or web address] Information not available 06/17/2022 Do You Reside In Or Have You Traveled To An Area Where Ebola Virus Transmission Is Active? No [email or web address] Information not available 06/17/2022 What Is The Highest Grade Or Level Of School You Have Completed Or The Highest Degree You Have Received? [id number] [email or web address] Information not available 04/12/2022 Have There Been Any Changes To Your Family Or Social Situation? No Information no t available 06/17/2022 What Is The Fluoride Status Of Your Home? Fluoridated [email or web address] Information not available 06/17/2022 When Did You Quit Smoking? 16+yearssincelast cigarette 1998 Information not available 06/05/2021 Have You Recently Or Are You Planning To Travel To An Area With Zika Virus? No [email or web address] Information not available 06/17/2022 How Many Years Have You Used Illicit Or Recreational Drugs? 0 [email or web address] Information not available 04/12/2022 Do You Have A Medical Power Of Senior Games Technician? No [email or web address] Information not available 06/17/2022 What Was The Date Of Your Most Recent Tobacco Screening? 08/08/2023 [email or web address] Information not available 08/08/2023 How Many Children Do You Have? 3 Information not available 06/05/2021 What Is Your Current Pack Years? 20-29packyears [email or web address] Information not available 12/27/2022 Do You Use Protection During Sex? No [email or web address] Information not available 04/12/2022 Do You Use Protection Against STDs? No [email or web address] Information not available 06/17/2022 What Is Your Relationship Status? Information not available 06/05/2021 Do You Use Your Seat Belt Or Car Seat Routinely? Yes [email or web address] Information not available 04/12/2022 Are You Sexually Active? Yes Information not available 04/12/2022 Do You Have Smoke And Carbon Monoxide Detectors In Your Home? Yes [email or web address] Information not available 04/12/2022 At What Age Did You Start Smoking Tobacco? 13 [email or web address] Information not available 04/12/2022 Are You Passively Exposed To Smoke? No [email or web address] Information no t available 04/12/2022 How Much Tobacco Do You Smoke? 1 PPD [email or web address] Information not available 04/12/2022 Do You Use Sunscreen Routinely? Yes [email or web address] Information not available 04/12/2022 Has Tobacco Cessation Counseling Been Provided? Yes [email or web address] Information not available 08/08/2023 On What Date Was Tobacco Cessation Counseling Provided? 08/08/2023 [email or web address] Information not available 08/08/2023 How Many Years Have You Smoked Tobacco? 21 [email or web address] Information not available 04/12/2022 Do You Have Difficulty Walking Or Climbing Stairs? No [email or web address] Information not available 04/12/2022 What Contraceptive Method Was Reported At Start Of This Visit? Female Sterilization [email or web address] Information not available 06/17/2022 What Contraceptive Method Was Reported At End Of This Visit? Female Sterilization [email or web address] Information not available 06/17/2022 Do You Want To Talk About Contraception Or Prevention During Your Visit Today? No - I Do Not Want To Talk About Contraception Today Because I Am Here For Something Else [email or web address] Information not available 06/17/2022 How Was The Contraceptive Method Provided? Provided On Site [email or web address] Information no t available 06/17/2022 Do You Have Any Future Plans To Get ? No, I Don't Want To Become [email or web address] Information not available 06/17/2022 Sex: Female Functional Status Question Answer Note LastModified by Organizat ion Details LastModified Time Do you or have you ever used smokeless tobacco? Never used smokeless tobacco [email or web address] Information not available 04/12/2022 Are you currently employed? No [email or web address] Information not available 04/12/2022 Do you have transportation difficulties? No [email or web address] Information not available 04/12/2022 Are you able to care for yourself independently? Yes Information not available 06/05/2021 Do you have difficulty dressing, bathing, grooming, or toileting? No [email or web address] Information not available 04/12/2022 Do you or have you ever used e-cigarettes or vape? Never used electronic cigarettes [email or web address] Information not available 04/12/2022 What is your exercise level? Moderate [email or web address] Information not available 04/12/2022 Do you use any illicit or recreational drugs? No [email or web address] Information not available 04/12/2022 Do you or have you ever used any other forms of tobacco or nicotine? No [email or web address] Information not available 04/12/2022 What is your level of alcohol consumption? None Information not available 06/05/2021 What is your status? Not [email or web address] Information no t available 06/17/2022 Are you able to walk independently without assistance or assistive devices? [email or web address] Information not available 04/12/2022 Do you have difficulty doing errands alone? 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 [id number] [email or web address] Information not available 04/12/2022 Do you have difficulty concentrating, remembering or making decisions? No [email or web address] Information no t available 04/12/2022 Family History Relationship Description Onset Age of this Age Resolved Age Notes LastModified by Organization Details LastModified Time Son Epilepsy Not availabl e 04/12/2022 16:01:10 Mother Malignant neoplasm of lung Not available 2021 16:01:10 Mother Malignant neoplasm of pancreas [email or web address] Not available 2023 15:33:53 Maternal Aunt Malignant neoplasm of breast 52 [email or web address] Not available 2021 16:01:11 Paternal Aunt Malignant neoplasm of breast [email or web address] Not available 2021 16:01:11 Medical History Condition Response Heart Problems Y Obesity Y Arthritis Y Acid Reflux (GERD) Y Stroke Y Thyroid Problems Y Hypercholesterolemia Y Neuropathy Y Headaches Y Fibromyalgia Y Hypertension Y Gynecological History Statement/Question Response Abnormal Pap Y Date of Last Mammogram 01/15/2022 Date of LMP 12/14/2016 Post Menopausal Bleeding Y STIs/STDs N HPV Vaccine N Current Control Method Tubal Ligat ion Age at Menarche 10 Age at First Child 15 Last Annual Exam/Provider 04/12/2022 w/D T Last Lipids 07/06/21 If Post Menopausal, Age at Menopause 50 Date of Last Colonoscopy Most Recent Bone Density 10/13/2020 Sexually Active? Y Menses Monthly N Date of Last Pap Smear 04/12/2022 Sexual Problems? N Hormone Replacement Therapy N Obstetrics History GPAL:G 3 P 2 1 0 3 Type Value Full Term 2 Premature 1 Living 3 Total 3 Immunizations Vaccine Type Date Status Note Provider Nam e and Address Organization Details Recorded Time zoster recombinant 2 completed Jake Elizabeth null, [place] - [facility] 07/07/2021 16:15:30 Influenza, split virus, quadrivalent, preservative 2 completed Anaya Castro, SURVEILLANCE DIRECTOR [address], [place], [address] [place] - [facility] 04/14/2022 10:51:11 Tdap 6 completed Kaci Kimball null, [place] - [facility] 12/27/2022 08:36:03 zoster recombinant 2 completed Not Available [facility] 08/08/2023 15:34:13 Influenza, split virus, trivalent, preservative 4 completed Kaci Kimball null, [place] - [facility] 12/27/2022 08:36:03 Influenza, split virus, quadrivalent, PF 6 completed Kaci Kimball null, [place] - [facility] 12/27/2022 08:36:03 Influenza, split virus, quadrivalent, PF 7 completed Kaci bee, [place] - [facility] 12/27/2022 08:36:03 Past Encounters Encounter ID Performer Location Encounter Start Date Encounter Closed Date Diagnosis/Indication Diagnosis SNOMED-CT Code Diagnosis ICD10 Code Diagnosis IMO Codes Diagnosis Note [id number] Laurie Whitt [place] [address] [place] [address] 06/05/2021 13:52:35 06/05/2021 14:49:47 History of bilateral total knee replacement 3531405390 352032 Z96.653 Osteoarthritis 523301359 M19.90 [id number] Laurie Whitt [facility] [address] [place] [address] 07/06/2021 09:16:25 07/06/2021 10:39:29 Adult health examination 829587977 Z00.00 Depression screening 171 083207 Z13.89 Examinatio n of blood pressure 884038177 Z01.30 Diet education 91092634 Z71.3 Counseling 273561226 Z71 .82 Exercise counseling . Patient encouraged to exercise 30 minutes 5 days a week. At [facility] risk for falls 842985625 Z91.81 STEADI FAST screening score of . Advance care planning 71 7729918 Z71.89 Finding of body mass index 993754126 E66.9 Osteoarthritis 382649779 M19.90 Fibromyalgia 782388677 M 79.7 Hypothyroidism 37558372 E03.9 Gastroesop hageal reflux disease 232425054 K21.9 Hyperlipidemia 15171991 E78.5 Hypertensive disorder 38 053599 I10 Immunization due 0961827 08 Z28.3 Screening for malignant neoplasm of skin 756530011 Z12.83 [id number] Laurie Whitt SURVEILLANCE DIRECTOR [facility] [address] [place] [address] 09/04/2021 15:52:24 09/04/2021 16:58:11 Suspected COVID-19 926967286 Z20.822 Hypertensive disorder 38 309460 I10 Genital li holder sclerosus 249400832 L90.0 Acute bact erial sinusitis 65919920 J01.90 Persistent cough 5801771 02 R05.3 [id number] Lynn William SURVEILLANCE DIRECTOR [facility] [address] [place] [address] 10/06/2021 14:28:02 10/06/2021 15:22:04 Senile hyperkeratosis 370775444 L82.1 offered reassuranc e Melanocytic nevus 168227 001 D22.9 offered reassuranc e regarding benign clinical appearance [id number] Ramana Persaud MD [address] [place] [address] 12/08/2021 11:11:37 12/08/2021 12:55:01 Upper respiratory infection 71803863 J06.9 Fibromyalgia 475980397 M 79.7 Acute bronchitis 6927870 2 J20.9 [id number] Clau Thomas [address] [place] [address] 12/17/2021 12:52:57 12/17/2021 13:36:32 Cough 28396492 R05.1 Acute sinusitis 56245466 J01.90 Acute bila teral otitis media 521357089 H66.93 [id number] Laurie Whitt [address] [place] [address] 02/12/2022 13:52:24 02/12/2022 15:47:28 Neuropathy 480349734 G62.9 Fibromyalgia 700646475 M 79.7 Long-term drug therapy 630941256 Z79.899 Body mass index 30+ - obesity 562176286 Z68.36 Obesity 190860316 E66.3 Postmenopa usal bleeding 34894738 N95.0 episode 02/2022 Polyuria 38810945 R35.81 [id number] Anaya Castro [facility] [employer] [address] [place] [address] [place] [address] 04/12/2022 15:31:57 04/12/2022 16:48:36 Routine gynecologic examination done 5268395632 9101 Z01.419 Depression screening 171 294770 Z13.89 PHQ-9 completed today. Diet education 23858885 Z71.3 Counseling 056549436 Z71 .82 Exercise counselmary gottlieb of blood pressure 197206490 Z01.30 Screening for malignant neoplasm of cervix 601702913 Z12.4 Screening for malignant neoplasm of breast 586370277 Z12.31 up to date; ordered by PCP Administra tion of influenza vaccine 37831857 Z23 Hypertensive disorder 38 818915 I10 Postmenopa usal bleeding 68626333 N95.0 Genital li holder sclerosus 650032173 L90.0 Body mass index 30+ - obesity 602635010 Z68.[id number] [place] [address] 02/22/2022 16:12:17 02/23/2022 08:56:55 Urine culture - E. coli 830342674 R82.71 Fever 031917114 R50.9 [id number] [address] Whitt[address] [place] [address] 03/22/2022 14:05:31 03/22/2022 15:53:12 Recurrent urinary tract infection 407297494 N39.0 Body mass index 30+ - obesity 750629022 Z68.36 Obesity 864631616 E66.3 History of postmenopausal bleeding 950188271 Z87.42 Fatigue 32538404 R53.83 [id number] Laurie Whitt[address] [place] [address] 03/29/2022 14:49:50 03/29/2022 16:53:27 Dysuria 84583985 R30.0 Gastroesop hageal reflux disease 496694348 K21.9 Fibromyalgia 976354273 M 79.7 Fall on sa me level from stumbling 450058255 W01.10XA Traumatic hematoma 86176 9004 T14.8XXA right elbow [id number] Laurie Whitt[address] [place] [place] [address] 06/09/2022 10:40:25 06/09/2022 11:59:39 Influenza-like illness 52766727 B34.9 Body mass index 30+ - obesity 188007275 Z68.36 Obesity 867541307 E66.3 Long-term drug therapy 655843480 Z79.899 Acute bact erial sinusitis 53104174 J01.90 Fibromyalgia 627399649 M 79.7 [id number] Anaya Castro APRN [facility] [address] [place] [address] [place] [address] 06/17/2022 08:20:16 06/17/2022 10:05:00 Postmenopausal bleeding 23496982 N95.0 Stenosis of cervix 50400 006 N88.2 Postcoital bleeding 4888 0000 N93.0 [id number] Abeba Lorenzana MD [facility] [facility] [address] [place] [address] JO[place] Hendricks [address] 07/12/2022 10:47:26 07/12/2022 12:35:14 Postmenopausal bleeding 98857105 N95.0 Postcoital bleeding 4888 0000 N93.0 Postcoital bleeding x3 months. No ongoing spontaneou s bleeding. Grossly normal pelvic ultrasound with thin endometria l stripe but unable to cannulate for endometria l biopsy Stenosis of cervix 95809 006 N88.2 Noted per attempted cannulatio n for endometria l biopsy per Anaya Pre-surger y evaluation 475953173 Z01.818 History of endometrial ablation 0860610737 93227 N99.85 [id number] Calu Thomas APRN [facility] [address] [address] 09/09/2022 15:59:34 09/14/2022 14:57:56 Pharyngitis 315353625 J02.9 Streptococ joseph sore throat 34690422 J02.0 Bradycardia 22104829 R00 .1 EKG performed in office. Sinus rhythm with left bundle branch block. Results discussed with patient in office. Advised patient to f/u with cardiologi st (Dr. Sneed) as soon as possible. Educated patient on when to seek immediate medical care in the ED. Patient verbalized understand ing. [id number] Laurie Whitt [facility] [address] [place], [place] [address] [address] 12/27/2022 08:22:25 12/27/2022 11:17:45 Adult health examination 605617464 Z00.00 Depression screening 171 048342 Z13.31 Examinatio n of blood pressure 143793004 Z01.30 Diet education 41978958 Z71.3 Counseling 788962661 Z71 .82 Exercise counseling . Patient encouraged to exercise 30 minutes 5 days a week. At [facility] ed risk for falls 558659237 Z91.81 STEADI FAST screening score of _3____. Advance care planning 71 4612264 Z71.89 Body mass index 30+ - obesity 885291269 Z68.37 Obesity 243362212 E66.9 Screening for malignant neoplasm of colon 378953099 Z12.11 Hyperlipidemia 76632757 E78.5 Hypertensive disorder 38 116841 I10 Hypothyroidism 36422398 E03.9 Vitamin D deficiency 347 37362 E55.9 Itching of skin 31637786 0 L29.9 Gastroesop hageal reflux disease 183829014 K21.9 [id number] Laurie Whitt [facility] [address] [place], [place] [address] [place] [address] 02/14/2023 12:57:12 02/14/2023 14:55:06 Vitamin D deficiency 57160271 E55.9 Screening for malignant neoplasm of colon 177216114 Z12.11 Fibromyalgia 277927218 M 79.7 Hyperlipidemia 52298170 E78.5 Acute bact erial sinusitis 76701160 J01.90 Body mass index 30+ - obesity 938867991 Z68.37 Obesity 206275179 E66.9 [id number] Rach Duenas MS, RDN, LDN [facility] [employer] [address] [place] [address] [place] Hendricks [address] 02/21/2023 08:58:24 02/21/2023 10:30:20 Hyperlipidemia 68896485 E78.5 [id number] Laurie Whitt [address] [address] 03/08/2023 11:12:02 03/08/2023 13:29:08 Atopic dermatitis 37582558 L20.9 [id number] Harjeet Little PA-C [address] [place] [address] 04/13/2023 14:52:34 04/13/2023 15:23:47 Pharyngitis 599198639 J02.9 Acute urin karuna tract infection 457029764 N39.0 check culture Streptococ joseph sore throat 31446646 J02.0 Discussed supportive care with patient. Advised to drink plenty of fluids and fluids containing electrolyt es. Try to get plenty of rest. Can take OTC pain medication such as tylenol or ibuprofen (dosed based on weight for pediatric patients) as needed to relieve fever, headache, or body aches. If patient should get worse call clinic or go to emergency room. Discussed expected course and cautioned signs and sxs to seek further treatment. use augmentin given concern for UTI [id number] Laurie Whitt [address] [place] [address] 05/17/2023 08:31:31 05/17/2023 11:28:31 Hypothyroidism 25725306 E03.9 Itching of skin 99190493 0 L29.9 [id number] Clau Thomas [address] [place] [address] 06/16/2023 11:13:40 06/16/2023 11:52:03 Acute bronchitis 51427891 J20.9 [id number] Laurie Whitt [address] [place] [address] 08/08/2023 15:33:02 08/08/2023 16:27:59 Body mass index 30+ - obesity 723379289 Z68.35 Obesity 979451118 E66.9 Viral screening 96204502 4 Z11.59 Itching of skin 20293421 0 L29.9 Hypothyroidism 50433591 E03.9 [id number] Laurie Whitt APRN [facility] [address] [place] [place] 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 Sneed, angiograph y on 10/20/23, normal findings Health Concerns Section Related Observation LastModified by Organization Detai ls LastModified Time None Recorded Concern Status LastModified by Organization Details LastModified Time None Recorded Advance Directives Directive N: Payers Insurance Date Sequence Insurance Name Policy Number Policy Hickman Covered Member ID Hickman Member ID Guarantor Name 12/12/2023 1 [employer] (MEDICARE REPLACEMENT/ ADVANTAGE - HMO) [id number] Anastasia Romero [id number] Anastasia Romero 06/05/2021 1 [employer] [facility] ON OR AFTER 06/03/2020 (MEDICARE REPLACEMENT/ ADVANTAGE - HMO) Anastasia Romero [id number] Anastasia Romero 10/30/2021 2 [employer] [place]MEDICAID HMO) Anastasia Romero [id number] Anastasia Romero 10/23/2023 [place] [facility] [place] [id number] Anastasia Rmoero [id number] Anastasia Romero 12/12/2023 2 [place] [place] FFS/TRADITIO NAL Anastasia Romero [id number] Anastasia Romero Notes Date Note Type Note Provider Name and Address Organization Details Recorded Time 04/13/2023 text/html ROS as noted in the HPI Patient presents to office with complaints of sore throat x1 day. Patient reports sharp pain with swallowing. Patient denies headache or feverPatient also reports lower back pain, feels as though she may have UTI. Patient denies urgency, pain/burning or pressure with urination.Pt denies chest pain, SOA, difficulty eating or drinking, changes in bathroom habits, syncope/presyncope , or any other concerns. Harjeet Little PA-C [address], [place], [address], [facility] - [facility] 04/13/2023 15:28:08 05/17/2023 text/html ROS as noted in the HPI -Pt presents to the office with continued complaints of skin irritation, itching-States these sx's have been present since -Pt has had steroids oral and injections, along with cream with no relief from the itching-States that she did start crestor around this time-There is no visible rash noted to patients skin and states it only effects her during the day time hours-Denies SOB, N/V/D, SI, and is afebrile while in office and denies any febrile illness Laurie Whitt APRN [address], [place], [address], [facility] - [facility] 05/17/2023 22:05:47 06/16/2023 text/html ROS as noted in the HPI Patient presents with c/o cough and chest congestion x 1 week. Patient reports cough is sometimes productive. Patient reports she been taking Bromfed with no benefit. Denies fever, nasal congestion, n/v/d, SoB, chest pain, and sore throat. Clau Thomas APRN [address], [place], [address], [facility] - [facility] 07/05/2023 13:40:50 08/08/2023 text/html ROS as noted in the HPI -Pt presents to the office with continued complaints of itching with no visible rash noted-Voiced that it is worse during the night time hours and requesting blood work to have liver functions tested r/t her being fearful she is having liver issues-States that scalp, around both eyes, and body will itch and she has scratched herself till she breaks the skin-Has tried OTC along with prescription medication with no relief-Denies SOB, N/V/D, SI, and is afebrile and denies any febrile illness Laurie Whitt APRN [address], [place], [address], [facility] - [facility] 08/14/2023 21:41:22 10/26/2023 text/html ROS as noted in the HPI -Pt presents to the office for a follow up after heart cath with Dr. Sneed on 10/20/23-States all looked fine and no stent placement was needed-Pt voiced that she has been feeling well other than radial bruises from procedure-Denies SOB, N/V/D, SI, and is afebrile and denies any febrile episode Laurie Whitt, SURVEILLANCE DIRECTOR [address], [place], [address], [place] - [facility] 12/08/2023 22:07:55 OBGyn Episode No OBEpisode recorded.
--- OUTSIDE RECORDS SUMMARY | 2025-05-09 09:12 | XMS_ITS | Clinical Summary ---
Author Organization [facility] Address [address] [place] [address] Phone Care Team Providers Care Puzzle Assembler Name Role Phone Laurie Whitt APRN Primary Care Provider [phone] Allergies Active Allergy Reactions Criticality Noted Date Comments Empagliflozin Shortness Of Breath 01/06/2024 Gabapentin Other (See Comments) 01/06/2024 unsure Iodinated Contrast Media Other (See Comments) 0 01/06/2024 Ketorolac Hives 01/06/2024 Medications nitroGLYCERIN (NITROSTAT) 0.4 mg SL Tablet, Sublingual Place 0.4 mg under the tongue every 5 minutes as needed. Active aspirin 81 mg Oral Capsule Take 81 mg by mouth daily. Active multivit with min-folic acid (WOMENS DAILY GUMMIES) 200 mcg Oral Tablet, Chewable Take 1 Tablet by mouth daily. Active ENTRESTO 24-26 mg Oral Tablet Take 1 Tablet by mouth 2 times daily. 90 Tablet 01/11/2024 Active cetirizine (ZYRTEC) 10 mg Oral Capsule Take 10 mg by mouth daily. 90 Capsule 1 06/19/2024 Active DULoxetine (CYMBALTA) 30 mg Oral Capsule, Delayed Release(E.C.) Take 1 Capsule by mouth daily. 90 Capsule 1 06/19/2024 Active LEVOthyroxine (SYNTHROID) 50 mcg Oral Tablet Take 1 Tablet by mouth daily. 90 Tablet 1 06/19/2024 Active pantoprazole (PROTONIX) 40 mg Oral Tablet, Delayed Release (E.C.) Take 1 Tablet by mouth daily. 90 Tablet 1 06/19/2024 Active rosuvastatin (CRESTOR) 40 mg Oral Tablet Take 1 Tablet by mouth nightly. 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 Sneed, [facility] Myoview 09/2023, abnormal L heart cath 10/2023, normal EF, Borderline LVEDP, medical management Assessment & Plan (01/09/2024 8:22 AM EDT): Follows with Dr. Sneed, cardiology, [facility]. Abnormal myoview 09/2023 followed by normal left heart cath 10/2023 with normal EF and borderline LEVDP, taking Entresto as prescribed by Dr. Sneed, [facility] Obesity, Class I, BMI 30-34.9 01/06/2024 Assessment & Plan (01/09/2024 8:25 AM EDT): discussed following 1200 calorie/day diet with at least 30 minutes of low impact exercise at least 5x/week to reach weight loss goal, patient is motivated Stenosis of cervix 06/17/2022 Vitamin D deficiency 03/24/2022 Lichen sclerosus of female genitalia 09/06/2021 Gastroesophageal reflux disease 06/05/2021 Hypothyroidism 06/05/2021 Overview (01/09/2024): Followed by ENT, Dr. Steff Sarabia, [facility] Assessment & Plan (01/09/2024 8:18 AM EDT): Bilateral thyroid lobe nodules, as well as a nodule in the isthmus measuring 12 mm. Thyroid labs were performed on September 08, 2023 and TSH level was 1.70 at that time. Patient to continue current Synthroid dosage at 50 mcg p.o. daily. Followed by Dr. Adelina Sarabia, ENT, [facility] Hypertensive disorder 06/05/2021 Overview (01/09/2024): B/P controlled, monitors at home, taking Rx. Entresto. Followed by Dr. Sneed, cardiology, [facility] Assessment & Plan (01/09/2024 8:11 AM EDT): Goal BP: <130/80 - at goal Compliance: - compliant with medications Home Blood Pressure Monitoring: - continue home BP monitoring as previous and bring readings to each office visit Advice: - continue a low salt diet and remain physically active Medication Management: - a reassessment of the patients current diagnoses, medications, labs, potential SE, appropriate dose and risks assessed and discussed today Hyperlipidemia 06/05/2021 Assessment & Plan (01/09/2024 8:23 AM EDT): Goal: - continue Crestor Compliance: - compliant with medications Advice: - take medications as prescribed Medication Management: - a reassessment of the patients current diagnoses, medications, labs, potential SE, appropriate dose and risks assessed and discussed today Thyroid nodule 06/05/2021 Overview (01/06/2024): stable on ULS 11/24 History of cerebrovascular accident 06/05/2021 Overview (01/06/2024): 2018 Fibromyalgia 06/05/2021 Neuropathy 06/05/2021 Encounters Date Type Department Care Team Description 04/01/2025 [place]ill [place] [address] Danita Caballero PA Medication Refill from Last 3 Months Immunizations Immunization Administration Dates Next Due Influenza Seasonal Injectable 04/19/2014 Influenza Seasonal Injectable PF 07/06/2024 Influenza Vaccine Quadrivalent 04/12/2022 Influenza Vaccine Quadrivalent PF 05/13/2017, Tdap 03/18/2016 Zoster Recombinant 01/15/2022,07/07/2021 Social History Tobacco Use Types Packs/Day Years Used Date Smoking Tobacco: Former Cigarettes 1 19.5 0 07/04/1979 - 01/17/1999 Smokeless Tobacco: Never Tobacco Cessation:Counseling Given: Not Answered Alcohol Use Standard Drinks/Week Comments Never 0 (1 standard drink = 0.6 oz pur e alcohol) PHQ-2 Answer Date Recorded PHQ-2 Total Score 0 07/06/2024 Comments Unknown Sex and Gender Information Value Date Recorded Sex Assigned at Not on file Legal Sex Female 6:22 PM EDT Gender Identity Not on file Sexual Orientation Not on file Last Filed Vital Signs Vital Sign Reading Time Taken Comments Blood Pressure 124/80 07/06/2024 10:45 AM EST Pulse 84 07/06/2024 10:45 AM EST Temperature 36.3 C (97.4 F) 07/06/2024 10:45 AM EST Respiratory Rate 20 07/06/2024 10:45 AM EST Oxygen Saturation 96% 07/06/2024 10:45 AM EST Inhaled Oxygen Concentration - - Weight 105.2 kg (232 lb) 07/06/2024 10:45 AM EST Height 162.6 cm (5' 4 ) 07/06/2024 10:45 AM EST Body Mass Index 39.82 07/06/2024 10:45 AM EST Plan of Treatment Health Maintenance Due Date Last Done Comments Hepatitis C Screening 11/04/1981 HPV/Pap Cotest 11/04/1993 Cologuard 11/04/2008 FIT 11/04/2008 Sigmoidoscopy 11/04/2008 Virtual Colonography 11/04/2008 Pneumococcal Vaccine 50+ (1 of 1 - PCV) 11/04/2013 Colon Cancer Screening 01/19/2021 Colonoscopy 01/19/2021 01/19/2018, 04/04/2015 COVID-19 Vaccine ( - 2024- season) 2025 Influenza Vaccine (#1) 2025 , 04/12/2022, 05/13/2017, Additional history exists Cervical Cancer Screening 04/12/2025 Pap Smear 04/12/2025 04/12/2022 Wellness Exam Medicare 07/07/2025 07/06/2024 DTaP/TDaP/Td (2 - Td or Tdap) 03/18/2026 03/18/2016 Breast Cancer Screening 05/17/2026 05/17/2024, 03/17 Zoster Completed 01/15/2022, 07/07/2021 Hepatitis B Vaccine Aged Out No longe r eligible based on patient's age to complete this topic Meningococcal B Vaccine Aged Out No l onger eligible based on patient's age to complete this topic Goals Goal Patient Goal Type Associated Problems Recent Progress Patient-Stated? Author Blood Pressure < 140/90 Blood Pressure 124/80(2024 10:45 AM EST) No Patience Holcomb RMA Maintain a healthy diet, exercise regularly and maintain an ideal body weight General No Carlos Lowery Stay Tobacco Free Lifestyle No Laurie Whitt APRN Procedures Procedure Name Priority Date/Time Associated Diagnosis Comments MAMMOGRAPHY Routine 05/17/2024 10:21 AM EST COLONOSCOPY Routine 01/19/2018 8:51 AM EDT from Last 3 Months or Most Recently Relevant to Health Maintenance Results * MAMMOGRAPHY (05/17/2024 10:21 AM EST) [facility] Provider HEALTH MAINTENANCE Final Res ult Performing Organization Address City/[facility] Co de Phone Number SEP OFFICE * COLONOSCOPY (01/19/2018 8:51 AM EDT) [facility] Provider HEALTH MAINTENANCE Final Res ult Performing Organization Address [facility]/State/[facility] Co de Phone Number SEP OFFICE from Last 3 Months or Most Recently Relevant to Health Maintenance Insurance [employer] MEDICARE HMO [place]ICAID [place] [address] [address] MEDICARE O Care Teams Puzzle Assembler Relationship Specialty Start Date End Date Laurie [place] [address] [place] [address] PCP - General Nurse Practitioner 01/06/24
--- OUTSIDE RECORDS SUMMARY | 2025-05-09 09:12 | XMS_ITS | Encounter Summary ---
Author Organization [employer] ([place], [place], [place], [place], [place]) Address [address] [place] [address] Care Team Providers Care Inspector Water Pollution Control Name Role Phone Unavailable Primary Care Provider Unavailabl e Encounter Details Date Type Department Care Team (Late st Contact Info) Description 07/11/2018 Transcribed Document [facility] [place] [address] [place] [address] ProviderLisbet MD [address] [place], [place] [id number] Social History Tobacco Use Types Packs/Day Years Used Date Smoking Tobacco: Never Assessed Comments Unknown Sex and Gender Information Value Date Recorded Sex Assigned at Not on file Legal Sex Female 3:31 PM CDT Gender Identity Not on file Sexual Orientation Not on file documented as of this encounter Miscellaneous Notes * [employer]ner Conversion Note - Historical ProviderMD - 07/11/2018 9:08 AM AIRCRAFT MAINTENANCE TECHNICIAN Event Note Entered On: 07/11/2018 9:11 EST Performed On: 07/11/2018 9:08 EST by MAYELA BUCKLEY, RN Event Note Event Location : Other: 0908- patient back from procedure. Son at bedside. Also, patient resting well. Description of Event : Dr Samayoa in to see pt and inform of findings and plan, also Dr jaffe office in to explain f/ up for link device planned jul [id number]. [id number]. Pt and family aware. MAYELA BUCKLEY, RAJNI - 07/11/2018 9:08 EST documented in this encounter Plan of Treatment Not on file documented as of this encounter Visit Diagnoses Not on filedocumented in this encounter
--- OUTSIDE RECORDS SUMMARY | 2025-05-09 09:12 | XMS_ITS | Encounter Summary ---
Author Organization [email or web address] ([place], [place], [place], [place], [place]) Address [address] [place] [address] Care Team Providers Care Claims Adjuster Crop Name Role Phone Unavailable Primary Care Provider Unavailabl e Encounter Details Date Type Department Care Team (Late st Contact Info) Description 07/11/2018 Transcribed Document [facility] [place] [address] [place] [address] ProviderLisbet MD [address] [place], [place] [id number] Social History Tobacco Use Types Packs/Day Years Used Date Smoking Tobacco: Never Assessed Comments Unknown Sex and Gender Information Value Date Recorded Sex Assigned at Not on file Legal Sex Female 3:31 PM CDT Gender Identity Not on file Sexual Orientation Not on file documented as of this encounter Miscellaneous Notes * Cerner Conversion Note - Historical ProviderMD - 07/11/2018 12:11 PM KNITTER HELPER Event Note Entered On: 07/11/2018 12:12 EST Performed On: 07/11/2018 12:11 EST by MAYELA BUCKLEY RN Event Note Event Location : Other: 1211- dc pivl - left foot pt then ambulated and tolerated well. left foot site cdi. pt stable. ambulated post procedure with no difficulty. MAYELA BUCKLEY, RAJNI - 07/11/2018 12:11 EST documented in this encounter Plan of Treatment Not on file documented as of this encounter Visit Diagnoses Not on filedocumented in this encounter
--- OUTSIDE RECORDS SUMMARY | 2025-05-09 09:12 | XMS_ITS | Encounter Summary ---
Author Organization [employer] ([place], [place], [place], [place], [place]) Address [address] [place] [address] Care Team Providers Care Disintegrator Name Role Phone Unavailable Primary Care Provider Unavailabl e Encounter Details Date Type Department Care Team (Late st Contact Info) Description 07/11/2018 Transcribed Document [facility] [place] [address] [place] [address] ProviderLisbet MD [address], [place] [id number] Social History Tobacco Use Types Packs/Day Years Used Date Smoking Tobacco: Never Assessed Comments Unknown Sex and Gender Information Value Date Recorded Sex Assigned at Not on file Legal Sex Female 3:31 PM CDT Gender Identity Not on file Sexual Orientation Not on file documented as of this encounter Miscellaneous Notes * Cerner Conversion Note - Historical ProviderMD - 07/11/2018 6:59 AM REMEDIAL MASSEUR Pre Procedure Adult Entered On: 07/11/2018 7:01 EST Performed On: 07/11/2018 6:59 EST by MAYLEA BUCKLEY RN Height and Weight, Clinical Dosing Height Source : Stated Height Entry Format : [place] Height, Feet : 0 ft(Converted to: 0 cm, 0 Inch) Height, Inches : 66 Inch(Converted to: 5 ft 6 Inch, 167.64 cm) Clinical Height : 167.64 cm Weight Source : Standing scale Weight Entry Format : [place] Clinical Dosing Weight : 97.73 kg Weight, Pounds : 215 lb Body Surface Area (BSA) : 2.06 m2 Body Mass Index : 34.8 kg/m2 (HI) [place] Body Weight : 59 kg MAYELA BUCKLEY RN - 07/11/2018 6:59 EST Health Histories Smoking Status : Former smoker, quit more than 30 days ago Smokeless Tobacco Status : Never MAYELA BUCKLEY RN - 07/11/2018 6:59 EST Social History (As Of: 07/11/2018 07:01:58 EST) Tobacco: smoker- 15 years. quit 20 yrs Smoking Status. (Last Updated: 07/11/2018 07:00:27 EST by MAYELA BUCKLEY, RN) Alcohol: Alcohol Use History No. (Last Updated: 07/11/2018 06:59:49 EST by MAYELA BUCKLEY, RN) Substance Abuse: Drug Use Hx: No. Use in Last 12 Months: No. (Last Updated: 07/11/2018 06:59:55 EST by MAYELA BUCKLEY, RN) Infectious Disease History Infectious Disease History : Chicken pox/Shingles, Influenza Fever/Chills Last 48 Hours : No Travel To Regions with Travel Advisories : No Travel Outside [place] Within Last 30 Days : No Contact With Traveler to Advisory Region : No Tuberculosis Symptoms : None MAYELA BUCKLEY RN - 07/11/2018 7:02 EST Anesthesia/Transfusion History Family History of Anesthesia Reaction : No prior transfusion(s) Blood Transfusion Acceptable to Patient : Yes Transfusion History : Prior anesthesia without reaction Family History of Anesthesia Reaction : Unknown MAYELA BUCKLEY RN - 07/11/2018 7:02 EST Functional Assessment Living Situation : Home [place] Hx Falls Immediate/Within 3 Months : No Current Home Treatments : None MAYELA BUCKLEY RN - 07/11/2018 7:02 EST Psychosocial History Does Someone Depend on You for Care? : No Currently in Unsafe Situation : No Tried to Harm Yourself in the Past? : No Thoughts of Harming/Killing Yourself : No MAYELA BUCKLEY RN - 07/11/2018 7:02 EST Advance Directive Patient has Advance Directive *Q : No, patient refuses Advance Directive information MAYELA BUCKLEY RN - 07/11/2018 6:59 EST General Info Support Person/Pt Rep Name : Ean Support Person/Pt Rep Contact Information : [phone] Want Family/Rep/Phys Notified of Admit : No Emergency Contact #1 : Jarad farnsworth - [phone] Emergency Contact #1 Phone Number : - Emergency Contact #1 Relationship : - Emergency Contact #2 : - Emergency Contact #2 Phone Number : - Emergency Contact #2 Relationship : - Primary Language : [place] Communication Barrier : None MAYELA BUCKLEY RN - 07/11/2018 7:02 EST Vital Measurements Temperature Source : Oral Temperature Mode : Fahrenheit Temperature, Fahrenheit : 97.7 Deg F Clinical Temperature, C : 36.5 Deg C Peripheral Pulse Rate : 50 bpm (LOW) MAYELA BUCKLEY RN - 07/11/2018 7:17 EST Sleep Apnea Risk Assmt Hx of Obstructive Sleep Apnea Diagnosis : No Snore Loudly : Yes Tired, Fatigued, or Sleepy During Day : Yes Observed Stopping Breathing During Sleep : No Have/Are Being Treated for Hypertension : Yes STOP Sleep Apnea Risk Level Score : 3 STOP Sleep Apnea Risk Level : High MAYELA BUCKLEY RN - 07/11/2018 6:59 EST Marin Scale Marin Sensory Perception : No impairment [place] Moisture : Rarely moist Marin Activity : Walks occasionally Marin Mobility : No limitation Marin Nutrition : Adequate Marin Friction and Shear : No apparent problem Marin Scale Comment : uses cane to ambulate Marin Score : 21 MAYELA BUCKLEY RN - 07/11/2018 6:59 EST Oxygen Therapy Oxygen Therapy Mode : Room air MAYELA BUCKLEY RN - 07/11/2018 6:59 EST Pain Assessment Pain Assessment : Initial assessment Pain Scale Goal : 0 Pain Scl Goal Comment : 0 Duration : 0 Pain Scale Used : 0-10 Scale MAYELA BUCKLEY RN - 07/11/2018 6:59 EST Fall Risk Scales ABCs Fall Injury Risk Identification : Coagulation ABC Fall Injury Risk : Moderate to high injury risk [place] Hx Falls Immediate/Within 3 Months : No [place] Secondary Diagnosis : No GI[place]ON Use of Ambulatory Aid : None [place] IV Therapy or IV Access : No [place] Gait/Transferring : Normal, bedrest, immobile [place] Mental Status : Oriented to own ability [place] Fall Risk Score : 0 [place] Fall Scale Risk Level : 0-24 Low Risk [place] Fall Interventions : Wheels locked MAYELA BUCKLEY RN - 07/11/2018 6:59 EST Education Topics, Day of Surgery DayofSurgery Education Grid IV's : Verbalizes understanding MAYELA BUCKLEY RN - 07/11/2018 7:02 EST Valuables and Belongings Valuables and Belongings : Clothing Clothing : Common streetwear Clothing Disposition : With family MAYELA BUCKLEY RN - 07/11/2018 7:02 EST Pain Scale Intensity : 0 MAYELA BUCKLEY, RN - 07/11/2018 6:59 EST Image 4 - Images currently included in the form version of this document have not been included in the text rendition version of the form. Electronically signed by Todd Youssef Conversion Industrial Waste Treatment Technician Cerner at 10/19/2022 9:42 AM CDT documented in this encounter Plan of Treatment Not on file documented as of this encounter Visit Diagnoses Not on filedocumented in this encounter
--- OUTSIDE RECORDS SUMMARY | 2025-05-09 09:12 | XMS_ITS | Encounter Summary ---
Author Organization [employer] ([place], [place], [place], [place], [place]) Address [address] [place] [address] Care Team Providers Care Call Centre Supervisor Name Role Phone Unavailable Primary Care Provider Unavailabl e Encounter Details Date Type Department Care Team (Late st Contact Info) Description 07/11/2018 Transcribed Document [facility] [place] [address] [place] [address] ProviderLisbet MD [address] [place] [address] Social History Tobacco Use Types Packs/Day Years Used Date Smoking Tobacco: Never Assessed Comments Unknown Sex and Gender Information Value Date Recorded Sex Assigned at Not on file Legal Sex Female 3:31 PM CDT Gender Identity Not on file Sexual Orientation Not on file documented as of this encounter Miscellaneous Notes * Cerner Conversion Note - Historical ProviderMD - 07/11/2018 10:33 AM CRANBERRY GROWER Discharge Instructions Entered On: 07/11/2018 10:33 EST Performed On: 07/11/2018 10:33 EST by MAYELA BUCKLEY RN DC Instructions HWD Stroke/TIA Discharge Ins : N/A Heart Failure Discharge Ins : N/A Warfarin Discharge Ins : N/A Diet After Discharge : Resume usual diet as tolerated Activity After Discharge : Rest and relax today, No strenuous activities Driving After Discharge : Other: no driving- for 24 hrs post procedure MAYELA BUCKLEY RN - 07/11/2018 10:33 EST documented in this encounter Plan of Treatment Not on file documented as of this encounter Visit Diagnoses Not on filedocumented in this encounter
--- OUTSIDE RECORDS SUMMARY | 2025-05-09 09:12 | XMS_ITS | Encounter Summary ---
Author Organization [facility] [facility] [address] Care Team Providers Care Manager Animal Name Role Phone Jose EduardoLaurie Ann RIVAS Primary Care Provider [phone] Reason for Visit * Reason Comments Medication Refill Encounter Details Date Type Department Care Team (Late st Contact Info) Description 04/01/2025 Refill [facility] [place] [address] [place] [id number] Danita Caballero PA [address] [place] [id number] Medication Refill Social History Tobacco Use Types Packs/Day Years Used Date Smoking Tobacco: Former Cigarettes 1 19.5 0 07/04/1979 - 01/17/1999 Smokeless Tobacco: Never Alcohol Use Standard Drinks/Week Comments Never 0 [...] as of this encounter Miscellaneous Notes * Telephone Encounter - Lamar Beltre CPhT - 04/02/2025 1:10 PM EDT Rosuvastatin 40mg Refill request deferred to the office: The patient has not been seen in the office yet. documented in this encounter Plan of Treatment Not on file documented as of this encounter Goals Goal Patient Goal Type Associated Problems Recent Progress Patient-Stated? Author Blood Pressure < 140/90 Blood Pressure 124/80(2024 10:45 AM EST) No Patience Holcomb RMA Maintain a healthy diet, exercise regularly and maintain an ideal body weight General No Carlos Lowery Stay Tobacco Free Lifestyle No Laurie Whitt APRN documented as of this encounter Visit Diagnoses Not on filedocumented in this encounter Care Teams Manager Animal Relationship Specialty Start Date End Date Laurie Whitt APRN [employer] [place] [address] PCP - General Nurse Practitioner 01/06/24 documented as of this encounter
--- OUTSIDE RECORDS SUMMARY | 2025-05-09 09:12 | XMS_ITS | Encounter Summary ---
Author Organization [employer] ([place], [place], [place], [place], [place]) Address [address] [place] [address] Care Team Providers Care Composite Layup Worker Name Role Phone Unavailable Primary Care Provider Unavailabl e Encounter Details Date Type Department Care Team (Late st Contact Info) Description 07/11/2018 Transcribed Document [facility] [place] [address] [place] [address] ProviderLisbet MD [address] [place], [place] [id number] Social History Tobacco Use Types Packs/Day Years Used Date Smoking Tobacco: Never Assessed Comments Unknown Sex and Gender Information Value Date Recorded Sex Assigned at Not on file Legal Sex Female 3:31 PM CDT Gender Identity Not on file Sexual Orientation Not on file documented as of this encounter Miscellaneous Notes * Cerner Conversion Note - Lisbet ProviderMD - 07/11/2018 10:33 AM SPRAY PAINTER Patient Education Materials Follows: Moderate Conscious Sedation, Adult, Care After These [...] you are awake and alert. ??? Take [id number] and prescription medicines only as told by [...] 04/10/2014 Document Revised: 11/22/2016 Document Reviewed: 10/09/2016 [employer] Interactive Patient Education ? 2017 [employer] Radiology Transesophageal Echocardiogram Transesophageal echocardiography (YISSEL) is a [...] 04/17/2010 Document Revised: 11/25/2016 Document Reviewed: 12/20/2013 Elsevier Interactive Patient Education ? 2017 [employer] documented in this encounter Plan of Treatment Not on file documented as of this encounter Visit Diagnoses Not on filedocumented in this encounter
--- OUTSIDE RECORDS SUMMARY | 2025-05-09 09:13 | XMS_ITS | Encounter Summary ---
Author Organization [employer] ([place], [place], [place], [place], [place]) Address [address] [place] [address] Care Team Providers Care Telesales Manager Name Role Phone Unavailable Primary Care Provider Unavailabl e Encounter Details Date Type Department Care Team (Late st Contact Info) Description 08/29/2018 Transcribed Document [facility] [place] Family Medicine [address] [place] [address] ProviderLisbet MD [address] [place] [address] Social History Tobacco Use Types Packs/Day Years Used Date Smoking Tobacco: Never Assessed Comments Unknown Sex and Gender Information Value Date Recorded Sex Assigned at Not on file Legal Sex Female 3:31 PM CDT Gender Identity Not on file Sexual Orientation Not on file documented as of this encounter Miscellaneous Notes * Cerner Conversion Note - Historical ProviderMD - 08/29/2018 3:11 AM PERIOPERATIVE MANAGER Height and Weight, Routine Entered On: 08/29/2018 3:11 EST Performed On: 08/29/2018 3:11 EST by Domenica Fish Care AsstHealth Unit Coord Height and Weight, Routine Routine Weight Source : Bed scale Routine Weight Entry Format : [place] Routine Weight, Pounds : 224 lb Routine Weight, Ounces : 5 oz Routine Weight Calculation : 101.96 kg Height Source : Stated Height Entry Format : [place] Height, Feet : 5 ft Height, Inches : 6 Inch Clinical Height : 167.64 cm Body Surface Area (BSA), Routine : 2.1 m2 Body Mass Index (BMI), Routine : 36.28 kg/m2 Domenica Fish Care Asst-Health Unit Coord - 08/29/2018 3:11 EST documented in this encounter Plan of Treatment Not on file documented as of this encounter Visit Diagnoses Not on filedocumented in this encounter
--- OUTSIDE RECORDS SUMMARY | 2025-05-09 09:13 | XMS_ITS | Encounter Summary ---
Author Organization [employer] ([place], [place], [place], [place], [place]) Address [address] [place] [address] Care Team Providers Care Digital Media Coordinator Name Role Phone Unavailable Primary Care Provider Unavailabl e Encounter Details Date Type Department Care Team (Late st Contact Info) Description 08/30/2018 Transcribed Document [facility] [place] [address] [place] [address] ProviderLisbet MD [address] [place], [place] [id number] Social History Tobacco Use Types Packs/Day Years Used Date Smoking Tobacco: Never Assessed Comments Unknown Sex and Gender Information Value Date Recorded Sex Assigned at Not on file Legal Sex Female 3:31 PM CDT Gender Identity Not on file Sexual Orientation Not on file documented as of this encounter Miscellaneous Notes * Cerner Conversion Note - Historical ProviderMD - 08/30/2018 2:08 PM CLINICAL ORTHOPTIST Care Management Assessment/Plan Entered On: 08/30/2018 14:10 EST Performed On: 08/30/2018 14:08 EST by Abeba Whitt Rn-Manager Of Project Management Ed Care Management Note Care Management Note : CM obtained orders for HH from attending. CM faxed orders to [facility] p [phone] f [phone] for home health. CM spoke with Becca albert, who accepted referral and CM made her aware of discharge to home today. Pt was discharged to home with her spouse/SO. No additional CM needs identified. Care Management Note Report : Abeba Whitt, Rn-Manager Of Project Management Ed - 08/30/18 13:44:[address] Ordonez this am and he tells CM that pt remains dizzy and was pending neuro consult for today. He states if neuro clears pt, that pt will likely be ready for d/c today. Pt was then cleared by neuro and suggested that pt be seen as outpt for neurology followup. Pt is a moderate RAR and was amb 140 ft with RW with PT yesterday. CM met with pt today and she states they have used [facility] for home health previously and would like to use them again for her HH needs. CM will notify attending and see if he is agreeable with plan for HH following discharge. LIZ MAY, RN-Manager Of Project Management - 08/29/18 14:25:36 Cm reviewed chart. RRS 42. Cm reviewed chart. Pt hx CVA. To hospital event dizzy, chest pain. Her EKGwithout acute ischemia, but did demonstrate a prolonged QT/ ECHO on 08/28, Normal. MRI brain 08/28.. CM discussed DCP. Pt states independent no needs. Denies need for HH. CM will continue to follow. LIZ MAY RN-Manager Of Project Management - 08/29/18 14:19:56 Cm reviewed chart. RRS 42. Cm reviewed chart. Pt hx CVA. To hospital event dizzy, chest pain. Her EKGwithout acute ischemia, but did demonstrate a prolonged QT/ ECHO on 08/28, Normal. MRI brain 08/28.. CM discussed DCP. Pt states independent no needs. CM will continue to follow. LIZ MAY RN-Manager Of Project Management - 08/28/18 12:29:23 Heather Isaac reviewed chart. RRS 42. Cm explained role of CM. Pt states lives with Ean [phone]. Pt states has a walker at home. Denies DME or HH. Denies homo o2. DM discussed DCP. Pt States is independent no needs. CM will continue to follow for d/c needs. Documentation Status Complete : Yes Abeba Whitt, Rn-Manager Of Project Management Ed - 08/30/2018 14:08 EST Final Discharge Disposition Note-CM Discharge To Care Management : Home Health Services (Related/SOC within 3 days)-06 Name of Receiving Facility/Provider-CM : [facility] p [phone] f [phone] Abeba Whitt, Rn-Manager Of Project Management Ed - 08/30/2018 14:08 EST Electronically signed by [facility] Conversion Harness Cutter Cerner at 10/19/2022 9:44 AM CDT documented in this encounter Plan of Treatment Not on file documented as of this encounter Visit Diagnoses Not on filedocumented in this encounter
--- OUTSIDE RECORDS SUMMARY | 2025-05-09 09:13 | XMS_ITS | Encounter Summary ---
Author Organization [employer] ([place], [place], [place], [place], [place]) Address [address] [place] [address] Care Team Providers Care Meat Soaker Name Role Phone Unavailable Primary Care Provider Unavailabl e Encounter Details Date Type Department Care Team (Late st Contact Info) Description 08/27/2018 Transcribed Document [facility] [place] [address] [place] [address] ProviderLisbet MD [address] [id number] Social History Tobacco Use Types Packs/Day Years Used Date Smoking Tobacco: Never Assessed Comments Unknown Sex and Gender Information Value Date Recorded Sex Assigned at Not on file Legal Sex Female 3:31 PM CDT Gender Identity Not on file Sexual Orientation Not on file documented as of this encounter Miscellaneous Notes * Cerner Conversion Note - Historical ProviderMD - 08/27/2018 8:45 PM ENERGY PROJECT MANAGER Pain Assessment Entered On: 08/28/2018 6:24 EST Performed On: 08/28/2018 6:01 EST by Susana Brannon RN Intervention Information: morphine Performed by Susana Brannon RN on 08/28/2018 05:31:00 EST morphine,2mg IV Push,Right Antecubit Mei,Pain (Severe 7-10) Pain Assessment Pain Assessment : Follow-up assessment Pain Scale Used : FACES Susana Brannon RN - 08/28/2018 6:24 EST Pain Scale Intensity : 3 Susana Brannon RN - 08/28/2018 6:24 EST Image 4 - Images currently included in the form version of this document have not been included in the text rendition version of the form. documented in this encounter Plan of Treatment Not on file documented as of this encounter Visit Diagnoses Not on filedocumented in this encounter
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
--- OUTSIDE RECORDS SUMMARY | 2025-05-09 09:13 | XMS_ITS | Encounter Summary ---
Author Organization [employer] ([place], [place], [place], [place], [place]) Address [address] [place] [address] Care Team Providers Care Supervisor Plastering Name Role Phone Unavailable Primary Care Provider Unavailabl e Encounter Details Date Type Department Care Team (Late st Contact Info) Description 08/29/2018 Transcribed Document [facility] Radiology [address] [place] [address] [place] [address] [place] [address] [address] Social History Tobacco Use Types Packs/Day Years Used Date Smoking Tobacco: Never Assessed Comments Unknown Sex and Gender Information Value Date Recorded Sex Assigned at Not on file Legal Sex Female 3:31 PM CDT Gender Identity Not on file Sexual Orientation Not on file documented as of this encounter Miscellaneous Notes * Cerner Conversion Note - Tee Martin MD - 08/29/2018 1:37 PM EST Patient: DANYEL HOGUE Age: 52 years Sex: Female : 1965 Associated Diagnoses: None Author: TEE MARTIN MD Date of admission 08/27/2018 Date of discharge 08/30/2018 Primary discharge diagnosis #1. Dizziness and lightheadedness, dehydration and polypharmacy, no cardiac arrhythmia noted on her loop recorder, MRI was negative for any acute changes #2. Questionable history of atrial fibrillation patient on loop recorder per cardiology, no arrhythmia noted on her loop interrogation #3. Hypertension, patient hypotensive now #4. Hypokalemia #5. History of stroke #6. Hyperlipidemia #7. History of fibromyalgia #8. Hypothyroidism Consultation sales associate key holder Dr. Rajan Procedures Echocardiogram Disposition Home Activity As tolerated Diet Cardiac diet Follow-up Follow-up with primary care physician in 1-2 week Follow-up with cardiology in 2 weeks Discharge medications aspirin 325 mg oral tablet 325 mg = 1 Tab, Oral, Daily Cymbalta 30 mg oral delayed release capsule 30 mg = 1 Cap, Oral, Daily hydroCHLOROthiazide 25 mg oral tablet 25 mg = 1 Tab, Oral, Daily levothyroxine 50 mcg (0.05 mg) oral tablet 50 mcg = 1 Tab, Oral, Daily Lipitor 20 mg oral tablet 20 mg = 1 Tab, Oral, At Bedtime meclizine 25 mg oral tablet 25 mg = 1 Tab, PRN, Oral, TID meloxicam 15 mg oral tablet 15 mg = 1 Tab, Oral, Daily montelukast 10 mg oral tablet 10 mg = 1 Tab, Oral, QPM pantoprazole 40 mg oral delayed release tablet 40 mg = 1 Tab, Oral, Daily potassium chloride 20 mEq oral tablet, extended release 20 mEq = 1 Tab, PRN, Oral, Daily predniSONE 20 mg oral tablet 20 mg = 1 Tab, Oral, BID tiZANidine 4 mg oral tablet 4 mg = 1 Tab, PRN, Oral, Q8H topiramate 25 mg oral tablet 25 mg = 1 Tab, Oral, BID traMADol 50 mg oral tablet 50 mg = 1 Tab, PRN, Oral, Q6H Brief hospital stay Danyel Hogue is a 52-year-old female with a past medical history significant for previous CVA, hypothyroidism, hypertension, and GERD who comes to [facility] after near syncopal event with altered mental status at [facility] this morning. She was recently admitted to [facility] in June for appears to be an acute CVA. She did have a loop recorder placed by Dr. Samayoa at that time. She reports she had been doing relatively well until this morning. She reports she was at [facility], when she began to feel not like [...] of her recent loop recorder placement at [facility], she was transferred here to be evaluated by cardiology. EMS reports that in route, the patient did go in and out of atrial fibrillation several times, which appears to coincide with several episodes of chest pain that the patient experienced. No strips are available for review unfortunately. After patient was admitted, hydrochlorothiazide was put on hold and IV fluids started, MRI was ordered, no acute changes noted on her MRI, patient started to have bradycardia on the monitor, beta jill discontinued by cardiology, loop recorder interrogated, no arrhythmia or bradycardia was noted, echocardiogram was ordered and no significant changes was noted by cardiology, recommendation by cardiology to discontinue beta jill and hydration and follow-up with her cardiology in few weeks, patient was hemodynamically stable at time of discharge, patient was evaluated by physical therapy and occupational therapy before discharge, patient will follow-up with her primary care physician as well. Physical exam Alert and oriented Chest clear to auscultation Abdomen soft nontender Vitals Signs (last 24 hrs) Last Charted Minimum Maximum Temp 97.7 (AUG 29 10:51) 97.7 (AUG 29 10:51) 98.0 (AUG 28 14:00) Mon HR 72 (AUG 29 10:51) 58 (AUG 28 14:00) 76 (AUG 29 02:50) Resp Rate 16 (AUG 29 10:51) 16 (AUG 28 14:00) 18 (AUG 28 17:17) SBP 128 (AUG 29 10:51) 101 (AUG 28 22:10) 128 (AUG 29 10:51) DBP 64 (AUG 29 10:51) L 53 (AUG 29 02:50) 65 (AUG 29 06:11) MAP 85 (AUG 29 10:51) 70 (AUG 28 22:10) 88 (AUG 29 06:11) SpO2 95 (AUG 29 08:00) 95 (AUG 29 02:50) 97 (AUG 28 21:45) AUG 29 05:27 143 110 19 / H 110 L 3.3 27 0.80 \ AUG 29 05:27 \ 13.7 / 6.5 205 / 39.3 \ Primary Care Provider CORINNA CROOKS APRN Time spent 35 minutes documented in this encounter Plan of Treatment Not on file documented as of this encounter Visit Diagnoses Not on filedocumented in this encounter
--- OUTSIDE RECORDS SUMMARY | 2025-05-09 09:13 | XMS_ITS | Encounter Summary ---
Author Organization [employer] ([place], [place], [place], [place], [place]) Address [address] [place] [address] Care Team Providers Care Tapper Bit Name Role Phone Unavailable Primary Care Provider Unavailabl e Encounter Details Date Type Department Care Team (Late st Contact Info) Description 08/29/2018 Transcribed Document [facility] [place] [address] [place] [address] ProviderLisbet MD [address] [place] [address] Social History Tobacco Use Types Packs/Day Years Used Date Smoking Tobacco: Never Assessed Comments Unknown Sex and Gender Information Value Date Recorded Sex Assigned at Not on file Legal Sex Female 3:31 PM CDT Gender Identity Not on file Sexual Orientation Not on file documented as of this encounter Miscellaneous Notes * Cerner Conversion Note - Historical ProviderMD - 08/29/2018 2:19 PM VEHICLE INSPECTOR Care Management Assessment/Plan Entered On: 08/29/2018 14:19 EST Performed On: 08/29/2018 14:19 EST by LIZ MAY RN-Hand ScudderPersonal Development Educator Note Care Management Note : Cm reviewed chart. RRS 42. Cm reviewed chart. Pt hx CVA. To hospital event dizzy, chest pain. Her EKGwithout acute ischemia, but did demonstrate a prolonged QT/ ECHO on 08/28, Normal. MRI brain 08/28.. CM discussed DCP. Pt states independent no needs. CM will continue to follow. Care Management Note Report : LIZ MAY RN-Hand Scudder - 08/28/18 12:29:23 Heather Isaac reviewed chart. RRS 42. Cm explained role of CM. Pt states lives with Ean [phone]. Pt states has a walker at home. Denies DME or HH. Denies homo o2. DM discussed DCP. Pt States is independent no needs. CM will continue to follow for d/c needs. Documentation Status Complete : Yes LIZ MAY, RN-Hand Scudder - 08/29/2018 14:19 EST documented in this encounter Plan of Treatment Not on file documented as of this encounter Visit Diagnoses Not on filedocumented in this encounter
--- OUTSIDE RECORDS SUMMARY | 2025-05-09 09:13 | XMS_ITS | Encounter Summary ---
Author Organization [employer] ([place], [place], [place], [place], [place]) Address [address] [place] [address] Care Team Providers Care Ferryboat Pilot Name Role Phone Unavailable Primary Care Provider Unavailabl e Encounter Details Date Type Department Care Team (Late st Contact Info) Description 08/28/2018 Transcribed Document [facility] [place] Family Medicine [address] [place] [address] ProviderLisbet MD [address] [place] [address] Social History Tobacco Use Types Packs/Day Years Used Date Smoking Tobacco: Never Assessed Comments Unknown Sex and Gender Information Value Date Recorded Sex Assigned at Not on file Legal Sex Female 3:31 PM CDT Gender Identity Not on file Sexual Orientation Not on file documented as of this encounter Miscellaneous Notes * Cerner Conversion Note - Historical ProviderMD - 08/28/2018 2:39 AM VINEYARD TENDER Spiritual Care Short Form Entered On: 08/28/2018 2:40 EST Performed On: 08/28/2018 2:39 EST by WALLY DORSEY Chaplain General Information, Spiritual Care Spiritual Care Referred by : Nurse Reason for Visit : Initial Ministry Provided to : Patient Intervention/Comment/Summary Points : While rounding RN mentioned patient was rather anxious earlier in shift. Door closed and queit within. Stratigraphy Teacher prayed silently o/s pt. room. Summary/Next Steps Comment/Summary : Unknown WALLY DORSEY Chaplain - 08/28/2018 2:39 EST Electronically signed by Todd Youssef Conversion Shipping And Receiving Assistant Cerner at 10/19/2022 9:57 AM CDT documented in this encounter Plan of Treatment Not on file documented as of this encounter Visit Diagnoses Not on filedocumented in this encounter
--- OUTSIDE RECORDS SUMMARY | 2025-05-09 09:13 | XMS_ITS | Encounter Summary ---
Author Organization [employer] ([place], [place], [place], [place], [place]) Address [address] [place] [address] Care Team Providers Care Malariologist Name Role Phone Unavailable Primary Care Provider Unavailabl e Encounter Details Date Type Department Care Team (Late st Contact Info) Description 08/28/2018 Transcribed Document [facility] [place] [address] [place] [address] ProviderLisbet MD [address] [place], [place] [address] Social History Tobacco Use Types Packs/Day Years Used Date Smoking Tobacco: Never Assessed Comments Unknown Sex and Gender Information Value Date Recorded Sex Assigned at Not on file Legal Sex Female 3:31 PM CDT Gender Identity Not on file Sexual Orientation Not on file documented as of this encounter Miscellaneous Notes * Cerner Conversion Note - Historical ProviderMD - 08/28/2018 11:04 AM SENIOR RESEARCH EXECUTIVE Pain Assessment Entered On: 08/28/2018 16:59 EST Performed On: 08/28/2018 11:41 EST by MISHA STEWART RN Intervention Information: morphine Performed by MISHA STEWART RN on 08/28/2018 11:11:00 EST morphine,2mg IV Push,Right Upper Arm Pain Assessment Pain Assessment : Follow-up assessment Pain Scale Goal : 2 MISHA STEWART RN - 08/28/2018 16:59 EST documented in this encounter Plan of Treatment Not on file documented as of this encounter Visit Diagnoses Not on filedocumented in this encounter
--- OUTSIDE RECORDS SUMMARY | 2025-05-09 09:13 | XMS_ITS | Encounter Summary ---
Author Organization [employer] ([place], [place], [place], [place], [place]) Address [address] [place] [address] Care Team Providers Care Aquarium Specialist Name Role Phone Unavailable Primary Care Provider Unavailabl e Encounter Details Date Type Department Care Team (Late st Contact Info) Description 08/27/2018 Transcribed Document [facility] [place] [address] [place] [address] ProviderLisbet MD [address] [place] [address] Social History Tobacco Use Types Packs/Day Years Used Date Smoking Tobacco: Never Assessed Comments Unknown Sex and Gender Information Value Date Recorded Sex Assigned at Not on file Legal Sex Female 3:31 PM CDT Gender Identity Not on file Sexual Orientation Not on file documented as of this encounter Miscellaneous Notes * Cerner Conversion Note - Historical ProviderMD - 08/27/2018 8:49 PM PRINCIPAL PROGRAMMER Consult Phone Call Documentation Entered On: 08/28/2018 16:58 EST Performed On: 08/27/2018 20:49 EST by MISHA STEWART RN Phone Call for Consults Consult Phone Call/Page Attempt : First call MISHA STEWART RN - 08/28/2018 16:58 EST documented in this encounter Plan of Treatment Not on file documented as of this encounter Visit Diagnoses Not on filedocumented in this encounter
--- OUTSIDE RECORDS SUMMARY | 2025-05-09 09:13 | XMS_ITS | Encounter Summary ---
Author Organization [employer] ([place], [place], [place], [place], [place]) Address [address] [place] [address] Care Team Providers Care Print Machine Operator Name Role Phone Unavailable Primary Care Provider Unavailabl e Encounter Details Date Type Department Care Team (Late st Contact Info) Description 08/27/2018 Transcribed Document [facility] [place] [address] [place] [address] ProviderLisbet MD [address] [place], [place] [address] Social History Tobacco Use Types Packs/Day Years Used Date Smoking Tobacco: Never Assessed Comments Unknown Sex and Gender Information Value Date Recorded Sex Assigned at Not on file Legal Sex Female 3:31 PM CDT Gender Identity Not on file Sexual Orientation Not on file documented as of this encounter Miscellaneous Notes * Cerner Conversion Note - Historical ProviderMD - 08/27/2018 10:08 PM ON SITE PROPERTY MANAGER Pain Assessment Entered On: 08/30/2018 5:44 EST Performed On: 08/30/2018 4:07 EST by MICHELLE KOO RN Intervention Information: traMADol Performed by MICHELLE KOO RN on 08/30/2018 03:07:00 EST traMADol,50mg Oral,Pain (Moderate 4-6) Pain Assessment Pain Assessment : Follow-up assessment Pain Scale Goal : 2 Pain Improved by Intervention : Yes Pain Comment : pt sleeping MICHELLE KOO RN - 08/30/2018 5:44 EST documented in this encounter Plan of Treatment Not on file documented as of this encounter Visit Diagnoses Not on filedocumented in this encounter
--- OUTSIDE RECORDS SUMMARY | 2025-05-09 09:13 | XMS_ITS | Encounter Summary ---
Author Organization [employer] ([place], [place], [place], [place], [place]) Address [address] [place] [address] Care Team Providers Care Morals Squad Police Officer Name Role Phone Unavailable Primary Care Provider Unavailabl e Encounter Details Date Type Department Care Team (Late st Contact Info) Description 08/29/2018 Transcribed Document [facility] [place] [address] [place] [address] ProviderLisbet MD [address] [place], [place] [id number] Social History Tobacco Use Types Packs/Day Years Used Date Smoking Tobacco: Never Assessed Comments Unknown Sex and Gender Information Value Date Recorded Sex Assigned at Not on file Legal Sex Female 3:31 PM CDT Gender Identity Not on file Sexual Orientation Not on file documented as of this encounter Miscellaneous Notes * Cerner Conversion Note - Historical ProviderMD - 08/29/2018 2:00 AM [employer] MAINFRAME SYSTEMS PROGRAMMER Facility Planner Details Entered On: 08/29/2018 0:19 EST Performed On: 08/29/2018 2:00 EST by MICHELLE KOO RN Order Details Transport Mode Order Detail : Stretcher/Gurney Order Detail : 0 IV Order Detail : 1 Oxygen Order Detail : 1 Nurse Collect Order Detail : 0 Lift/Transfer : Minimal Central Line Order Detail : No Room Service : Needs Assistance Arterial Line : No MICHELLE KOO, RAJNI - 08/29/2018 0:19 EST documented in this encounter Plan of Treatment Not on file documented as of this encounter Visit Diagnoses Not on filedocumented in this encounter
--- OUTSIDE RECORDS SUMMARY | 2025-05-09 09:13 | XMS_ITS | Encounter Summary ---
Author Organization [employer] ([place], [place], [place], [place], [place]) Address [address] [place] [address] Care Team Providers Care Film Process Operator Name Role Phone Unavailable Primary Care Provider Unavailabl e Encounter Details Date Type Department Care Team (Late st Contact Info) Description 08/27/2018 Transcribed Document [facility] [place] [address] [place] [address] ProviderLisbet MD [address] [id number] Social History Tobacco Use Types Packs/Day Years Used Date Smoking Tobacco: Never Assessed Comments Unknown Sex and Gender Information Value Date Recorded Sex Assigned at Not on file Legal Sex Female 3:31 PM CDT Gender Identity Not on file Sexual Orientation Not on file documented as of this encounter Miscellaneous Notes * Cerner Conversion Note - Historical ProviderMD - 08/27/2018 8:45 PM CULINARY DIRECTOR Evaluation, Occupational Therapy Entered On: 08/29/2018 11:38 EST Performed On: 08/29/2018 11:20 EST by KHLOE PARIKH OTR/Lori General Information, OT Therapy Diagnosis, OT : Decline in ADLs due to weakness. Onset of Problem, OT : 08/29/2018 EST Co-treated by, OT : Physical Therapist KHLOE PARIKH OTR/Lori - 08/29/2018 12:21 EST General Information Comment, OT : Admitted with Chest pain. KHLOE PARIKH OTR/L - 08/29/2018 12:23 EST Visit Type, OT : Initial evaluation Patient Orders : Order Date Order Ordering 08/27/2018 20:45 OT Evaluation and Treatment Ordered By: PAXTON PATTON DO Active Diagnoses : 08/29/2018 00:00 Dizziness and giddiness Admission Date : 08/27/2018 20:01 Personal Devices : Personal Devices No Devices Recorded Assistive Devices : Assistive Devices No Devices Recorded KHLOE PARIKH OTR/Lori - 08/29/2018 11:38 EST General Status Patient Received Status : Supine in bed Treatment Start Time : 08/29/2018 10:55 EST Patient Left Status : Up in chair, RN/PCT informed, All needs met and within reach RN/PCT Informed Comment : RAJNI chiang. Treatment End Time : 08/29/2018 11:20 EST Treatment Time : 25 Minute(s) KHLOE PARIKH OTR/Lori - 08/29/2018 12:21 EST History and Environment, OT Living Situation, Therapy : Home Patient Lives With : Spouse Persons Assisting Patient at Home : Alone, Spouse Professional Skilled Services : None Persons Providing Information : Patient Home Equipment, Therapy : Other: Pt uses a cane, has shower chair, BSC, grab bars. Home Setup : One story Stairs : Yes Stair Location(s) : Outside Outside Stairs, Number of Steps : 3 Railing Outside : Yes Outside Railing Position : Right, going up Prior LOF for IADLs, OT : Mod I at home with all ADLS and functional mobility with use of cane. KHLOE PARIKH OTR/Lori - 08/29/2018 12:23 EST Upper Extremity Right UE Active ROM : WFL Left UE Active ROM : WFL Right UE Strength Comment : WFL. Left UE Strength Comment : Left UE weaker than Right due to stroke in June. L UE WFL. KHLOE PARIKH OTR/Lori 08/29/2018 12:23 EST Self Care/Home Management, OT Self Feeding Assist Level, OT : Supervision or set-up Grooming Assist Level, OT : Supervision or set-up Bathing Assist Level, OT : Assist, minimal Upper Body Dressing Assist Level, OT : Supervision or set-up Lower Body Dressing Assist Level, OT : Assist, minimal Toileting Assist Level : Supervision or set-up Toilet Transfer Assist Level : Assist, minimal KHLEO PARIKH OTR/Lori 08/29/2018 12:23 EST Functional Mobility Mobility Grid Supine to Sit : Rehab Minimal assistance KHLOE PARIKH OTR/Lori 08/29/2018 13:12 EST Sit to Stand : Rehab Minimal assistance Bed to Chair : Rehab Minimal assistance Chair to Bed : Rehab Minimal assistance Stand to Sit : Rehab Minimal assistance KHLOE PARIKH OTR/Lori - 08/29/2018 12:23 EST AM PAC Daily Activity Putting On/Taking Off Lower Body Clothes : A little Bathing (Washing, Rinsing, Drying) : A little Toileting Includes Toilet, Bedpan, Urinal : A little Putting On/Taking Off Upper Clothing : None Taking Care of Grooming : None Eating Meals : None AM-PAC Daily Activity Raw Score : 21 KHLOE PARIKH OTR/Lori - 08/29/2018 12:23 EST Image 3 - Images currently included in the form version of this document have not been included in the text rendition version of the form. Functional Limitation Reporting, OT Functional Limitation Visit Type, OT : Initial evaluation Severity Determination Method, OT : Clinical Judgment, AM PAC Daily Activity Self Care G8987 - Current Mod, OT : 20 - 39% impaired, limited or restricted (CJ) Self Care G8988 - Proj Goal Mod, OT : 1 - 19% impaired, limited or restricted (CI) KHLOE PARIKH OTR/Lori - 08/29/2018 12:23 EST Activity Tolerance, OT Activity Comment : Fair. Pt fatigues quickly. KHLOE PARIKH OTR/Lori 08/29/2018 12:23 EST Cognition Assessment, OT Orientation : Oriented x 4 Cognition Assessment, OT : Intact KHLOE PARIKH OTR/Lori 08/29/2018 12:23 EST Indication Assessment, OT Occupational Therapy Indicated : Yes Interdisciplinary Consultation(s) Needed : Yes Interdisciplinary Consult, OT : Physical Therapy Problem List, OT : Impaired, bed mobility, Impaired, activities daily living, Impaired, endurance tolerance, Impaired functional mobility, Impaired, strength, Impaired, transfers Potential Barriers, OT : None evident Rehabilitation Potential, OT : Good KHLOE PARIKH OTR/Lori - 08/29/2018 12:23 EST Plan of Care, OT OT Tx Plan/Goals Established w Patient : Yes OT Frequency Rehab : Five days per week OT Duration Rehab : Fourteen days KHLOE PARIKH OTR/Lori - 08/29/2018 12:23 EST Instrumentation Designer Goals, OT Grooming LTG Grid Goal #1 Activity : Grooming Assist : Independent, modified Date to Meet : 09/12/2018 EDT Goal Status : Initial goal KHLOE PARIKH OTR/L - 08/29/2018 12:23 EST Bathing LTG Grid Goal #1 Activity : Bathing Assist : Supervision or set up Date to Meet : 09/12/2018 EDT Goal Status : Initial goal KHLOE PARIKH NERI/L - 08/29/2018 12:23 EST Dressing, Lower Body LTG Grid Goal #1 Activity : Dressing, Lower Body Assist : Supervision or set up Date to Meet : 09/12/2018 EDT Goal Status : Initial goal KHLOE PARIKH OTR/L - 08/29/2018 12:23 EST Treatment Note Subjective Comment : Pt agreeable. Pleasant. Patient's Response to Treatment : Pt responding well. Fatigues quickly. Additional Objective Information : Pt came to EOB Juan. Good sitting balance at EOB. Pt completing formal OT eval seated EOB. Pt completing TA: Pt stood and ambulated in hallway , returning to room chair. Assessment : Pt will benefit from skilled OT during this hospital stay to address increased independence and safety in all ADLs prior to d/c. Plan for Treatment : See LTGS RAMONA PARIKHNERI Gonsalez/Lori - 08/29/2018 13:12 EST Pain Assessment Pain Score Pre-Intervention : 5 Pain Score During-Intervention : 5 Pain Score Post-Intervention. : 5 Pain Comment : Headache RAMONA PARIKHNERI Gonsalez/Lori - 08/29/2018 13:12 EST Image 1 - Images currently included in the form version of this document have not been included in the text rendition version of the form. Anticipated Discharge Needs, OT/PT Anticipated Discharge to : Home, with home health KHLOE PARIKH OTR/Lori - 08/29/2018 13:12 EST [place] OT Charges OT Ther Activities Ea 15 Min : 1 OT Eval Moderate Complexity : 1 KHLOE PARIKH OTR/Lori - 08/29/2018 13:12 EST documented in this encounter Plan of Treatment Not on file documented as of this encounter Visit Diagnoses Not on filedocumented in this encounter
--- OUTSIDE RECORDS SUMMARY | 2025-05-09 09:13 | XMS_ITS | Encounter Summary ---
Author Organization [employer] ([place], [place], [place], [place], [place]) Address [address] [place] [address] Care Team Providers Care Sheriff'S Detective Name Role Phone Unavailable Primary Care Provider Unavailabl e Encounter Details Date Type Department Care Team (Late st Contact Info) Description 08/28/2018 Transcribed Document [facility] [place] Family Medicine [address] [place] [address] ProviderLisbet MD [address] [id number] Social History Tobacco Use Types Packs/Day Years Used Date Smoking Tobacco: Never Assessed Comments Unknown Sex and Gender Information Value Date Recorded Sex Assigned at Not on file Legal Sex Female 3:31 PM CDT Gender Identity Not on file Sexual Orientation Not on file documented as of this encounter Miscellaneous Notes * [employer]ner Conversion Note - Historical ProviderMD - 08/28/2018 10:17 AM MOLD BUNCH TRIMMER Advance Directive Entered On: 08/28/2018 10:40 EST Performed On: 08/28/2018 10:17 EST by REBECCA REID Advance Directive Patient has Advance Directive *Q : No, patient requests information about Advance Directive Patient Given Information about AD : Yes Advance Directive Comment : Provided advance directive info. REBECCA REID - 08/28/2018 10:40 EST Electronically signed by Mikael [facility] Conversion Beauty Consultant Cerner at 10/19/2022 9:56 AM CDT documented in this encounter Plan of Treatment Not on file documented as of this encounter Visit Diagnoses Not on filedocumented in this encounter
--- OUTSIDE RECORDS SUMMARY | 2025-05-09 09:13 | XMS_ITS | Encounter Summary ---
Author Organization [employer] ([place], [place], [place], [place], [place]) Address [address] [place] [address] Care Team Providers Care Olericulturist Name Role Phone Unavailable Primary Care Provider Unavailabl e Encounter Details Date Type Department Care Team (Late st Contact Info) Description 08/27/2018 Transcribed Document [facility] [place] [address] [place] [address] ProviderLisbet MD [address] [place] [address] Social History Tobacco Use Types Packs/Day Years Used Date Smoking Tobacco: Never Assessed Comments Unknown Sex and Gender Information Value Date Recorded Sex Assigned at Not on file Legal Sex Female 3:31 PM CDT Gender Identity Not on file Sexual Orientation Not on file documented as of this encounter Miscellaneous Notes * [employer]ner Conversion Note - Historical ProviderMD - 08/27/2018 8:45 PM LENS ENGRAVER Consult Phone Call Documentation Entered On: 08/28/2018 8:22 EST Performed On: 08/27/2018 20:45 EST by Nicole Le [facility] Unit Coord Phone Call for Consults Consult Phone Call/Page Attempt : First call Consult Reason : presyncope, chest pain, a fib, loop monitor Physician Requesting Consult : PAXTON PATTON DO Physician Requested for Consult : SOFIA ANDINO MD-CAR Provider Service Notified Name : Cardiology Additional Information : called office, notified of consult. Nicole Le, [facility] Coord - 08/28/2018 8:20 EST Electronically signed by Mikael [facility] Conversion Manager Utilization Review Cerner at 10/19/2022 10:10 AM CDT documented in this encounter Plan of Treatment Not on file documented as of this encounter Visit Diagnoses Not on filedocumented in this encounter
--- OUTSIDE RECORDS SUMMARY | 2025-05-09 09:13 | XMS_ITS | Encounter Summary ---
Author Organization [employer] ([place], [place], [place], [place], [place]) Address [address] [place] [address] Care Team Providers Care As400 Developer Name Role Phone Unavailable Primary Care Provider Unavailabl e Encounter Details Date Type Department Care Team (Late st Contact Info) Description 08/29/2018 Transcribed Document [facility] [place] [address] [place] [address] ProviderLisbet MD [address] [id number] Social History Tobacco Use Types Packs/Day Years Used Date Smoking Tobacco: Never Assessed Comments Unknown Sex and Gender Information Value Date Recorded Sex Assigned at Not on file Legal Sex Female 3:31 PM CDT Gender Identity Not on file Sexual Orientation Not on file documented as of this encounter Miscellaneous Notes * Cerner Conversion Note - Historical ProviderMD - 08/29/2018 5:00 AM WIGS SALESPERSON Chart Check - Review Order Profile Entered On: 08/29/2018 4:44 EST Performed On: 08/29/2018 5:00 EST by MICHELLE KOO RN Chart Check Chart Reviewed Date and Time : 08/29/2018 4:44 EST Powerplans Initiated/Discontinued as Appropriate : Yes All Active Orders Reviewed : Yes MICHELLE KOO RN - 08/29/2018 4:44 EST documented in this encounter Plan of Treatment Not on file documented as of this encounter Visit Diagnoses Not on filedocumented in this encounter
--- OUTSIDE RECORDS SUMMARY | 2025-05-09 09:13 | XMS_ITS | Encounter Summary ---
Author Organization [employer] ([place], [place], [place], [place], [place]) Address [address] [place] [address] Care Team Providers Care Principal Statistical Scientist Name Role Phone Unavailable Primary Care Provider Unavailabl e Encounter Details Date Type Department Care Team (Late st Contact Info) Description 08/28/2018 Transcribed Document [facility] [place] Medicine [address] [place] [address] ProviderLisbet MD [address] [place] [address] Social History Tobacco Use Types Packs/Day Years Used Date Smoking Tobacco: Never Assessed Comments Unknown Sex and Gender Information Value Date Recorded Sex Assigned at Not on file Legal Sex Female 3:31 PM CDT Gender Identity Not on file Sexual Orientation Not on file documented as of this encounter Miscellaneous Notes * Cerner Conversion Note - Historical ProviderMD - 08/28/2018 10:52 AM COMMUNICATIONS WRITER Attempt to Treat, OT Entered On: 08/28/2018 10:53 EST Performed On: 08/28/2018 10:52 EST by KHLOE PARIKH OTR/Lori Attempt to Treat Unable to Treat Due To : Other: Refusal due to pain Inability to Treat Comment : Pt with severe chest pains at this time. Pt calling out for RN. Pt refusal at this time due to pain. Pt and family asking for therapy to return at a later time. Notification : KHLOE Ochoa OTR/Lori - 08/28/2018 10:52 EST documented in this encounter Plan of Treatment Not on file documented as of this encounter Visit Diagnoses Not on filedocumented in this encounter
--- OUTSIDE RECORDS SUMMARY | 2025-05-09 09:13 | XMS_ITS | Encounter Summary ---
Author Organization [employer] ([place], [place], [place], [place], [place]) Address [address] [place] [address] Care Team Providers Care Collections And Archives Director Name Role Phone Unavailable Primary Care Provider Unavailabl e Encounter Details Date Type Department Care Team (Late st Contact Info) Description 08/28/2018 Transcribed Document [facility] [place] [address] [place] [address] ProviderLisbet MD [address] [place] [address] Social History Tobacco Use Types Packs/Day Years Used Date Smoking Tobacco: Never Assessed Comments Unknown Sex and Gender Information Value Date Recorded Sex Assigned at Not on file Legal Sex Female 3:31 PM CDT Gender Identity Not on file Sexual Orientation Not on file documented as of this encounter Miscellaneous Notes * Cerner Conversion Note - Historical ProviderMD - 08/28/2018 8:51 AM 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
--- OUTSIDE RECORDS SUMMARY | 2025-05-09 09:13 | XMS_ITS | Clinical Summary ---
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 Active cholecalciferol (VITAMIN D3) 1000 units tablet Take 1,000 Units by mouth Daily. Active furosemide (LASIX) 40 MG tablet Take 40 mg by mouth 2 (Two) Times a Day. Active pantoprazole (PROTONIX) 40 MG EC tablet Take 40 mg by mouth Daily. Active levothyroxine (SYNTHROID, LEVOTHROID) 50 MCG tablet Take 50 mcg by mouth Daily. Active metoprolol tartrate (LOPRESSOR) 50 MG tablet Take 50 mg by mouth 2 (Two) Times a Day. Active hydrochlorothia zide (HYDRODIURIL) 25 MG tablet Take 25 mg by mouth Daily. Active SUMAtriptan (IMITREX) 100 MG tablet Take 100 mg by mouth Every 2 (Two) Hours As Needed for Migraine. Active HYDROcodone-sameera taminophen (NORCO) 5-325 MG per tablet Take 1 tablet by mouth Every 6 (Six) Hours As Needed. Active promethazine (PHENERGAN) 25 MG tablet Take 25 mg by mouth Every 6 (Six) Hours As Needed for Nausea or Vomiting. Active cyclobenzaprine (FLEXERIL) 10 MG tablet Take 10 mg by mouth 3 (Three) Times a Day As Needed for Muscle Spasms. Active rizatriptan (MAXALT) 10 MG tablet Take 10 mg by mouth 1 (One) Time As Needed for Migraine. May repeat in 2 hours if needed Active meloxicam (MOBIC) 7.5 MG tablet 04/04/2017 Active traMADol (ULTRAM) 50 MG tablet 03/31/2017 Active triamcinolone (KENALOG) 0.1 % ointment 02/14/2017 Active lidocaine-prilo tessa (EMLA) 2.5-2.5 % cream 04/14/2017 Act lavelle estradiol (ESTRACE) 0.1 MG/GM vaginal cream Insert 2 g into the vagina Daily. Active TiZANidine (ZANAFLEX) 4 MG capsule Take 1 capsule by mouth 3 (Three) Times a Day As Needed for Muscle Spasms. 60 capsule 04/26/2017 Active Active Problems No known active problems Social History Tobacco Use Types Packs/Day Years Used Date Smoking Tobacco: Former Alcohol Use Standard Drinks/Week Comments No 0 (1 standard drink = 0.6 oz pur e alcohol) Abuse Screen Answer Date Recorded Unsafe at Home or Work/School Not on file Feels Threatened by Someone? Not on file 05/2023 Does Anyone Keep You from Co ntacting Others or Doint Things Outside the Home? Not on file 04/13/2023 Physical Sign of Abuse Present Not on file 1 Housing Stability Answer Date Recorded Current Living Arrangements Not on file 04/03 Potentially Unsafe Housing Conditions Not on tarsha e 04/13/2023 Family and Community Support Answer Parish e Recorded Help with Day-to-Day Activities Not on file 04/13/2023 Lonely or Isolated Not on file 04/13/2023 Employment Answer Date Recorded Do you want help finding or keeping work or a jonel b? Not on file 04/13/2023 Disabilities Answer Date Recorded Concentrating, Remembering, or Making Decisions Difficulty Not on file 04/13/2023 Doing Errands Independently Difficulty Not on fi le 04/13/2023 Education Answer Date Recorded Help with school or training? Not on file Preferred Language Not on file 04/13/2023 Comments Unknown Sex and Gender Information Value Date Recorded Sex Assigned at Not on file Legal Sex Female 3:30 PM EDT Gender Identity Not on file Sexual Orientation Not on file Last Filed Vital Signs Vital Sign Reading Time Taken Comments Blood Pressure 128/88 04/26/2017 1:54 PM EDT Pulse - - Temperature 36.7 C (98 F) 07/29/2017 2:24 PM EST Respiratory Rate - - Oxygen Saturation - - Inhaled Oxygen Concentration - - Weight 103 kg (228 lb) 07/29/2017 2:24 PM EST Height 167.6 cm (5' 5.98 ) 07/29/2017 2:24 PM ES T Body Mass Index 36.82 07/29/2017 2:24 PM EST Plan of Treatment Health Maintenance Due Date Last Done Comments Annual Gynecologic Pelvic and Breast Exam 1965 TDAP/TD VACCINES (1 - Tdap) 11/04/1982 MAMMOGRAM 2003 COLOGUARD 11/04/2008 COLON CANCER SCREENING 5 YEAR SIGMOIDOSCOPY 11/04/2008 COLONOSCOPY 11/04/2008 COLORECTAL CANCER SCREENING 11/04/2008 CT COLONOGRAPHY 11/04/2008 FECAL OCCULT BLOOD TEST 11/04/2008 FIT Testing (1 year) 11/04/2008 Pneumococcal Vaccine 50+ (1 of 1 - PCV) 11/04/2013 ZOSTER VACCINE (1 of 2) 11/04/2013 ANNUAL PHYSICAL 04/26/2017 HEPATITIS C SCREENING 04/26/2017 INFLUENZA VACCINE 02/01/2025 [address] Care Teams Brake Repair Mechanic Relationship Specialty Start Date End Date Celso Reeder MD [address] [place] [address] PCP - General Family Medicine 04/26/17
--- OUTSIDE RECORDS SUMMARY | 2025-05-09 09:13 | XMS_ITS | Encounter Summary ---
Author Organization [employer] ([place], [place], [place], [place], [place]) Address [address] [place] [address] Care Team Providers Care [employer] Name Role Phone Unavailable Primary Care Provider Unavailnghia e Encounter Details Date Type Department Care Team (Late st Contact Info) Description 08/29/2018 Transcribed Document [facility] [place] [address] [place] [address] ProviderLisbet MD [address] [place] [address] Social History Tobacco Use Types Packs/Day Years Used Date Smoking Tobacco: Never Assessed Comments Unknown Sex and Gender Information Value Date Recorded Sex Assigned at Not on file Legal Sex Female 3:31 PM CDT Gender Identity Not on file Sexual Orientation Not on file documented as of this encounter Miscellaneous Notes * Cerner Conversion Note - Lisbet ProviderMD - 08/29/2018 1:17 PM [employer] REPRESENT[employer]IVE [address] [place] [address] Patient Copy Patient Information: Name: DANYEL HOGUE Current Date: 08/29/2018 13:17:48 : 1965 Patient Address: [address] [facility] [id number] Patient Attending Physician: RICHARD DIAZ MD Primary Care Provider: CORINNA CROOKS APRN Primary Care Provider Discharge Diagnosis: Dizziness Weight on Admission: 220 lb, 0 oz Weight at Discharge: 224 lb, 5 oz Comment: Follow-up Instructions: With: Address: When: CORINNA CROOKS [address] [place] [address] Business (1) 10:00 AM Comments: Bring discharge instructions with you With: Address: When: SOFIA ANDINO [address] [place] [address], [address] [place] [address] Business (1) 1:30 PM Discharge Instructions: Diet after Discharge: Heart healthy diet Immunizations Documented During Stay: No Immunizations Found Worker's Compensation Paperwork Completed: No Special Instructions: STOP the following medications: STOP Metoprolol (lopressor) --- Follow up with Cardiology Heart Failure Discharge Instructions (if any): Stroke Related Discharge Instructions (if any): Warfarin Related Discharge Instructions (if any): Final Medication List: Other Medications aspirin (aspirin 325 mg oral tablet) 1 Tablet(s) Oral Every Day. atorvastatin (Lipitor 20 mg oral tablet) 1 Tablet(s) Oral At Bedtime. DULoxetine (Cymbalta 30 mg oral delayed release capsule) 1 Capsule(s) Oral Every Day. hydroCHLOROthiazide (hydroCHLOROthiazide 25 mg oral tablet) 1 Tablet(s) Oral Every Day. levothyroxine (levothyroxine 50 mcg (0.05 mg) oral tablet) 1 Tablet(s) Oral Every Day. meclizine (meclizine 25 mg oral tablet) 1 Tablet(s) Oral Three Times A Day as needed dizziness. meloxicam (meloxicam 15 mg oral tablet) 1 Tablet(s) Oral Every Day. montelukast (montelukast 10 mg oral tablet) 1 Tablet(s) Oral Every Evening. pantoprazole (pantoprazole 40 mg oral delayed release tablet) 1 Tablet(s) Oral Every Day. potassium chloride (potassium chloride 20 mEq oral tablet, extended release) 1 Tablet(s) Oral Every Day as needed Cramping. predniSONE (predniSONE 20 mg oral tablet) 1 Tablet(s) Oral Two Times A Day. tiZANidine (tiZANidine 4 mg oral tablet) 1 Tablet(s) Oral Every 8 Hours as needed Muscle Spasms. topiramate (topiramate 25 mg oral tablet) 1 Tablet(s) Oral Two Times A Day. traMADol (traMADol 50 mg oral tablet) 1 Tablet(s) Oral Every 6 Hours as needed as needed for pain. Patient Allergies: iodinated [...] difficulty sleeping, and nervousness. Patient education materials: Smoking Hazards Smoking cigarettes is extremely bad for your health. Tobacco smoke has over 200 known poisons in it. It contains the poisonous gases nitrogen oxide and carbon monoxide. There are over 60 chemicals in tobacco smoke that cause cancer. Some of the chemicals found in cigarette smoke include: ??? Cyanide. ? Benzene. ? Formaldehyde. ? Methanol (wood alcohol). ? Acetylene (fuel used in welding torches). ? Ammonia. ? Even smoking lightly shortens your life expectancy by several years. You can greatly reduce the risk of medical problems for you and your family by stopping now. Smoking is the most preventable cause of and disease in our society. Within days of quitting smoking, your circulation improves, you decrease the risk of having a heart attack, and your lung capacity improves. There may be some increased phlegm in the first few days after quitting, and it may take months for your lungs to clear up completely. Quitting for 10 years reduces your risk of developing lung cancer to almost that of a nonsmoker. WHAT ARE THE RISKS OF SMOKING? Cigarette smokers have an increased risk of many serious medical problems, including: ??? Lung cancer. ? Lung disease (such as pneumonia, bronchitis, and emphysema). ? Heart attack and chest pain due to the heart not getting enough oxygen (angina). ? Heart disease and peripheral blood vessel disease. ? Hypertension. ? Stroke. ? Oral cancer (cancer of the lip, mouth, or voice box). ? Bladder cancer. ? Pancreatic cancer. ? Cervical cancer. ? complications, including premature . ? Stillbirths and smaller babies, defects, and genetic damage to sperm. ? Early menopause. ? Lower estrogen level for women. ? Infertility. ? Facial wrinkles. ? Blindness. ? Increased risk of broken bones (fractures). ? Senile dementia. ? Stomach ulcers and internal bleeding. ? Delayed wound healing and increased risk of complications during surgery. Because of secondhand smoke exposure, children of smokers have an increased risk of the following: ??? Sudden syndrome (SIDS). ? Respiratory infections. ? Lung cancer. ? Heart disease. ? Ear infections. ? WHY IS SMOKING ADDICTIVE? Nicotine is the chemical agent in tobacco that is capable of causing addiction or dependence. When you smoke and inhale, nicotine is absorbed rapidly into the bloodstream through your lungs. Both inhaled and noninhaled nicotine may be addictive. WHAT ARE THE BENEFITS OF QUITTING? There are many health benefits to quitting smoking. Some are: ??? The likelihood of developing cancer and heart disease decreases. Health improvements are seen almost immediately. ? Blood pressure, pulse rate, and breathing patterns start returning to normal soon after quitting. ? People who quit may see an improvement in their overall quality of life. ? HOW DO YOU QUIT SMOKING? Smoking is an addiction with both physical and psychological effects, and longtime habits can be hard to change. Your health care provider can recommend: ??? Programs and community resources, which may include group support, education, or therapy. ??? Replacement products, such as patches, gum, and nasal sprays. Use these products only as directed. Do not replace cigarette smoking with electronic cigarettes (commonly called e-cigarettes). The safety of e-cigarettes is unknown, and some may contain harmful chemicals. FOR MORE INFORMATION ??? [place] [employer]: www.lung.org ??? [place] [employer]: www.cancer.org This information is not intended to replace advice given to you by your health care provider. Make sure you discuss any questions you have with your health care provider. Document Released: 07/28/2005 Document Revised: 10/11/2016 Document Reviewed: 12/10/2013 [employer] Interactive Patient Education ? 2017 [employer] Heart-Healthy Eating Plan Many factors influence your heart health, including eating and exercise habits. Heart (coronary) risk increases with abnormal blood fat (lipid) levels. Heart-healthy meal planning includes limiting unhealthy fats, increasing healthy fats, and making other small dietary changes. This includes maintaining a healthy body weight to help keep lipid levels within a normal range. What is my plan? Your health care provider recommends that you: ??? Get no more than % of the total calories in your daily diet from fat. ??? Limit your intake of saturated fat to less than % of your total calories each day. ??? Limit the amount of cholesterol in your diet to less than mg per day. What types of fat should I choose? Choose healthy fats more often. Choose monounsaturated and polyunsaturated fats, such as olive oil and canola oil, flaxseeds, walnuts, almonds, and seeds. ??? Eat more omega-3 fats. Good choices include salmon, mackerel, sardines, tuna, flaxseed oil, and ground flaxseeds. Aim to eat fish at least two times each week. ??? Limit saturated fats. Saturated fats are primarily found in animal products, such as meats, butter, and cream. Plant sources of saturated fats include palm oil, palm kernel oil, and coconut oil. ??? Avoid foods with partially hydrogenated oils in them. These contain trans fats. Examples of foods that contain trans fats are stick margarine, some tub margarines, cookies, crackers, and other baked goods. What general guidelines do I need to follow? Check food labels carefully to identify foods with trans fats or high amounts of saturated fat. ??? Fill one half of your plate with vegetables and green salads. Eat 4?5 servings of vegetables per day. A serving of vegetables equals 1 cup of raw leafy vegetables, ? cup of raw or cooked cut-up vegetables, or ? cup of vegetable juice. ??? Fill one fourth of your plate with whole grains. Look for the word whole as the first word in the ingredient list. ??? Fill one fourth of your plate with lean protein foods. ??? Eat 4?5 servings of fruit per day. A serving of fruit equals one medium whole fruit, ? cup of dried fruit, ? cup of fresh, frozen, or canned fruit, or ? cup of 100% fruit juice. ??? Eat more foods that contain soluble fiber. Examples of foods that contain this type of fiber are apples, broccoli, carrots, beans, peas, and barley. Aim to get 20?30 g of fiber per day. ??? Eat more home-cooked food and less restaurant, buffet, and fast food. ??? Limit or avoid alcohol. ??? Limit foods that are high in starch and sugar. ??? Avoid fried foods. ??? Cook foods by using methods other than frying. Baking, boiling, grilling, and broiling are all great options. Other fat-reducing suggestions include: ? Removing the skin from poultry. ? Removing all visible fats from meats. ? Skimming the fat off of stews, soups, and gravies before serving them. ? Steaming vegetables in water or broth. ??? Lose weight if you are overweight. Losing just 5?10% of your initial body weight can help your overall health and prevent diseases such as diabetes and heart disease. ??? Increase your consumption of nuts, legumes, and seeds to 4?5 servings per week. One serving of dried beans or legumes equals ? cup after being cooked, one serving of nuts equals 1? ounces, and one serving of seeds equals ? ounce or 1 tablespoon. ??? You may need to monitor your salt (sodium) intake, especially if you have high blood pressure. Talk with your health care provider or dietitian to get more information about reducing sodium. What foods can I eat? Grains Breads, including Qatari, white, susanna, wheat, raisin, rye, oatmeal, and Romansh. Tortillas that are neither fried nor made with lard or trans fat. Low-fat rolls, including hotdog and hamburger buns and Mozambican muffins. Biscuits. Muffins. Waffles. Pancakes. Light popcorn. Whole-grain cereals. Flatbread. [place] toast. Pretzels. Breadsticks. Rusks. Low-fat snacks and crackers, including oyster, saltine, matzo, lynn, animal, and rye. Rice and pasta, including brown rice and those that are made with whole wheat. VegetablesAll vegetables. FruitsAll fruits, but limit coconut. Meats and Other Protein SourcesLean, well-trimmed beef, veal, pork, and davis. Chicken and turkey without skin. All fish and shellfish. Wild duck, rabbit, pheasant, and venison. Egg whites or low-cholesterol egg substitutes. Dried beans, peas, lentils, and tofu.?Seeds and most nuts. DairyLow-fat or nonfat cheeses, including ricotta, string, and mozzarella. Skim or 1% milk that is liquid, powdered, or evaporated. Buttermilk that is made with low-fat milk. Nonfat or low-fat yogurt. BeveragesMineral water. Diet carbonated beverages. Sweets and DessertsSherbets and fruit ices. Honey, jam, marmalade, jelly, and syrups. Meringues and gelatins. Pure sugar candy, such as hard candy, jelly beans, gumdrops, mints, marshmallows, and small amounts of dark chocolate. Castillo food cake. Eat all sweets and desserts in moderation. Fats and OilsNonhydrogenated (trans-free) margarines. Vegetable oils, including soybean, sesame, sunflower, olive, peanut, safflower, corn, canola, and cottonseed. Salad dressings or mayonnaise that are made with a vegetable oil. Limit added fats and oils that you use for cooking, baking, salads, and as spreads. OtherCocoa powder. Coffee and tea. All seasonings and condiments. The items listed above may not be a complete list of recommended foods or beverages. Contact your dietitian for more options. What foods are not recommended? GrainsBreads that are made with saturated or trans fats, oils, or whole milk. Croissants. Butter rolls. Cheese breads. Sweet rolls. Donuts. Buttered popcorn. Garcia mein noodles. High-fat crackers, such as cheese or butter crackers. Meats and Other Protein SourcesFatty meats, such as hotdogs, short ribs, sausage, spareribs, schultz, ribeye roast or steak, and mutton. High-fat deli meats, such as salami and bologna. Caviar. Domestic duck and goose. Organ meats, such as kidney, liver, sweetbreads, brains, gizzard, chitterlings, and heart. DairyCream, sour cream, cream cheese, and creamed cottage cheese. Whole milk cheeses, including blue (rickey), [place] Reymundo, Brie, Jaciel, Czech, Havarti, Salvadorean, cheddar, Camembert, and Cardinal. Whole or 2% milk that is liquid, evaporated, or condensed. Whole buttermilk. Cream sauce or high-fat cheese sauce. Yogurt that is made from whole milk. BeveragesRegular sodas and drinks with added sugar. Sweets and DessertsFrosting. Pudding. Cookies. Cakes other than castillo food cake. Candy that has milk chocolate or white chocolate, hydrogenated fat, butter, coconut, or unknown ingredients. Buttered syrups. Full-fat ice cream or ice cream drinks. Fats and OilsGravy that has suet, meat fat, or shortening. Ethel butter, hydrogenated oils, palm oil, coconut oil, palm kernel oil. These can often be found in baked products, candy, fried foods, nondairy creamers, and whipped toppings. Solid fats and shortenings, including schultz fat, salt pork, lard, and butter. Nondairy cream substitutes, such as coffee creamers and sour cream substitutes. Salad dressings that are made of unknown oils, cheese, or sour cream. The items listed above may not be a complete list of foods and beverages to avoid. Contact your dietitian for more information. This information is not intended to replace advice given to you by your health care provider. Make sure you discuss any questions you have with your health care provider. Document Released: 03/29/2009 Document Revised: 01/07/2017 Document Reviewed: 12/12/2014 [employer] Interactive Patient Education ? 2017 [employer] How to Take a Pulse Your pulse is the increase in pressure inside the blood vessels that carry blood from your heart to the rest of your body (arteries). Every time your heart beats, you can feel your pulse in an artery near the surface of your skin. You can easily feel your pulse in the artery in your wrist (radial artery) and in the artery in your neck (carotid artery). Taking your pulse can tell you how fast your heart is beating and whether it has a normal rhythm. You can also tell whether your heart is beating strongly or weakly. What you need to know about pulse rates Your pulse is the same as your heart rate. Both are measured in beats per minute (bpm). A normal resting heart rate varies depending on a person's age. ??? Infants under 1 year of age: Normal heart rate of 100?160 bpm. ??? Children 1?2 years of age: Normal heart rate of 90?150 bpm. ??? Children 2?5 years of age: Normal heart rate of 80?140 bpm. ??? Children 6?12 years of age: Normal heart rate of 70?120 bpm. ??? Everyone over 12 years of age: Normal heart rate of 60?100 bpm. There can be a lot of variation in your pulse. It can be different depending on the time of day or the amount of exercise that you get. It changes with your fitness level. Many things can change the speed and regularity of your pulse. These include: ??? Exercise. ??? Fever. ??? Stress. ??? Heart problems. ??? Poor circulation. ??? Medicines. How to take your pulse To take your pulse, all you need is a digital stopwatch or a clock or watch that has a second hand. The best time to measure your resting pulse is in the morning before you start moving around. Take it as soon as you wake up or after resting for about 10 minutes. There are no firm rules about how often to check your pulse. In general, it is a good idea to check your pulse at least once a month. Measuring your pulse is a good way to check your heart health. Checking your pulse before and after exercise can tell you if you are getting the right amount of exercise. This is called finding your target heart rate. Your target heart rate depends on your age, fitness, and health. Ask your health care provider what would be a safe target heart rate for you during exercise. Radial PulseTo check the pulse in your radial artery: 1. Turn one hand palm-up and relax your arm. 2. Place the first two fingers of your other hand gently over your wrist, just below the base of your thumb. 3. Place your fingertips just inside the bone that runs along the outside of your arm. 4. Slowly increase pressure until you feel a pulsing beneath your fingers. You may need to move your fingers slightly. 5. Do notpress too hard. Too much pressure may cut off blood supply. 6. Count how many pulse beats you feel in 1 minute. Or, count how many pulse beats you feel in 30 seconds and double that number. 7. Pay attention to the rhythm of the pulse. It should be steady and even. Carotid PulseTo check the pulse in your carotid artery: 1. Place two fingers just to one side of your Chris?s apple so that you feel a pulsing beneath your fingers. 2. Do notpress too hard. Too much pressure may cut off blood supply and can make you dizzy. 3. Count how many pulse beats you feel in 1 minute. Or, count how many pulse beats you feel in 30 seconds and double that number. 4. Pay attention to the rhythm of the pulse. It should be steady and even. Contact a health care provider if: ??? Your pulse is too slow or too fast. ??? Your pulse is weak or hard to find. ??? You have skipped beats or extra beats. ??? Your pulse has an irregular rhythm. ??? You have an abnormal pulse along with dizziness, fatigue, or shortness of breath. This information is not intended to replace advice given to you by your health care provider. Make sure you discuss any questions you have with your health care provider. Document Released: 12/25/2003 Document Revised: 01/07/2017 Document Reviewed: 11/23/2016 [employer] Interactive Patient Education ? 2017 [employer] How to Take Your Blood Pressure HOW DO I GET A BLOOD PRESSURE MACHINE? You can buy an electronic home blood pressure machine at your local pharmacy. Insurance will sometimes cover the cost if you have a prescription. ??? Ask your doctor what type of machine is best for you. There are different machines for your arm and your wrist. ??? If you decide to buy a machine to check your blood pressure on your arm, first check the size of your arm so you can buy the right size cuff. To check the size of your arm: ? ? Use a measuring tape that shows both inches and centimeters. ? ? Wrap the measuring tape around the upper-middle part of your arm. You may need someone to help you measure. ? ? Write down your arm measurement in both inches and centimeters. ? To measure your blood pressure correctly, it is important to have the right size cuff. ? ? If your arm is up to 13 inches (up to 34 centimeters), get an adult cuff size. ? If your arm is 13 to 17 inches (35 to 44 centimeters), get a large adult cuff size. ? ? If your arm is 17 to 20 inches (45 to 52 centimeters), get an adult thigh cuff. ? WHAT DO THE NUMBERS MEAN? There are two numbers that make up your blood pressure. For example: 120/80. ? The first number (120 in our example) is called the systolic pressure. It is a measure of the pressure in your blood vessels when your heart is pumping blood. ? The second number (80 in our example) is called the diastolic pressure. It is a measure of the pressure in your blood vessels when your heart is resting between beats. ??? Your doctor will tell you what your blood pressure should be. WHAT SHOULD I DO BEFORE I CHECK MY BLOOD PRESSURE? Try to rest or relax for at least 30 minutes before you check your blood pressure. ??? Do notsmoke. ??? Do nothave any drinks with caffeine, such as: ? Soda. ? Coffee. ? Tea. ??? Check your blood pressure in a quiet room. ??? Sit down and stretch out your arm on a table. Keep your arm at about the level of your heart. Let your arm relax. ??? Make sure that your legs are not crossed. HOW DO I CHECK MY BLOOD PRESSURE? Follow the directions that came with your machine. ??? Make sure you remove any tight-fitting clothing from your arm or wrist. Wrap the cuff around your upper arm or wrist. You should be able to fit a finger between the cuff and your arm. If you cannot fit a finger between the cuff and your arm, it is too tight and should be removed and rewrapped. ??? Some units require you to manually pump up the arm cuff. ??? Automatic units inflate the cuff when you press a button. ??? Cuff deflation is automatic in both models. ??? After the cuff is inflated, the unit measures your blood pressure and pulse. The readings are shown on a monitor. Hold still and breathe normally while the cuff is inflated. ??? Getting a reading takes less than a minute. ??? Some models store readings in a memory. Some provide a printout of readings. If your machine does not store your readings, keep a written record. ??? Take readings with you to your next visit with your doctor. This information is not intended to replace advice given to you by your health care provider. Make sure you discuss any questions you have with your health care provider. Document Released: 06/02/2009 Document Revised: 07/11/2015 Document Reviewed: 08/15/2014 [employer] Interactive Patient Education ? 2017 [employer] Bradycardia, Adult Bradycardia is a pmnrgh-irli-wnmulb heartbeat. A normal resting heart rate for an adult ranges from 60 to 100 beats per minute. With bradycardia, the resting heart rate is less than 60 beats per minute. Bradycardia can prevent enough oxygen from reaching certain areas of your body when you are active. It can be serious if it keeps enough oxygen from reaching your brain and other parts of your body. Bradycardia is not a problem for everyone. For some healthy adults, a slow resting heart rate is normal. What are the causes? This condition may be caused by: ??? A problem with the heart, including: ? A problem with the heart's electrical system, such as a heart block. ? A problem with the heart's natural pacemaker (sinus node). ? Heart disease. ? A heart attack. ? Heart damage. ? A heart infection. ? A heart condition that is present at (congenital heart defect). ??? Certain medicines that treat heart conditions. ??? Certain conditions, such as hypothyroidism and obstructive sleep apnea. ??? Problems with the balance of chemicals and other substances, like potassium, in the blood. What increases the risk? This condition is more likely to develop in adults who: ??? Are age 65 or older. ??? Have high blood pressure (hypertension), high cholesterol (hyperlipidemia), or diabetes. ??? Drink heavily, use tobacco or nicotine products, or use drugs. ??? Are stressed. What are the signs or symptoms? Symptoms of this condition include: ??? Light-headedness. ??? Feeling faint or fainting. ??? Fatigue and weakness. ??? Shortness of breath. ??? Chest pain (angina). ??? Drowsiness. ??? Confusion. ??? Dizziness. How is this diagnosed? This condition may be diagnosed based on: ??? Your symptoms. ??? Your medical history. ??? A physical exam. During the exam, your health care provider will listen to your heartbeat and check your pulse. To confirm the diagnosis, your health care provider may order tests, such as: ??? Blood tests. ??? An electrocardiogram (ECG). This test records the heart's electrical activity. The test can show how fast your heart is beating and whether the heartbeat is steady. ??? A test in which you wear a portable device (event recorder or Holter monitor) to record your heart's electrical activity while you go about your day. ??? An?exercise test. How is this treated? Treatment for this condition depends on the cause of the condition and how severe your symptoms are. Treatment may involve: ??? Treatment of the underlying condition. ??? Changing your medicines or how much medicine you take. ??? Having a small, battery-operated device called a pacemaker implanted under the skin. When bradycardia occurs, this device can be used to increase your heart rate and help your heart to beat in a regular rhythm. Follow these instructions at home: Lifestyle ??? Manage any health conditions that contribute to bradycardia as told by your health care provider. ??? Follow a heart-healthy diet. A pet nutrition specialist (dietitian) can help to educate you about healthy food options and changes. ??? Follow an exercise program that is approved by your health care provider. ??? Maintain a healthy weight. ??? Try to reduce or manage your stress, such as with yoga or meditation. If you need help reducing stress, ask your health care provider. ??? Do notuse use any products that contain nicotine or tobacco, such as cigarettes and e-cigarettes. If you need help quitting, ask your health care provider. ??? Do notuse illegal drugs. ??? Limit alcohol intake to no more than 1 drink per day for non women and 2 drinks per day for men. One drink equals 12 oz of beer, 5 oz of wine, or 1? oz of hard liquor. General instructions ??? Take olxs-mbp-bkxezek and prescription medicines only as told by your health care provider. ??? Keep all follow-up visits as directed by your health care provider. This is important. How is this prevented? In some cases, bradycardia may be prevented by: ??? Treating underlying medical problems. ??? Stopping behaviors or medicines that can trigger the condition. Contact a health care provider if: ??? You feel light-headed or dizzy. ??? You almost faint. ??? You feel weak or are easily fatigued during physical activity. ??? You experience confusion or have memory problems. Get help right away if: ??? You faint. ??? You have an irregular heartbeat (palpitations). ??? You have chest pain. ??? You have trouble breathing. This information is not intended to replace advice given to you by your health care provider. Make sure you discuss any questions you have with your health care provider. Document Released: 03/12/2003 Document Revised: 02/15/2017 Document Reviewed: 12/09/2016 [employer] Interactive Patient Education ? 2017 [employer] Dizziness Dizziness is a common problem. It makes you feel unsteady or lightheaded. You may feel like you are about to pass out (faint). Dizziness can lead to injury if you stumble or fall. Anyone can get dizzy, but dizziness is more common in older adults. This condition can be caused by a number of things, including: ??? Medicines. ??? Dehydration. ??? Illness. Follow these instructions at home: Following these instructions may help with your condition: Eating and drinking ??? Drink enough fluid to keep your pee (urine) clear or pale yellow. This helps to keep you from getting dehydrated. Try to drink more clear fluids, such as water. ??? Do notdrink alcohol. ??? Limit how much caffeine you drink or eat if told by your doctor. ??? Limit how much salt you drink or eat if told by your doctor. Activity ??? Avoid making quick movements. ? When you stand up from sitting in a chair, steady yourself until you feel okay. ? In the morning, first sit up on the side of the bed. When you feel okay, stand slowly while you hold onto something. Do this until you know that your balance is fine. ??? Move your legs often if you need to financial reporting consultant one place for a long time. Tighten and relax your muscles in your legs while you are standing. ??? Do notdrive or use heavy machinery if you feel dizzy. ??? Avoid bending down if you feel dizzy. Place items in your home so that they are easy for you to reach without leaning over. Lifestyle ??? Do notuse any tobacco products, including cigarettes, chewing tobacco, or electronic cigarettes. If you need help quitting, ask your doctor. ??? Try to lower your stress level, such as with yoga or meditation. Talk with your doctor if you need help. General instructions ??? Watch your dizziness for any changes. ??? Take medicines only as told by your doctor. Talk with your doctor if you think that your dizziness is caused by a medicine that you are taking. ??? Tell a friend or a family member that you are feeling dizzy. If he or she notices any changes in your behavior, have this person call your doctor. ??? Keep all follow-up visits as told by your doctor. This is important. Contact a doctor if: ??? Your dizziness does not go away. ??? Your dizziness or light-headedness gets worse. ??? You feel sick to your stomach (nauseous). ??? You have trouble hearing. ??? You have new symptoms. ??? You are unsteady on your feet or you feel like the room is spinning. Get help right away if: ??? You throw up (vomit) or have diarrhea and are unable to eat or drink anything. ??? You have trouble: ? Talking. ? Walking. ? Swallowing. ? Using your arms, hands, or legs. ??? You feel generally weak. ??? You are not thinking clearly or you have trouble forming sentences. It may take a friend or family member to notice this. ??? You have: ? Chest pain. ? Pain in your belly (abdomen). ? Shortness of breath. ? Sweating. ??? Your vision changes. ??? You are bleeding. ??? You have a headache. ??? You have neck pain or a stiff neck. ??? You have a fever. This information is not intended to replace advice given to you by your health care provider. Make sure you discuss any questions you have with your health care provider. Document Released: 06/08/2012 Document Revised: 11/25/2016 Document Reviewed: 06/16/2015 [employer] Interactive Patient Education ? 2017 [employer]. Medication Leaflets: metoprolol (me TOE pro lol) RolandospMayte Hannah, Metoprolol Succinate ER, Metoprolol Tartrate, Toprol-XL What is the most important information I should know about metoprolol? You should not use this medicine if you have a serious heart problem (heart block, sick sinus syndrome, slow heart rate), severe circulation problems, severe heart failure, or a history of slow heart beats that caused fainting. What is metoprolol? Metoprolol is a beta-jill that affects the heart and circulation (blood flow through arteries and veins). Metoprolol is used to treat angina (chest pain) and hypertension (high blood pressure). It is also used to lower your risk of or needing to be hospitalized for heart failure. Metoprolol may also be used for other purposes not listed in this medication guide. What should I discuss with my healthcare provider before taking metoprolol? You should not use this medicine if you are allergic to metoprolol, or other beta-blockers (atenolol, carvedilol, labetalol, nadolol, nebivolol, propranolol, sotalol, and others), or if you have: ? a serious heart problem such as heart block, sick sinus syndrome, or slow heart rate; ?? severe circulation problems; ?? severe heart failure (that required you to be in the hospital); or ?? a history of slow heart beats that have caused you to faint. Tell your doctor if you have ever had: ? asthma, chronic obstructive pulmonary disease (COPD), sleep apnea, or other breathing disorder; ?? diabetes (taking metoprolol may make it harder for you to tell when you have low blood sugar); ?? liver disease; ?? congestive heart failure; ?? problems with circulation (such as Raynaud's syndrome); ?? a thyroid disorder; or ?? pheochromocytoma (tumor of the adrenal gland). Do not give this medicine to a child without medical advice. Tell your doctor if you are or plan to become . It is not known whether metoprolol will harm an unborn baby. However, having high blood pressure during may cause complications such as diabetes or eclampsia (dangerously high blood pressure that can lead to medical problems in both mother and baby). The benefit of treating hypertension may outweigh any risks to the baby. Ask a doctor before using this medicine if you are breast-feeding. Metoprolol can pass into breast milk and may cause dry skin, dry mouth, diarrhea, constipation, or slow heartbeats in your baby. How should I take metoprolol? Follow all directions on your prescription label and read all medication guides or instruction sheets. Your doctor may occasionally change your dose. Use the medicine exactly as directed. Metoprolol should be taken with a meal or just after a meal. Take the medicine at the same time each day. Swallow the capsule whole and do not crush, chew, break, or open it. A Toprol XL tablet can be divided in half if your doctor has told you to do so. Swallow the half-tablet whole, without chewing or crushing. You will need frequent medical tests, and your blood pressure will need to be checked often. If you need surgery, tell the surgeon ahead of time that you are using metoprolol. You should not stop using metoprolol suddenly. Stopping suddenly may make your condition worse. If you have high blood pressure, keep using this medicine even if you feel well. High blood pressure often has no symptoms. You may need to use metoprolol for the rest of your life. Store at room temperature away from moisture and heat. What happens if I miss a dose? Skip the missed dose and use your next dose at the regular time. Do not use two doses at one time. What happens if I overdose? Seek emergency medical attention or call the Poison Help line at . What should I avoid while taking metoprolol? Avoid driving or hazardous activity until you know how this medicine will affect you. Your reactions could be impaired. Drinking alcohol can increase certain side effects of metoprolol. What are the possible side effects of metoprolol? Get emergency medical help if you have signs of an allergic reaction: hives; difficulty breathing; swelling of your face, lips, tongue, or throat. Call your doctor at once if you have: ? very slow heartbeats; ?? a light-headed feeling, like you might pass out; ?? shortness of breath (even with mild exertion), swelling, rapid weight gain; or ?? cold feeling in your hands and feet. Common side effects may include: ? dizziness, tired feeling; ?? depression, confusion, memory problems; ?? nightmares, trouble sleeping; ?? diarrhea; or ?? mild itching or rash. This is not a complete list of side effects and others may occur. Call your doctor for medical advice about side effects. You may report side effects to FDA at 3-853-NHN-0437. What other drugs will affect metoprolol? Tell your doctor about all your current medicines. Many drugs can affect metoprolol, especially: ? any other heart or blood pressure medications; ?? epinephrine (Epi-Pen); ?? an antidepressant; ?? an ergot medicine--dihydroergotamine, ergonovine, ergotamine, methylergonovine; or ?? an MAO inhibitor--isocarboxazid, linezolid, phenelzine, rasagiline, selegiline, tranylcypromine. This list is not complete and many other drugs may affect metoprolol. This includes prescription and [id number]-[id number] medicines, vitamins, and herbal products. Not all possible drug interactions are listed here. Where can I get more information? Your pharmacist can provide more information about metoprolol. Remember, keep this and all other medicines out of the reach of children, never share your medicines with others, and use this medication only for the indication prescribed. Every effort has been made to ensure that the information provided by [employer]. ('[employer]') is accurate, up-to-date, and complete, but no guarantee is made to that effect. Drug information contained herein may be time sensitive. [employer] information has been compiled for use by healthcare practitioners and consumers in the [place] and therefore [employer] does not warrant that uses outside of the [place] are appropriate, unless specifically indicated otherwise. [employer]'s drug information does not endorse drugs, diagnose patients or recommend therapy. [employer] drug information is an informational resource designed to assist licensed healthcare practitioners in caring for their patients and/or to serve consumers viewing this service as a supplement to, and not a substitute for, the expertise, skill, knowledge and judgment of healthcare practitioners. The absence of a warning for a given drug or drug combination in no way should be construed to indicate that the drug or drug combination is safe, effective or appropriate for any given patient. [employer] does not assume any responsibility for any aspect of healthcare administered with the aid of information [employer] provides. The information contained herein is not intended to cover all possible uses, directions, precautions, warnings, drug interactions, allergic reactions, or adverse effects. If you have questions about the drugs you are taking, check with your doctor, nurse or pharmacist. Copyright 8914-3446 [employer]. Version: 17.01. Revision Date: 02/10/2018. CIGARETTE SMOKING: The facts are clear, cigarette smoking will shorten your life. Smoking can cause many illnesses along the way. As a healthcare provider, we recommend that you stop smoking. Assistance with quitting is available by contacting 2-728-QIFY-NOW. This is a free resource providing counseling, support, and referral. Or you may contact your personal physician. 4 WAYS TO GET AHEAD OF SEPSIS SEPSIS is a MEDICAL EMERGENCY. Time matters! Infections put you and your family at risk for a life-threatening condition called sepsis. Sepsis is the body???s extreme response to an infection. It is life-threatening, and without timely treatment, sepsis can rapidly lead to tissue damage, organ failure, and . Sepsis happens when an infection you already have???in your skin, lungs, urinary tract or somewhere else???triggers a chain reaction throughout your body. 1 PREVENT INFECTIONS Take good care of chronic conditions. Talk to your doctor about getting the recommended vaccines. 2 PRACTICE GOOD HYGIENE Wash your hands frequently. Keep cuts or open sores clean and covered until they are healed. 3 KNOW THE SYMPTOMS Confusion or disorientation Shortness of breath High heart rate Fever, shivering, or feeling very cold Extreme pain or discomfort Clammy or sweaty skin 4 ACT FAST Get medical care IMMEDIATELY if you suspect sepsis or if you have an infection that???s not getting better or is getting worse. To learn more about sepsis and how to prevent infections, visit www.cdc.gov/sepsis. [facility] is an EMERGENCY Every Minute Counts [...] Be sure to sign up for the [facility] patient portal, which gives you 24/01 access to your medical information ??? including these discharge instructions ??? using your computer, smartphone, or tablet. Just go to [email or web address] to get started. Questions? Call . [facility] would like to thank you for allowing us to assist you with your healthcare needs. MYKEL Mascorro CAROLYN ELIZABETH, (or international sales representative) have received the above patient education materials/instructions and have verbalized understanding: Patient Signature _ Date/Time Patient Pipe Fitter Helper Signature (if needed) Date/Time Clinician/Hospital Pipe Fitter Helper Signature (if needed) Date/Time Electronically signed by Interface, [facility] Conversion Teacher Adult Education Cerner at 10/19/2022 9:48 AM CDT documented in this encounter Plan of Treatment Not on file documented as of this encounter Visit Diagnoses Not on filedocumented in this encounter
--- OUTSIDE RECORDS SUMMARY | 2025-05-09 09:13 | XMS_ITS | Encounter Summary ---
Author Organization [employer] ([place], [place], [place], [place], [place]) Address [address] [place] [address] Care Team Providers Care Furnace Utility Operator Name Role Phone Unavailable Primary Care Provider Unavailabl e Encounter Details Date Type Department Care Team (Late st Contact Info) Description 08/28/2018 Transcribed Document [facility] [place] [address] [place] [address] ProviderLisbet MD [address] [place] [id number] Social History Tobacco Use Types Packs/Day Years Used Date Smoking Tobacco: Never Assessed Comments Unknown Sex and Gender Information Value Date Recorded Sex Assigned at Not on file Legal Sex Female 3:31 PM CDT Gender Identity Not on file Sexual Orientation Not on file documented as of this encounter Miscellaneous Notes * [employer]ner Conversion Note - Historical ProviderMD - 08/28/2018 9:01 AM NETWORK SERVICES PROJECT MANAGER Education-Wound Care Entered On: 08/28/2018 9:03 EST Performed On: 08/28/2018 9:01 EST by MISHA STEWART RN Teaching/Learning Assessment Barriers To Learning : None evident MISHA STEWART RN - 08/28/2018 9:03 EST documented in this encounter Plan of Treatment Not on file documented as of this encounter Visit Diagnoses Not on filedocumented in this encounter
--- OUTSIDE RECORDS SUMMARY | 2025-05-09 09:13 | XMS_ITS | Encounter Summary ---
Author Organization [employer] ([place], [place], [place], [place], [place]) Address [address] [place] [address] Care Team Providers Care Merchant Banker Name Role Phone Unavailable Primary Care Provider Unavailabl e Encounter Details Date Type Department Care Team (Late st Contact Info) Description 08/28/2018 Transcribed Document [facility] [place] [address] [place] [address] ProviderLisbet MD [address] [place] [address] Social History Tobacco Use Types Packs/Day Years Used Date Smoking Tobacco: Never Assessed Comments Unknown Sex and Gender Information Value Date Recorded Sex Assigned at Not on file Legal Sex Female 3:31 PM CDT Gender Identity Not on file Sexual Orientation Not on file documented as of this encounter Miscellaneous Notes * [employer] Conversion Note - Historical ProviderMD - 08/28/2018 10:57 AM DISH MACHINE OPERATOR Attempt to Treat, PT Entered On: 08/28/2018 10:57 EST Performed On: 08/28/2018 10:57 EST by DIANA HASSAN Physical Therapist Attempt to Treat Unable to Treat Due To : Pain, Patient Refusal Inability to Treat Comment : Pt declined PT eval at this time due to severe chest pain. Will f/u as schedule allows. Rani URBAN notified of pts chest pain. Notification : Rani URBAN. DIANA HASSAN, Physical Therapist - 08/28/2018 10:57 EST documented in this encounter Plan of Treatment Not on file documented as of this encounter Visit Diagnoses Not on filedocumented in this encounter
--- OUTSIDE RECORDS SUMMARY | 2025-05-09 09:13 | XMS_ITS | Encounter Summary ---
Author Organization [employer] ([place], [place], [place], [place], [place]) Address [address] [place] [address] Care Team Providers Care Cooling Tower Technician Name Role Phone Unavailable Primary Care Provider Unavailabl e Encounter Details Date Type Department Care Team (Late st Contact Info) Description 08/28/2018 Transcribed Document [facility] [place] [address] [place] [address] ProviderLisbet MD [address], [place] [id number] Social History Tobacco Use Types Packs/Day Years Used Date Smoking Tobacco: Never Assessed Comments Unknown Sex and Gender Information Value Date Recorded Sex Assigned at Not on file Legal Sex Female 3:31 PM CDT Gender Identity Not on file Sexual Orientation Not on file documented as of this encounter Miscellaneous Notes * [employer]ner Conversion Note - Historical ProviderMD - 08/28/2018 5:00 PM WEB DEVELOPMENT INTERN Chart Check - Review Order Profile Entered On: 08/28/2018 16:59 EST Performed On: 08/28/2018 17:00 EST by MISHA STEWART RN Chart Check Chart Reviewed Date and Time : 08/28/2018 16:59 EST Powerplans Initiated/Discontinued as Appropriate : Yes All Active Orders Reviewed : Yes MISHA STEWART RN - 08/28/2018 16:59 EST documented in this encounter Plan of Treatment Not on file documented as of this encounter Visit Diagnoses Not on filedocumented in this encounter
--- OUTSIDE RECORDS SUMMARY | 2025-05-09 09:13 | XMS_ITS | Encounter Summary ---
Author Organization [employer] ([place], [place], [place], [place], [place]) Address [address] [place] [address] Care Team Providers Care Warehouse Supervisor [address] Shift Name Role Phone Unavailable Primary Care Provider Unavailabl e Encounter Details Date Type Department Care Team (Late st Contact Info) Description 08/29/2018 Transcribed Document [facility] [place] [address] [place] [address] ProviderLisbet MD [address] [place] [address] Social History Tobacco Use Types Packs/Day Years Used Date Smoking Tobacco: Never Assessed Comments Unknown Sex and Gender Information Value Date Recorded Sex Assigned at Not on file Legal Sex Female 3:31 PM CDT Gender Identity Not on file Sexual Orientation Not on file documented as of this encounter Miscellaneous Notes * [employer]ner Conversion Note - Historical ProviderMD - 08/29/2018 1:50 PM LEGISLATIVE DIRECTOR Consult Phone Call Documentation Entered On: 08/29/2018 14:08 EST Performed On: 08/29/2018 13:50 EST by MISHA STEWART RN Phone Call for Consults Consult Phone Call/Page Attempt : First call Consult Reason : Syncope MISHA STEWART RN - 08/29/2018 14:08 EST documented in this encounter Plan of Treatment Not on file documented as of this encounter Visit Diagnoses Not on filedocumented in this encounter
--- OUTSIDE RECORDS SUMMARY | 2025-05-09 09:13 | XMS_ITS | Encounter Summary ---
Author Organization [employer] ([place], [place], [place], [place], [place]) Address [address] [place] [address] Care Team Providers Care Management Consultant Name Role Phone Unavailable Primary Care Provider Unavailabl e Encounter Details Date Type Department Care Team (Late st Contact Info) Description 08/29/2018 Transcribed Document [facility] Cardiology [address] [place] [address] Henrique Muniz MD [address] [facility] [address] [place] [address] Social History Tobacco Use Types Packs/Day Years Used Date Smoking Tobacco: Never Assessed Comments Unknown Sex and Gender Information Value Date Recorded Sex Assigned at Not on file Legal Sex Female 3:31 PM CDT Gender Identity Not on file Sexual Orientation Not on file documented as of this encounter Miscellaneous Notes * Cerner Conversion Note - Henrique Muniz MD - 08/29/2018 8:06 AM EST Patient: DANYEL HOGUE Age: 52 years Sex: Female : 1965 Associated Diagnoses: None Author: HENRIQUE MUNIZ MD-CAR Subjective Complains of some blurred vision Health Status Current medications: (Selected) Inpatient Medications Ordered Ativan: 1 mg, IV Push, 1-Time, PRN: Anxiety Cymbalta: 30 mg, Oral, Daily MiraLax: 17 Gram, Oral, Daily, PRN: Constipation Normal Saline 1,000 mL: 75 mL/Hr, IntraVENous Tylenol: 650 mg, Oral, Q6H, PRN: Pain (Mild 1-3) Zofran: 4 mg, IV Push, Q4H, PRN: Nausea aspirin: 325 mg, Oral, Daily atorvastatin: 20 mg, Oral, At Bedtime levothyroxine: 50 mcg, Oral, Daily meclizine: 25 mg, Oral, TID montelukast: 10 mg, Oral, QPM pantoprazole: 40 mg, Oral, Daily potassium chloride 20 mEq oral tablet, extended release: 20 mEq, 1 Tab, Oral, Daily, PRN: Cramping sucralfate: 1 Gram, Oral, BID, PRN: Indigestion tiZANidine: 4 mg, Oral, TID, PRN: Muscle Spasms topiramate: 25 mg, Oral, BID traMADol: 50 mg, Oral, Q6H, PRN: Pain (Moderate 4-6) Objective Intake and Output 24 hour intake: Total 1,150 ml 24 hour output: Total 1,900 ml VS/Measurements Vitals Signs (last 24 hrs) Last Charted Minimum Maximum Temp 97.7 (AUG 29 06:11) 97.7 (AUG 29 06:11) 98.0 (AUG 28 14:00) Apical HR L 56 (AUG 28 09:00) L 56 (AUG 28 08:51) L 56 (AUG 28 08:51) Mon HR 68 (AUG 29 06:11) 52 (AUG 28 10:55) 76 (AUG 29 02:50) Resp Rate 16 (AUG 29 06:11) 16 (AUG 28 10:00) 18 (AUG 28 17:17) SBP 126 (AUG 29 06:11) 101 (AUG 28 22:10) H 141 (AUG 28 10:55) DBP 65 (AUG 29 06:11) L 53 (AUG 29 02:50) 72 (AUG 28 10:55) MAP 88 (AUG 29 06:11) 70 (AUG 28 22:10) 88 (AUG 29 06:11) SpO2 95 (AUG 29 02:50) 95 (AUG 28 08:00) 97 (AUG 28 21:45) General: Alert and oriented, No acute distress. Eye: Pupils are equal, round and reactive to light, Normal conjunctiva, Vision unchanged. HENT: Normocephalic. Neck: Supple, Non-tender, No carotid bruit, No jugular venous distention. Respiratory: Lungs are clear to auscultation, Respirations are non-labored, Breath sounds are equal, Symmetrical chest wall expansion. Cardiovascular: Normal rate, Regular rhythm, No murmur, Good pulses equal in all extremities. Gastrointestinal: Soft, Non-distended, Normal bowel sounds. Musculoskeletal: Normal range of motion, Normal strength. Integumentary: Warm, Dry, [place]. Neurologic: Alert, Oriented. Psychiatric: Cooperative, Appropriate mood & affect. Results Review Telemetry Admission Weight Todays Weight AUG 28 07:41 143 109 18 / 97 L 3.4 27 0.70 \ AUG 28 07:41 \ 13.7 / 6.5 205 / 39.3 \ Cardiac Markers (Current Encounter/Past 24 Hours) No Cardiac Marker Results Found (Past 24 Hours) Radiology Results (Last 48 hours) [id number] -- 08/27/2018 20:01 MRI Brain WO (08/28/2018 16:10) Result: Study: MRI brain without contrastCLINICAL HISTORY: Facial numbnessCOMPARISON: 06/09/2018Description: Multiplanar multisequence imaging of the brain wasperformed without the intravenous administration of contrast.The brain parenchyma is normal in morphology and signal without infarct,hemorrhage or mass effect. The fourth, third and lateral ventricles arenormal in size and position. Cranial nerves VII and VIII complexes aresymmetric. Pituitary axis is unremarkable. Paranasal sinuses and mastoidair cells are clear.IMPRESSION: No acute intracranial abnormality ECHO 08/28/18 Impression: Technically difficult study with suboptimal accoustic windows. Optison contrast used to enhance endocardial borders. Normal sized left ventricle. Mild left ventricular hypertrophy. Visually estimated ejection fraction 55% +/- 5%. Unable to measure systolic strain. Normal left ventricular diastolic function. No hemodynamically significant valvular heart disease. No masses or thrombi are seen. Impression and Plan IMPRESSION: Chest pain/Near Syncope Bradycardia per telemetry, possible PAF per EKG report No events per LINQ interrogation Recent CVA w /ischemia s/p LINQ implant 08/21/18 - [employer] ECHO 06/07/18 - EF 60% Carotid Duplex 06/07/18 - Intimal thickening bilaterally HTN PLAN; 08/29/18 No AF on LINQ interrogation, no signifcant bradycardia Will continue to hold BB for now due to slight bradycardia Follow up with Dr. Samayoa/JOSE Walker as planned 08/18/18 Loop interrogation Echocardiogram DC Metoprolol due to bradycardia documented in this encounter Plan of Treatment Not on file documented as of this encounter Visit Diagnoses Not on filedocumented in this encounter
--- OUTSIDE RECORDS SUMMARY | 2025-05-09 09:13 | XMS_ITS | Encounter Summary ---
Author Organization [employer] ([place], [place], [place], [place], [place]) Address [address] [place] [address] Care Team Providers Care Customer Care Assistant Name Role Phone Unavailable Primary Care Provider Unavailabl e Encounter Details Date Type Department Care Team (Late st Contact Info) Description 08/27/2018 Transcribed Document [facility] [place] Family Medicine [address] [place] [address] ProviderLisbet MD [address], [place] [id number] Social History Tobacco Use Types Packs/Day Years Used Date Smoking Tobacco: Never Assessed Comments Unknown Sex and Gender Information Value Date Recorded Sex Assigned at Not on file Legal Sex Female 3:31 PM CDT Gender Identity Not on file Sexual Orientation Not on file documented as of this encounter Miscellaneous Notes * Cerner Conversion Note - Historical ProviderMD - 08/27/2018 8:45 PM NYLON OPERATOR Education-Diabetes Topics Entered On: 08/28/2018 16:58 EST Performed On: 08/28/2018 9:00 EST by MISHA STEWART RN Teaching/Learning Assessment Barriers To Learning : None evident MISHA STEWART RN - 08/28/2018 16:58 EST documented in this encounter Plan of Treatment Not on file documented as of this encounter Visit Diagnoses Not on filedocumented in this encounter
--- OUTSIDE RECORDS SUMMARY | 2025-05-09 09:13 | XMS_ITS | Encounter Summary ---
Author Organization [employer] ([place], [place], [place], [place], [place]) Address [address] [place] [address] Care Team Providers Care Asset Protection Greeter Name Role Phone Unavailable Primary Care Provider Unavailabl e Encounter Details Date Type Department Care Team (Late st Contact Info) Description 08/29/2018 Transcribed Document [facility] [place] Family Medicine [address] [place] [address] ProviderLisbet MD [address] [place] [address] Social History Tobacco Use Types Packs/Day Years Used Date Smoking Tobacco: Never Assessed Comments Unknown Sex and Gender Information Value Date Recorded Sex Assigned at Not on file Legal Sex Female 3:31 PM CDT Gender Identity Not on file Sexual Orientation Not on file documented as of this encounter Miscellaneous Notes * Cerner Conversion Note - Historical ProviderMD - 08/29/2018 12:08 PM FLATWORK FINISHER Discharge Instructions Entered On: 08/29/2018 12:08 EST Performed On: 08/29/2018 12:08 EST by SHARON BETANCOURT formerly [facility] DC Instructions [facility] : [facility] p [phone] f [phone] Abeba Whitt, Rn-Legal Consultant Ed - 08/30/2018 14:07 EST Stroke/TIA Discharge Ins : N/A Heart Failure Discharge Ins : N/A Warfarin Discharge Ins : N/A Diet After Discharge : Heart healthy diet HUONG OLIVER RN - 08/29/2018 13:12 EST Special Instructions : STOP the following medications: STOP Metoprolol (lopressor) --- Follow up with Cardiology SHARON BETANCOURT [facility] - 08/29/2018 12:08 EST documented in this encounter Plan of Treatment Not on file documented as of this encounter Visit Diagnoses Not on filedocumented in this encounter
--- OUTSIDE RECORDS SUMMARY | 2025-05-09 09:13 | XMS_ITS | Encounter Summary ---
Author Organization [employer] ([place], [place], [place], [place], [place]) Address [address] [place] [address] Care Team Providers Care Director Semiconductor Name Role Phone Unavailable Primary Care Provider Unavailabl e Encounter Details Date Type Department Care Team (Late st Contact Info) Description 08/28/2018 Transcribed Document [facility] [place] Family Medicine [facility] [place] [address] ProviderLisbet MD [address] [place] [address] Social History Tobacco Use Types Packs/Day Years Used Date Smoking Tobacco: Never Assessed Comments Unknown Sex and Gender Information Value Date Recorded Sex Assigned at Not on file Legal Sex Female 3:31 PM CDT Gender Identity Not on file Sexual Orientation Not on file documented as of this encounter Miscellaneous Notes * Cerner Conversion Note - Lisbet ProviderMD - 08/28/2018 12:27 PM LEAD RELAY TESTER Care Management Assessment/Plan Entered On: 08/28/2018 12:29 EST Performed On: 08/28/2018 12:27 EST by LIZ MAY RN-Lute Packer Or ApplierIndustrial Plant Custodian Note Care Management Note : Heather Isaac reviewed chart. RRS 42. Cm explained role of CM. Pt states lives with Ean [phone]. Pt states has a walker at home. Denies DME or HH. Denies homo o2. DM discussed DCP. Pt States is independent no needs. CM will continue to follow for d/c needs. Documentation Status Complete : Yes LIZ MAY RN-Lute Packer Or Applier - 08/28/2018 12:27 EST Patient History Emergency Contact #1 : Ean Heather Emergency Contact #1 Emergency Contact #1 Relationship : Emergency Contact #2 : Rosalia Coates Emergency Contact #2 Emergency Contact #2 Relationship : daughter Living Situation : Home Patient Lives With : Spouse Mobility Assistance Prior to Admission : Independent Current Daily Living Assistance : None Sensory Deficits : None Professional Skilled Services : None Current Home Treatments : None Home Equipment : Walker Special Services and Community Resources : None 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 RRS 42. Cm explained role of CM. Pt states lives with Ean [phone]. Pt states has a walker at home. Denies DME or HH. DM discussed DCP. Pt States is independent no needs. CM will continue to follow for d/c needs. LIZ MAY RN-Lute Packer Or Applier - 08/28/2018 12:27 EST documented in this encounter Plan of Treatment Not on file documented as of this encounter Visit Diagnoses Not on filedocumented in this encounter
--- OUTSIDE RECORDS SUMMARY | 2025-05-09 09:13 | XMS_ITS | Encounter Summary ---
Author Organization [employer] ([place], [place], [place], [place], [place]) Address [address] [place] [address] Care Team Providers Care Air Pollution Auditor Name Role Phone Unavailable Primary Care Provider Unavailabl e Encounter Details Date Type Department Care Team (Late st Contact Info) Description 08/27/2018 Transcribed Document [facility] [address] [place] [address] ProviderLisbet MD [address] [id number] Social History Tobacco Use Types Packs/Day Years Used Date Smoking Tobacco: Never Assessed Comments Unknown Sex and Gender Information Value Date Recorded Sex Assigned at Not on file Legal Sex Female 3:31 PM CDT Gender Identity Not on file Sexual Orientation Not on file documented as of this encounter Miscellaneous Notes * Cerner Conversion Note - Historical ProviderMD - 08/27/2018 8:01 PM [place] MACHINE OPERATOR Admission History, Adult Entered On: 08/27/2018 20:51 EST Performed On: 08/27/2018 20:01 EST by Susana Brannon RN Advance Directive Patient has Advance Directive *Q : No, patient requests information about Advance Directive Patient Given Information about AD : Yes Susana Brannon RN - 08/27/2018 20:44 EST Anesthesia/Transfusion History Family History of Anesthesia Reaction : No prior transfusion(s) Transfusion History : Prior anesthesia without reaction Family History of Anesthesia Reaction : Unknown Susana Brannon RN - 08/27/2018 20:44 EST Functional Assessment Living Situation : Home GIBSON Hx Falls Immediate/Within 3 Months : No Current Home Treatments : None Susana Brannon RN - 08/27/2018 20:44 EST General Info Support Person/Pt Rep Name : Ean Support Person/Pt Rep Contact Information : [phone] Want Family/Rep/Phys Notified of Admit : No Emergency Contact #1 : Ean Romero Emergency Contact #1 Emergency Contact #1 Relationship : Emergency Contact #2 : Rosalia Coates Emergency Contact #2 Emergency Contact #2 Relationship : daughter Primary Language : Nigerian Communication Barrier : None Susana Brannon RN - 08/27/2018 20:44 EST Fall Risk Scales ABCs Fall Injury Risk Identification : Coagulation ABC Fall Injury Risk : Moderate to high injury risk Injury Moderate to High Risk Interventions : High Risk for Fall Injury sign in place per policy, Patient room close to nurses station, Specialty low bed, Supervise toileting as indicated, Transport methods appropriate to patient, Visual cues in place GIBSON Hx Falls Immediate/Within 3 Months : Yes Gibson Secondary Diagnosis : Yes GIBSON Use of Ambulatory Aid : Bed rest/Nurse assist GIBSON IV Therapy or IV Access : Yes Gibson Gait/Transferring : Normal, bedrest, immobile Gibson Mental Status : Oriented to own ability Gibson Fall Risk Score : 60 GIBSON Fall Scale Risk Level : 25-45 Medium Risk [place] Fall Interventions : Adequate lighting, Assistive devices within reach, Bed in low position, Call device within reach, Fall prevention handout/education per facility policy, Frequent orientation to call device, Frequent orientation to surroundings, Hourly comfort/safety rounds, Non-slip footwear, Personal items within reach, Reinforced to call for assistance before getting out of bed, Room free of clutter/spills, Upper side-rails up, Wheels locked, Wires/Cords secured Fall Moderate to High Risk Interventions : High Risk for Fall sign in place per policy, Supervise toileting as indicated, Video observation in place, Visual cues in place Susana Brannon RN - 08/27/2018 20:44 EST Fall Risk Education Grid Alarms : Verbalizes understanding Call light use : Verbalizes understanding Door Open : Verbalizes understanding Night Light Use : Verbalizes understanding Nonskid Footwear Use : Verbalizes understanding Risk Alert Methods : Verbalizes understanding Risk Factors : Verbalizes understanding Safety Aids : Verbalizes understanding Siderails use/risks : Verbalizes understanding Urinal/Bedpan Availability : Verbalizes understanding Wait for Assistance : Verbalizes understanding Susana Brannon RN - 08/27/2018 20:44 EST Fall Risk Scale Calc Temp : 1 Susana Brannon RN - 08/27/2018 20:44 EST Health Histories Smoking Status : Former smoker, quit more than 30 days ago Smokeless Tobacco Status : Never Susana Brannon RN - 08/27/2018 20:44 EST Social History (As Of: 08/27/2018 20:51:56 EST) Tobacco: smoker- 15 years. quit 20 yrs Smoking Status. Last Used: patient quit smoking over 20 years ago. (Last Updated: 08/27/2018 20:49:37 EST by Susana Brannon RN) Alcohol: Alcohol Use History No. (Last Updated: 07/11/2018 06:59:49 EST by MAYELA BUCKLEY RN) Substance Abuse: Drug Use Hx: No. Use in Last 12 Months: No. (Last Updated: 07/11/2018 06:59:55 EST by MAYELA BUCKLEY RN) Height and Weight, Clinical Dosing Weight Entry Format : [place] Clinical Dosing Weight : 100 kg Weight, Pounds : 220 lb Body Surface Area (BSA) : 2.08 m2 Body Mass Index : 35.6 kg/m2 (HI) Susana Brannon RN - 08/28/2018 6:23 EST Height Source : Stated Height Entry Format : [place] Height, Feet : 5 ft(Converted to: 152 cm, 60 Inch) Height, Inches : 6 Inch(Converted to: 0 ft 6 Inch, 15.24 cm) Clinical Height : 167.64 cm Susana Brannon RN - 08/27/2018 20:44 EST Weight Source : Standing scale Susana Brannon RN - 08/28/2018 6:23 EST [place] Body Weight : 59 kg Susana Brannon RN - 08/27/2018 20:44 EST Estimated Weight Susana Brannon RN - 08/28/2018 6:23 EST Susana Brannon RN - 08/27/2018 20:44 EST Susana Brannon RN - 08/28/2018 6:23 EST Infectious Disease History Infectious Disease History : Chicken pox/Shingles, Influenza Fever/Chills Last 48 Hours : Yes Experiencing Infectious Disease Symptoms : No symptoms Travel To Regions with Travel Advisories : No Travel Outside [place] Within Last 30 Days : No Contact With Traveler to Advisory Region : No Tuberculosis Symptoms : None Susana Brannon RN - 08/27/2018 20:44 EST Influenza Vaccine Asmt, Adult Previous Vaccines from Immunization Schedule : No qualifying data available. Influenza Immunization, Current Season : Yes Suasna Brannon RN - 08/27/2018 20:44 EST Pneumococcal Vaccine Previous Vaccines from Immunization Schedule : No qualifying data available. Pneumonia Immunization Received : No Pneumococcal Risk Assessment < Age 65 : None Susana Brannon RN - 08/27/2018 20:44 EST Nutrition History Eating Poorly Due to Decreased Appetite : No Unplanned Weight Loss in Past 3-6 Months : No Malnutrition Screening Tool Total(mal) : 0 Malnutrition Screening Tool Risk Level : Patient not at risk Susana Brannon RN - 08/27/2018 20:44 EST Psychosocial History Currently in Unsafe Situation : No Tried to Harm Yourself in the Past? : No Thoughts of Harming/Killing Yourself : No Susana Brannon RN - 08/27/2018 20:44 EST Sleep Apnea Risk Assmt Hx of Obstructive Sleep Apnea Diagnosis : Yes BiPAP/CPAP Ordered for Home Use : No Sleep Apnea Risk Comment : patient states she is awaiting a home cpap study Susana Brannon RN - 08/27/2018 20:44 EST Valuables and Belongings Valuables and Belongings : Clothing, Personal items Clothing : Common streetwear Clothing Disposition : Bedside Personal Items : Cell phone Personal Items Disposition : With family, With patient, Declines to send to security/safe Susana Brannon RN - 08/27/2018 20:44 EST Electronically signed by Mikael [facility] Conversion Massage Therapist Cerner at 10/19/2022 9:53 AM CDT documented in this encounter Plan of Treatment Not on file documented as of this encounter Visit Diagnoses Not on filedocumented in this encounter
--- OUTSIDE RECORDS SUMMARY | 2025-05-09 09:13 | XMS_ITS | Encounter Summary ---
Author Organization [employer] ([place], [place], [place], [place], [place]) Address [address] [place] [address] Care Team Providers Care College Of Education Dean Name Role Phone Unavailable Primary Care Provider Unavailabl e Encounter Details Date Type Department Care Team (Late st Contact Info) Description 08/27/[address] [facility] [place] [address] [place] [address] ProviderLisbet MD [address] [place] [address] Social History Tobacco Use Types Packs/Day Years Used Date Smoking Tobacco: Never Assessed Comments Unknown Sex and Gender Information Value Date Recorded Sex Assigned at Not on file Legal Sex Female 3:31 PM CDT Gender Identity Not on file Sexual Orientation Not on file documented as of this encounter Miscellaneous Notes * [employer]ner Conversion Note - Historical ProviderMD - 08/27/2018 10:25 PM HEALTH CLUB MANAGER Pain Assessment Entered On: 08/30/2018 5:44 EST Performed On: 08/30/2018 4:07 EST by MICHELLE KOO RN Intervention Information: acetaminophen Performed by MICHELLE KOO RN on 08/30/2018 03:07:00 EST acetaminophen,650mg Oral,Pain (Mild 1-3) Pain Assessment Pain Assessment : Follow-up assessment Pain Scale Goal : 2 Pain Improved by Intervention : Yes Pain Comment : pt sleeping MICHELLE KOO RN - 08/30/2018 5:44 EST documented in this encounter Plan of Treatment Not on file documented as of this encounter Visit Diagnoses Not on filedocumented in this encounter
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
--- OUTSIDE RECORDS SUMMARY | 2025-05-09 09:13 | XMS_ITS | Encounter Summary ---
Author Organization [employer] ([place], [place], [place], [place], [place]) Address [address] [place] [address] Care Team Providers Care Automatic Cigar Wrapper Tender Name Role Phone Unavailable Primary Care Provider Unavailabl e Encounter Details Date Type Department Care Team (Late st Contact Info) Description 08/28/2018 Transcribed Document [facility] Family Medicine [address] [place] [address] ProviderLisbet MD [address], [place] [id number] Social History Tobacco Use Types Packs/Day Years Used Date Smoking Tobacco: Never Assessed Comments Unknown Sex and Gender Information Value Date Recorded Sex Assigned at Not on file Legal Sex Female 3:31 PM CDT Gender Identity Not on file Sexual Orientation Not on file documented as of this encounter Miscellaneous Notes * Cerner Conversion Note - Historical ProviderMD - 08/28/2018 5:00 AM MAGNETIC PROSPECTING SUPERVISOR Chart Check - Review Order Profile Entered On: 08/28/2018 3:14 EST Performed On: 08/28/2018 5:00 EST by Susana Brannon RN Chart Check All Active Orders Reviewed : Yes Susana Brannon RN - 08/28/2018 3:14 EST Electronically signed by Mikael [facility] Conversion Compliance Engineer Products Cerner at 10/19/2022 9:46 AM CDT documented in this encounter Plan of Treatment Not on file documented as of this encounter Visit Diagnoses Not on filedocumented in this encounter
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
--- OUTSIDE RECORDS SUMMARY | 2025-05-09 09:13 | XMS_ITS | Encounter Summary ---
Author Organization [employer] ([place], [place], [place], [place], [place]) Address [address] [place] [address] Care Team Providers Care Telecom Sales Consultant Name Role Phone Unavailable Primary Care Provider Unavailabl e Encounter Details Date Type Department Care Team (Late st Contact Info) Description 08/27/2018 Transcribed Document [facility] [place] Family Medicine [address] [place] [address] ProviderLisbet MD [address] [place], [place] [id number] Social History Tobacco Use Types Packs/Day Years Used Date Smoking Tobacco: Never Assessed Comments Unknown Sex and Gender Information Value Date Recorded Sex Assigned at Not on file Legal Sex Female 3:31 PM CDT Gender Identity Not on file Sexual Orientation Not on file documented as of this encounter Miscellaneous Notes * [employer]ner Conversion Note - Historical ProviderMD - 08/27/2018 10:20 PM MACHINE TOOL TECHNOLOGY INSTRUCTOR Height and Weight, Routine Entered On: 08/27/2018 22:21 EST Performed On: 08/27/2018 22:20 EST by Susana Brannon RN Height and Weight, Routine Routine Weight Source : Standing scale Routine Weight Entry Format : [place] Routine Weight, Pounds : 220 lb Routine Weight Calculation : 100 kg Height Source : Stated Height Entry Format : [place] Height, Feet : 5 ft Height, Inches : 6 Inch Clinical Height : 167.64 cm Body Surface Area (BSA), Routine : 2.08 m2 Body Mass Index (BMI), Routine : 35.58 kg/m2 Susana Brannon RN - 08/27/2018 22:20 EST documented in this encounter Plan of Treatment Not on file documented as of this encounter Visit Diagnoses Not on filedocumented in this encounter
--- OUTSIDE RECORDS SUMMARY | 2025-05-09 09:13 | XMS_ITS | Encounter Summary ---
Author Organization [employer] ([place], [place], [place], [place], [place]) Address [address] [place] [address] Care Team Providers Care Assistant Guest Services Manager Name Role Phone Unavailable Primary Care Provider Unavailabl e Encounter Details Date Type Department Care Team (Late st Contact Info) Description 08/27/2018 Transcribed Document [facility] [place] [address] [place] [address] ProviderLisbet MD [address], [place] [phone] Social History Tobacco Use Types Packs/Day Years Used Date Smoking Tobacco: Never Assessed Comments Unknown Sex and Gender Information Value Date Recorded Sex Assigned at Not on file Legal Sex Female 3:31 PM CDT Gender Identity Not on file Sexual Orientation Not on file documented as of this encounter Miscellaneous Notes * [employer]ner Conversion Note - Historical ProviderMD - 08/27/2018 8:45 PM GLASS EDGER Education-(VTE) / (DVT) Entered On: 08/28/2018 9:03 EST Performed On: 08/28/2018 9:00 EST by MISHA STEWART RN Teaching/Learning Assessment Barriers To Learning : None evident MISHA STEWART RN - 08/28/2018 9:03 EST documented in this encounter Plan of Treatment Not on file documented as of this encounter Visit Diagnoses Not on filedocumented in this encounter
--- OUTSIDE RECORDS SUMMARY | 2025-05-09 09:13 | XMS_ITS | Encounter Summary ---
Author Organization [employer] ([place], [place], [place], [place], [place]) Address [address] [place] [address] Care Team Providers Care Dental Services Director Name Role Phone Unavailable Primary Care Provider Unavailabl e Encounter Details Date Type Department Care Team (Late st Contact Info) Description 08/29/2018 Transcribed Document [facility] Family Medicine [facility] [place] [address] ProviderLisbet MD [address], [place] [phone] Social History Tobacco Use Types Packs/Day Years Used Date Smoking Tobacco: Never Assessed Comments Unknown Sex and Gender Information Value Date Recorded Sex Assigned at Not on file Legal Sex Female 3:31 PM CDT Gender Identity Not on file Sexual Orientation Not on file documented as of this encounter Miscellaneous Notes * [employer]ner Conversion Note - Historical ProviderMD - 08/29/2018 2:25 PM TERRITORY SERVICE REPRESENTATIVE Care Management Assessment/Plan Entered On: 08/29/2018 14:25 EST Performed On: 08/29/2018 14:25 EST by LIZ MAY RN-Fire BossEnergy Attorney Note Care Management Note : Cm reviewed chart. RRS 42. Cm reviewed chart. Pt hx CVA. To hospital event dizzy, chest pain. Her EKGwithout acute ischemia, but did demonstrate a prolonged QT/ ECHO on 08/28, Normal. MRI brain 08/28.. CM discussed DCP. Pt states independent no needs. Denies need for HH. CM will continue to follow. Care Management Note Report : LIZ MAY RN-Fire Boss - 08/29/18 14:19:56 Cm reviewed chart. RRS 42. Cm reviewed chart. Pt hx CVA. To hospital event dizzy, chest pain. Her EKGwithout acute ischemia, but did demonstrate a prolonged QT/ ECHO on 08/28, Normal. MRI brain 08/28.. CM discussed DCP. Pt states independent no needs. CM will continue to follow. LIZ MAY, RN-Fire Boss - 08/28/18 12:29:23 Heather Isaac reviewed chart. RRS 42. Cm explained role of CM. Pt states lives with Ean [phone]. Pt states has a walker at home. Denies DME or HH. Denies homo o2. DM discussed DCP. Pt States is independent no needs. CM will continue to follow for d/c needs. Documentation Status Complete : Yes LIZ MAY, RN-Fire Boss - 08/29/2018 14:25 EST Electronically signed by [facility] Conversion Hvac Technician Residential Cerner at 10/19/2022 10:03 AM CDT documented in this encounter Plan of Treatment Not on file documented as of this encounter Visit Diagnoses Not on filedocumented in this encounter
--- OUTSIDE RECORDS SUMMARY | 2025-05-09 09:13 | XMS_ITS | Encounter Summary ---
Author Organization [employer] ([place], [place], [place], [place], [place]) Address [address] [place] [address] Care Team Providers Care Sewer Pipe Press Operator Name Role Phone Unavailable Primary Care Provider Unavailabl e Encounter Details Date Type Department Care Team (Late st Contact Info) Description 08/28/2018 Transcribed Document [facility] [place] Medicine [address] [place] [address] ProviderLisbet MD [address] [id number] Social History Tobacco Use Types Packs/Day Years Used Date Smoking Tobacco: Never Assessed Comments Unknown Sex and Gender Information Value Date Recorded Sex Assigned at Not on file Legal Sex Female 3:31 PM CDT Gender Identity Not on file Sexual Orientation Not on file documented as of this encounter Miscellaneous Notes * [employer]ner Conversion Note - Historical ProviderMD - 08/28/2018 2:00 AM ELECTRONIC SALES AND SERVICE TECHNICIAN Telecommunications Support Details Entered On: 08/28/2018 6:24 EST Performed On: 08/28/2018 2:00 EST by Susana Brannon RN Order Details Transport Mode Order Detail : Stretcher/Gurney Isolation Precautions Order Detail : Contact precautions Order Detail : 0 IV Order Detail : 1 Oxygen Order Detail : 1 Nurse Collect Order Detail : 0 Lift/Transfer : Minimal Central Line Order Detail : No Room Service : Needs Assistance Arterial Line : No Susana Brannon RN - 08/28/2018 6:23 EST Electronically signed by Todd Youssef Conversion Electronic Plotting System Operator Cerner at 10/19/2022 9:59 AM CDT documented in this encounter Plan of Treatment Not on file documented as of this encounter Visit Diagnoses Not on filedocumented in this encounter
--- OUTSIDE RECORDS SUMMARY | 2025-05-09 09:13 | XMS_ITS | Encounter Summary ---
Author Organization [employer] ([place], [place], [place], [place], [place]) Address [address] [place] [address] Care Team Providers Care Hydrographical Technical Officer Name Role Phone Unavailable Primary Care Provider Unavailabl e Encounter Details Date Type Department Care Team (Late st Contact Info) Description 08/27/2018 Transcribed Document [facility] [place] Family Medicine [facility] [place] [address] ProviderLisbet MD [address] [place] [address] Social History Tobacco Use Types [...] - Historical ProviderMD - 08/27/2018 8:45 PM SCREEN MAKING SUPERVISOR Evaluation, Physical Therapy Entered On: 08/29/2018 11:58 EST Performed On: 08/29/2018 11:20 EST by BIJU LLOYD, KAYLA General Information, PT Visit Type, PT : Initial evaluation Patient Orders : Order Date Order Ordering 08/27/2018 20:45 PT Evaluation and Treatment Ordered By: PAXTON PATTON DO Active Diagnoses : 08/29/2018 00:00 Dizziness and giddiness Therapy Diagnosis, PT : loss of independent mobility due to weakness after illness Onset of Problem, PT : 08/27/2018 EST Admission Date : 08/27/2018 20:01 Co-treated by, PT : Occupational Therapist Personal Devices : Personal Devices No Devices Recorded Assistive Devices : Assistive Devices No Devices Recorded General Information Comment, PT : 52 yo female adm to [facility] 08/27 with c/o chest pains PMHx significant for RECENT R CVA with L Hemiparesis (Jun 2018), HTN, HLD, OA, Fibromyalgia BIJU LLOYD, PT - 08/29/2018 11:30 EST General Status Patient Received Status : Supine in bed Treatment Start Time : 08/29/2018 10:57 EST Patient Left Status : Up in chair, RN/PCT informed, Communication board completed, All needs met and within reach RN/PCT Informed Comment : yes per RAJNI [place] Treatment End Time : 08/29/2018 11:20 EST Treatment Time : 23 Minute(s) Actual Treatment Time : 23 Minute(s) BIJU LLOYD, PT - 08/29/2018 11:30 EST History and Environment Living Situation, Therapy : Home Patient Lives With : Spouse Persons Assisting Patient at Home : Alone, Spouse Professional Skilled Services : None Persons Providing Information : Patient Home Equipment Therapy, PT : Bar, grab, Cane, Commode, Shower Equipment Cane : Cane, single point Commode : Commode, bedside Commode Comment : placed over toilet Shower Equipment : Shower Chair, with back Home Setup : One story Bedroom Location : Main level Bathroom #1 Location : Main level Bathroom #1 Features : Toilet, Tub/Shower Stairs : Yes Stair Location(s) : Outside Outside Stairs, Number of Steps : 3 Railing Outside : Yes Outside Railing Position : Right, going up Ramp : No BIJU LLOYD, PT - 08/29/2018 11:30 EST Prior Level of Function PT GRID Prior LOF Ambulation, Household : Independent (Comment: with Cane [BIJU LLOYD PT - 08/29/2018 12:55 EST] ) Prior LOF Ambulation, Community : Independent (Comment: with Cane [BIJU LLOYD PT - 08/29/2018 12:55 EST] ) Prior LOF Bed Mobility : Independent Prior LOF Toileting : Independent Prior LOF Transfer : Independent BIJU LLOYD, PT - 08/29/2018 11:30 EST Prior LOF Assist with ADL Comment : pt stated spouse assists her in/out of tub/shower BIJU LLOYD, PT - 08/29/2018 11:30 EST Upper Extremity Right UE Active ROM : WFL Right UE Strength : WFL Left UE Active ROM : Impaired Left UE Active Assist ROM : WFL Left UE Strength : Impaired Right UE Strength : WFL Left UE Strength : Impaired Upper Extremity Comment : L UE weakness from R CVA in Jun 2018 BIJU LLOYD, PT - 08/29/2018 11:30 EST Lower Extremity RLE Active ROM : WFL Right LE Strength : WFL LLE Active ROM : Impaired Left LE Active Assist ROM : WFL Left LE Strength : WFL BIJU LLOYD, PT - 08/29/2018 11:30 EST Left Lower Extremity MMT Hip Flexion (0-125) : 3/fair Hip Abduction (0-45) : 3-/fair Hip Adduction (0-20) : 3-/fair Knee Flexion (0-140) : 3/fair Knee Extension (0-0) : 3-/fair Ankle Dorsiflexion (0-20) : 3/fair BIJU LLOYD, PT - 08/29/2018 11:30 EST Lower Extremity Comment : L LE with residual Weakness due to R CVA Jun 2018 BIJU LLOYD, PT - 08/29/2018 11:30 EST Functional Mobility Mobility Grid Bed Roll Right : Rehab Modified independence Bed Scooting : Rehab Modified independence Supine to Sit : Rehab Modified independence Sit to Stand : Supervision/set-up Stand to Sit : Supervision/set-up BIJU LLOYD, PT - 08/29/2018 11:30 EST Bed Mobility Scooting Device : Rails Supine to Sit Device : Rails Sit to Stand Device : Belt, gait, Walker, front wheel Stand to Sit Device : Belt, gait, Rails, Walker, front wheel BIJU LLOYD, PT - 08/29/2018 11:30 EST AM PAC Basic Mobility Turning Over in Bed : A little Sit Down On/Stand Up From Chair w/ Arms : A little Move Back Lying to Sitting Side of Bed : A little Moving To/From a Bed to Chair : A little Need to Walk in Hospital Room : A little Climbing 3-5 Steps with a Railing : A little AM-PAC Basic Mobility Raw Score : 18 AM-PAC Basic Mobility Standardized Score : 43.63 AM-PAC Basic Mobility CMS 0-100% Score : 46.58 % BIJU LLOYD, PT - 08/29/2018 11:30 EST Image 1 - Images currently included in the form version of this document have not been included in the text rendition version of the form. Functional Limitation Reporting, PT Functional Limitation Visit Type, PT : Initial evaluation Severity Determination Method, PT : Clinical Judgment, AM PAC Basic Mobility Mobility G8978 - Current Mod, PT : 40 - 59% impaired, limited or restricted (CK) Mobility G8979 - Proj Goal Mod, PT : 20 - 39% impaired, limited or restricted (CJ) BIJU LLOYD, PT - 08/29/2018 11:30 EST Gait Training/Assessment, PT Weight Bearing Status : Full Gait Assistance Level : Assist, minimal Walking Distance : approx 140 ft Ambulatory Devices : Gait belt, Walker, front wheel Gait Deviations : Yes Left Lower Gait Deviation : Bianca, decreased, Trendelenburg Right Lower Gait Deviation : Bianca, decreased Gait Training Comment : mild trendelenburg L LEin stance BIJU LLOYD, PT - 08/29/2018 11:30 EST Cognition Assessment, PT Orientation : Oriented x 4 Safety/Judgment Comment : good Follows Basic Command Assessment : yes Attention Assessment : Present BIJU LLOYD, PT - 08/29/2018 11:30 EST Edu Topics Physical Therapy Education Grid Balance Training : Returns demonstration Bed Mobility Training : Returns demonstration Gait Training : Returns demonstration, Needs further teaching, Needs reinforcement Role of Physical Therapy : Verbalizes understanding Safety : Returns demonstration, Needs reinforcement Therapeutic Exercises : Returns demonstration, Needs further teaching Transfer Training : Returns demonstration, Needs reinforcement Use of Assistive Device : Returns demonstration, Needs reinforcement BIJU LLOYD, PT - 08/29/2018 11:30 EST Indication Assesessment, PT Physical Therapy Indicated : Yes PT Problem List : Impaired, bed mobility, Impaired, endurance tolerance, Impaired, gait, Impaired, strength, Impaired, transfers Potential Barriers To Therapy : Acuity of Illness Rehabilitation Potential : Good BIJU LLOYD, PT - 08/29/2018 11:30 EST Plan of Care, PT Other PT Treatment Provided This Date : pt ed in and return demo'd GS and slight resistance to L Hip Abd sitting in chair BIJU LLOYD, PT - 08/29/2018 12:55 EST PT Tx Plan/Goals Established w Patient : Yes PT Frequency Rehab : Five days per week PT Duration Rehab : Fourteen days PT Treatments Planned : Bed mobility training, Gait training, Safety education, Therapeutic exercises, Transfer training BIJU LLOYD, PT - 08/29/2018 11:30 EST General Worker Goals Mobility/Bed Mobility LTG PT Grid Goal #1 Activity : Sit to stand Assist : Independent, modified Equipment : Walker, front wheel Date to Meet : 09/12/2018 EDT Goal Status : Intial Goal BIJU LLOYD, PT - 08/29/2018 11:30 EST Transfer LTG Grid Goal #1 Destination : Chair, with arms Assist : Independent, modified Equipment : Walker, front wheel Date to Meet : 09/12/2018 EDT Goal Status : Intial Goal PREMA, BIJU, PT - 08/29/2018 11:30 EST Ambulation LTG Grid Goal #1 Device : Other: safest AD Distance : 250 ft Assist : Independent, modified Date to Meet : 09/12/2018 EDT Goal Status : Intial Goal PREMA, BIJU, PT - 08/29/2018 11:30 EST Treatment Note Subjective Comment : pt agreed to PTx/OTx evals and getting up out of bed Patient's Response to Treatment : good Assessment : good effort and lei to short amb with RWx pt with increased weakness L LE based on my assessment and pt c/o it is worse now needs short term PTx for presybeterian of strength and mobility with least restrictive AD Plan for Treatment : intiate POC for strengthening and mobility BIJU LLOYD, PT - 08/29/2018 11:30 EST Pain Assessment Pain Scaled Used : 0-10 Pain scale Pain Score Pre-Intervention : 6 Location : Head Onset : Constant Pain Comment : pt stated RN has medicated her BIJU LLOYD, PT - 08/29/2018 11:30 EST Image 1 - Images currently included in the form version of this document have not been included in the text rendition version of the form. Anticipated Discharge Needs, OT/PT Anticipated Discharge to : Home, with home health Recommend Continued Therapy at Discharge : Yes BIJU LLOYD, PT - 08/29/2018 12:55 EST [place] [facility] Charges PT Therap. Exercise 15 min : 1 PT Eval Low Complexity : 1 BIJU LLOYD PT - 08/29/2018 12:55 EST Electronically signed by [facility], [facility] Conversion Legal Consultant Cerner at 10/19/2022 9:54 AM CDT documented in this encounter Plan of Treatment Not on file documented as of this encounter Visit Diagnoses Not on filedocumented in this encounter
--- OUTSIDE RECORDS SUMMARY | 2025-05-09 09:14 | XMS_ITS | Encounter Summary ---
Author Organization [employer] ([place], [place], [place], [place], [place]) Address [address] [place] [address] Care Team Providers Care Social Media Analyst Name Role Phone Unavailable Primary Care Provider Unavailabl e Encounter Details Date Type Department Care Team (Late st Contact Info) Description 08/29/2018 Transcribed Document [facility] [place] Family Medicine [address] [place] [address] ProviderLisbet MD [address], [place] [phone] Social History Tobacco Use Types Packs/Day Years Used Date Smoking Tobacco: Never Assessed Comments Unknown Sex and Gender Information Value Date Recorded Sex Assigned at Not on file Legal Sex Female 3:31 PM CDT Gender Identity Not on file Sexual Orientation Not on file documented as of this encounter Miscellaneous Notes * Cerner Conversion Note - Historical ProviderMD - 08/29/2018 5:00 PM PRESS ASSISTANT AND FEEDER Chart Check - Review Order Profile Entered On: 08/29/2018 15:35 EST Performed On: 08/29/2018 17:00 EST by MISHA STEWART RN Chart Check Chart Reviewed Date and Time : 08/29/2018 15:35 EST [employer] Initiated/Discontinued as Appropriate : Yes All Active Orders Reviewed : Yes MISHA STEWART RN - 08/29/2018 15:35 EST documented in this encounter Plan of Treatment Not on file documented as of this encounter Visit Diagnoses Not on filedocumented in this encounter
--- OUTSIDE RECORDS SUMMARY | 2025-05-09 09:14 | XMS_ITS | Encounter Summary ---
Author Organization [employer] ([place], [place], [place], [place], [place]) Address [address] [place] [id number] Care Team Providers Care Price Checker Name Role Phone Unavailable Primary Care Provider Unavailabl e Encounter Details Date Type Department Care Team (Late st Contact Info) Description 08/30/2018 Transcribed Document [facility] [place] [address] [place] [address] ProviderLisbet MD [address] [place], [place] [phone] Social History Tobacco Use Types Packs/Day Years Used Date Smoking Tobacco: Never Assessed Comments Unknown Sex and Gender Information Value Date Recorded Sex Assigned at Not on file Legal Sex Female 3:31 PM CDT Gender Identity Not on file Sexual Orientation Not on file documented as of this encounter Miscellaneous Notes * [employer]ner Conversion Note - Historical ProviderMD - 08/30/2018 2:00 AM AMUSEMENT RIDE INSPECTOR Care Administrative Tech Details Entered On: 08/30/2018 2:32 EST Performed On: 08/30/2018 2:00 EST by MICHELLE KOO RN Order Details Transport Mode Order Detail : Stretcher/Gurney Isolation Precautions Order Detail : Standard Precautions Order Detail : 0 IV Order Detail : 1 Oxygen Order Detail : 0 Nurse Collect Order Detail : 0 Lift/Transfer : Minimal Central Line Order Detail : No Room Service : Needs Assistance Arterial Line : No MICHELLE KOO, RAJNI - 08/30/2018 2:32 EST documented in this encounter Plan of Treatment Not on file documented as of this encounter Visit Diagnoses Not on filedocumented in this encounter
--- OUTSIDE RECORDS SUMMARY | 2025-05-09 09:14 | XMS_ITS | Encounter Summary ---
Author Organization [employer] ([place], [place], [place], [place], [place]) Address [address] [place] [address] Care Team Providers Care Non Categorical Preschool Teacher Name Role Phone Unavailable Primary Care Provider Unavailnghia e Encounter Details Date Type Department Care Team (Late st Contact Info) Description 08/30/2018 Transcribed Document [facility] [place] [facility] [place] [address] ProviderLisbet MD [address], [place] [id number] Social History Tobacco Use Types Packs/Day Years Used Date Smoking Tobacco: Never Assessed Comments Unknown Sex and Gender Information Value Date Recorded Sex Assigned at Not on file Legal Sex Female 3:31 PM CDT Gender Identity Not on file Sexual Orientation Not on file documented as of this encounter Miscellaneous Notes * Cerner Conversion Note - Lisbet ProviderMD - 08/30/2018 11:22 AM RN [facility] DATE OF CONSULTATION: 08/30/2018 NEUROLOGY CONSULTATION REFERRING PHYSICIAN: Kari Ordonez M.D. HISTORY OF PRESENT ILLNESS: Anastasia Romero is a 52-year-old white female with a past history of hypertension and fibromyalgia, who was transferred to our hospital three days ago on August 27 from the emergency room at [facility] for further evaluation of syncope and/or near-syncope. I have been asked to evaluate her for syncope. The patient tells me that she was in her usual state of health until over the last week or so where she has had some episodes of chest pain and/or near-syncope. She describes one that occurred about five days ago, when she was milking a cow when she suddenly developed some chest pain and lightheadedness. Then, apparently three days ago, on August 27, she was sitting at a [place] in [place] and stood up to sing and then when sitting back down after singing, she again felt lightheaded and had some chest pain and felt bad, and she was in the ambulance, and apparently in the ambulance, she felt worse as well. Apparently, in the ambulance, she was told she might have AFib, but she has a LINQ monitor that has been placed earlier this year that did not show any atrial fibrillation. Here in our hospital, she says two days ago, she may have felt lightheaded as well. Of note, the patient does have what sounds to be like chronic headaches that she says she has every day and she takes Topamax for this and her headaches have continued as well. Of note, the patient was hospitalized in our hospital for six days from June 06 through June 12, 2018, after she was transferred here from an emergency room in [place] for evaluation of left-sided weakness that had started when she woke up on June 06. I have participated in her care at that time, and during that hospitalization, I did not know the exact etiology of her left-sided weakness that was continuing. However, I told the patient and documented in the chart that I did not have a high suspicion of a stroke causing her symptoms, but rather I thought that her symptoms might represent either a migraine and/or a functional disorder. However, I did recommend that she take an aspirin a day and to take a statin; however, she refused at that time. Patient tells me that since that June 2018 hospitalization, she has been following up with laundry housekeeping aide, Dr. Samayoa, as an outpatient who did a transesophageal echocardiogram for further evaluation of her left-sided weakness and this was normal. On Dr. Samayoa's advice, the patient has been started on a statin and has been tolerating it so far. Of note, when the patient was hospitalized in June, I had a cranial MRI performed that did not show any acute stroke. However, the radiologist told me that the cervical spine suggested perhaps some degenerative changes with canal narrowing at C4-5. I recommended that at discharge in June that she talk to her outpatient physicians about possibly obtaining an MRI of her cervical spine. The patient tells me that she thinks she had a cervical MRI sometime last fall, but does not know the results of this. She does tell me that she has been following up with the [facility] physician surgical technologist Ankita Duke at least one time. MEDICATIONS: Medications here in the hospital include: 1. Aspirin. 2. Atorvastatin. 3. Cymbalta. 4. Levothyroxine. 5. Meclizine. 6. Singulair. 7. Pantoprazole. 8. Topamax. 9. Tramadol p.r.n. Medications at home are uncertain as she does not have an accurate list with her. However, according to a computerized home medication list, her home medications may or may not include: 1. Tramadol. 2. Melatonin. 3. Meloxicam. 4. Topamax. 5. Tizanidine p.r.n. 6. Meclizine. 7. Lipitor. 8. Levothyroxine. 9. Potassium. 10. Aspirin. 11. Pantoprazole. 12. Singulair. 13. Cymbalta. ALLERGIES: 1. IODINATED RADIOLOGICAL DYES that according to the chart gave her hives and the patient thinks she may have had this after she got the dye after a cardiac catheterization several years ago. 2. She also reports KETOROLAC gives her a skin rash. PAST MEDICAL HISTORY: 1. Up until 1998, she was smoking a pack per day of cigarettes. 2. No alcohol use. 3. She denies any illicit drug use. 4. She says she has fibromyalgia for which she is on antidepressants and she takes meloxicam for foot pain related to fibromyalgia. 5. Hypertension. 6. She says she has migraines for which she takes Topamax and metoprolol. 7. She has had foot surgery. 8. She has had an appendectomy. 9. She has depression for which she is on antidepressants. 10. She has had C sections. 11. She has had an appendectomy. SOCIAL HISTORY: The patient lives in [facility] She is . She lives with her . She has three children. 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 She drives and walks independently. FAMILY HISTORY: Her father from complications of Parkinson disease. Her mother is in good health as far as she knows. REVIEW OF SYSTEMS: GENERAL: She thinks she may have had a fever recently. EYES: She sometimes has blurred vision. EARS: She says her hearing is good. CARDIAC: She often has chest pain. RESPIRATORY: She denies any shortness of breath. GI: She denies any changes in her bowel habits. : She denies any changes in her urinary habits. PSYCHIATRIC: She denies any suicidality. SKIN: She denies any rashes. MUSCULAR: She has muscle pain in her legs. NEUROLOGIC: She often has headaches. She still has some mild left-sided weakness from her event in June. HEMATOLOGIC: She denies any history of blood transfusions. PHYSICAL EXAMINATION: She is a well-developed female, in no acute distress, resting comfortably in bed. Her temperature is 97.5, pulse is 70, respirations are 16, blood pressure is 114/72. Her heart is regular rate and rhythm. Lungs are clear. Neck is supple without any bruits. An ophthalmologic exam was done and her pupils react equal to light, and her left disc could be seen and it appeared sharp. Motor exam shows 5/5 strength in her right arm and right leg and 4+/5 strength in her left arm and left leg. Tone in both arms and legs is normal. She is alert and oriented x3. She has good recent and remote recall. Her attention span and concentration are normal. Language skills are normal and fund of knowledge is adequate. Cranial nerves 2 through 12 were intact. Coordination shows intact ukkopa-vx-txht and oxgc-df-oorb. Gait was not tested. LABORATORY DATA: The patient has had an MRI of her brain performed two days ago that shows no acute abnormality. The patient has had an echocardiogram this admission that was technically difficult, but was within normal limits with an ejection fraction of 55%. Apparently, the laundry housekeeping aide has interrogated her loop recorder, which was placed on July 21 and has not seen any abnormalities. Her YISSEL on July 11 was normal. The patient had a carotid ultrasound on June 07 when she was admitted for left-sided weakness, which was normal. Laboratories show a sodium of 144, potassium of 3.6, glucose of 96, BUN of 22, creatinine of 0.7. White count is 7.3, hematocrit is 38.1, platelet count is 185. ASSESSMENT: Anastasia Romero is a 52-year-old female with a history of hypertension and migraines who was hospitalized here for six days in June with left-sided weakness of undetermined etiology, who was transferred to our hospital on August 27 from the emergency room at [facility] for further evaluation of syncope and/or near-syncope. The differential for her syncope could include one or combination of the followin. Orthostasis. 2. Side effects to medications. 3. Transient ischemic attacks--less likely. 4. Cardiac arrhythmias. 5. Manifestations of migraines. 6. Seizures--less likely, but I cannot completely rule this out. 7. A functional disorder. PLAN: At this time, I do not know the exact etiology of her episodes of syncope and/or near-syncope and there are multiple potential causes. At this time, I would recommend the followin. To check orthostatics. 2. At discharge, she should follow up with Ankita Duke at the office of [facility]. 3. Consideration could be given to either an EEG as an inpatient or an outpatient. 4. At discharge, she should talk to her outpatient physicians about her recent cervical MRI to see if any further studies are needed on this. 5. I explained my recommendations to the patient. She says she would prefer to have an EEG done as an outpatient and therefore I instructed her to talk to her outpatient physicians about having an EEG done as an outpatient. I have told the patient not to drive or operate heavy machinery until released by a physician. TIME SPENT: Of note, I have spent over 80 minutes on this case today. Over half that time was spent reviewing the chart and counseling the patient. Ean Collado M.D. Dict: 08/30/2018 11:22:41 Trans: 08/30/2018 13:10:08 CC1: Ean Collado M.D. documented in this encounter Plan of Treatment Not on file documented as of this encounter Visit Diagnoses Not on filedocumented in this encounter
--- OUTSIDE RECORDS SUMMARY | 2025-05-09 09:14 | XMS_ITS | Encounter Summary ---
Author Organization [employer] ([place], [place], [place], [place], [place]) Address [address] [place] [address] Care Team Providers Care Visual Artist Name Role Phone Unavailable Primary Care Provider Unavailabl e Encounter Details Date Type Department Care Team (Late st Contact Info) Description 08/30/2018 Transcribed Document [facility] [place] [facility] the [facility] [place] [address] ProviderLisbet MD [address] [place] [address] Social History Tobacco Use Types Packs/Day Years Used Date Smoking Tobacco: Never Assessed Comments Unknown Sex and Gender Information Value Date Recorded Sex Assigned at Not on file Legal Sex Female 3:31 PM CDT Gender Identity Not on file Sexual Orientation Not on file documented as of this encounter Miscellaneous Notes * Cerner Conversion Note - Lisbet ProviderMD - 08/30/2018 2:10 PM LONG WALL MINING MACHINE TENDER [address] [address] Patient Copy Patient Information: Name: DANYEL HOGUE Current Date: 08/30/2018 14:10:42 : 1965 Patient Address: [address] [facility] [id number] Patient Attending Physician: RICHARD DIAZ MD Primary Care Provider: CORINNA CROOKS APRN Primary Care Provider Discharge Diagnosis: Dizziness Weight on Admission: 220 lb, 0 oz Weight at Discharge: 224 lb Comment: Follow-up Instructions: With: Address: When: f/up with ENT Within 1 to 2 weeks With: Address: When: Patient should talk to her outpatient physicians about her reported history of a recent MRI of cervical spine and see if any further imaging is needed of cervical spine. Within 1 to 2 weeks With: Address: When: Patient should talk to her outpatient physicians about possibly ordering EEG. Within 1 to 2 weeks With: Address: When: SIOMARA LARIOS [address] [address] [place], [place] [id number] Business (1) Within 1 to 2 weeks Comments: Patient should call for a follow up appointment with [facility]. With: Address: When: CORINNA CROOKS [address], [place] [id number] Business (1) 10:00 AM Comments: Bring discharge instructions with you With: Address: When: SOFIA ANDINO [address] [facility] [place], [place] [id number] Business (1) 1:30 PM Discharge Instructions: Diet after Discharge: Heart healthy diet Home Health Services: [facility] [phone] f [phone] Immunizations Documented During Stay: No Immunizations Found [...] Day. hydroCHLOROthiazide (hydroCHLOROthiazide 25 mg oral tablet) 0.5 Tablet(s) Oral Every Day. Patient Instructions: NEW DOSE Cut 25 mg tablets in half to = 12.5 mg once daily --- Follow up with fireworks display specialist levothyroxine (levothyroxine 50 mcg (0.05 mg) oral tablet) 1 Tablet(s) Oral Every Day. meclizine (meclizine 25 mg oral tablet) 1 Tablet(s) Oral Three Times A Day as needed dizziness. melatonin (Melatonin 3 mg oral tablet) 1 Tablet(s) Oral At Bedtime as needed Sleep. meloxicam (meloxicam 15 mg oral tablet) 1 [...] increased risk of the following: ??? Sudden infant syndrome (SIDS). ? Respiratory infections. ? Lung [...] contain harmful chemicals. FOR MORE INFORMATION ??? [place] [employer]: www.lung.org ??? [place] [employer] Society: www.cancer.org This information is not intended to replace advice given to you by your health care provider. Make sure you discuss any questions you have with your health care provider. Document Released: 07/28/2005 Document Revised: 10/11/2016 Document Reviewed: 12/10/2013 [employer] Interactive Patient Education ? 2017 [employer] Heart-Healthy Eating Plan Many factors influence [...] foods can I eat? Grains Breads, including Divehi, white, susanna, wheat, raisin, rye, oatmeal, and Wolof. Tortillas that are neither fried nor made with lard or trans fat. Low-fat rolls, including hotdog and hamburger buns and Cymraes muffins. Biscuits. Muffins. Waffles. Pancakes. Light popcorn. Whole-grain cereals. Flatbread. Adeline toast. Pretzels. Breadsticks. Rusks. Low-fat snacks and [...] cheese. Whole milk cheeses, including blue (rickey), [place] Reymundo, Brie, Jaciel, [place], Havarti, Vincentian, cheddar, Camembert, and [place]. Whole or 2% milk that is liquid, [...] that has suet, meat fat, or shortening. Putney butter, hydrogenated oils, palm oil, coconut oil, [...] 03/29/2009 Document Revised: 01/07/2017 Document Reviewed: 12/12/2014 [employer] Interactive Patient Education ? 2017 [employer] How to Take a Pulse Your [...] 12/25/2003 Document Revised: 01/07/2017 Document Reviewed: 11/23/2016 [employer] Interactive Patient Education ? 2017 [employer] How to Take Your Blood Pressure [...] 06/02/2009 Document Revised: 07/11/2015 Document Reviewed: 08/15/2014 [employer] Interactive Patient Education ? 2017 [employer] Bradycardia, Adult Bradycardia is a gsitgg-qrtd-hxuaff heartbeat. A normal resting heart rate for [...] provider. ??? Follow a heart-healthy diet. A public health nutritionist (dietitian) can help to educate you about [...] of hard liquor. General instructions ??? Take kdio-gfv-nophdet and prescription medicines only as told by [...] 03/12/2003 Document Revised: 02/15/2017 Document Reviewed: 12/09/2016 [employer] Interactive Patient Education ? 2017 [employer] Dizziness Dizziness is a common problem. [...] your legs often if you need to kosher inspector one place for a long time. Tighten [...] 06/08/2012 Document Revised: 11/25/2016 Document Reviewed: 06/16/2015 [employer] Interactive Patient Education ? 2017 [employer] Medication Leaflets: metoprolol (me TOE pro lol) Kapspargo Sprinkle, Lopressor, Metoprolol Succinate ER, Metoprolol Tartrate, Toprol-XL What [...] may report side effects to FDA at 6-519-MMN-6758. What other drugs will affect metoprolol? Tell [...] may affect metoprolol. This includes prescription and aoct-zxm-prpkcuw medicines, vitamins, and herbal products. Not all [...] to ensure that the information provided by [employer]. ('vitaMedMDtum') is accurate, up-to-date, and complete, but no guarantee is made to that effect. Drug information contained herein may be time sensitive. [employer] information has been compiled for use by healthcare practitioners and consumers in the [place] and therefore [employer] does not warrant that uses outside of the [place] are appropriate, unless specifically indicated otherwise. [employer] drug information does not endorse drugs, diagnose patients or recommend therapy. [employer] drug information is an informational resource designed [...] effective or appropriate for any given patient. [employer] does not assume any responsibility for any aspect of healthcare administered with the aid of information [employer] provides. The information contained herein is not intended to cover all possible uses, directions, precautions, warnings, drug interactions, allergic reactions, or adverse effects. If you have questions about the drugs you are taking, check with your doctor, nurse or pharmacist. Copyright 8670-3155 Ita 24/7 Card. Version: 17.01. Revision Date: 02/10/2018. CIGARETTE SMOKING: The facts are clear, cigarette smoking will shorten your life. Smoking can cause many illnesses along the way. As a healthcare provider, we recommend that you stop smoking. Assistance with quitting is available by contacting 5-927-RBHO-NOW. This is a free resource providing counseling, [...] Be sure to sign up for the [employer] patient portal, which gives you 24/01 access to your medical information ??? including these discharge instructions ??? using your computer, smartphone, or tablet. Just go to [email or web address] to get started. Questions? Call . [facility] would like to thank you for allowing us to assist you with your healthcare needs. MYKEL Mascorro CAROLYN ELIZABETH, (or customer operations representative) have received the above patient education materials/instructions and have verbalized understanding: Patient Signature _ Date/Time Patient Circus Laborer Signature (if needed) Date/Time Clinician/Hospital Circus Laborer Signature (if needed) Date/Time documented in this encounter Plan of Treatment Not on file documented as of this encounter Visit Diagnoses Not on filedocumented in this encounter
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
--- OUTSIDE RECORDS SUMMARY | 2025-05-09 09:14 | XMS_ITS | Encounter Summary ---
Author Organization [employer] ([place], [place], [place], [place], [place]) Address [address] [place] [address] Care Team Providers Care Clinical Systems Educator Name Role Phone Unavailable Primary Care Provider Unavailabl e Encounter Details Date Type Department Care Team (Late st Contact Info) Description 08/31/2018 Transcribed Document [facility] [address] [place] [address] ProviderLisbet MD [address] [place] [address] Social History Tobacco Use Types Packs/Day Years Used Date Smoking Tobacco: Never Assessed Comments Unknown Sex and Gender Information Value Date Recorded Sex Assigned at Not on file Legal Sex Female 3:31 PM CDT Gender Identity Not on file Sexual Orientation Not on file documented as of this encounter Miscellaneous Notes * Cerner Conversion Note - Historical ProviderMD - 08/31/2018 2:00 PM BUDGET ASSISTANT Post Visit Phone Call Entered On: 08/31/2018 14:02 EST Performed On: 08/31/2018 14:00 EST by GIRMA MONTIEL, RN Post Visit Phone Call Post Visit Phone Call History : First call, Other: Pt states she is on the way to the doctor's office now wants us to call back tomorrow GIRMA MONTIEL, RN - 08/31/2018 14:00 EST documented in this encounter Plan of Treatment Not on file documented as of this encounter Visit Diagnoses Not on filedocumented in this encounter
--- OUTSIDE RECORDS SUMMARY | 2025-05-09 09:14 | XMS_ITS | Encounter Summary ---
Author Organization [employer] ([place], [place], [place], [place], [place]) Address [address] [place] [address] Care Team Providers Care Storekeeper Steward Name Role Phone Unavailable Primary Care Provider Unavailabl e Encounter Details Date Type Department Care Team (Late st Contact Info) Description 08/30/2018 Transcribed Document [facility] Medicine [facility] [place] [address] ProviderLisbet MD [address] [place] [id number] Social History Tobacco Use Types Packs/Day Years Used Date Smoking Tobacco: Never Assessed Comments Unknown Sex and Gender Information Value Date Recorded Sex Assigned at Not on file Legal Sex Female 3:31 PM CDT Gender Identity Not on file Sexual Orientation Not on file documented as of this encounter Miscellaneous Notes * Cerner Conversion Note - Historical ProviderMD - 08/30/2018 2:25 PM HEALTH CARE MANAGER Discharge Summary, PT Entered On: 08/30/2018 14:26 EST Performed On: 08/30/2018 14:25 EST by NADEGE MORA, PT Discharge Summary Reason for Discharge : Discharged from hospital Discharged to, Therapy : Home, with home health Discharge Summary Comment, PT : As of 08/29/18: Patient was modified independent supine-sit, supervision sit-stand, and ambulated 140' with Min A Rwx. 3LTG not met due to patient still requiring assistance with mobility. NADEGE MORA, PT - 08/30/2018 14:25 EST Care Home Goals Mobility/Bed Mobility LTG PT Grid Goal #1 Activity : Sit to stand Assist : Independent, modified Equipment : Walker, front wheel Date to Meet : 09/12/2018 EDT Goal Status : Not met NADEGE MORA, PT - 08/30/2018 14:25 EST Transfer LTG Grid Goal #1 Destination : Chair, with arms Assist : Independent, modified Equipment : Walker, front wheel Date to Meet : 09/12/2018 EDT Goal Status : Not met NADEGE MORA, PT - 08/30/2018 14:25 EST Ambulation LTG Grid Goal #1 Device : Other: safest AD Distance : 250 ft Assist : Independent, modified Date to Meet : 09/12/2018 EDT Goal Status : Not met NADEGE MORA, PT - 08/30/2018 14:25 EST documented in this encounter Plan of Treatment Not on file documented as of this encounter Visit Diagnoses Not on filedocumented in this encounter
--- OUTSIDE RECORDS SUMMARY | 2025-05-09 09:14 | XMS_ITS | Encounter Summary ---
Author Organization [employer] ([place], [place], [place], [place], [place]) Address [address] [place] [address] Care Team Providers Care Director Of Kids Name Role Phone Unavailable Primary Care Provider Unavailabl e Encounter Details Date Type Department Care Team (Late st Contact Info) Description 08/30/2018 Transcribed Document [facility] Family Medicine [facility] [place] [address] ProviderLisbet MD [address] [place] [address] Social History Tobacco Use Types Packs/Day Years Used Date Smoking Tobacco: Never Assessed Comments Unknown Sex and Gender Information Value Date Recorded Sex Assigned at Not on file Legal Sex Female 3:31 PM CDT Gender Identity Not on file Sexual Orientation Not on file documented as of this encounter Miscellaneous Notes * Cerner Conversion Note - Lisbet ProviderMD - 08/30/2018 2:08 PM MILK VENDOR [address] [address] Patient Copy Patient Information: Name: DANYEL HOGUE Current Date: 08/30/2018 14:08:22 : 1965 Patient Address: [address] [facility] [address] Patient Attending Physician: RICHARD DIAZ MD Primary [...] weeks With: Address: When: SIOMARA LARIOS [address] [facility] [employer], [address] [place], [place] [id number] Business (1) Within 1 to 2 weeks Comments: Patient should call for a follow up appointment with [facility]. With: Address: When: CORINNA CROOKS [address] [place], [place] [id number] Business (1) 10:00 AM Comments: Bring discharge instructions with you With: Address: When: SOFIA ANDINO [address] [facility], [address] [place], [place] [id number] Business (1) 1:30 PM Discharge Instructions: Diet after Discharge: Heart healthy diet Home Health Services: [facility] [phone] f [phone] Immunizations Documented During Stay: No Immunizations Found [...] mg once daily --- Follow up with malt loader levothyroxine (levothyroxine 50 mcg (0.05 mg) oral [...] contain harmful chemicals. FOR MORE INFORMATION ??? [place] [employer]: www.lung.org ??? [place] [employer] Society: www.cancer.org This information is not intended to replace advice given to you by your health care provider. Make sure you discuss any questions you have with your health care provider. Document Released: 07/28/2005 Document Revised: 10/11/2016 Document Reviewed: 12/10/2013 [employer] Interactive Patient Education ? 2017 [email or web address] Heart-Healthy Eating Plan Many factors influence [...] foods can I eat? Grains Breads, including Lao, white, susanna, wheat, raisin, rye, oatmeal, and Malay. Tortillas that are neither fried nor made with lard or trans fat. Low-fat rolls, including hotdog and hamburger buns and Central African muffins. Biscuits. Muffins. Waffles. Pancakes. Light popcorn. [...] cheese. Whole milk cheeses, including blue (rickey), Bradley Reymundo, Brie, Jaciel, Guyanese, Havarti, Liberian, cheddar, Camembert, and [place]. Whole or 2% milk that is liquid, [...] that has suet, meat fat, or shortening. [place] butter, hydrogenated oils, palm oil, coconut oil, [...] 03/29/2009 Document Revised: 01/07/2017 Document Reviewed: 12/12/2014 [email or web address] Interactive Patient Education ? 2017 [email or web address] How to Take a Pulse Your [...] 12/25/2003 Document Revised: 01/07/2017 Document Reviewed: 11/23/2016 [email or web address] Interactive Patient Education ? 2017 [email or web address] How to Take Your Blood Pressure [...] 06/02/2009 Document Revised: 07/11/2015 Document Reviewed: 08/15/2014 [employer] Interactive Patient Education ? 2017 [employer] Bradycardia, Adult Bradycardia is a yvlufr-gpfi-larktt heartbeat. A normal resting heart rate for [...] provider. ??? Follow a heart-healthy diet. A institutional nutrition consultant (dietitian) can help to educate you about [...] of hard liquor. General instructions ??? Take uggv-tmf-flymrjo and prescription medicines only as told by [...] 03/12/2003 Document Revised: 02/15/2017 Document Reviewed: 12/09/2016 [employer] Interactive Patient Education ? 2017 [employer] Dizziness Dizziness is a common problem. [...] your legs often if you need to marshmallow machine operator one place for a long time. Tighten [...] 06/08/2012 Document Revised: 11/25/2016 Document Reviewed: 06/16/2015 [employer] Interactive Patient Education ? 2017 [employer] Medication Leaflets: metoprolol (me TOE pro [...] may report side effects to FDA at 8-504-WNE-5384. What other drugs will affect metoprolol? Tell [...] may affect metoprolol. This includes prescription and ysdo-wyr-yzmdltu medicines, vitamins, and herbal products. Not all [...] to ensure that the information provided by [employer]. ('[employer]') is accurate, up-to-date, and complete, but no guarantee is made to that effect. Drug information contained herein may be time sensitive. [employer] information has been compiled for use by healthcare practitioners and consumers in the [place] and therefore [employer] does not warrant that uses outside of the [place] are appropriate, unless specifically indicated otherwise. [employer] drug information does not endorse drugs, diagnose patients or recommend therapy. [employer] drug information is an informational resource designed [...] effective or appropriate for any given patient. [employer] does not assume any responsibility for any aspect of healthcare administered with the aid of information [employer] provides. The information contained herein is not intended to cover all possible uses, directions, precautions, warnings, drug interactions, allergic reactions, or adverse effects. If you have questions about the drugs you are taking, check with your doctor, nurse or pharmacist. Copyright 1878-1026 [employer]. Version: 17.01. Revision Date: 02/10/2018. CIGARETTE SMOKING: The facts are clear, cigarette smoking will shorten your life. Smoking can cause many illnesses along the way. As a healthcare provider, we recommend that you stop smoking. Assistance with quitting is available by contacting 1-257-UYXJ-NOW. This is a free resource providing counseling, [...] Be sure to sign up for the [employer] patient portal, which gives you 24/01 access to your medical information ??? including these discharge instructions ??? using your computer, smartphone, or tablet. Just go to [email or web address] - how to [place] to get started. Questions? Call . [facility] would like to thank you for allowing us to assist you with your healthcare needs. MYKEL Mascorro CAROLYN ELIZABETH, (or sales donor recruitment representative) have received the above patient education materials/instructions and have verbalized understanding: Patient Signature _ Date/Time Patient Lab Technician Signature (if needed) Date/Time Clinician/Hospital Lab Technician Signature (if needed) Date/Time documented in this encounter Plan of Treatment Not on file documented as of this encounter Visit Diagnoses Not on filedocumented in this encounter
--- OUTSIDE RECORDS SUMMARY | 2025-05-09 09:14 | XMS_ITS | Encounter Summary ---
Author Organization [employer] ([place], [place], [place], [place], [place]) Address [address] [place] [address] Care Team Providers Care Assistant Department Manager Name Role Phone Unavailable Primary Care Provider Unavailabl e Encounter Details Date Type Department Care Team (Late st Contact Info) Description 08/31/[address] [facility] [place] Family Medicine [facility] [place] [address] ProviderLisbet MD [address] [place] [address] Social History Tobacco Use Types Packs/Day Years Used Date Smoking Tobacco: Never Assessed Comments Unknown Sex and Gender Information Value Date Recorded Sex Assigned at Not on file Legal Sex Female 3:31 PM CDT Gender Identity Not on file Sexual Orientation Not on file documented as of this encounter Miscellaneous Notes * Cerner Conversion Note - Lisbet ProviderMD - 08/31/2018 6:07 PM MANAGER PRICING [address] [address] Patient Copy Patient Information: Name: DANYEL HOGUE Current Date: 08/31/2018 18:07:00 : 1965 Patient Address: [address] [facility] [address] Patient Attending Physician: RICHARD DIAZ MD Primary [...] weeks With: Address: When: SIOMARA LARIOS [address] [facility] [address], [address] [place], [place] [id number] Business (1) Within 1 to 2 weeks Comments: Patient should call for a follow up appointment with [facility]. With: Address: When: CORINNA CROOKS [address] [place], [place] [phone] Business (1) 10:00 AM Comments: Bring discharge instructions with you With: Address: When: SOFIA ANDINO [address] [facility], [address] [place], [place] [phone] Business (1) 1:30 PM Discharge Instructions: Diet after Discharge: Heart healthy diet Home Health Services: [facility] [phone] f [phone] Immunizations Documented During Stay: No Immunizations Found [...] mg once daily --- Follow up with labor service representative levothyroxine (levothyroxine 50 mcg (0.05 mg) oral [...] contain harmful chemicals. FOR MORE INFORMATION ??? [place] Lung Association: www.lung.org ??? [place] Cancer Society: www.cancer.org This information is not intended to replace advice given to you by your health care provider. Make sure you discuss any questions you have with your health care provider. Document Released: 07/28/2005 Document Revised: 10/11/2016 Document Reviewed: 12/10/2013 [employer] Interactive Patient Education ? 2017 [employer] Heart-Healthy Eating Plan Many factors influence [...] foods can I eat? Grains Breads, including Urdu, white, susanna, wheat, raisin, rye, oatmeal, and Albanian. Tortillas that are neither fried nor made with lard or trans fat. Low-fat rolls, including hotdog and hamburger buns and Monegasque muffins. Biscuits. Muffins. Waffles. Pancakes. Light popcorn. [...] cheese. Whole milk cheeses, including blue (rickey), [place] Reymundo, Brie, Jaciel, Indonesian, Havarti, Irish, cheddar, Camembert, and Byron. Whole or 2% milk that is liquid, [...] that has suet, meat fat, or shortening. [place] butter, hydrogenated oils, palm oil, coconut oil, [...] 03/29/2009 Document Revised: 01/07/2017 Document Reviewed: 12/12/2014 [employer] Interactive Patient Education ? 2017 [employer] How to Take a Pulse Your [...] 12/25/2003 Document Revised: 01/07/2017 Document Reviewed: 11/23/2016 [employer] Interactive Patient Education ? 2017 [employer] How to Take Your Blood Pressure [...] 06/02/2009 Document Revised: 07/11/2015 Document Reviewed: 08/15/2014 [employer] Interactive Patient Education ? 2017 [employer] Bradycardia, Adult Bradycardia is a bbzvbd-qvhe-dutvky heartbeat. A normal resting heart rate for [...] provider. ??? Follow a heart-healthy diet. A oil fire specialist (dietitian) can help to educate you [...] of hard liquor. General instructions ??? Take vhuh-qtk-qdkueqy and prescription medicines only as told by [...] 03/12/2003 Document Revised: 02/15/2017 Document Reviewed: 12/09/2016 Else[employer] Interactive Patient Education ? 2017 [employer] Dizziness Dizziness is a common problem. [...] your legs often if you need to molding utility worker one place for a long time. Tighten [...] 06/08/2012 Document Revised: 11/25/2016 Document Reviewed: 06/16/2015 [employer] Interactive Patient Education ? 2017 [employer] Medication Leaflets: metoprolol (me TOE pro [...] may report side effects to FDA at 3-530-OWA-3967. What other drugs will affect metoprolol? Tell [...] may affect metoprolol. This includes prescription and gwmv-hgz-ifqdqpm medicines, vitamins, and herbal products. Not all [...] to ensure that the information provided by [employer]. ('[employer]') is accurate, up-to-date, and complete, but no guarantee is made to that effect. Drug information contained herein may be time sensitive. [employer] information has been compiled for use by healthcare practitioners and consumers in the [place] and therefore [employer] does not warrant that uses outside of the [place] are appropriate, unless specifically indicated otherwise. [employer] drug information does not endorse drugs, diagnose patients or recommend therapy. [employer] drug information is an informational resource designed [...] effective or appropriate for any given patient. [employer] does not assume any responsibility for any aspect of healthcare administered with the aid of information [employer] provides. The information contained herein is not intended to cover all possible uses, directions, precautions, warnings, drug interactions, allergic reactions, or adverse effects. If you have questions about the drugs you are taking, check with your doctor, nurse or pharmacist. Copyright 7568-6387 [employer]. Version: 17.01. Revision Date: 02/10/2018. CIGARETTE SMOKING: The facts are clear, cigarette smoking will shorten your life. Smoking can cause many illnesses along the way. As a healthcare provider, we recommend that you stop smoking. Assistance with quitting is available by contacting 6-551-SZGQ-NOW. This is a free resource providing counseling, [...] Be sure to sign up for the [employer] patient portal, which gives you 24/01 access to your medical information ??? including these discharge instructions ??? using your computer, smartphone, or tablet. Just go to [email or web address] to get started. Questions? Call . [facility] would like to thank you for allowing us to assist you with your healthcare needs. MYKEL Mascorro CAROLYN ELIZABETH, (or premium representative) have received the above patient education materials/instructions and have verbalized understanding: Patient Signature _ Date/Time Patient Flute Polisher Signature (if needed) Date/Time Clinician/Hospital Flute Polisher Signature (if needed) Date/Time documented in this encounter Plan of Treatment Not on file documented as of this encounter Visit Diagnoses Not on filedocumented in this encounter
--- OUTSIDE RECORDS SUMMARY | 2025-05-09 09:14 | XMS_ITS | Encounter Summary ---
Author Organization [employer] ([place], [place], [place], [place], [place]) Address [address] [place] [address] Care Team Providers Care Chemical Processing Equipment Repairer Name Role Phone Unavailable Primary Care Provider Unavailabl e Encounter Details Date Type Department Care Team (Late st Contact Info) Description 09/01/2018 Transcribed Document [facility] [place] Medicine [address] [place] [address] ProviderLisbet MD [address] [place], [place] [id number] Social History Tobacco Use Types Packs/Day Years Used Date Smoking Tobacco: Never Assessed Comments Unknown Sex and Gender Information Value Date Recorded Sex Assigned at Not on file Legal Sex Female 3:31 PM CDT Gender Identity Not on file Sexual Orientation Not on file documented as of this encounter Miscellaneous Notes * Cerner Conversion Note - Historical ProviderMD - 09/01/2018 10:38 AM TAPPER HAND Post Visit Phone Call Entered On: 09/01/2018 10:41 EST Performed On: 09/01/2018 10:38 EST by RINA THORPE RN Post Visit Phone Call Post Visit Phone Call History : First call, Second call, Other: Pt states she is on the way to the doctor's office now wants us to call back tomorrow Contact Relationship to Patient : Self Emergency Room Visit Since DC : No Symptoms of Fever : No Symptoms of Nausea or Vomiting : No Adequate Fluid Intake : Yes Food Intake, Post Visit : Fair Bowel/Bladder Concerns : No Mobility Progressing or Maintained as Expected : Yes Using Continuous Passive Motion Machine : N/A Discharge Instructions Understood : Yes Follow-Up Actions : None Post Visit Comments : HOME HEALTH NURSE VISITED 08/31 RINA THORPE RN - 09/01/2018 10:38 EST Electronically signed by Interface, [facility] Conversion Head Lineman Cerner at 10/19/2022 10:07 AM CDT documented in this encounter Plan of Treatment Not on file documented as of this encounter Visit Diagnoses Not on filedocumented in this encounter
--- OUTSIDE RECORDS SUMMARY | 2025-05-09 09:14 | XMS_ITS | Referral Summary ---
Author Organization [employer] [facility] ([place], [place], [place], [place], [place]) Address [address] [place] [address] Care Team Providers Care Auditing Coder Name Role Phone Unavailable Primary Care Provider Unavailabl e Social History Tobacco Use Types Packs/Day Years Used Date Smoking Tobacco: Never Assessed Comments Unknown Sex and Gender Information Value Date Recorded Sex Assigned at Not on file Legal Sex Female 3:31 PM CDT Gender Identity Not on file Sexual Orientation Not on file Plan of Treatment Not on file
--- OUTSIDE RECORDS SUMMARY | 2025-05-09 09:14 | XMS_ITS | Encounter Summary ---
Author Organization [employer] ([place], [place], [place], [place], [place]) Address [address] [place] [address] Care Team Providers Care Brace Maker Name Role Phone Unavailable Primary Care Provider Unavailabl e Encounter Details Date Type Department Care Team (Late st Contact Info) Description 08/30/2018 Transcribed Document [facility] [place] Family Medicine [address] [place] [address] ProviderLisbet MD [address] [place], [place] [id number] Social History Tobacco Use Types Packs/Day Years Used Date Smoking Tobacco: Never Assessed Comments Unknown Sex and Gender Information Value Date Recorded Sex Assigned at Not on file Legal Sex Female 3:31 PM CDT Gender Identity Not on file Sexual Orientation Not on file documented as of this encounter Miscellaneous Notes * Cerner Conversion Note - Historical ProviderMD - 08/30/2018 1:32 PM COMPUTER FORENSICS ANALYST Care Management Assessment/Plan Entered On: 08/30/2018 13:44 EST Performed On: 08/30/2018 13:32 EST by Abeba Whitt Rn-Fast Food Manager Ed Care Management Note Care Management Note : Spoke with Dr. Ordonez this am and [...] agreeable with plan for HH following discharge. Care Management Note Report : LIZ MAY, RN-Fast Food Manager - 08/29/18 14:25:36 Cm reviewed chart. RRS 42. Cm reviewed chart. Pt hx CVA. To hospital event dizzy, chest pain. Her EKGwithout acute ischemia, but did demonstrate a prolonged QT/ ECHO on 08/28, Normal. MRI brain 08/28.. CM discussed DCP. Pt states independent no needs. Denies need for HH. CM will continue to follow. LIZ MAY RN-Fast Food Manager - 08/29/18 14:19:56 Cm reviewed chart. RRS 42. Cm reviewed chart. Pt hx CVA. To hospital event dizzy, chest pain. Her EKGwithout acute ischemia, but did demonstrate a prolonged QT/ ECHO on 08/28, Normal. MRI brain 08/28.. CM discussed DCP. Pt states independent no needs. CM will continue to follow. LIZ MAY RN-Fast Food Manager - 08/28/18 12:29:23 Heather Isaac reviewed chart. RRS 42. Cm explained role of CM. Pt states lives with Ean [phone]. Pt states has a walker at home. Denies DME or HH. Denies homo o2. DM discussed DCP. Pt States is independent no needs. CM will continue to follow for d/c needs. Documentation Status Complete : Yes Abeba Whitt, Rn-Fast Food Manager Ed - 08/30/2018 13:32 EST Electronically signed by Mikael [facility] Conversion Preschool Teacher'S Assistant Cerner at 10/19/2022 9:59 AM CDT documented in this encounter Plan of Treatment Not on file documented as of this encounter Visit Diagnoses Not on filedocumented in this encounter
--- OUTSIDE RECORDS SUMMARY | 2025-05-09 09:14 | XMS_ITS | Encounter Summary ---
Author Organization [employer] ([place], [place], [place], [place], [place]) Address [address] [place] [address] Care Team Providers Care Agricultural Labor Camp Manager Name Role Phone Unavailable Primary Care Provider Unavailabl e Encounter Details Date Type Department Care Team (Late st Contact Info) Description 08/30/2018 Transcribed Document [facility] [place] Family Medicine [address] [place] [address] ProviderLisbet MD [address], [place] [id number] Social History Tobacco Use Types Packs/Day Years Used Date Smoking Tobacco: Never Assessed Comments Unknown Sex and Gender Information Value Date Recorded Sex Assigned at Not on file Legal Sex Female 3:31 PM CDT Gender Identity Not on file Sexual Orientation Not on file documented as of this encounter Miscellaneous Notes * Cerner Conversion Note - Lisbet ProviderMD - 08/30/2018 1:19 PM STOCK CHASER Patient Education Materials Follows:Medicine How to Take a Pulse Your pulse [...] 12/25/2003 Document Revised: 01/07/2017 Document Reviewed: 11/23/2016 [employer] Interactive Patient Education ? 2017 [employer] Bradycardia, Adult Bradycardia is a atmbgn-ewbx-xijdyl heartbeat. A normal resting heart rate for [...] provider. ??? Follow a heart-healthy diet. A child nutrition assistant (dietitian) can help to educate you about [...] of hard liquor. General instructions ??? Take jmvz-yfx-ruhuhlm and prescription medicines only as told by [...] 03/12/2003 Document Revised: 02/15/2017 Document Reviewed: 12/09/2016 [employer] Interactive Patient Education ? 2017 [employer] Neurology Dizziness Dizziness is a common problem. It [...] your legs often if you need to underground distribution engineer one place for a long time. Tighten [...] 06/08/2012 Document Revised: 11/25/2016 Document Reviewed: 06/16/2015 [employer] Interactive Patient Education ? 2017 [employer]. Nutrition Heart-Healthy Eating Plan Many factors influence your [...] foods can I eat? Grains Breads, including Maldivian, white, susanna, wheat, raisin, rye, oatmeal, and Botswanan. Tortillas that are neither fried nor made with lard or trans fat. Low-fat rolls, including hotdog and hamburger buns and Solomon Islander muffins. Biscuits. Muffins. Waffles. Pancakes. Light popcorn. Whole-grain cereals. Flatbread. Wade toast. Pretzels. Breadsticks. Rusks. Low-fat snacks and [...] cheese. Whole milk cheeses, including blue (rickey), [place] Reymundo, Brie, Jaciel, French, Havarti, Northern Irish, cheddar, Camembert, and [place]. Whole or 2% milk that is liquid, [...] that has suet, meat fat, or shortening. [place] butter, hydrogenated oils, palm oil, coconut oil, [...] 03/29/2009 Document Revised: 01/07/2017 Document Reviewed: 12/12/2014 [employer] Interactive Patient Education ? 2017 [employer]. Preventive Medicine How to Take Your Blood Pressure HOW [...] 06/02/2009 Document Revised: 07/11/2015 Document Reviewed: 08/15/2014 Elsevier Interactive Patient Education ? 2017 Elsevier Inc. Pulmonary Medicine Smoking Hazards Smoking cigarettes is extremely bad [...] contain harmful chemicals. FOR MORE INFORMATION ??? French Lung Association: www.lung.org ??? [place] Cancer Society: www.cancer.org This information is not intended to replace advice given to you by your health care provider. Make sure you discuss any questions you have with your health care provider. Document Released: 07/28/2005 Document Revised: 10/11/2016 Document Reviewed: 12/10/2013 Elsevier Interactive Patient Education ? 2017 [employer] documented in this encounter Plan of Treatment Not on file documented as of this encounter Visit Diagnoses Not on filedocumented in this encounter
--- OUTSIDE RECORDS SUMMARY | 2025-05-09 09:14 | XMS_ITS | Encounter Summary ---
Author Organization [employer] ([place], [place], [place], [place], [place]) Address [address] [place] [address] Care Team Providers Care Circuit Walker Name Role Phone Unavailable Primary Care Provider Unavailabl e Encounter Details Date Type Department Care Team (Late st Contact Info) Description 08/30/2018 Transcribed Document [facility] [place] [address] [place] [address] ProviderLisbet MD [address], [place] [id number] Social History Tobacco Use Types Packs/Day Years Used Date Smoking Tobacco: Never Assessed Comments Unknown Sex and Gender Information Value Date Recorded Sex Assigned at Not on file Legal Sex Female 3:31 PM CDT Gender Identity Not on file Sexual Orientation Not on file documented as of this encounter Miscellaneous Notes * Cerner Conversion Note - Historical ProviderMD - 08/30/2018 5:00 AM CUTTER V GROOVE Chart Check - Review Order Profile Entered On: 08/30/2018 5:45 EST Performed On: 08/30/2018 5:00 EST by MICHELLE KOO RN Chart Check Chart Reviewed Date and Time : 08/30/2018 5:45 EST Powerplans Initiated/Discontinued as Appropriate : Yes All Active Orders Reviewed : Yes MICHELLE KOO RN - 08/30/2018 5:44 EST Electronically signed by Mikael [facility] Conversion Live Ammunition Inspector Cerner at 10/19/2022 9:58 AM CDT documented in this encounter Plan of Treatment Not on file documented as of this encounter Visit Diagnoses Not on filedocumented in this encounter
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
--- OUTSIDE RECORDS SUMMARY | 2025-05-09 09:14 | XMS_ITS | Encounter Summary ---
Author Organization [employer] ([place], [place], [place], [place], [place]) Address [address] [place] [address] Care Team Providers Care Private Client Advisor Name Role Phone Unavailable Primary Care Provider Unavailabl e Encounter Details Date Type Department Care Team (Late st Contact Info) Description 08/29/2018 Transcribed Document [facility] [place] Family Medicine [address] [place] [address] ProviderLisbet MD [address], [place] [id number] Social History Tobacco Use Types Packs/Day Years Used Date Smoking Tobacco: Never Assessed Comments Unknown Sex and Gender Information Value Date Recorded Sex Assigned at Not on file Legal Sex Female 3:31 PM CDT Gender Identity Not on file Sexual Orientation Not on file documented as of this encounter Miscellaneous Notes * Cerner Conversion Note - Historical ProviderMD - 08/29/2018 1:12 PM 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 INSTALLER Nursing Discharge Summary Entered On: 08/29/2018 13:12 EST Performed On: 08/29/2018 13:12 EST by HUONG OLIVER day habilitation specialist Documentation Discharge Date/Time : 08/30/2018 13:58 EST HUONG OLIVER RN - 08/31/2018 18:06 EST Patient Disposition, General : Discharge Discharge To : Home with ambulatory/outpatient follow-up Mode Of Departure, General Discharge : Private vehicle Accompanied By, Discharge : Spouse IV Discontinued : Yes Medications Given to Patient : No Personal Belongings With Patient : Yes Pt's Own Supply of Medications Returned : No Prescriptions Given to Patient : No Discharge Instructions Reviewed With, Opportunity For Questions Given : Patient Teaching Method : Explanation, Printed materials, Teach back method Teaching Evaluation : Verbalizes understanding Worker's Compensation Paperwork Completed : No HUONG OLIVER RN - 08/29/2018 13:12 EST Electronically signed by [facility] Conversion Agile Qa Tester Cerner at 10/19/2022 9:51 AM CDT documented in this encounter Plan of Treatment Not on file documented as of this encounter Visit Diagnoses Not on filedocumented in this encounter
--- OUTSIDE RECORDS SUMMARY | 2025-05-09 09:14 | XMS_ITS | Clinical Summary ---
Author Organization [facility] ([place], [place], [place], [place], [place]) Address [address] [place] [address] Care Team Providers Care President Name Role Phone Unavailable Primary Care Provider [...]
--- OUTSIDE RECORDS SUMMARY | 2025-05-09 09:14 | XMS_ITS | Encounter Summary ---
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 [address] Patient Attending Physician: RICHARD DIAZ MD Primary [...] weeks With: Address: When: SIOMARA LARIOS [address] [facility] [address], [address] [place], [place] [phone] Business (1) Within 1 to 2 weeks Comments: Patient should call for a follow up appointment with [facility]. With: Address: When: CORINNA CROOKS [address] [place], [place] [id number] Business (1) 10:00 AM Comments: Bring discharge instructions with you With: Address: When: SOFIA MCMAHONJULIO [address] [facility], [address] [place], [place] [phone] Business (1) 1:30 PM Discharge Instructions: Diet [...] mg once daily --- Follow up with binding bench worker levothyroxine (levothyroxine 50 mcg (0.05 mg) oral [...] contain harmful chemicals. FOR MORE INFORMATION ??? [place] Citizen Lung Association: www.lung.org ??? [place] Citizen Cancer Society: www.cancer.org This information is not intended to replace advice given to you by your health care provider. Make sure you discuss any questions you have with your health care provider. Document Released: 07/28/2005 Document Revised: 10/11/2016 Document Reviewed: 12/10/2013 [employer] Interactive Patient Education ? 2017 [employer] Heart-Healthy Eating Plan Many factors influence [...] foods can I eat? Grains Breads, including Maltese, white, susanna, wheat, raisin, rye, oatmeal, and Barbadian. Tortillas that are neither fried nor made with lard or trans fat. Low-fat rolls, including hotdog and hamburger buns and Colombian muffins. Biscuits. Muffins. Waffles. Pancakes. Light popcorn. [...] cheese. Whole milk cheeses, including blue (rickey), [place] Reymundo, Brie, Jaciel, [place] Citizen, Havarti, Hong Konger, cheddar, Camembert, and [place]. Whole or 2% milk that is liquid, [...] that has suet, meat fat, or shortening. Ambler butter, hydrogenated oils, palm oil, coconut oil, [...] 03/29/2009 Document Revised: 01/07/2017 Document Reviewed: 12/12/2014 [employer] Interactive Patient Education ? 2017 [employer]. How to Take a Pulse Your [...] 12/25/2003 Document Revised: 01/07/2017 Document Reviewed: 11/23/2016 [employer] Interactive Patient Education ? 2017 [employer]. How to Take Your Blood Pressure [...] 06/02/2009 Document Revised: 07/11/2015 Document Reviewed: 08/15/2014 [employer] Interactive Patient Education ? 2017 [employer]. Bradycardia, Adult Bradycardia is a dyobaf-xntr-xecinq heartbeat. A normal resting heart rate for [...] provider. ??? Follow a heart-healthy diet. A product info specialist (dietitian) can help to educate you [...] of hard liquor. General instructions ??? Take gxac-grg-avopnzy and prescription medicines only as told by [...] 03/12/2003 Document Revised: 02/15/2017 Document Reviewed: 12/09/2016 [employer] Interactive Patient Education ? 2017 [employer]. Dizziness Dizziness is a common problem. 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 Tighten [...] 06/08/2012 Document Revised: 11/25/2016 Document Reviewed: 06/16/2015 [employer] Interactive Patient Education ? 2017 [employer]. Medication Leaflets: metoprolol (me TOE pro [...] may report side effects to FDA at 9-069-DPT-0140. What other drugs will affect metoprolol? Tell [...] may affect metoprolol. This includes prescription and pmna-cjc-bwrdtoo medicines, vitamins, and herbal products. Not all [...] to ensure that the information provided by [employer]. ('Mult[employer]') is accurate, up-to-date, and complete, but no guarantee is made to that effect. Drug information contained herein may be time sensitive. [employer]rigg information has been compiled for use by healthcare practitioners and consumers in the [place] and therefore [employer]g does not warrant that uses outside of the [place] are appropriate, unless specifically indicated otherwise. [employer]g's drug information does not endorse drugs, diagnose patients or recommend therapy. myVBOs drug information is an informational resource designed [...] effective or appropriate for any given patient. [employer]g does not assume any responsibility for any aspect of healthcare administered with the aid of information etrigg provides. The information contained herein is not intended to cover all possible uses, directions, precautions, warnings, drug interactions, allergic reactions, or adverse effects. If you have questions about the drugs you are taking, check with your doctor, nurse or pharmacist. Copyright 4175-0380 [employer]. Version: 17.01. Revision Date: 02/10/2018. CIGARETTE SMOKING: The facts are clear, cigarette smoking will shorten your life. Smoking can cause many illnesses along the way. As a healthcare provider, we recommend that you stop smoking. Assistance with quitting is available by contacting 3-977-DPBC-NOW. This is a free resource providing counseling, [...] Be sure to sign up for the [employer] patient portal, which gives you 24/ access to your medical information ??? including these discharge instructions ??? using your computer, smartphone, or tablet. Just go to [facility] to get started. Questions? Call . [facility] would like to thank you for allowing us to assist you with your healthcare needs. MYKEL Mascorro CAROLYN ELIZABETH, (or artist's representative) have received the above patient education materials/instructions and have verbalized understanding: Patient Signature _ Date/Time Patient Veneer Stacker Signature (if needed) Date/Time Clinician/Hospital Veneer Stacker Signature (if needed) Date/Time documented in this encounter Plan of Treatment Not on file documented as of this encounter Visit Diagnoses Not on filedocumented in this encounter
== END 2025-05-09 23:59 | disposition home or self-care (01) ==
LOC: RAD 09:07
PROVIDERS: PCP Nurse Practitioner; Visit Provider Nurse Practitioner
DX: M19.041 Primary osteoarthritis, right hand
CPT/HCPCS: 73110

== ENCOUNTER 2025-05-22 14:02 | Observation (INO) | payer MEDICARE, MEDICAID, SELFPAY ==
[2025-05-22] VITALS (7 sets, daily range): BP systolic 113–141; BP diastolic 58–80; PULSE 45–100; RESP 15–20; TEMP 36.6–36.8; O2SAT 94–98; BMI 39.9
--- NOTE | 2025-05-22 13:57 | ECG_ITS ---
APPROVED REPORT Exam: Resting ECG HR:79 bpm ECG Measurements Heart Rate 79 AXES [place] 163 P 66 QRSd 136 QRS -31 QT 417 T 91 QTc 452 Conclusion SINUS RHYTHM WITH OCCASIONAL VENTRICULAR PREMATURE COMPLEXES LEFT AXIS DEVIATION [QRS AXIS < -30] LEFT BUNDLE BRANCH BLOCK [120+ ms QRS DURATION, 80+ ms Q/S IN V1/V2, 85+ ms R IN I/aVL/V5/V6] ABNORMAL ECG UNCONFIRMED REPORT Normal sinus rhythm. Occasional PVC. Left bundle branch block but no STEMI based on Sgarbossa criteria. Electronically signed by : KEVAN BROCK, 05/23/2025 14:18:39
--- NOTE | 2025-05-22 14:00 | CT_ITS ---
FINAL REPORT TECHNIQUE: Thin section axial images were obtained from the aortic arch to the skull base after intravenous contrast injection per CTA protocol. Multiplanar reconstruction images were obtained. Exam was performed using dose reduction techniques and the ALARA principle. CLINICAL HISTORY: possible stroke COMPARISON: None FINDINGS: CTA NECK: Aortic arch: There is a bovine configuration to the aortic arch. There is no significant stenosis of the great vessels at their origins. Right carotid artery: The right common carotid artery is patent without stenosis. The cervical portions of the right internal carotid artery are patent without stenosis. 0% stenosis per NASCET criteria. Left carotid artery: The left common carotid artery is patent without stenosis. Mild calcified plaque at the bulb. The cervical portions of the left internal carotid artery are patent without stenosis. 0% stenosis per NASCET criteria. Vertebral arteries: The vertebral arteries are patent. No significant stenosis. Other soft tissues: Nothing acute. IMPRESSION: No carotid stenosis. Reviewed, Interpreted and Dictated by Franci Thompson MD Transcribed by Renuka Benedict Authenticated and [facility]
--- NOTE | 2025-05-22 14:00 | CT_ITS ---
FINAL REPORT TECHNIQUE: Thin section axial images are obtained through the brain after intravenous contrast injection. Multiplanar reconstructions were obtained from the axial data. Exam was performed using dose reduction techniques such as automated exposure control, adjustment of the mA and kV according to patient size, and use of iterative reconstruction technique. CLINICAL HISTORY: possible stroke COMPARISON: none FINDINGS: The intracerebral portions of the carotid arteries are patent. The anterior and middle cerebral arteries are patent without stenosis or occlusion. The posterior cerebral arteries are patent. The basilar artery is patent. The vertebral arteries are patent. There is no significant stenosis, aneurysm, or AVM. IMPRESSION: Unremarkable CT angiogram of the intracerebral vasculature. Reviewed, Interpreted and Dictated by Franci Thompson MD Transcribed by Renuka Benedict Authenticated and [facility]
--- NOTE | 2025-05-22 14:00 | CT_ITS ---
FINAL REPORT TECHNIQUE: Thin section axial images were obtained from skull base to vertex without contrast. Coronal reconstruction images were obtained from the axial data. Exam was performed using dose reduction techniques such as automated exposure control, adjustment of the mA and kV according to patient size, and use of iterative reconstruction technique. CLINICAL HISTORY: possible stroke FINDINGS: There is no mass effect or midline shift. There is no hydrocephalus. There is no intracranial hemorrhage. The posterior fossa is without acute abnormality. The basilar cisterns are preserved. The soft tissues are without acute abnormality. No acute osseous abnormality is identified. IMPRESSION: No acute intracranial abnormality. Reviewed, Interpreted and Dictated by Franci Thompson MD Transcribed by Tabby Nuno Authenticated and [facility]
--- NOTE | 2025-05-22 14:12 | ED_ITS ---
<Statement entered by Aditya Oliver MD - 05/23/25 08:13> I was consulted by the ARMANDO, and we discussed the complexity of the problems being addressed. I approve the treatment and management plan for this patient's care in the emergency department, thus performing a substantive portion of the medical decision making. Aditya Oliver MD Discharge Plan Disposition Patient Disposition: Admitted Clinical Impressions Clinical Impression: Transient ischemic attack, acute Discharge ED Provider: Aditya Oliver HPI General Chief Complaint: Neuro Symptoms/Deficit Stated Complaint: possible stroke Time Seen by Provider: 05/22/25 14:08 Mode of Arrival: EMS History of Present Illness HPI narrative: 59-year-old female arrives via EMS for chest pain that started last night but has improved according to patient. Patient also has slurred speech that started at 1215. Patient is allergic to IVP dye so I and premedicating her with Solu- Medrol, Benadryl and famotidine in order to be able to scan her. Son and has been talked to her at 1215 and she was slurring speech. At 1030 they talk to her and she was normal. Patient does not take blood thinners other than aspirin. Her last known normal was 1215. Patient does have history of CAD, hyperlipidemia, TIA 20 years ago, and migraines. Related Data Home Medications ?Medication ?Instructions ?Recorded ?Confirmed duloxetine 30 mg capsule,delayed 30 mg PO DAILY Depres roxanna 05/02/18 05/22/25 release spironolactone 100 mg tablet 100 mg PO DAILY Fluid 07/2205/22/25 (Aldactone) aspirin 81 mg tablet,delayed 81 mg PO DAILY heart heal th 08/19/20 05/22/25 release levocetirizine 5 mg tablet (24HR 10 mg PO DAILY 05/22/25 Allergy Relief) phentermine 37.5 mg tablet 37.5 mg PO DAILY 12/20/24 1 07/22/24 potassium chloride 20 mEq 20 meq PO DAILY PRN suppleme nt 12/20/24 05/22/25 tablet,extended release(part/cryst) omeprazole 40 mg capsule,delayed 40 mg PO DAILY 05/22/25 release sacubitril 24 mg-valsartan 26 mg 1 tab PO BID 05/22/25 05/22/25 tablet (Entresto) vitamin B complex 1 tab PO DAILY 05/22/2505/04 Previous Rx's ?Medication ?Instructions ?Recorded nitroglycerin 0.4 mg sublingual 0.4 mg sublingual Q5M PRN chest 09/14/23 tablet pain #25 tabs rosuvastatin 40 mg tablet (Crestor) 40 mg PO DAILY #90 tabs 10/07/23 levothyroxine 50 mcg tablet 50 mcg PO DAILY thyroid 90 days 04/04/25 (Synthroid) #90 tabs Allergies Allergy/AdvReac Type Severity Reaction Status Date / Time ketorolac Allergy Mild I-HIVES Verified 04/04/25 10:06 Iodinated Contrast Media Allergy Unknown Verified 04/04/25 10:06 allergy reaction jardiance AdvReac Mild shaky Uncoded 04/04/25 10:06 [facility] Disclaimer: The information contained in this section may have been updated after the patient was seen, as this information can be updated by other users. Medical History (Updated 05/22/25 @ 19:10 by Dale Brooks MD) CVA (cerebral vascular accident) Globus sensation Screening for diabetes mellitus Edema of both lower extremities Hypothyroidism Thyroid nodule Abnormal electrocardiogram [ECG] [EKG] Encounter for pre-operative cardiovascular clearance HLD (hyperlipidemia) CAD (coronary artery disease) Surgical History History of colonoscopy with polypectomy History of foot surgery History of removal of cyst History of appendectomy History of section Family History Other No significant family history Social History (Updated 05/22/25 @ 18:18 by Celestina Bran RN) Smoking Status: Former smoker tobacco type: cigarettes packs per day: 1 second hand exposure: No alcohol intake: never substance use type: denies use current occupational status: other Travel in the last 8 weeks?: None household members: spouse housing: house current occupational exposures/hazards: No caffeine: Yes Have you lived/traveled outside US in past 30 days?: No Contact w/someone who lives/traveled outside US past 30 days?: No Exposure to someone with infectious disease in past 14 days?: No Do you have a fever (greater than 100.4 F or 38 C)?: No Have you tested positive for COVID-19?: No Exposed to someone with COVID-19 in past 14 days?: No Do you have a sore throat?: No Do you have a cough?: No Do you have any weakness?: No Are you experiencing any nausea/vomitting?: No Do you have any diarrhea?: No Are you experiencing any unusual bleeding?: No Do you have any muscle aches/pain?: No Do you have any abdominal pain?: No Are you experiencing loss of taste or smell?: No Other Medical History Have you received the Flu Vaccine for this season: Yes Have you received the Pneumonia Vaccine: No ROS Obtained: Yes Systems reviewed as appropriate & no additional complaints except as documented Constitutional Constitutional: Reports as per HPI Physical Exam General General appearance: alert and anxious Head Head exam: normocephalic Eye Eye exam: Present PERRL and EOMI ENT ENT exam: Present mucous membranes moist Neck Neck exam: Present trachea midline Chest Chest inspection: Present symmetric chest wall rise Respiratory Respiratory exam: Present normal lung sounds bilaterally Cardiovascular Cardiovascular exam: Present regular rate, normal rhythm, normal heart sounds, +S1 and +S2 Abdominal Exam Abdominal exam: Present soft and normal bowel sounds Extremities Exam Extremities exam: Present full ROM and normal capillary refill Back Exam Back exam: Present full ROM Neurological Exam Neurological exam: Present alert and oriented X3 Psychiatric Psychiatric exam: Present normal mood Skin Skin exam: Present warm and dry HEART Score HEART Score HEART Score assessment performed?: Yes History (anamnesis): Slightly suspicious ECG: Normal Age: 45-65 years Risk factors: 1-2 risk factors Troponin: </= normal limit HEART Score: 2 Critical Care Critical Care Time Critical Care Time: No Medical Decision Making Doron Inquiry Pt receiving controlled substance: No Doron was queried for this patient: No Reason not queried -: Emergent pt cond-no time Vital Signs Vital Signs: 05/22/25 13:56 05/22/25 14:30 05/22/25 15:24 Temperature 98.2 F Temperature Source Oral Pulse Rate 62 82 Pulse Rate [Left Radial] 90 Respiratory Rate 20 15 Blood Pressure 122/71 141/75 H Blood Pressure [Right Arm] 126/74 Blood Pressure Mean [Right Arm] 91 02 Sat by Pulse Oximetry 94 L 98 97 Oxygen Delivery Method Room Air 05/22/25 15:30 05/22/25 16:00 05/22/25 17:25 Temperature 98.2 F Temperature Source Pulse Rate 77 75 80 Pulse Rate [Left Radial] Respiratory Rate 20 Blood Pressure 133/80 134/75 134/79 Blood Pressure [Right Arm] Blood Pressure Mean [Right Arm] 02 Sat by Pulse Oximetry 96 96 Oxygen Delivery Method Room Air Lab Data Labs: Lab Results 05/22/25 14:00: WBC 6.5, RBC 4.92, Hgb 15.3, Hct 45.0, MCV 91.5, MCH 31.1, MCHC 34.0, RDW 12.7, Plt Count 210, MPV 11.3 H, Neut % (Auto) 58.4, Lymph % (Auto) 26.8, Real % (Auto) 12.7 H, Eos % (Auto) 1.4, Baso % (Auto) 0.5, Neut # (Auto) 3.8, Lymph # (Auto) 1.8, Real # (Auto) 0.8, Eos # (Auto) 0.1, Baso # (Auto) 0.0, PT 11.6, INR 1.05, APTT 27.9, Sodium 133 L, Potassium 4.7, Chloride 103, Carbon Dioxide 26, Anion Gap 8.7, BUN 14, Creatinine 0.80, Estimated Creat Clear 102, Estimated GFR 73, Est GFR ( Amer) 88, Glucose 114 H, Calcium 9.4, Total Bilirubin 0.8, AST 43 H, ALT 26, Alkaline Phosphatase 82, Troponin I < 0.01, Total Protein 7.4, Albumin 4.5, Globulin 2.9, Albumin/Globulin Ratio 1.6, T riglycerides 165 H, Cholesterol 104 L, LDL Cholesterol Direct 51.67 L, VLDL Cholesterol 33, HDL Cholesterol 34 L, Cholesterol/HDL Ratio 3.1, Plasma/Serum Alcohol < 10 05/22/25 14:45: Urine Color Yellow, Urine Appearance Clear, Urine pH 7.5, Ur Specific [place] 1.015, Urine Protein Negative, Urine Glucose (UA) Negative, Urine Ketones Negative, Urine Blood Negative, Urine Nitrate Negative, Urine Bilirubin Negative, Urine Urobilinogen 1.0, Ur Leukocyte Esterase 1+ A, Urine RBC None, Urine WBC 5-10, Ur Squamous Epith Cells 5-10, Urine Bacteria 1+, Urine Opiates Screen Negative, Urine Methadone Screen Negative, Ur Barbituates Screen Negative, Ur Phencyclidine Scrn Negative, Ur Amphetamines Screen Negative, U Benzodiazepines Scrn Negative, Urine Cocaine Screen Negative, U Marijuana (THC) Screen Negative 05/22/25 14:00 05/22/25 14:00 Response Orders (Tests/Meds): ED MEDICATIONS Generic Name Dose Route Start Last Admin Trade Name Freq PRN Reason Stop Dose Admin Acetaminophen 650 mg 05/22/25 18:52 Acetaminophen 325mg Tab PO 06/21/25 18:51 Q4HP PRN Fever or Mild Pain (1-3) Aspirin 81 mg 05/23/25 09:00 Aspirin Ec 81mg Tablet PO 06/22/25 08:59 DAILY BAN Atorvastatin Calcium 80 mg 05/22/25 21:00 Atorvastatin 40mg Tablet PO 06/21/25 20:59 HS BAN Diazepam 5 mg 05/22/25 17:29 05/22/25 17:42 Diazepam 10mg/2ml Syringe IV 05/22/25 17:30 5 mg ONCE ONE Administration Enoxaparin Sodium 40 mg 05/23/25 09:00 Enoxaparin 40mg/0.4ml Syringe SUBCUT 06/22/25 08:59 DAILY BAN Ceftriaxone Sodium 1 gm/ 50 mls @ 100 mls/hr 05/22/25 19:15 Sodium Chloride IV 06/01/25 19:14 Q24H BAN Ibuprofen 400 mg 05/22/25 19:11 Ibuprofen 400 Mg Tablet PO 06/21/25 19:10 Q6HP PRN Moderate to Severe Pain (4-10) Levothyroxine Sodium 50 mcg 05/23/25 09:00 Levothyroxine 50mcg (0.05mg) Tab PO 06/22/25 08:59 DAILY BAN Lorazepam 1 mg 05/22/25 17:24 05/22/25 17:41 Lorazepam 1mg Tablet PO 05/22/25 17:25 Not Given ONCE ONE Nicotine 21 mg 05/22/25 18:52 Nicotine 21mg/24hr Patch TD 06/21/25 18:51 DAILYP PRN Nicotine Cravings Ondansetron HCl 4 mg 05/22/25 18:52 Ondansetron 4mg/2ml Vial IV 06/21/25 18:51 Q6HP PRN Nausea Pantoprazole Sodium 40 mg 05/22/25 21:00 Pantoprazole 40mg Tablet PO 06/21/25 20:59 HS BAN Pantoprazole Sodium 40 mg 05/22/25 21:00 Pantoprazole 40mg Tablet PO 06/21/25 20:59 HS BAN Sodium Chloride 10 ml 05/22/25 14:00 Sodium Chloride 0.9% 10ml Flush Syringe IV 06/21/25 13:59 NEEDED PRN Maintain IV Site Sodium Chloride 8 ml 05/22/25 14:07 Sodium Chloride 0.9% 10ml Vial IV 06/21/25 14:06 NEEDED PRN dilute pepcid Discontinued Medications Generic Name Dose Route Start Last Admin Trade Name Freq PRN Reason Stop Dose Admin Diphenhydramine HCl 50 mg 05/22/25 13:57 05/22/25 14:17 Diphenhydramine 50mg/Ml Vial IV 05/22/25 13:58 50 mg ONCE ONE Administration Famotidine 20 mg 05/22/25 14:07 05/22/25 14:17 Famotidine 20mg/2ml Vial IV 05/22/25 14:08 20 mg ONCE ONE Administration Iopamidol 130 ml 05/22/25 15:14 05/22/25 15:16 Iopamidol-370 (76%);100ml Bottle IV 05/22/25 15:15 130 ml ONCE ONE Administration Methylprednisolone Sodium Succinate 125 mg 05/22/25 13:57 05/22/25 14:17 Methylprednisolone Sod Succ 125mg Vial IV 05/22/25 13:58 125 mg ONCE ONE Administration Sodium Chloride 50 ml 05/22/25 15:14 05/22/25 15:15 0.9 % Sodium Chloride 50 Ml Vial IV 05/22/25 15:15 50 ml ONCE ONE Administration Sodium Chloride 10 ml 05/22/25 15:14 05/22/25 15:15 Sodium Chloride 0.9% 10ml Syr (Rad Only) IV 05/22/25 15:15 10 ml ONCE ONE Administration ORDERS Category Date Time Status CT angio head Stat Cat Scan 05/22/25 14:[address] angio neck Stat Cat Scan 05/22/25 14:[address] head/brain wo con Stat Cat Scan 05/22/25 14:00 Completed Activated Partial Thrombo Time Stat Lab 05/22/25 14:00 Completed Complete Blood Count Auto Diff Stat Lab 05/22/25 14:00 Completed Comprehensive Metabolic Panel Stat Lab 05/22/25 14:00 Completed Drug Screen,Urine Stat Lab 05/22/25 14:45 Completed Ethyl Alcohol Stat Lab 05/22/25 14:00 Completed Lipid Panel Stat Lab 05/22/25 14:00 Completed Prothrombin Time INR Stat Lab 05/22/25 14:00 Completed Troponin I Q3H Lab 05/22/25 19:05 Completed Troponin I Q3H Lab 05/22/25 22:05 Ordered Troponin I Stat Lab 05/22/25 14:00 Completed Urinalysis and Microscopic Stat Lab 05/22/25 14:45 Completed Urine Culture Stat Micro 05/22/25 14:45 Received ECG Request Stat Y 05/22/25 14:00 Ordered MDM Narrative Medical Decision Narrative: patient is a 59-year-old female presenting to the emergency department for evaluation of stroke and chest pain. Patient is hemodynamically stable and nontoxic-appearing upon arrival, afebrile. However patient does have slurred speech difficulty with word finding. Differential diagnosis includes CVA, TIA, ACS, among others. We did call stroke alert upon arrival to the ER. We got a dry scan because patient is allergic to IVP dye. We are premedicating with Solu-Medrol, Benadryl and famotidine. We will wait 30 minutes and take patient to scan. Workup will be conducted with hematologic labs, specific imaging, provocative tests. Initial inventions include crystalloid bolus, analgesics, antibiotics. Initial CT scan shows no obvious bleed. Initial workup reviewed by me hematologic labs are remarkable for normal white count 6.5, normal H&H, troponin less than 0.01 leuks 1+. Patient's has triglycerides 165, cholesterol is 104. UDS was negative. Imaging showed no carotid stenosis, unremarkable CT angio, normal head CT without contrast, discussed with hospital medicine who accepted patient for inpatient MRI and workup for TIA. I also discussed with [facility] stroke and they suggested not giving the TNK due to the risk-benefit scenario. I did talk to the patient family about this and they agreed. Patient's symptoms have all resolved by the time of admission. Patient did prefer coming in the hospital for the MRI. Patient safe for admission.
[2025-05-22 14:16] LABS: Hematocrit 45.0 % (37.0-47.0); Hemoglobin 15.3 g/dL (12.2-16.2); Immature Granulocytes % 0.2 %; Mean Corpuscular HGB Conc 34.0 g/dL (31.8-35.4); Mean Corpuscular Hemoglobin 31.1 pg (27.0-31.2); Mean Corpuscular Volume 91.5 fl (81-99); Nucleated Red Blood Cells % 0 %; Platelet Count 210 K/mm3 (142-424); Red Blood Count 4.92 M/mm3 (4.20-5.40); Red Cell Distribution Width-SD 42.5 fL; White Blood Count 6.5 K/mm3 (4.8-10.8)
[2025-05-22] MEDS: FAMOTIDINE 20MG/2ML VIAL 20 MG IV (14:17)
[2025-05-22] MEDS: METHYLPREDNISOLONE SOD SUCC 125MG VIAL 125 MG IV (14:17)
[2025-05-22 14:24] LABS: Activated Partial Thrombo Time 27.9 seconds (22.8-30.6); INR 1.05 (0.9-1.1); Prothrombin Time 11.6 seconds (10.1-12.5)
[2025-05-22 14:39] LABS: Alanine Aminotransferase 26 U/L (12-78); Albumin Level 4.5 g/dl (3.5-5.0); Albumin/Globulin Ratio 1.6 (1.1-1.8); Alkaline Phosphatase 82 U/L (38-126); Anion Gap 8.7 mEq/L (5-15); Aspartate Amino Transferase 43 U/L (14-36); Bilirubin,Total 0.8 mg/dl (0.2-1.3); Blood Urea Nitrogen 14 mg/dl (7-17); Calcium 9.4 mg/dl (8.4-10.2); Carbon Dioxide 26 mmol/L (22.0-30.0); Chloride 103 mmol/L (98-107); Cholesterol 104 mg/dl (140-200); Creatinine Clearance Estimated 102 mL/min (50-200); Creatinine,Serum 0.80 mg/dl (0.52-1.04); Estimated Glomerular Filt Rate 73 ml/min (>60); GFR (African American) 88 ML/MIN (>60); Globulin 2.9 g/dL (1.3-3.2); Glucose 114 mg/dl (74-100); HDL Cholesterol 34 mg/dl (40-60); Potassium 4.7 mmoL/L (3.5-5.1); Sodium 133 mmol/L (136-145); Total Protein,Serum 7.4 g/dl (6.3-8.2); Triglycerides 165 mg/dl (30-150)
[2025-05-22 14:51] LABS: Troponin I < 0.01 ng/ml (0.00-0.034)
[2025-05-22 15:03] LABS: Microscopic, Urine URINE MICROSCOPIC (MICROSCOPIC)
[2025-05-22 15:06] LABS: Bilirubin,Urine Negative (Negative); Color,Urine YELLOW (Yellow); Glucose,Urine (UA) Negative (Negative); Ketones,Urine Negative (Negative); Leukocyte Esterase,Urine 1+ (Negative); PH,Urine 7.5 (5.0-8.5); Protein,Urine Negative (Negative); Specific Gravity, Urine 1.015 (1.005-1.030); Urobilinogen,Urine 1.0 EU/dl (0.2)
[2025-05-22 15:15] LABS: Bacteria,Urine 1+ /lpf
[2025-05-22] MEDS: 0.9 % SODIUM CHLORIDE 50 ML VIAL IV (15:15)
[2025-05-22] MEDS: SODIUM CHLORIDE 0.9% 10ML SYR (RAD ONLY) 10 ML IV (15:15)
[2025-05-22] MEDS: IOPAMIDOL-370 (76%);100ML BOTTLE 130 ML IV (15:16)
[2025-05-22 15:18] LABS: Opiate Screen,Urine Negative ng/ml (<300); Phencyclidine Screen,Urine Negative ng/ml (<25)
[2025-05-22 15:19] LABS: Benzodiazepines Screen,Urine Negative ng/ml (<200)
[2025-05-22 15:20] LABS: Amphetamine/Metha Screen,Urine Negative ng/ml (<1000)
[2025-05-22 15:21] LABS: Barbiturates Screen,Urine Negative ng/ml (<200)
--- NOTE | 2025-05-22 15:22 | PC.NURSE ---
calling [facility] at this time.
[2025-05-22 15:23] LABS: Methadone Screen,Urine Negative ng/ml (<300)
--- OUTSIDE RECORDS SUMMARY | 2025-05-22 15:30 | XMS_ITS | Encounter Summary ---
Author Organization [employer] ([place], [place], [place], [place], [place]) Address [address] [place] [address] Care Team Providers Care High School Hvac R Instructor Name Role Phone Unavailable Primary Care Provider Unavailabl e Encounter Details Date Type Department Care Team (Late st Contact Info) Description 07/21/2018 Transcribed Document [facility] Family Medicine [address] [place] [address] ProviderLisbet MD [address] [place] [address] Social History Tobacco Use Types [...] - Lisbet ProviderMD - 07/21/2018 9:37 AM QUANTITATIVE MANAGER [address] [address] Patient Copy Patient Information: Name: DANYEL HOGUE Current Date: 07/21/2018 09:37:25 : 1965 Patient Address: [address] [facility] [address] Patient Attending Physician: SOFIA ANDINO MD-CAR Primary [...] Follow these instructions at home: Medicines??? Take bpgy-czv-pxsjuvp and prescription medicines only as told by [...] and water are not available, use hand scene painter. ? Change your dressing as told by [...] Assistance with quitting is available by contacting 7-956-MYBZ-NOW. This is a free resource providing counseling, [...] Be sure to sign up for the [facility] patient portal, which gives you 24/ access to your medical information ??? including these discharge instructions ??? using your computer, smartphone, or tablet. Just go to [employer] to get started. Questions? Call . [facility] would like to thank you for allowing us to assist you with your healthcare needs. MYKEL Mascorro CAROLYN ELIZABETH, (or medical detail representative) have received the above patient education materials/instructions and have verbalized understanding: Patient Signature _ Date/Time Patient Home Health Care Worker Signature (if needed) Date/Time Clinician/Hospital Home Health Care Worker Signature (if needed) Date/Time Electronically signed by Mikael [facility] Conversion Senior Data Mining Analyst Cerner at 10/19/2022 10:08 AM CDT documented in this encounter Plan of Treatment Not on file documented as of this encounter Visit Diagnoses Not on filedocumented in this encounter
--- OUTSIDE RECORDS SUMMARY | 2025-05-22 15:30 | XMS_ITS | Encounter Summary ---
Author Organization [employer] ([place], [place], [place], [place], [place]) Address [address] [place] [address] Care Team Providers Care Health Care Specialist Name Role Phone Unavailable Primary Care Provider Unavailabl e Encounter Details Date Type Department Care Team (Late st Contact Info) Description 07/11/2018 Transcribed Document [facility] Family Medicine [address] [place] [address] ProviderLisbet MD [address] [place], [place] [id number] Social History Tobacco Use Types Packs/Day Years Used Date Smoking Tobacco: Never Assessed Comments Unknown Sex and Gender Information Value Date Recorded Sex Assigned at Not on file Legal Sex Female 3:31 PM CDT Gender Identity Not on file Sexual Orientation Not on file documented as of this encounter Miscellaneous Notes * [employer]ner Conversion Note - Historical ProviderMD - 07/11/2018 10:31 AM CLIP ON SUNGLASSES ASSEMBLER Nursing Discharge Summary Entered On: 07/11/2018 10:33 EST Performed On: 07/11/2018 10:31 EST by MAYELA BUCKLEY, sergeant missile crewman Documentation Patient Disposition, General : Discharge Discharge [...]
--- OUTSIDE RECORDS SUMMARY | 2025-05-22 15:30 | XMS_ITS | Encounter Summary ---
Author Organization [employer] ([place], [place], [place], [place], [place]) Address [address] [place] [address] Care Team Providers Care Vice President Payment Name Role Phone Unavailable Primary Care Provider Unavailabl e Encounter Details Date Type Department Care Team (Late st Contact Info) Description 07/25/2018 Transcribed Document [facility] Cardiology [address] [place] [address] Juli Samayoa MD [address] [facility] [address] [place] [address] Social History Tobacco Use Types [...] PROCEDURE: 07/21/2018 PROCEDURE DONE: Loop recorder implantation. WIND ENERGY ENGINEER: Juli Samayoa MD PROCEDURE IN DETAIL: The [...]
--- OUTSIDE RECORDS SUMMARY | 2025-05-22 15:30 | XMS_ITS | Encounter Summary ---
Author Organization [employer] ([place], [place], [place], [place], [place]) Address [address] [place] [address] Care Team Providers Care Cro Name Role Phone Unavailable Primary Care Provider Unavailabl e Encounter Details Date Type Department Care Team (Late st Contact Info) Description 07/11/2018 Transcribed Document [facility] [place] Medicine [facility] [address] ProviderLisbet MD [address] [place] [address] Social History Tobacco Use Types [...] - Lisbet ProviderMD - 07/11/2018 10:33 AM FIBERGLASS SKI MAKER [address] [address] Patient Copy Patient Information: Name: DANYEL HOGUE Current Date: 07/11/2018 10:33:46 : 1965 Patient Address: [address] [facility] [address] Patient Attending Physician: SOFIA ANDINO MD-CAR Primary [...] 04/17/2010 Document Revised: 11/25/2016 Document Reviewed: 12/20/2013 [employer] Interactive Patient Education ? 2017 [employer] Moderate Conscious Sedation, Adult, Care After [...] you are awake and alert. ??? Take xcmd-lxh-qfajthx and prescription medicines only as told by [...] 04/10/2014 Document Revised: 11/22/2016 Document Reviewed: 10/09/2016 [employer] Interactive Patient Education ? 2017 [employer] CIGARETTE SMOKING: The facts are clear, cigarette smoking will shorten your life. Smoking can cause many illnesses along the way. As a healthcare provider, we recommend that you stop smoking. Assistance with quitting is available by contacting 6-424-BXEH-NOW. This is a free resource providing counseling, [...] Be sure to sign up for the [facility] patient portal, which gives you 24 access to your medical information ??? including these discharge instructions ??? using your computer, smartphone, or tablet. Just go to [employer] to get started. Questions? Call . [facility] would like to thank you for allowing us to assist you with your healthcare needs. MYKEL Mascorro CAROLYN ELIZABETH, (or medical field representative) have received the above patient education materials/instructions and have verbalized understanding: Patient Signature _ Date/Time Patient Molding Machine Tender Signature (if needed) Date/Time Clinician/Hospital Molding Machine Tender Signature (if needed) Date/Time Electronically signed by Mikael, [facility] Conversion Powder Core Tester Zananer at 10/19/2022 10:08 AM CDT documented in this encounter Plan of Treatment Not on file documented as of this encounter Visit Diagnoses Not on filedocumented in this encounter
--- OUTSIDE RECORDS SUMMARY | 2025-05-22 15:30 | XMS_ITS | Encounter Summary ---
Author Organization [employer] ([place], [place], [place], [place], [place]) Address [address] [place] [address] Care Team Providers Care Street Supervisor Name Role Phone Unavailable Primary Care Provider Unavailabl e Encounter Details Date Type Department Care Team (Late st Contact Info) Description 07/11/2018 Transcribed Document [facility] Family Medicine [address] [place] [address] ProviderLisbet MD [address] [place], [place] [id number] Social History Tobacco Use Types Packs/Day Years Used Date Smoking Tobacco: Never Assessed Comments Unknown Sex and Gender Information Value Date Recorded Sex Assigned at Not on file Legal Sex Female 3:31 PM CDT Gender Identity Not on file Sexual Orientation Not on file documented as of this encounter Miscellaneous Notes * Cerner Conversion Note - Historical ProviderMD - 07/11/2018 7:34 AM IT ARCHITECTURE CONSULTANT Event Note Entered On: 07/11/2018 7:36 EST [...] - 07/11/2018 7:34 EST Electronically signed by Silvano Youssef Conversion Shipboard Intelligence Analyst Ita at 10/19/2022 10:03 AM CDT documented in this encounter Plan of Treatment Not on file documented as of this encounter Visit Diagnoses Not on filedocumented in this encounter
--- OUTSIDE RECORDS SUMMARY | 2025-05-22 15:30 | XMS_ITS | Encounter Summary ---
Author Organization [employer] ([place], [place], [place], [place], [place]) Address [address] [place] [address] Care Team Providers Care Personnel Recruiter Name Role Phone Unavailable Primary Care Provider Unavailabl e Encounter Details Date Type Department Care Team (Late st Contact Info) Description 07/21/2018 Transcribed Document [facility] Family Medicine [address] [place] [address] ProviderLisbet MD [address] [place], [place] [id number] Social History Tobacco Use Types Packs/Day Years Used Date Smoking Tobacco: Never Assessed Comments Unknown Sex and Gender Information Value Date Recorded Sex Assigned at Not on file Legal Sex Female 3:31 PM CDT Gender Identity Not on file Sexual Orientation Not on file documented as of this encounter Miscellaneous Notes * Cerner Conversion Note - Historical ProviderMD - 07/21/2018 9:30 AM MANAGER VISUAL Event Note Entered On: 07/21/2018 9:38 EST Performed On: 07/21/2018 9:30 EST by Marcy Allen, RAJNI Event Note Description of Event : Pt returned from EP lab with dressing to mid-chest, CDI. Pt placed on monitor, call nuñez within reach, family at BS. Marcy Allen, RN - 07/21/2018 9:38 EST Electronically signed by Mikael [facility] Conversion Adjunct Political Science Instructor Cerner at 10/19/2022 9:57 AM CDT documented in this encounter Plan of Treatment Not on file documented as of this encounter Visit Diagnoses Not on filedocumented in this encounter
--- OUTSIDE RECORDS SUMMARY | 2025-05-22 15:30 | XMS_ITS | Encounter Summary ---
Author Organization [employer] ([place], [place], [place], [place], [place]) Address [address] [place] [address] Care Team Providers Care Dowel Inserting Machine Operator Name Role Phone Unavailable Primary Care Provider Unavailabl e Encounter Details Date Type Department Care Team (Late st Contact Info) Description 07/21/2018 Transcribed Document [facility] [place] Family Medicine [address] [place] [address] ProviderLisbet MD [address] [place], [place] [id number] Social History Tobacco Use Types Packs/Day Years Used Date Smoking Tobacco: Never Assessed Comments Unknown Sex and Gender Information Value Date Recorded Sex Assigned at Not on file Legal Sex Female 3:31 PM CDT Gender Identity Not on file Sexual Orientation Not on file documented as of this encounter Miscellaneous Notes * Cerner Conversion Note - Lisbet ProviderMD - 07/21/2018 9:48 AM TACK PULLER Patient Education Materials Follows: Implantable Loop Recorder [...] Follow these instructions at home: Medicines??? Take ngnw-kug-ajtnvvf and prescription medicines only as told by [...] and water are not available, use hand concrete plant laborer. ? Change your dressing as told by [...] 11/25/2016 Document Reviewed: 03/24/2016 ? 2017 Elsevier Electronically signed by Todd Youssef Conversion Balance And Hairspring Assembler Cerner at 10/19/2022 10:08 AM CDT documented in this encounter Plan of Treatment Not on file documented as of this encounter Visit Diagnoses Not on filedocumented in this encounter
--- OUTSIDE RECORDS SUMMARY | 2025-05-22 15:30 | XMS_ITS | Encounter Summary ---
Author Organization [employer] ([place], [place], [place], [place], [place]) Address [address] [place] [address] Care Team Providers Care Head Custodian Name Role Phone Unavailable Primary Care Provider Unavailabl e Encounter Details Date Type Department Care Team (Late st Contact Info) Description 07/21/2018 Transcribed Document [facility] Family Medicine [facility] [place] [address] ProviderLisbet MD [address] [place] [address] Social History Tobacco Use Types [...] - Lisbet ProviderMD - 07/21/2018 9:48 AM COUNTY HOME DEMONSTRATION AGENT [address] , [place] [address] Patient Copy Patient Information: Name: DANYEL HOGUE Current Date: 07/21/2018 09:48:25 : 1965 Patient Address: [address] [facility] [address] Patient Attending Physician: SOFIA ANDINO MD-CAR Primary Care Provider: CORINNA CROOKS APRN Primary Care Provider Discharge Diagnosis: Weight at Discharge: 220 lb Comment: Follow-up Instructions: With: Address: When: RINA DICK [address] [place] [address], [address] [place] [address] Business (1) Within 1 month Discharge Instructions: [...] Follow these instructions at home: Medicines??? Take enfe-pmg-sggvchs and prescription medicines only as told by [...] and water are not available, use hand tomb maker helper. ? Change your dressing as told by [...] Assistance with quitting is available by contacting 8-039-OEMN-NOW. This is a free resource providing counseling, [...] Be sure to sign up for the [employer] patient portal, which gives you 24/01 access to your medical information ??? including these discharge instructions ??? using your computer, smartphone, or tablet. Just go to [employer] to get started. Questions? Call . [facility] would like to thank you for allowing us to assist you with your healthcare needs. MYKEL Mascorro CAROLYN ELIZABETH, (or bottling equipment sales representative) have received the above patient education materials/instructions and have verbalized understanding: Patient Signature _ Date/Time Patient Evp Global Product Leadership Signature (if needed) Date/Time Clinician/Hospital Evp Global Product Leadership Signature (if needed) Date/Time Electronically signed by Mikael, [facility] Conversion Student Worker Ita at 10/19/2022 9:45 AM CDT documented in this encounter Plan of Treatment Not on file documented as of this encounter Visit Diagnoses Not on filedocumented in this encounter
--- OUTSIDE RECORDS SUMMARY | 2025-05-22 15:30 | XMS_ITS | Encounter Summary ---
Author Organization [employer] ([place], [place], [place], [place], [place]) Address [address] [place] [address] Care Team Providers Care Coin Machine Servicer Repairer Name Role Phone Unavailable Primary Care Provider Unavailabl e Encounter Details Date Type Department Care Team (Late st Contact Info) Description 07/21/2018 Transcribed Document [facility] [place] Family Medicine [address] [place] [address] ProviderLisbet MD [address] [place], [place] [phone] Social History Tobacco Use Types Packs/Day Years Used Date Smoking Tobacco: Never Assessed Comments Unknown Sex and Gender Information Value Date Recorded Sex Assigned at Not on file Legal Sex Female 3:31 PM CDT Gender Identity Not on file Sexual Orientation Not on file documented as of this encounter Miscellaneous Notes * Cerner Conversion Note - Lisbet ProviderMD - 07/21/2018 9:[address] Discharge Instructions Entered On: 07/21/2018 9:37 EST [...] 07/21/2018 9:47 EST Electronically signed by Mikael, [facility] Conversion Audio Technician Cerner at 10/19/2022 9:55 AM CDT documented in this encounter Plan of Treatment Not on file documented as of this encounter Visit Diagnoses Not on filedocumented in this encounter
--- OUTSIDE RECORDS SUMMARY | 2025-05-22 15:30 | XMS_ITS | Encounter Summary ---
Author Organization [employer] ([place], [place], [place], [place], [place]) Address [address] [place] [address] Care Team Providers Care Radiology Physician Assistant Name Role Phone Unavailable Primary Care Provider Unavailabl e Encounter Details Date Type Department Care Team (Late st Contact Info) Description 07/21/2018 Transcribed Document [facility] Family Medicine [address] [place] [address] ProviderLisbet MD [address], [place] [id number] Social History Tobacco Use Types Packs/Day Years Used Date Smoking Tobacco: Never Assessed Comments Unknown Sex and Gender Information Value Date Recorded Sex Assigned at Not on file Legal Sex Female 3:31 PM CDT Gender Identity Not on file Sexual Orientation Not on file documented as of this encounter Miscellaneous Notes * Cerner Conversion Note - Historical ProviderMD - 07/21/2018 9:26 AM DRAIN CLEANER Nursing Discharge Summary Entered On: 07/21/2018 9:36 EST Performed On: 07/21/2018 9:26 EST by Marcy Allen thread inspector Documentation Discharge Date/Time : 07/21/2018 10:54 EST [...] Marcy Allen RN - 07/21/2018 9:26 EST Electronically signed by Mikael [facility] Conversion Pipe Bender Cerner at 10/19/2022 10:06 AM CDT documented in this encounter Plan of Treatment Not on file documented as of this encounter Visit Diagnoses Not on filedocumented in this encounter
--- OUTSIDE RECORDS SUMMARY | 2025-05-22 15:31 | XMS_ITS | Encounter Summary ---
Author Organization [employer] ([place], [place], [place], [place], [place]) Address [address] [place] [address] Care Team Providers Care Auxiliary Powerplant Operator Name Role Phone Unavailable Primary Care Provider Unavailabl e Encounter Details Date Type Department Care Team (Late st Contact Info) Description 08/28/2018 Transcribed Document [facility] Family Medicine [address] [place] [address] ProviderLisbet MD [address], [place] [phone] Social History Tobacco Use Types Packs/Day Years Used Date Smoking Tobacco: Never Assessed Comments Unknown Sex and Gender Information Value Date Recorded Sex Assigned at Not on file Legal Sex Female 3:31 PM CDT Gender Identity Not on file Sexual Orientation Not on file documented as of this encounter Miscellaneous Notes * [employer]ner Conversion Note - Historical ProviderMD - 08/28/2018 10:17 AM RATTLE LEAK AND SQUEAK REPAIRER Advance Directive Entered On: 08/28/2018 10:40 EST Performed On: 08/28/2018 10:17 EST by REBECCA REID Advance Directive Patient has Advance Directive *Q : No, patient requests information about Advance Directive Patient Given Information about AD : Yes Advance Directive Comment : Provided advance directive info. REBECCA REID - 08/28/2018 10:40 EST documented in this encounter Plan of Treatment Not on file documented as of this encounter Visit Diagnoses Not on filedocumented in this encounter
--- OUTSIDE RECORDS SUMMARY | 2025-05-22 15:31 | XMS_ITS | Encounter Summary ---
Author Organization [employer] ([place], [place], [place], [place], [place]) Address [address] [place] [address] Care Team Providers Care Style Advisor Name Role Phone Unavailable Primary Care Provider Unavailabl e Encounter Details Date Type Department Care Team (Late st Contact Info) Description 07/11/2018 Transcribed Document [facility] Family Medicine [address] [place] [address] ProviderLisbet MD [address] [place], [place] [phone] Social History Tobacco Use Types Packs/Day Years Used Date Smoking Tobacco: Never Assessed Comments Unknown Sex and Gender Information Value Date Recorded Sex Assigned at Not on file Legal Sex Female 3:31 PM CDT Gender Identity Not on file Sexual Orientation Not on file documented as of this encounter Miscellaneous Notes * Cerner Conversion Note - Historical ProviderMD - 07/11/2018 12:11 PM DISTRICT MANAGER MAJOR ACCOUNTS SALES Event Note Entered On: 07/11/2018 12:12 EST Performed On: 07/11/2018 12:11 EST by MAYELA BUCKLEY RN Event Note Event Location : Other: 1211- dc pivl - left foot pt then ambulated and tolerated well. left foot site cdi. pt stable. ambulated post procedure with no difficulty. MAYELA BUCKLEY, RAJNI - 07/11/2018 12:11 EST Electronically signed by Mikael [facility] Conversion Efficiency Miner Cerner at 10/19/2022 9:43 AM CDT documented in this encounter Plan of Treatment Not on file documented as of this encounter Visit Diagnoses Not on filedocumented in this encounter
--- OUTSIDE RECORDS SUMMARY | 2025-05-22 15:31 | XMS_ITS | Encounter Summary ---
Author Organization [employer] ([employer]) ([place], [place], [place], [place], [place]) Address [address] [place] [address] Care Team Providers Care Commander Police Reserves Name Role Phone Unavailable Primary Care Provider Unavailabl e Encounter Details Date Type Department Care Team (Late st Contact Info) Description 08/27/2018 Transcribed Document [facility] Family Medicine [address] [place] [address] ProviderLisbet MD [address], [place] [phone] Social History Tobacco Use Types Packs/Day Years Used Date Smoking Tobacco: Never Assessed Comments Unknown Sex and Gender Information Value Date Recorded Sex Assigned at Not on file Legal Sex Female 3:31 PM CDT Gender Identity Not on file Sexual Orientation Not on file documented as of this encounter Miscellaneous Notes * Cerner Conversion Note - Historical ProviderMD - 08/27/2018 8:45 PM WELDING PROCESS ENGINEER Education-Diabetes Topics Entered On: 08/28/2018 16:58 EST Performed On: 08/28/2018 9:00 EST by MISHA STEWART RN Teaching/Learning Assessment Barriers To Learning : None evident MISHA STEWART RN - 08/28/2018 16:58 EST documented in this encounter Plan of Treatment Not on file documented as of this encounter Visit Diagnoses Not on filedocumented in this encounter
--- OUTSIDE RECORDS SUMMARY | 2025-05-22 15:31 | XMS_ITS | Encounter Summary ---
Author Organization [employer] ([place], [place], [place], [place], [place]) Address [address] [place] [address] Care Team Providers Care Agricultural Extension Officer Name Role Phone Unavailable Primary Care Provider Unavailabl e Encounter Details Date Type Department Care Team (Late st Contact Info) Description 07/11/2018 Transcribed Document [facility] [address] [place] [address] ProviderLisbet MD [address] [phone] Social History Tobacco Use Types Packs/Day Years Used Date Smoking Tobacco: Never Assessed Comments Unknown Sex and Gender Information Value Date Recorded Sex Assigned at Not on file Legal Sex Female 3:31 PM CDT Gender Identity Not on file Sexual Orientation Not on file documented as of this encounter Miscellaneous Notes * [employer]ner Conversion Note - Historical ProviderMD - 07/11/2018 6:59 AM TANK CAR RECONDITIONER Pre Procedure Adult Entered On: 07/11/2018 7:01 EST Performed On: 07/11/2018 6:59 EST by MAYELA BUCKLEY RN Height and Weight, Clinical Dosing Height Source : Stated Height Entry Format : Appling Height, Feet : 0 ft(Converted to: 0 cm, 0 Inch) Height, Inches : 66 Inch(Converted to: 5 ft 6 Inch, 167.64 cm) Clinical Height : 167.64 cm Weight Source : Standing scale Weight Entry Format : Appling Clinical Dosing Weight : 97.73 kg Weight, Pounds : 215 lb Body Surface Area (BSA) : 2.06 m2 Body Mass Index : 34.8 kg/m2 (HI) Aurora Body Weight : 59 kg MAYELA BUCKLEY [...] Ean Support Person/Pt Rep Contact Information : [phone] Want Family/Rep/Phys Notified of Admit : No Emergency Contact #1 : Jarad farnsworth - [phone] Emergency Contact #1 Phone Number : - Emergency Contact #1 Relationship : - Emergency Contact #2 : - Emergency Contact #2 Phone Number : - Emergency Contact #2 Relationship : - Primary Language : Venezuelan Communication Barrier : None MAYELA BUCKLEY RN [...] Scale Risk Level : 0-24 Low Risk [place] Fall Interventions : Wheels locked MAYELA BUCKLEY [...]
--- OUTSIDE RECORDS SUMMARY | 2025-05-22 15:31 | XMS_ITS | Encounter Summary ---
Author Organization [employer] ([place], [place], [place], [place], [place]) Address [address] [place] [id number] Care Team Providers Care Black Puller Name Role Phone Unavailable Primary Care Provider Unavailabl e Encounter Details Date Type Department Care Team (Late st Contact Info) Description 08/28/2018 Transcribed Document [facility] [place] [address] [place] [address] ProviderLisbet MD [address] [place], [place] [id number] Social History Tobacco Use Types Packs/Day Years Used Date Smoking Tobacco: Never Assessed Comments Unknown Sex and Gender Information Value Date Recorded Sex Assigned at Not on file Legal Sex Female 3:31 PM CDT Gender Identity Not on file Sexual Orientation Not on file documented as of this encounter Miscellaneous Notes * [employer]ner Conversion Note - Historical ProviderMD - 08/28/2018 9:01 AM BUDGET CONSULTANT Education-Wound Care Entered On: 08/28/2018 9:03 EST Performed On: 08/28/2018 9:01 EST by MISHA STEWART RN Teaching/Learning Assessment Barriers To Learning : None evident MISHA STEWART RN - 08/28/2018 9:03 EST documented in this encounter Plan of Treatment Not on file documented as of this encounter Visit Diagnoses Not on filedocumented in this encounter
--- OUTSIDE RECORDS SUMMARY | 2025-05-22 15:31 | XMS_ITS | Encounter Summary ---
Author Organization [employer] ([place], [place], [place], [place], [place]) Address [address] [place] [address] Care Team Providers Care Studio Model Name Role Phone Unavailable Primary Care Provider Unavailabl e Encounter Details Date Type Department Care Team (Late st Contact Info) Description 07/11/2018 Transcribed Document [facility] [place] Medicine [address] [place] [address] ProviderLisbet MD [address] [place] [address] Social History Tobacco Use Types Packs/Day Years Used Date Smoking Tobacco: Never Assessed Comments Unknown Sex and Gender Information Value Date Recorded Sex Assigned at Not on file Legal Sex Female 3:31 PM CDT Gender Identity Not on file Sexual Orientation Not on file documented as of this encounter Miscellaneous Notes * [employer]ner Conversion Note - Historical ProviderMD - 07/11/2018 10:33 AM EMPLOYEE COMMUNICATIONS INTERN Discharge Instructions Entered On: 07/11/2018 10:33 EST [...]
--- OUTSIDE RECORDS SUMMARY | 2025-05-22 15:31 | XMS_ITS | Encounter Summary ---
Author Organization [employer] ([place], [place], [place], [place], [place]) Address [address] [place] [address] Care Team Providers Care Press Assistant And Feeder Name Role Phone Unavailable Primary Care Provider Unavailabl e Encounter Details Date Type Department Care Team (Late st Contact Info) Description 08/28/2018 Transcribed Document [facility] [place] Family Medicine [address] [place] [address] ProviderLisbet MD [address] [place] [address] Social History Tobacco Use Types Packs/Day Years Used Date Smoking Tobacco: Never Assessed Comments Unknown Sex and Gender Information Value Date Recorded Sex Assigned at Not on file Legal Sex Female 3:31 PM CDT Gender Identity Not on file Sexual Orientation Not on file documented as of this encounter Miscellaneous Notes * [employer]ner Conversion Note - Historical ProviderMD - 08/28/2018 10:52 AM OIL FIELD OPERATOR Attempt to Treat, OT Entered On: 08/28/2018 [...]
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
--- OUTSIDE RECORDS SUMMARY | 2025-05-22 15:31 | XMS_ITS | Encounter Summary ---
Author Organization [employer] ([place], [place], [place], [place], [place]) Address [address] [place] [address] Care Team Providers Care Safety Lead Name Role Phone Unavailable Primary Care Provider Unavailabl e Encounter Details Date Type Department Care Team (Late st Contact Info) Description 07/11/[address] [facility] [place] Family Medicine [address] [place] [address] ProviderLisbet MD [address] [place], [place] [phone] Social History Tobacco Use Types Packs/Day Years Used Date Smoking Tobacco: Never Assessed Comments Unknown Sex and Gender Information Value Date Recorded Sex Assigned at Not on file Legal Sex Female 3:31 PM CDT Gender Identity Not on file Sexual Orientation Not on file documented as of this encounter Miscellaneous Notes * [employer] Conversion Note - Lisbet ProviderMD - 07/11/2018 10:33 AM LASER PRINTING OPERATOR Patient Education Materials Follows: Moderate Conscious Sedation, [...] you are awake and alert. ??? Take [id number] and prescription medicines only as told by [...] 04/10/2014 Document Revised: 11/22/2016 Document Reviewed: 10/09/2016 [employer] Interactive Patient Education ? 2017 [employer] Radiology Transesophageal Echocardiogram Transesophageal echocardiography (YISSEL) [...] 12/20/2013 [employer] Interactive Patient Education ? 2017 [employer] documented in this encounter Plan of Treatment Not on file documented as of this encounter Visit Diagnoses Not on filedocumented in this encounter
--- OUTSIDE RECORDS SUMMARY | 2025-05-22 15:31 | XMS_ITS | Data Portability ---
Author Organization [facility] Address [address] [place] [address] Assessment Encounter Date Assessment Date Assessment LastModified by Organization Details LastModified Time 05/17/2023 05/17/2023 -stop crestor at this time -stop claritin and start xyzal -monitor for continued itching, continue moisturizer free of dyes/perfumes -f/u prn continued or worsening symptoms. Not available 05/17/2023 22:05:32 06/16/2023 06/16/2023 Advised [...] not improving. Or sooner if symptoms worsen. [email or web address] Not available 07/05/2023 13:40:26 08/08/2023 08/08/2023 stop losartan, continue antihistamines as needed. referral to training technician if symptoms continue. [email or web address] Not available 08/14/2023 21:41:03 10/26/2023 10/26/2023 continue meds as prescribed, continue care with Dr. Ramirez as recommended [email or web address] Not available 12/08/2023 22:07:45 Plan of Treatment Reminders Order Date Submit Date Provider Last Modified By Organization Details Last Modified Time Details Appointments None recorded. Lab HIV 1 + 2, meaningful use set 2023 024 [facility], [address], [place] [address], [place], [address], 4 07:37:18 Hepatitis C IgG Ab, qual, serum 2023 024 KATHLEEN [facility], [address], [place] [address], [place], [address], 4 07:37:19 CMP, serum or plasma 2023 024 KATHLEEN [facility], [address], [place], [place], [address], 4 07:37:17 food allergen panel, serum 2023 024 KATHLEEN [facility], [address], [place], [place], [address], 4 07:37:21 unlisted lab - allergens, zone 5 2023 024 KATHLEEN [facility], [address], [place], [place], [address], 4 07:37:19 TSH + free T4, serum 2023 024 KATH[facility]EN [facility], [address], [place], [place], [address], 4 07:37:16 uric acid, serum or plasma 2022 023 K[facility]EN [facility], [address], [place], [place], [address], 3 04:36:19 CMP, serum or plasma 2022 023 [facility]EN [facility], [address], [place], [place], [address], 3 04:36:17 vitamin B12 + folate, serum or blood 2022 023 [facility]EN [facility], [address], [place], [place], [address], 3 04:36:18 TSH + free T4, serum 2022 023 [facility], [address], [place], [place], [address], 3 04:36:16 T3, free, serum or plasma 2022 023 K[facility]EN [facility], [address], [place], [place], [address], 3 04:36:20 CBC w/ auto diff 2022 023 [facility], [address], [place], [place], [address], 3 04:36:17 rapid strep group A, throat [address], [address] [place] [address] Rd[address] [place], [address], 3 15:32:42 urinalysis, dipstick [address], [address] [place] [address] Rd[address] [place], [address], 3 15:32:42 culture, urine 2022 023 [place] [facility], [address], [place] [address], [place], [address], 3 04:36:14 Referral None recorded. Procedures None recorded. Surgeries None recorded. Imaging None recorded. Medication Orders dexamethaso ne sodium phosphate 4 mg/mL injection solution 2022 023 [email or web address] [facility], [address], [place], [address], 3 13:52:01 levocetiriz ine 5 mg tablet 2022 023 [email or web address] [facility], [address] [place] [address], [place], [address], 3 11:20:10 amoxicillin 500 mg-potisakiu m clavulanate 125 mg tablet 2022 023 [email or web address] [facility], [address] [place] [address], [place], [address], 3 08:57:25 Patient TargetsNo targets recorded. Patient Instructions Encounter Date Encounter Id Patient Instructions Last Modified By Organization Details Last Modified Time 04/13/2023 [id number] All questions answered and pt/guardian satisfied with [...] visit at this time, will FU PRN. [email or web address] Not available 04/13/2023 15:23:48 08/08/2023 [id number] learning about healthy weight [email or web address] Not available 08/08/2023 17:41:22 body mass index: care instructions Not available 08/08/2023 17:41:22 10/26/2023 [id number] learning about healthy weight [email or web address] Not available 10/26/2023 18:30:10 body mass index: care instructions Not available 10/26/2023 18:30:10 Reason for Referral None Reported. Results Created Date Observation Date Name Description Value Unit Range Abnormal Flag Note LastModifiedBy Organization Detail LastModifiedTime 04/13/2004/15/2023 URINE CULTU RE, RUDDY NE urine culture, routine Final report abnormal Not Available [facility] ([facility]) [address], [place], [address], 04/15/2023 04:36:13 04/13/2004/15/2023 URINE CULTU RE, ROUTI [...] p A). (CLSI ) Not Available [facility] ([facility]) [address] [facility], [place], [address], 04/15/2023 04:36:13 04/13/2004/13/2023 urina lysis , dipst ick Leukocytes Small Not Available [address] [place], [address], 04/13/2023 15:01:51 04/13/20 23 04/13/2023 urina lysis , dipst ick Nitrite negati ve Not Available [facility] [address] [place], [address], 04/13/2023 15:01:51 04/13/20 23 04/13/2023 urina lysis , dipst ick Urobilinogen .2 Not Available [facility] [address] [place], [address], 04/13/2023 15:01:51 04/13/20 23 04/13/2023 urina lysis , dipst ick Protein Negati ve Not Available [address] [place], [address], 04/13/2023 15:01:51 04/13/20 23 04/13/2023 urina lysis , dipst ick pH 5.5 Not Available [address] [place], [address], 04/13/2023 15:01:51 04/13/2004/13/2023 urina lysis , dipst ick Blood Negati ve Not Available [address] [place], [address], 04/13/2023 15:01:51 04/13/20 23 04/13/2023 urina lysis , dipst ick Specific Juni[place] 1.020 Not Available [address] [place], [address], 04/13/2023 15:01:51 04/13/2004/13/2023 urina lysis , dipst ick Ketone Negati ve Not Available [address] [place], [address], 04/13/2023 15:01:51 04/13/20 23 04/13/2023 urina lysis , dipst ick Bilirubin Negati ve Not Available [address] [place], [address], 04/13/2023 15:01:51 04/13/2004/13/2023 urina lysis , dipst ick Glucose Negati ve Not Available [address] [place], [address], 04/13/2023 15:01:51 04/13/20 23 04/13/2023 urina lysis , dipst ick Appearance Slight ly Cloudy Not Available [address] [place], [address], 04/13/2023 15:01:51 04/13/20 23 04/13/2023 urina lysis , dipst ick Color Pale Yellow Not Available [address] [place], [address], 04/13/2023 15:01:51 04/13/20 23 04/13/2023 rapid strep group A, throa t Strep positi ve Not Available [address] [place], [address], 04/13/2023 14:56:12 04/13/2004/13/2023 rapid strep group A, throa t Culture No Not Available [address] [place], [address], 04/13/2023 14:56:12 05/17/20 23 05/18/2023 TSH+F REE T4 TSH 2.350 uIU/m L 0.450- 4.500 Not Available [facility] ([facility]) [address] [place], [address], 05/18/2023 04:36:16 05/17/20 23 05/18/2023 TSH+F REE T4 T4,free(dire ct) 1.08 NG/dL 0.82-1 .77 Not Available [facility] ([facility]) [address] [facility], [place], [address], 05/18/2023 04:36:16 05/17/20 23 05/18/2023 CBC WITH DIFFE RENTI AL/PL ATELE T WBC 6.6 x10e3 /uL 3.4-10 .8 Not Available [facility] ([facility]) [address] [facility], [place], [address], 05/18/2023 04:36:17 05/17/20 23 05/18/2023 CBC WITH DIFFE RENTI AL/PL ATELE T RBC 4.67 x10e6 /uL 3.77-5 .28 Not Available [facility] ([facility]) [address] [facility], [place], [address], 05/18/2023 04:36:17 05/17/20 23 05/18/2023 CBC WITH DIFFE RENTI AL/PL ATELE T hemoglobin 14.4 g/dL 11.1-1 5.9 Not Available [facility] ([facility]) [address] [facility], [place], [address], 05/18/2023 04:36:17 05/17/20 23 05/18/2023 CBC WITH DIFFE RENTI AL/PL ATELE T hematocrit 43.0 % 34.0-4 6.6 Not Available [facility] ([facility]) [address] [facility], [place], [address], 05/18/2023 04:36:17 05/17/20 23 05/18/2023 CBC WITH DIFFE RENTI AL/PL ATELE T MCV 92 fL 79-97 Not Available [facility] ([facility]) [address] [place], [address], 05/18/2023 04:36:17 05/17/20 23 05/18/2023 CBC WITH DIFFE RENTI AL/PL ATELE T MCH 30.8 pg 26.6-3 3.0 Not Available [facility] ([facility]) [address] [place], [address], 05/18/2023 04:36:17 05/17/20 23 05/18/2023 CBC WITH DIFFE RENTI AL/PL ATELE T MCHC 33.5 g/dL 31.5-3 5.7 Not Available [facility] ([facility]) [address] [facility], [place], [address], 05/18/2023 04:36:17 05/17/20 23 05/18/2023 CBC WITH DIFFE RENTI AL/PL ATELE T RDW 13.1 % 11.7-1 5.4 Not Available [facility] ([facility]) [address] [facility], [place], [address], 05/18/2023 04:36:17 05/17/20 23 05/18/2023 CBC WITH DIFFE RENTI AL/PL ATELE T platelets 227 x10e3 /uL 150-45 0 Not Available [facility] ([facility]) [address] [facility], [place], [address], 05/18/2023 04:36:17 05/17/20 23 05/18/2023 CBC WITH DIFFE RENTI AL/PL ATELE T neutrophils 62 % not estab. Not Available [facility] ([facility]) [address] [facility], [place], [address], 05/18/2023 04:36:17 05/17/20 23 05/18/2023 CBC WITH DIFFE RENTI AL/PL ATELE T lymphs 26 % not estab. Not Available [facility] ([facility]) [address] [facility], [place], [address], 05/18/2023 04:36:17 05/17/20 23 05/18/2023 CBC WITH DIFFE RENTI AL/PL ATELE T monocytes 10 % not estab. Not Available [facility] ([facility]) [address] [facility], [place], [address], 05/18/2023 04:36:17 05/17/20 23 05/18/2023 CBC WITH DIFFE RENTI AL/PL ATELE T eos 2 % not estab. Not Available [facility] ([facility]) [address] [facility], [place], [address], 05/18/2023 04:36:17 05/17/20 23 05/18/2023 CBC WITH DIFFE RENTI AL/PL ATELE T basos 0 % not estab. Not Available [facility] ([facility]) [address] [place], [address], 05/18/2023 04:36:17 05/17/20 23 05/18/2023 CBC WITH DIFFE RENTI AL/PL ATELE T immature cells [employer]PER[employer] Not Available [facility] ([facility]) [address] [place], [address], 05/18/2023 04:36:17 05/17/20 23 05/18/2023 CBC WITH DIFFE RENTI AL/PL ATELE T neutrophils (absolute) 4.1 x10e3 /uL 1.4-7. 0 Not Available [facility] ([facility]) [address] [place], [address], 05/18/2023 04:36:17 05/17/20 23 05/18/2023 CBC WITH DIFFE RENTI AL/PL ATELE T lymphs (absolute) 1.7 x10e3 /uL 0.7-3. 1 Not Available [facility] ([facility]) [address] [place], [address], 05/18/2023 04:36:17 05/17/20 23 05/18/2023 CBC WITH DIFFE RENTI AL/PL ATELE T monocytes(ab solute) 0.6 x10e3 /uL 0.1-0. 9 Not Available [facility] ([facility]) [address] [place], [address], 05/18/2023 04:36:17 05/17/20 23 05/18/2023 CBC WITH DIFFE RENTI AL/PL ATELE T eos (absolute) 0.1 x10e3 /uL 0.0-0. 4 Not Available [facility] ([facility]) [address] [place], [address], 05/18/2023 04:36:17 05/17/20 23 05/18/2023 CBC WITH DIFFE RENTI AL/PL ATELE T baso (absolute) 0.0 x10e3 /uL 0.0-0. 2 Not Available [facility] ([facility]) [address] [facility], [place], [address], 05/18/2023 04:36:17 05/17/20 23 05/18/2023 CBC WITH DIFFE RENTI AL/PL ATELE T immature granulocytes 0 % not estab. Not Available [facility] ([facility]) [address] [facility], [place], [address], 05/18/2023 04:36:17 05/17/20 23 05/18/2023 CBC WITH DIFFE RENTI AL/PL ATELE T immature grans (abs) 0.0 x10e3 /uL 0.0-0. 1 Not Available [facility] ([facility]) [address] [facility], [place], [address], 05/18/2023 04:36:17 05/17/20 23 05/18/2023 CBC WITH DIFFE RENTI AL/PL ATELE T NRBC [employer] SUPERVISOR Not Available [facility] ([facility]) [address] [facility], [place], [address], 05/18/2023 04:36:17 05/17/20 23 05/18/2023 CBC WITH DIFFE RENTI AL/PL ATELE T hematology comments: RESEARCH KENNEL SUPERVISOR Not Available [facility] ([facility]) [address] [facility], [place], [address], 05/18/2023 04:36:17 05/17/20 23 05/18/2023 COMP. METAB OLIC PANEL (14) glucose 114 mg/dL 70-99 above high normal Not Available [facility] ([facility]) [address] [facility], [place], [address], 05/18/2023 04:36:17 05/17/20 23 05/18/2023 COMP. METAB OLIC PANEL (14) BUN 12 mg/dL 6-24 Not Available [facility] ([facility]) [address] [place], [address], 05/18/2023 04:36:17 05/17/20 23 05/18/2023 COMP. METAB OLIC PANEL (14) creatinine 0.82 mg/dL 0.57-1 .00 Not Available [facility] ([facility]) [address] [facility], [place], [address], 05/18/2023 04:36:17 05/17/20 23 05/18/2023 COMP. METAB OLIC PANEL (14) eGFR 82 mL/mi n/1.7 3 >59 Not Available [facility] ([facility]) [address] [facility], [place], [address], 05/18/2023 04:36:17 05/17/20 23 05/18/2023 COMP. METAB OLIC PANEL (14) BUN/creatini ne ratio 15 9-23 Not Available [facility] ([facility]) [address] [place], [address], 05/18/2023 04:36:17 05/17/20 23 05/18/2023 COMP. METAB OLIC PANEL (14) sodium 141 mmol/ L 134-14 4 Not Available [facility] ([facility]) [address] [place], [address], 05/18/2023 04:36:17 05/17/20 23 05/18/2023 COMP. METAB OLIC PANEL (14) potassium 4.2 mmol/ L 3.5-5. 2 Not Available [facility] ([facility]) [address] [place], [address], 05/18/2023 04:36:17 05/17/20 23 05/18/2023 COMP. METAB OLIC PANEL (14) chloride 101 mmol/ L 96-106 Not Available [facility] ([facility]) [address], [place], [address], 05/18/2023 04:36:17 05/17/20 23 05/18/2023 COMP. METAB OLIC PANEL (14) carbon dioxide, total 25 mmol/ L 20-29 Not Available [facility] ([facility]) [address], [place], [address], 05/18/2023 04:36:17 05/17/20 23 05/18/2023 COMP. METAB OLIC PANEL (14) calcium 9.2 mg/dL 8.7-10 .2 Not Available [facility] ([facility]) [address], [address], 05/18/2023 04:36:17 05/17/20 23 05/18/2023 COMP. METAB OLIC PANEL (14) protein, total 6.5 g/dL 6.0-8. 5 Not Available [facility] ([facility]) [address], [address], 05/18/2023 04:36:17 05/17/20 23 05/18/2023 COMP. METAB OLIC PANEL (14) albumin 4.0 g/dL 3.8-4. 9 Not Available [facility] ([facility]) [address], [address], 05/18/2023 04:36:17 05/17/20 23 05/18/2023 COMP. METAB OLIC PANEL (14) globulin, total 2.5 g/dL 1.5-4. 5 Not Available [facility] ([facility]) [address] [place], [address], 05/18/2023 04:36:17 05/17/20 23 05/18/2023 COMP. METAB OLIC PANEL (14) A/G ratio 1.6 1.2-2. 2 Not Available [facility] ([facility]) [address] [facility] [place], [address], 05/18/2023 04:36:17 05/17/20 23 05/18/2023 COMP. METAB OLIC PANEL (14) bilirubin, total 0.5 mg/dL 0.0-1. 2 Not Available [facility] ([facility]) [address] [facility] [place], [address], 05/18/2023 04:36:17 05/17/20 23 05/18/2023 COMP. METAB OLIC PANEL (14) alkaline phosphatase 100 IU/L 44-121 Not Available [facility] ([facility]) [address] [facility] [place], [address], 05/18/2023 04:36:17 05/17/20 23 05/18/2023 COMP. METAB OLIC PANEL (14) AST (SGOT) 18 IU/L 0-40 Not Available [facility] ([facility]) [address] [facility] [place], [address], 05/18/2023 04:36:17 05/17/20 23 05/18/2023 COMP. METAB OLIC PANEL (14) ALT (SGPT) 19 IU/L 0-32 Not Available [facility] ([facility]) [address] [facility] [place], [address], 05/18/2023 04:36:17 05/17/20 23 05/18/2023 VITAM IN B12 AND FOLAT E vitamin B12 1889 pg/mL 232-12 45 above high normal Not Available [facility] ([facility]) [address] [facility] [place], [address], 05/18/2023 04:36:18 05/17/20 23 05/18/2023 VITAM IN B12 AND FOLAT E folate (folic acid), serum 19.5 NG/mL >3.0 A serum folat e andrew ntrat ion of less than 3.1 ng/mL is consi dered to repre sent clini joseph defic iency . Not Available [facility] ([facility]) [address] [place], [address], 05/18/2023 04:36:18 05/17/20 23 05/18/2023 URIC ACID uric acid 5.2 mg/dL 3.0-7. 2 Thera peuti c targe t for gout patie nts: <6.0 Not Available [facility] ([facility]) [address] [place], [address], 05/18/2023 04:36:19 05/17/20 23 05/18/2023 TRIIO DOTHY NANNETTE E (T3), FREE triiodothyro nine (T3), free 3.0 pg/mL 2.0-4. 4 Not Available [facility] ([facility]) [address] [place], [address], 05/18/2023 04:36:20 08/08/19 24 08/10/2023 TSH+F REE T4 TSH 1.720 uIU/m L 0.450- 4.500 Not Available [facility] ([facility]) [address] [place], [address], 08/13/2023 07:37:16 08/08/19 24 08/10/2023 TSH+F REE T4 T4,free(dire ct) 1.07 NG/dL 0.82-1 .77 Not Available [facility] ([facility]) [address] [place], [address], 08/13/2023 07:37:16 08/08/19 24 08/10/2023 COMP. METAB OLIC PANEL (14) glucose 97 mg/dL 70-99 Not Available [facility] ([facility]) [address] [place], [address], 08/13/2023 07:37:17 08/08/19 24 08/10/2023 COMP. METAB OLIC PANEL (14) BUN 14 mg/dL 6-24 Not Available [facility] ([facility]) [address] [facility] [place], [address], 08/13/2023 07:37:17 08/08/19 24 08/10/2023 COMP. METAB OLIC PANEL (14) creatinine 0.81 mg/dL 0.57-1 .00 Not Available [facility] ([facility]) [address] [facility] [place], [address], 08/13/2023 07:37:17 08/08/19 24 08/10/2023 COMP. METAB OLIC PANEL (14) eGFR 84 mL/mi n/1.7 3 >59 Not Available [facility] ([facility]) [address] [facility] [place], [address], 08/13/2023 07:37:17 08/08/19 24 08/10/2023 COMP. METAB OLIC PANEL (14) BUN/creatini ne ratio 17 9-23 Not Available [facility] ([facility]) [address] [facility] [place], [address], 08/13/2023 07:37:17 08/08/19 24 08/10/2023 COMP. METAB OLIC PANEL (14) sodium 141 mmol/ L 134-14 4 Not Available [facility] ([facility]) [address] [facility] [place], [address], 08/13/2023 07:37:17 08/08/19 24 08/10/2023 COMP. METAB OLIC PANEL (14) potassium 4.3 mmol/ L 3.5-5. 2 Not Available [facility] ([facility]) [address] [facility] [place], [address], 08/13/2023 07:37:17 08/08/19 24 08/10/2023 COMP. METAB OLIC PANEL (14) chloride 103 mmol/ L 96-106 Not Available [facility] ([facility]) [address] [facility] [place], [address], 08/13/2023 07:37:17 08/08/19 24 08/10/2023 COMP. METAB OLIC PANEL (14) carbon dioxide, total 25 mmol/ L 20-29 Not Available [facility] ([facility]) [address] [facility], [place], [address], 08/13/2023 07:37:17 08/08/19 24 08/10/2023 COMP. METAB OLIC PANEL (14) calcium 9.4 mg/dL 8.7-10 .2 Not Available [facility] ([facility]) [address] [facility] [place], [address], 08/13/2023 07:37:17 08/08/19 24 08/10/2023 COMP. METAB OLIC PANEL (14) protein, total 6.6 g/dL 6.0-8. 5 Not Available [facility] ([facility]) [address] [facility] [place], [address], 08/13/2023 07:37:17 08/08/19 24 08/10/2023 COMP. METAB OLIC PANEL (14) albumin 4.1 g/dL 3.8-4. 9 Not Available [facility] ([facility]) [address] [facility], [place], [address], 08/13/2023 07:37:17 08/08/19 24 08/10/2023 COMP. METAB OLIC PANEL (14) globulin, total 2.5 g/dL 1.5-4. 5 Not Available [facility] ([facility]) [address] [facility] [place], [address], 08/13/2023 07:37:17 08/08/19 24 08/10/2023 COMP. METAB OLIC PANEL (14) A/G ratio 1.6 1.2-2. 2 Not Available [facility] ([facility]) [address] [facility] [place], [address], 08/13/2023 07:37:17 08/08/19 24 08/10/2023 COMP. METAB OLIC PANEL (14) bilirubin, total 0.3 mg/dL 0.0-1. 2 Not Available [facility] ([facility]) [address] [place], [address], 08/13/2023 07:37:17 08/08/19 24 08/10/2023 COMP. METAB OLIC PANEL (14) alkaline phosphatase 95 IU/L 44-121 Not Available [facility]) [address] [place], [address], 08/13/2023 07:37:17 08/08/19 24 08/10/2023 COMP. METAB OLIC PANEL (14) AST (SGOT) 17 IU/L 0-40 Not Available [facility] ([facility]) [address] [place], [address], 08/13/2023 07:37:17 08/08/19 24 08/10/2023 COMP. METAB OLIC PANEL (14) ALT (SGPT) 15 IU/L 0-32 Not Available [facility] ([facility]) [address] [place], [address], 08/13/2023 07:37:17 08/08/19 24 08/10/2023 HIV AB/P2 4 AG WITH REFLE X HIV Ab/P24 Ag screen Non Reacti ve non reacti ve HIV Negat lavelle HIV-1 /HIV- 2 antib odies and HIV-1 p24 antig en were NOT detec jodie. There is no labor atory evide nce of HIV infec tion. Not Available [facility] ([facility]) [address] [facility], [place], [address], 08/13/2023 07:37:18 08/08/19 24 08/11/2023 HCV ANTIB [...] e HCV infec tion. Not Available [facility] ([facility]) [address] [facility], [place], [address], 08/13/2023 07:37:19 08/08/19 24 08/09/2023 ALLER GENS, [...] >100. 00 Very High Not Available [facility] ([facility]) [address] [place], [address], 08/13/2023 07:37:19 08/08/19 24 08/13/2023 ALLER GENS, ZONE 5 [id number] D pteronyssinu s <0.10 kU/L class 0 Not Available [facility] ([facility]) [address] [place], [address], 08/13/2023 07:37:19 08/08/19 24 08/13/2023 ALLER GENS, ZONE 5 A700-VbD D farinae <0.10 kU/L class 0 Not Available [facility] ([facility]) [address] [place], [address], 08/13/2023 07:37:19 08/08/19 24 08/13/2023 ALLER GENS, ZONE 5 T735-TkG CAT dander <0.10 kU/L class 0 Not Available [facility] ([facility]) [address] [place], [address], 08/13/2023 07:37:19 08/08/19 24 08/13/2023 ALLER GENS, ZONE 5 R482-BhX dog dander <0.10 kU/L class 0 Not Available [facility] ([facility]) [address] [place], [address], 08/13/2023 07:37:19 08/08/19 24 08/13/2023 ALLER GENS, ZONE 5 p877-NjP bermuda grass <0.10 kU/L class 0 Not Available [facility] ([facility]) [address] [facility], [place], [address], 08/13/2023 07:37:19 08/08/19 24 08/13/2023 ALLER GENS, ZONE 5 o580-XnP rye grass, perennial <0.10 kU/L class 0 Not Available [facility] ([facility]) [address] [place], [address], 08/13/2023 07:37:19 08/08/19 24 08/13/2023 ALLER GENS, ZONE 5 q657-ZiM [place] grass <0.10 kU/L class 0 Not Available [facility] [facility] [address] [place], [address], 08/13/2023 07:37:19 08/08/19 24 08/13/2023 ALLER GENS, ZONE 5 s680-HoN bahia grass <0.10 kU/L class 0 Not Available [facility] ([facility]) [address] [place], [address], 08/13/2023 07:37:19 08/08/19 24 08/13/2023 ALLER GENS, ZONE 5 U101-GoZ cockroach, comoran <0.10 kU/L class 0 Not Available [facility] ([facility]) [address] [facility] [place], [address], 08/13/2023 07:37:19 08/08/19 24 08/13/2023 ALLER GENS, ZONE 5 F898-CxJ penicillium chrysogen <0.10 kU/L class 0 Not Available [facility] ([facility]) [address] [facility] [place], [address], 08/13/2023 07:37:19 08/08/19 24 08/13/2023 ALLER GENS, ZONE 5 G740-MaH cladosporium herbarum <0.10 kU/L class 0 Not Available [facility] ([facility]) [address] [facility] [place], [address], 08/13/2023 07:37:19 08/08/19 24 08/13/2023 ALLER GENS, ZONE 5 S995-RxP aspergillus fumigatus <0.10 kU/L class 0 Not Available [facility] ([facility]) [address] [facility] [place], [address], 08/13/2023 07:37:19 08/08/19 24 08/13/2023 ALLER GENS, ZONE 5 R147-BvR mucor racemosus <0.10 kU/L class 0 Not Available [facility] ([facility]) [address] [facility] [place], [address], 08/13/2023 07:37:19 08/08/19 24 08/13/2023 ALLER GENS, ZONE 5 L033-HaY alternaria alternata <0.10 kU/L class 0 Not Available [facility] ([facility]) [address] [facility] [place], [address], 08/13/2023 07:37:19 08/08/19 24 08/13/2023 ALLER GENS, ZONE 5 E502-CnR stemphylium herbarum <0.10 kU/L class 0 Not Available [facility] ([facility]) [address], [place], [address], 08/13/2023 07:37:19 08/08/19 24 08/13/2023 ALLER GENS, ZONE 5 Q046-YeZ elm, comoran <0.10 kU/L class 0 Not Available [facility] ([place] [facility]) [address], [place], [address], 08/13/2023 07:37:19 08/08/19 24 08/13/2023 ALLER GENS, ZONE 5 A305-XfF eucalyptus <0.10 kU/L class 0 Not Available [facility] ([place] [facility]) [address], [place], [address], 08/13/2023 07:37:19 08/08/19 24 08/13/2023 ALLER GENS, ZONE 5 Q361-SlG maple/box elder <0.10 kU/L class 0 Not Available [facility] ([place] [facility]) [address], [place], [address], 08/13/2023 07:37:19 08/08/19 24 08/13/2023 ALLER GENS, ZONE 5 B826-EcC cypress, sammarinese <0.10 kU/L class 0 Not Available [facility] ([place] [facility]) [address] [facility], [place], [address], 08/13/2023 07:37:19 08/08/19 24 08/13/2023 ALLER GENS, ZONE 5 P528-TbT pepper tree <0.10 kU/L class 0 Not Available [facility] ([place] [facility]) [address] [facility], [place], [address], 08/13/2023 07:37:19 08/08/19 24 08/13/2023 ALLER GENS, ZONE 5 Z531-HfW oak, live/virgini a <0.10 kU/L class 0 Not Available [facility] ([place] [facility]) [address] [facility], [place], [address], 08/13/2023 07:37:19 08/08/19 24 08/13/2023 ALLER GENS, ZONE 5 I292-RmO privet, common <0.10 kU/L class 0 Not Available [facility] ([place] [facility]) [address], [place], [address], 08/13/2023 07:37:19 08/08/19 24 08/13/2023 ALLER GENS, ZONE 5 M860-ImY bayberry/swe et gale <0.10 kU/L class 0 Not Available [facility] ([place] [facility]) [address], [place], [address], 08/13/2023 07:37:19 08/08/19 24 08/13/2023 ALLER GENS, ZONE 5 L477-RqF palm, bobby <0.10 kU/L class 0 Not Available [facility] ([place] [facility]) [address], [place], [address], 08/13/2023 07:37:19 08/08/19 24 08/13/2023 ALLER GENS, ZONE 5 V884-KxV ragweed, short <0.10 kU/L class 0 Not Available [facility] ([place] [facility]) [address], [place], [address], 08/13/2023 07:37:19 08/08/19 24 08/13/2023 ALLER GENS, ZONE 5 D541-JiN plantain, danish <0.10 kU/L class 0 Not Available [facility] ([place] [facility]) [address], [place], [address], 08/13/2023 07:37:19 08/08/19 24 08/13/2023 ALLER GENS, ZONE 5 L281-EaF davis's quarters <0.10 kU/L class 0 Not Available [facility] ([place] [facility]) [address], [place], [address], 08/13/2023 07:37:19 08/08/19 24 08/13/2023 ALLER GENS, ZONE 5 G810-HbQ sheep sorrel <0.10 kU/L class 0 Not Available [facility] ([facility]) [address] [facility], [place], [address], 08/13/2023 07:37:19 08/08/19 24 08/13/2023 ALLER GENS, ZONE 5 T248-KwN fennel, dog <0.10 kU/L class 0 Not Available [facility] ([facility]) [address] [facility], [place], [address], 08/13/2023 07:37:19 08/08/19 24 08/13/2023 ALLER GENS W/TOT AL IGE AREA 8 immunoglobul in E, total 6 IU/mL 6-495 Not Available [facility]) [address] [place], [address], 08/13/2023 07:37:20 08/08/19 24 08/13/2023 ALLER GENS W/TOT AL IGE AREA 8 n100-CeO adriano grass <0.10 kU/L class 0 Not Available [facility] ([facility]) [address] [facility], [place], [address], 08/13/2023 07:37:20 08/08/19 24 08/13/2023 ALLER GENS W/TOT AL IGE AREA 8 D475-GaJ cockroach, divehi <0.10 kU/L class 0 Not Available [facility] ([place] [facility]) [address] [facility], [place], [address], 08/13/2023 07:37:20 08/08/19 24 08/13/2023 ALLER GENS W/TOT AL IGE AREA 8 R219-BlP cedar, mountain <0.10 kU/L class 0 Not Available [facility] ([place] [facility]) [address] [place], [address], 08/13/2023 07:37:20 08/08/19 24 08/13/2023 ALLER GENS W/TOT AL IGE AREA 8 W761-StZ oak, white <0.10 kU/L class 0 Not Available [facility] ([place] [facility]) [address], [place], [address], 08/13/2023 07:37:20 08/08/19 24 08/13/2023 ALLER GENS W/TOT AL IGE AREA 8 M392-ZlE maple leaf sycamore <0.10 kU/L class 0 Not Available [facility] ([place] [facility]) [address], [place], [address], 08/13/2023 07:37:20 08/08/19 24 08/13/2023 ALLER GENS W/TOT AL IGE AREA 8 E769-NkO cottonwood <0.10 kU/L class 0 Not Available [facility] ([place] [facility]) [address], [place], [address], 08/13/2023 07:37:20 08/08/19 24 08/13/2023 ALLER GENS W/TOT AL IGE AREA 8 C717-AeM chase, white <0.10 kU/L class 0 Not Available [facility] ([place] [facility]) [address], [place], [address], 08/13/2023 07:37:20 08/08/19 24 08/13/2023 ALLER GENS W/TOT AL IGE AREA 8 T305-VjM walnut <0.10 kU/L class 0 Not Available [facility] ([place] [facility]) [address], [place], [address], 08/13/2023 07:37:20 08/08/19 24 08/13/2023 ALLER GENS W/TOT AL IGE AREA 8 R080-HzN pecan, hickory <0.10 kU/L class 0 Not Available [facility] ([place] [facility]) [address], [place], [address], 08/13/2023 07:37:20 08/08/19 24 08/13/2023 ALLER GENS W/TOT AL IGE AREA 8 K602-KvG white mulberry <0.10 kU/L class 0 Not Available [facility] ([facility]) [address] [place], [address], 08/13/2023 07:37:20 08/08/19 24 08/13/2023 ALLER GENS W/TOT AL IGE AREA 8 U383-RxL thistle, algerian <0.10 kU/L class 0 Not Available [facility] ([facility]) [address] [place], [address], 08/13/2023 07:37:20 08/08/19 24 08/13/2023 ALLER GENS W/TOT AL IGE AREA 8 B246-RuO pigweed, common <0.10 kU/L class 0 Not Available [facility] ([facility]) [address] [place], [address], 08/13/2023 07:37:20 08/08/19 24 08/13/2023 ALLER GENS W/TOT AL IGE AREA 8 I669-RgM rough marshelder <0.10 kU/L class 0 Not Available [facility] ([facility]) [address] [place], [address], 08/13/2023 07:37:20 08/08/19 24 08/13/2023 ALLER GENS W/TOT AL IGE AREA 8 U158-MoX mouse urine <0.10 kU/L class 0 Not Available [facility] ([facility]) [address] [place], [address], 08/13/2023 07:37:20 08/08/19 24 08/13/2023 FOOD ALLER GY PROFI LE G781-XvA egg white <0.10 kU/L class 0 Not Available [facility] ([facility]) [address] [place], [address], 08/13/2023 07:37:21 08/08/19 24 08/13/2023 FOOD ALLER GY PROFI LE A652-ZnZ peanut <0.10 kU/L class 0 Not Available [facility] ([facility]) [address] [facility], [place], [address], 08/13/2023 07:37:21 08/08/19 24 08/13/2023 FOOD ALLER GY PROFI LE I093-ItN soybean <0.10 kU/L class 0 Not Available [facility] ([facility]) [address] [facility], [place], [address], 08/13/2023 07:37:21 08/08/19 24 08/13/2023 FOOD ALLER GY PROFI LE O561-AbU milk <0.10 kU/L class 0 Not Available [facility] ([facility]) [address] [place], [address], 08/13/2023 07:37:21 08/08/19 24 08/13/2023 FOOD ALLER GY PROFI LE X003-VxT clam <0.10 kU/L class 0 Not Available [facility] ([facility]) [address] [place], [address], 08/13/2023 07:37:21 08/08/19 24 08/13/2023 FOOD ALLER GY PROFI LE F990-HgS shrimp <0.10 kU/L class 0 Not Available [facility] ([facility]) [address] [place], [address], 08/13/2023 07:37:21 08/08/19 24 08/13/2023 FOOD ALLER GY PROFI LE D113-EsL walnut <0.10 kU/L class 0 Not Available [facility] ([facility]) [address] [place], [address], 08/13/2023 07:37:21 08/08/19 24 08/13/2023 FOOD ALLER GY PROFI LE V547-RkC codfish <0.10 kU/L class 0 Not Available [facility] ([facility]) [address] [place], [address], 08/13/2023 07:37:21 08/08/19 24 08/13/2023 FOOD ALLER GY PROFI LE Y203-RgB scallop <0.10 kU/L class 0 Not Available [facility] ([facility]) [address] [facility], [place], [address], 08/13/2023 07:37:21 08/08/19 24 08/13/2023 FOOD ALLER GY PROFI LE P555-RzR wheat <0.10 kU/L class 0 Not Available [facility] ([facility]) [address] [facility], [place], [address], 08/13/2023 07:37:21 08/08/19 24 08/13/2023 FOOD ALLER GY PROFI LE P997-UoM corn <0.10 kU/L class 0 Not Available [facility] ([facility]) [address] [facility], [place], [address], 08/13/2023 07:37:21 08/08/19 24 08/13/2023 FOOD ALLER GY PROFI LE Z737-SfX sesame seed <0.10 kU/L class 0 Not Available [facility] ([facility]) [address] [place], [address], 08/13/2023 07:37:21 03/18/20 23 03/17/2023 MAMMO , scree luda, bilat eral No observ ation record ed. [email or web address] [facility] [address], [place], [address], 03/20/2023 14:29:35 10/03/19 24 09/30/2023 katina can cardi olite stres s test (PROC ) No observ ation record ed. [email or web address] [facility] [address], [place], [address], 10/10/2023 09:00:53 10/03/19 24 09/30/2023 [place], echoc ardio gram No observ ation record ed. [address], [place], [place], [address], 10/10/2023 09:00:32 10/05/19 24 09/30/2023 NM, myoca rdial perfu roxanna scan No observ ation record ed. [address], [place], [place], [address], 10/10/2023 09:00:15 11/16/19 24 11/15/2023 US, thyro id No observ ation record ed. [facility] [address], [place], [address], 12/14/2023 08:56:06 Result Notes None recorded. Problems Name Problem SNOMED Code Status Onset Date Resolution Date Notes Provider Name and Address Organization Details Recorded Time Gastroesop hageal reflux disease 237649387 Active 2020 Laurie Whitt APRN [address], [place], [address], [place] - [facility] 15:36:37 Hypothyroi dism 98188812 Active 2020 Laurie Whitt APRN [address], [place], [address], [place] [facility] 22:06:13 Hypertensi ve disorder 33373892 Active 2020 Laurie Whitt APRN [address], [place], [address], [place] [facility] 4 22:06:10 Hyperlipid emia 39105537 Active 2020 Laurie Whitt APRN [address], [place], [address], [place] - [facility] 4 22:06:08 Thyroid nodule 733371835 Active 2020 stable on ULS 11/24 Lauriesara Whitt APRN [address], [place], [address], [place] [facility] 4 08:56:25 History of cerebrovas cular accident 548233044 Active 2020 Lauriesara Whitt APRN [address], [place], [address] [facility] 4 22:06:06 Fibromyalg ia 259442814 Active 2020 Lauriesara Whitt APRN [address], [place], [address] [facility] 15:36:12 Neuropathy 885242180 Active 2020 Lauriesara Whitt APRN [address], [place], [address] [facility] 4 22:06:20 Genital lichen sclerosus 886283736 Active 2021 Lauriesara Whitt APRN [address], [place], [address] [facility] 15:36:17 Acute bronchitis 78400426 Completed 202103/22/2022 Lauriesara Whitt APRN [address], [place], [address] [facility] 23:17:26 Vitamin D deficiency 26265609 Active 2021 Laurie Whitt APRN [address], [place], [address] [facility] 4 22:06:39 Postmenopa usal bleeding 78101928 Completed 202112/08/2023 Laurie Whitt APRN [address], [place], [address] [facility] 4 22:06:27 Body mass index 30+ - obesity 573466846 Active 2021 Laurie Whitt APRN [address], [place], [address] [facility] 4 22:06:03 Stenosis of cervix 43290107 Active 2021 Laurie Whitt APRN [address], [place], [address], [place] [facility] 4 22:06:30 Postcoital bleeding 85384796 Completed 202112/08/2023 Laurie Whitt APRN [address], [place], [address], [place] [facility] 4 22:06:24 Streptococ joseph sore throat 16472593 Completed 202212/08/2023 Laurie Whitt APRN [address], [place], [address], [place] [facility] 4 22:06:34 Acute urinary tract infection 961137137 Completed 202212/08/2023 Laurie Whitt APRN [address], [place], [address], [place] [facility] 4 22:05:59 Itching of skin 782502871 Completed 202312/08/2023 Laurie Whitt APRN [address], [place], [address], [place] [facility] 4 22:06:17 Problem [...] Anaya Castro APRN [address], [place], [address], [place] [facility] 11:24:00 04/12 Date of Last Pap Smear completed Anaya Castro, [employer]AD [address], [place], [address], [place] [facility] 2 13:12:36 01/15 Date of Last Mammogram completed Laurie Jose Eduardo, [employer]AD [address], [place], [address], [place] [facility] 2 20:52:55 07/06 Advance [...] 14:15:09 Breast Cystectomy completed Laurie Jose Eduardo, PROC[employer]AD [address], [place], [address], [place] [facility] 2 09:44:49 cryosurgery completed [...] Name and Address Organization Details Recorded Time 812185 Toradol medicatio n hives Not available Not available 06/05/2021 81882 RxNorm Kaci bee, [place] - [facility] 2 16:01:34 218209 Iodinated contrast media (substanc e) medicatio n Not available Not available Not available 06/05/2021 17798 2004 SNOMED Kaci bee, [place] - [facility] 2 16:01:32 261358 Jardiance medicatio n dyspnea Not available Not available 10/26/2023 30508 59 RxNorm jitte ry/so b-sto pped by vidal sweeney Laurie Garcíaall, PROC[employer] LEAD [address], [place], [address], [place] [facility] 4 16:48:50 Medications [...] Updated DateTime 4 167.64 cm 35.9 kg/m2 475037. 61 g 97.7 [degF] 63 /min 97 % 97 % 18 /min 0 122/68 mm[Hg] [facility] 4 15:51:37 Date Recorded Body height Body mass index (BMI) Body weight Body temperature Heart rate Oxygen saturation Oxygen saturation in Arterial blood by Pulse oximetry Respiratory rate Pain severity - 0-10 verbal numeric rating [Score] - Reported Systolic And Diastolic Provider Name and Address Organization Details Last Updated DateTime 4 167.64 cm 35.7 kg/m2 501152. 91 g 98 [degF] 64 /min 98 % 98 % 18 /min 0 108/62 mm[Hg] Kia Castillo [place] - [facility] 4 16:15:28 Date Recorded Body height Body mass index (BMI) Body weight Body temperature Heart rate Oxygen saturation Oxygen saturation in Arterial blood by Pulse oximetry Systolic And Diastolic Provider Name and Address Organization Details Last Updated DateTime 3 167.64 cm 35.7 kg/m2 532615. 91 g 97.6 [degF] 60 /min 97 % 97 % 118/72 mm[Hg] Candida Ochoa [facility] 3 14:59:17 Date Recorded Body height Body mass index (BMI) Body weight Body temperature Heart rate Oxygen saturation Oxygen saturation in Arterial blood by Pulse oximetry Respiratory rate Pain severity - 0-10 verbal numeric rating [Score] - Reported Systolic And Diastolic Provider Name and Address Organization Details Last Updated DateTime 3 167.64 cm 35.5 kg/m2 75536.3 2 g 97.8 [degF] 51 /min 98 % 98 % 18 /min 0 124/70 mm[Hg] Kia Castillo [facility] 3 08:57:12 Date Recorded Body height Body mass index (BMI) Body weight Body temperature Heart rate Oxygen saturation Oxygen saturation in Arterial blood by Pulse oximetry Respiratory rate Pain severity - 0-10 verbal numeric rating [Score] - Reported Systolic And Diastolic Provider Name and Address Organization Details Last Updated DateTime 3 167.64 cm 35 kg/m2 29264.2 4 g 98 [degF] 94 /min 96 % 96 % 20 /min 0 126/78 mm[Hg] Lisette Zarate [facility] 3 11:18:49 Social History Question Answer Notes LastModified by Organizat ion Details LastModified Time Tobacco Smoking Status Former Smoker Jake bestclifford bee [facility] 06/05/2021 14:16:38 Do You Have An Advance Directive? No [email or web address] Information not available 04/12/2022 Are You Blind Or Do You Have Difficulty Seeing? No [email or web address] Information not available 04/12/2022 Is Blood Transfusion Acceptable In An Emergency? Yes [email or web address] Information not available 04/12/2022 What Is Your Level Of Caffeine Consumption? Moderate [email or web address] Information not available 04/12/2022 How Much Tobacco Do You Chew? None [email or web address] Information not available 04/12/2022 In The 14 Days Before Symptom Onset, Have You Had Close Contact With A Laboratory-confir med COVID-19 While That Case Was Ill? No [email or web address] Information not available 06/17/2022 In The 14 Days Before Symptom Onset, Have You Had Close Contact With A Person Who Is Under Investigation For COVID-19 While That Person Was Ill? No [email or web address] Information not available 06/17/2022 Have You Been To An Area Known To Be High Risk For COVID-19? No Information not available 06/17/2022 Are You Deaf Or Do You Have Serious Difficulty Hearing? No Information not available 06/05/2021 What Type Of Diet Are You Following? REGULAR [email or web address] Information not available 04/12/2022 Which Illicit Or Recreational Drugs Have You Used? None [email or web address] Information not available 04/12/2022 Have You Processed Blood Or Body Fluids From An Ebola Virus Disease Patient Without Appropriate PPE? No [email or web address] Information not available 06/17/2022 Do You Reside In Or Have You Traveled To An Area Where Ebola Virus Transmission Is Active? No [email or web address] Information not available 06/17/2022 What Is The Highest Grade Or Level Of School You Have Completed Or The Highest Degree You Have Received? [id number] [email or web address] Information not available 04/12/2022 Have There Been Any Changes To Your Family Or Social Situation? No [email or web address] Information no t available 06/17/2022 What Is The Fluoride Status Of Your Home? Fluoridated [email or web address] Information not available 06/17/2022 When Did You Quit Smoking? 16+yearssincelast cigarette 1998 Information not available 06/05/2021 Have You Recently Or Are You Planning To Travel To An Area With Zika Virus? No [email or web address] Information not available 06/17/2022 How Many Years Have You Used Illicit Or Recreational Drugs? 0 [email or web address] Information not available 04/12/2022 Do You Have A Medical Power Of Wind Energy Engineer? No [email or web address] Information not available 06/17/2022 What Was The Date Of Your Most Recent Tobacco Screening? 08/08/2023 [email or web address] Information not available 08/08/2023 How Many Children Do You Have? 3 Information not available 06/05/2021 What Is Your Current Pack Years? 20-29packyears [email or web address] Information not available 12/27/2022 Do You Use Protection During Sex? No [email or web address] Information not available 04/12/2022 Do You Use Protection Against STDs? No [email or web address] Information not available 06/17/2022 What Is Your Relationship Status? Information not available 06/05/2021 Do You Use Your Seat Belt Or Car Seat Routinely? Yes [email or web address] Information not available 04/12/2022 Are You Sexually Active? Yes [email or web address] Information not available 04/12/2022 Do You Have Smoke And Carbon Monoxide Detectors In Your Home? Yes [email or web address] Information not available 04/12/2022 At What Age Did You Start Smoking Tobacco? 13 Information not available 04/12/2022 Are You Passively Exposed To Smoke? No [email or web address] Information no t available 04/12/2022 How Much Tobacco Do You Smoke? 1 PPD [email or web address] Information not available 04/12/2022 Do You Use Sunscreen Routinely? Yes [email or web address] Information not available 04/12/2022 Has Tobacco Cessation Counseling Been Provided? Yes [email or web address] Information not available 08/08/2023 On What Date Was Tobacco Cessation Counseling Provided? 08/08/2023 Information not available 08/08/2023 How Many Years Have You Smoked Tobacco? 21 [email or web address] Information not available 04/12/2022 Do You Have Difficulty Walking Or Climbing Stairs? No [email or web address] Information not available 04/12/2022 What Contraceptive Method Was Reported At Start Of This Visit? Female Sterilization [email or web address] Information not available 06/17/2022 What Contraceptive Method Was Reported At End Of This Visit? Female Sterilization [email or web address] Information not available 06/17/2022 Do You Want To Talk About Contraception Or Prevention During Your Visit Today? No - I Do Not Want To Talk About Contraception Today Because I Am Here For Something Else [email or web address] Information not available 06/17/2022 How Was The Contraceptive Method Provided? Provided On Site [email or web address] Information no t available 06/17/2022 Do You Have Any Future Plans To Get ? No, I Don't Want To Become [email or web address] Information not available 06/17/2022 Sex: Female Functional Status Question Answer Note LastModified by Organizat ion Details LastModified Time Do you or have you ever used smokeless tobacco? Never used smokeless tobacco [email or web address] Information not available 04/12/2022 Are you currently employed? No [email or web address] Information not available 04/12/2022 Do you have transportation difficulties? No Information not available 04/12/2022 Are you able to care for yourself independently? Yes Information not available 06/05/2021 Do you have difficulty dressing, bathing, grooming, or toileting? No [email or web address] Information not available 04/12/2022 Do you or have you ever used e-cigarettes or vape? Never used electronic cigarettes [email or web address] Information not available 04/12/2022 What is your exercise level? Moderate Information not available 04/12/2022 Do you use any illicit or recreational drugs? No [email or web address] Information not available 04/12/2022 Do you or have you ever used any other forms of tobacco or nicotine? No [email or web address] Information not available 04/12/2022 What is your level of alcohol consumption? None Information not available 06/05/2021 What is your status? Not [email or web address] Information no t available 06/17/2022 Are you able to walk independently without assistance or assistive devices? YESWOREST [email or web address] Information not available 04/12/2022 Do you have difficulty doing errands alone? 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 disable [email or web address] Information not available 04/12/2022 Mental Status Question Answer Note LastModified by Organizat ion Details LastModified Time Do you feel stressed (tense, restless, nervous, or anxious, or unable to sleep at night)? [id number] [email or web address] Information not available 04/12/2022 Do you have difficulty concentrating, remembering or making decisions? No [email or web address] Information no t available 04/12/2022 Family History Relationship Description Onset Age of this Age Resolved Age Notes LastModified by Organization Details LastModified Time Son Epilepsy [email or web address] Not availabl e 04/12/2022 16:01:10 Mother Malignant neoplasm of lung [email or web address] Not available 2021 16:01:10 Mother Malignant neoplasm of pancreas [email or web address] Not available 2023 15:33:53 Maternal Aunt Malignant neoplasm of breast 52 [email or web address] Not available 2021 16:01:11 Paternal Aunt Malignant neoplasm of breast [email or web address] Not available 2021 16:01:11 Medical History Condition Response Heart Problems Y Obesity Y Arthritis Y Acid Reflux (GERD) Y Stroke Y Thyroid Problems Y Hypercholesterolemia Y Neuropathy Y Fibromyalgia Y Headaches Y Hypertension Y Gynecological History Statement/Question Response [...] virus, quadrivalent, preservative 2 completed Anaya Castro, PROCESS LEAD [address], [place], [address] [place] [facility] 04/14/2022 10:51:11 Tdap 6 [...] ICD10 Code Diagnosis IMO Codes Diagnosis Note [id number] Laurie Whitt [place] [address] [place] [address] 06/05/2021 13:52:35 06/05/2021 14:49:47 History of bilateral total knee replacement [id number] 509853 Z96.653 Osteoarthritis 390032315 M19.90 [id number] Laurie Whitt [facility] [address] [place] [address] 07/06/2021 09:16:25 07/06/2021 10:39:29 Adult health examination 740474526 Z00.00 Depression screening 171 925332 Z13.89 Examinatio n of blood pressure 931580115 Z01.30 Diet education 39208640 Z71.3 Counseling 848919331 Z71 .82 Exercise counseling . Patient encouraged to exercise 30 minutes 5 days a week. At [facility] risk for falls 953261880 Z91.81 STEADI FAST screening score of . Advance care planning 71 9980368 Z71.89 Finding of body mass index 175528058 E66.9 Osteoarthritis 543389709 M19.90 Fibromyalgia 245223435 M 79.7 Hypothyroidism 77804534 E03.9 Gastroesop hageal reflux disease 146783761 K21.9 Hyperlipidemia 97161260 E78.5 Hypertensive disorder 38 682486 I10 Immunization due 3746650 08 Z28.3 Screening for malignant neoplasm of skin 619802804 Z12.83 [id number] Laurie Whitt PROCESS LEAD [facility] [address] [place] [address] 09/04/2021 15:52:24 09/04/2021 16:58:11 Suspected COVID-19 296933246 Z20.822 Hypertensive disorder 38 098129 I10 Genital li holder sclerosus 555022112 L90.0 Acute bact erial sinusitis 98634826 J01.90 Persistent cough 4652850 02 R05.3 [id number] Lynn William PROCESS LEAD [facility] [address] [place] [address] 10/06/2021 14:28:02 10/06/2021 15:22:04 Senile hyperkeratosis 374153543 L82.1 offered reassuranc e Melanocytic nevus 557360 001 D22.9 offered reassuranc e regarding benign clinical appearance [id number] Ramana Persaud MD [address] [place] [address] 12/08/2021 11:11:37 12/08/2021 12:55:01 Upper respiratory infection 15533827 J06.9 Fibromyalgia 931781323 M 79.7 Acute bronchitis 0094545 2 J20.9 [id number] Clau Thomas [address] [place] [address] 12/17/2021 12:52:57 12/17/2021 13:36:32 Cough 20703257 R05.1 Acute sinusitis 23624927 J01.90 Acute bila teral otitis media 959210095 H66.93 [id number] Laurie Whitt [address] [place] [place] [address] 02/12/2022 13:52:24 02/12/2022 15:47:28 Neuropathy 525126205 G62.9 Fibromyalgia 382597152 M 79.7 Long-term drug therapy 199827712 Z79.899 Body mass index 30+ - obesity 659074360 Z68.36 Obesity 881407930 E66.3 Postmenopa usal bleeding 12446455 N95.0 episode 02/2022 Polyuria 81471375 R35.81 [id number] Anaya Castro [facility] [address] [place] [address] [place] [address] 04/12/2022 15:31:57 04/12/2022 16:48:36 Routine gynecologic examination done 7773503387 9101 Z01.419 Depression screening 171 579625 Z13.89 PHQ-9 completed today. Diet education 23069063 Z71.3 Counseling 834643186 Z71 .82 Exercise counselmary gottlieb of blood pressure 498375827 Z01.30 Screening for malignant neoplasm of cervix 509508535 Z12.4 Screening for malignant neoplasm of breast 672308939 Z12.31 up to date; ordered by PCP Administra tion of influenza vaccine 46026006 Z23 Hypertensive disorder 38 058492 I10 Postmenopa usal bleeding 84133929 N95.0 Genital li holder sclerosus 066784554 L90.0 Body mass index 30+ - obesity 933683068 Z68.[id number] Wh[address] [place] [address] 02/22/2022 16:12:17 02/23/2022 08:56:55 Urine culture - E. coli 348455988 R82.71 Fever 028709984 R50.9 [id number] Laurie Whitt[address] [place] [address] 03/22/2022 14:05:31 03/22/2022 15:53:12 Recurrent urinary tract infection 222256815 N39.0 Body mass index 30+ - obesity 584527095 Z68.36 Obesity 624782225 E66.3 History of postmenopausal bleeding 796767194 Z87.42 Fatigue 73810599 R53.83 [id number] Laurie Whitt[address] [place] [address] 03/29/2022 14:49:50 03/29/2022 16:53:27 Dysuria 01032936 R30.0 Gastroesop hageal reflux disease 926669241 K21.9 Fibromyalgia 288247117 M 79.7 Fall on sa me level from stumbling 960006124 W01.10XA Traumatic hematoma 81895 9004 T14.8XXA right elbow [id number] Laurie Whitt[address] [place] [address] 06/09/2022 10:40:25 06/09/2022 11:59:39 Influenza-like illness 32891569 B34.9 Body mass index 30+ - obesity 686643509 Z68.36 Obesity 936348142 E66.3 Long-term drug therapy 170181069 Z79.899 Acute bact erial sinusitis 96308884 J01.90 Fibromyalgia 764556906 M 79.7 [id number] Anaya Castro APRN [facility] [address] [place] [address] [place] [address] 06/17/2022 08:20:16 06/17/2022 10:05:00 Postmenopausal bleeding 52087937 N95.0 Stenosis of cervix 71281 006 N88.2 Postcoital bleeding 4888 0000 N93.0 [id number] Abeba Lorenzana MD [facility] [address] [place] [address] JO[place] Hendricks [address] 07/12/2022 10:47:26 07/12/2022 12:35:14 Postmenopausal bleeding 01051572 N95.0 Postcoital bleeding 4888 0000 N93.0 Postcoital bleeding x3 months. No ongoing spontaneou s bleeding. Grossly normal pelvic ultrasound with thin endometria l stripe but unable to cannulate for endometria l biopsy Stenosis of cervix 52557 006 N88.2 Noted per attempted cannulatio n for endometria l biopsy per Anaya Pre-surger y evaluation 702231138 Z01.818 History of endometrial ablation 8231483092 41501 N99.85 [id number] Clau Thomas APRN [facility] [address] [place] [address] 09/09/2022 15:59:34 09/14/2022 14:57:56 Pharyngitis 449711506 J02.9 Streptococ joseph sore throat 87049076 J02.0 Bradycardia 38602096 R00 .1 EKG performed in office. Sinus rhythm with left bundle branch block. Results discussed with patient in office. Advised patient to f/u with cardiologi st (Dr. Sneed) as soon as possible. Educated patient on when to seek immediate medical care in the ED. Patient verbalized understand ing. [id number] [facility]ie [facility] [address] [place], [place] [address] [place] [address] 12/27/2022 08:22:25 12/27/2022 11:17:45 Adult health examination 112235891 Z00.00 Depression screening 171 950920 Z13.31 Examinatio n of blood pressure 032132542 Z01.30 Diet education 97286086 Z71.3 Counseling 493209829 Z71 .82 Exercise counseling . Patient encouraged to exercise 30 minutes 5 days a [address] [facility] ed risk for falls 482194090 Z91.81 STEADI FAST screening score of _3____. Advance care planning 71 6760536 Z71.89 Body mass index 30+ - obesity 373721198 Z68.37 Obesity 670945340 E66.9 Screening for malignant neoplasm of colon 467231692 Z12.11 Hyperlipidemia 83900090 E78.5 Hypertensive disorder 38 098391 I10 Hypothyroidism 81280682 E03.9 Vitamin D deficiency 347 08777 E55.9 Itching of skin 34129492 0 L29.9 Gastroesop hageal reflux disease 447931209 K21.9 [id number] Laurie [facility]itt [facility] [address] [place], [place] [address] [place] [address] 02/14/2023 12:57:12 02/14/2023 14:55:06 Vitamin D deficiency 46087593 E55.9 Screening for malignant neoplasm of colon 271549498 Z12.11 Fibromyalgia 456315194 M 79.7 Hyperlipidemia 29240651 E78.5 Acute bact erial sinusitis 79507009 J01.90 Body mass index 30+ - obesity 954913040 Z68.37 Obesity 763718617 E66.9 [id number] Rach Duenas MS, RDN, LDN [facility] [address] [place] [address] [place] [address] 02/21/2023 08:58:24 02/21/2023 10:30:20 Hyperlipidemia 18408383 E78.5 [id number] Laurie Whitt [address] [place] [address] 03/08/2023 11:12:02 03/08/2023 13:29:08 Atopic dermatitis 90374576 L20.9 [id number] Harjeet Little PA-C [address] [place] [address] 04/13/2023 14:52:34 04/13/2023 15:23:47 Pharyngitis 879651129 J02.9 Acute urin karuna tract infection 013336948 N39.0 check culture Streptococ joseph sore throat 77507236 J02.0 Discussed supportive care with patient. Advised [...] treatment. use augmentin given concern for UTI [id number] Laurie Whitt [address] [place] [address] 05/17/2023 08:31:31 05/17/2023 11:28:31 Hypothyroidism 46237132 E03.9 Itching of skin 29599218 0 L29.9 [id number] Clau Thomas [address] [place] [address] 06/16/2023 11:13:40 06/16/2023 11:52:03 Acute bronchitis 05552106 J20.9 [id number] Laurie Whitt [address] [place] [address] 08/08/2023 15:33:02 08/08/2023 16:27:59 Body mass index 30+ - obesity 559560208 Z68.35 Obesity 846000008 E66.9 Viral screening 25812305 4 Z11.59 Itching of skin 33292713 0 L29.9 Hypothyroidism 13354665 E03.9 [id number] Laurie Whitt APRN [facility] [address] [place] [place] [address] 10/26/2023 15:39:47 10/26/2023 16:49:22 Body mass index 30+ - obesity 263438632 Z68.35 Obesity 088389176 E66.9 Under care of e m assembler 404883821 Z76.89 Dr. Sneed, angiograph y on 10/20/23, normal findings Health Concerns Section Related Observation LastModified by Organization Detai ls LastModified Time None Recorded Concern Status LastModified by Organization Details LastModified Time None Recorded Advance Directives Directive N: Payers Insurance Date Sequence Insurance Name Policy Number Policy Hickman Covered Member ID Hickman Member ID Guarantor Name 12/12/2023 1 [employer] (MEDICARE REPLACEMENT/ ADVANTAGE - HMO) [id number] Anastasia Romero [id number] Anastasia Romero 06/05/2021 1 AETNA [facility] ON OR AFTER 06/03/2020 (MEDICARE REPLACEMENT/ ADVANTAGE - HMO) Anastasia Romero [id number] Anastasia Romero 10/30/2021 2 AETNA BETTER HEALTH - [place] (MEDICAID HMO) Anastasia Romero [id number] Anastasia Romero 10/23/2023 [place] [facility] [place] [id number] Anastasia Romero [id number] Anastasia Romero 12/12/2023 2 [place] - FFS/TRADITIO NAL Anastasia Romero [id number] Anastasia Romero Notes Date Note Type Note [...] concerns. Harjeet Little PA-C [address], [place], [address], [facility] - [facility] 04/13/2023 15:28:08 05/17/2023 [...] illness Laurie Whitt APRN [address], [place], [address], [facility] - [facility] 05/17/2023 22:05:47 06/16/2023 text/html ROS as noted in the HPI Patient presents with c/o cough and chest congestion x 1 week. Patient reports cough is sometimes productive. Patient reports she been taking Bromfed with no benefit. Denies fever, nasal congestion, n/v/d, SoB, chest pain, and sore throat. Clau Thomas APRN [address], [place], [address], [facility] - [facility] 07/05/2023 13:40:50 08/08/2023 [...] illness Laurie Whitt APRN [address], [place], [address], [facility] - [facility] 08/14/2023 21:41:22 10/26/2023 [...] and denies any febrile episode Laurie Whitt, PROCESS LEAD [address], [place], [address], [place] [facility] 12/08/2023 22:07:55 OBGyn Episode No OBEpisode recorded.
--- OUTSIDE RECORDS SUMMARY | 2025-05-22 15:31 | XMS_ITS | Encounter Summary ---
Author Organization [employer] ([place], [place], [place], [place], [place]) Address [address] [place] [address] Care Team Providers Care Sealing Machine Operator Name Role Phone Unavailable Primary Care Provider Unavailabl e Encounter Details Date Type Department Care Team (Late st Contact Info) Description 08/28/2018 Transcribed Document [facility] Family Medicine [address] [place] [address] ProviderLisbet MD [address] [place] [address] Social History Tobacco Use Types Packs/Day Years Used Date Smoking Tobacco: Never Assessed Comments Unknown Sex and Gender Information Value Date Recorded Sex Assigned at Not on file Legal Sex Female 3:31 PM CDT Gender Identity Not on file Sexual Orientation Not on file documented as of this encounter Miscellaneous Notes * [employer] Conversion Note - Historical ProviderMD - 08/28/2018 2:39 AM SCHOOL ADMINISTRATOR Spiritual Care Short Form Entered On: 08/28/2018 2:40 EST Performed On: 08/28/2018 2:39 EST by WALLY DORSEY Chaplain General Information, Spiritual Care Spiritual Care Referred by : Nurse Reason for Visit : Initial Ministry Provided to : Patient Intervention/Comment/Summary Points : While rounding RN mentioned patient was rather anxious earlier in shift. Door closed and queit within. Director Market Intelligence prayed silently o/s pt. room. Summary/Next Steps Comment/Summary : Unknown WALLY DORSEY Chaplain - 08/28/2018 2:39 EST documented in this encounter Plan of Treatment Not on file documented as of this encounter Visit Diagnoses Not on filedocumented in this encounter
--- OUTSIDE RECORDS SUMMARY | 2025-05-22 15:31 | XMS_ITS | Encounter Summary ---
Author Organization [employer] ([place], [place], [place], [place], [place]) Address [address] [place] [address] Care Team Providers Care Die Keeper Name Role Phone Unavailable Primary Care Provider Unavailabl e Encounter Details Date Type Department Care Team (Late st Contact Info) Description 08/28/2018 Transcribed Document [facility] Family Medicine [address] [place] [address] ProviderLisbet MD [address] [place], [place] [id number] Social History Tobacco Use Types Packs/Day Years Used Date Smoking Tobacco: Never Assessed Comments Unknown Sex and Gender Information Value Date Recorded Sex Assigned at Not on file Legal Sex Female 3:31 PM CDT Gender Identity Not on file Sexual Orientation Not on file documented as of this encounter Miscellaneous Notes * Cerner Conversion Note - Historical ProviderMD - 08/28/2018 5:00 AM ONCOLOGY NURSE Chart Check - Review Order Profile Entered On: 08/28/2018 3:14 EST Performed On: 08/28/2018 5:00 EST by Susana Brannon RN Chart Check All Active Orders Reviewed : Yes Susana Brannon RN - 08/28/2018 3:14 EST Electronically signed by Mikael [facility] Conversion Automotive Electrical Helper Cerner at 10/19/2022 9:46 AM CDT documented in this encounter Plan of Treatment Not on file documented as of this encounter Visit Diagnoses Not on filedocumented in this encounter
--- OUTSIDE RECORDS SUMMARY | 2025-05-22 15:31 | XMS_ITS | Encounter Summary ---
Author Organization [employer] ([place], [place], [place], [place], [place]) Address [address] [place] [address] Care Team Providers Care Crop Specialist Name Role Phone Unavailable Primary Care Provider Unavailabl e Encounter Details Date Type Department Care Team (Late st Contact Info) Description 08/28/2018 Transcribed Document [facility] [address] [place] [address] ProviderLisbet MD [address] [place], [place] [address] Social History Tobacco Use Types Packs/Day Years Used Date Smoking Tobacco: Never Assessed Comments Unknown Sex and Gender Information Value Date Recorded Sex Assigned at Not on file Legal Sex Female 3:31 PM CDT Gender Identity Not on file Sexual Orientation Not on file documented as of this encounter Miscellaneous Notes * Cerner Conversion Note - Historical ProviderMD - 08/28/2018 11:04 AM CONE CLEANER Pain Assessment Entered On: 08/28/2018 16:59 EST [...]
--- OUTSIDE RECORDS SUMMARY | 2025-05-22 15:31 | XMS_ITS | Encounter Summary ---
Author Organization [employer] ([place], [place], [place], [place], [place]) Address [address] [place] [address] Care Team Providers Care Airworthiness Inspector Name Role Phone Unavailable Primary Care Provider Unavailabl e Encounter Details Date Type Department Care Team (Late st Contact Info) Description 08/27/2018 Transcribed Document [facility] Family Medicine [address] [place] [address] ProviderLisbet MD [address] [place], [place] [address] Social History Tobacco Use Types Packs/Day Years Used Date Smoking Tobacco: Never Assessed Comments Unknown Sex and Gender Information Value Date Recorded Sex Assigned at Not on file Legal Sex Female 3:31 PM CDT Gender Identity Not on file Sexual Orientation Not on file documented as of this encounter Miscellaneous Notes * Cerner Conversion Note - Historical ProviderMD - 08/27/2018 10:20 PM HUB BORER Height and Weight, Routine Entered On: 08/27/2018 22:21 EST Performed On: 08/27/2018 22:20 EST by Susana Brannon RN Height and Weight, Routine Routine Weight Source : Standing scale Routine Weight Entry Format : [place] Routine Weight, Pounds : 220 lb Routine Weight Calculation : 100 kg Height Source : Stated Height Entry Format : [place] Height, Feet : 5 ft Height, Inches [...]
--- OUTSIDE RECORDS SUMMARY | 2025-05-22 15:31 | XMS_ITS | Encounter Summary ---
Author Organization [employer] ([place], [place], [place], [place], [place]) Address [address] [place] [address] Care Team Providers Care Research Anthropologist Name Role Phone Unavailable Primary Care Provider Unavailabl e Encounter Details Date Type Department Care Team (Late st Contact Info) Description 07/11/2018 Transcribed Document [facility] Family Medicine [address] [place] [address] ProviderLisbet MD [address] [place], [place] [address] Social History Tobacco Use Types Packs/Day Years Used Date Smoking Tobacco: Never Assessed Comments Unknown Sex and Gender Information Value Date Recorded Sex Assigned at Not on file Legal Sex Female 3:31 PM CDT Gender Identity Not on file Sexual Orientation Not on file documented as of this encounter Miscellaneous Notes * [employer]ner Conversion Note - Historical ProviderMD - 07/11/2018 9:08 AM ENTRY LEVEL MACHINE OPERATOR Event Note Entered On: 07/11/2018 9:11 EST [...] MAYELA BUCKLEY, RAJNI - 07/11/2018 9:08 EST Electronically signed by Silvano Youssef Conversion Pneumatic Systems Operator [employer] at 10/19/2022 10:01 AM CDT documented in this encounter Plan of Treatment Not on file documented as of this encounter Visit Diagnoses Not on filedocumented in this encounter
--- OUTSIDE RECORDS SUMMARY | 2025-05-22 15:31 | XMS_ITS | Encounter Summary ---
Author Organization [place] [address] Care Team Providers Care Noxious Weeds And Pest Inspector Name Role Phone Jose EduardoLaurie Ann RIVAS Primary Care Provider [phone] Reason for Visit * Reason Comments Medication Refill Encounter Details Date Type Department Care Team (Late st Contact Info) Description 04/01/2025 Refill [facility] [address] [place] [address] Danita Caballero PA [address] [place] [address] Medication Refill Social History Tobacco Use Types [...] on filedocumented in this encounter Care Teams Noxious Weeds And Pest Inspector Relationship Specialty Start Date End Date Laurie Whitt APRN [employer] [place] [address] PCP - General Nurse Practitioner 01/06/24 05/19/25 documented as of this encounter
--- OUTSIDE RECORDS SUMMARY | 2025-05-22 15:31 | XMS_ITS | Encounter Summary ---
Author Organization [employer] ([place], [place], [place], [place], [place]) Address [address] [place] [address] Care Team Providers Care Oil Analyst Name Role Phone Unavailable Primary Care Provider Unavailabl e Encounter Details Date Type Department Care Team (Late st Contact Info) Description 08/27/2018 Transcribed Document [facility] [place] Family Medicine [address] [place] [address] ProviderLisbet MD [address] [place], [place] [address] Social History Tobacco Use Types Packs/Day Years Used Date Smoking Tobacco: Never Assessed Comments Unknown Sex and Gender Information Value Date Recorded Sex Assigned at Not on file Legal Sex Female 3:31 PM CDT Gender Identity Not on file Sexual Orientation Not on file documented as of this encounter Miscellaneous Notes * [employer]ner Conversion Note - Historical ProviderMD - 08/27/2018 10:08 PM ENVIRONMENTAL PROTECTION OFFICER Pain Assessment Entered On: 08/30/2018 5:44 EST [...] - 08/30/2018 5:44 EST Electronically signed by Todd Youssef Conversion Cutting And Splicing Supervisor Cerner at 10/19/2022 10:09 AM CDT documented in this encounter Plan of Treatment Not on file documented as of this encounter Visit Diagnoses Not on filedocumented in this encounter
--- OUTSIDE RECORDS SUMMARY | 2025-05-22 15:31 | XMS_ITS | Encounter Summary ---
Author Organization [employer] ([place], [place], [place], [place], [place]) Address [address] [place] [address] Care Team Providers Care Deputy Grand Jury Name Role Phone Unavailable Primary Care Provider Unavailabl e Encounter Details Date Type Department Care Team (Late st Contact Info) Description 08/28/2018 Transcribed Document [facility] [address] [place] [address] ProviderLisbet MD [address] [place], [place] [id number] Social History Tobacco Use Types Packs/Day Years Used Date Smoking Tobacco: Never Assessed Comments Unknown Sex and Gender Information Value Date Recorded Sex Assigned at Not on file Legal Sex Female 3:31 PM CDT Gender Identity Not on file Sexual Orientation Not on file documented as of this encounter Miscellaneous Notes * [employer] Conversion Note - Historical ProviderMD - 08/28/2018 2:00 AM WORKFORCE CONSULTANT Fabrication And Layout Craftsman Details Entered On: 08/28/2018 6:24 EST Performed [...] EST Electronically signed by Todd Youssef Conversion Mechanical Manufacturing Engineer [employer] at 10/19/2022 9:59 AM CDT documented in this encounter Plan of Treatment Not on file documented as of this encounter Visit Diagnoses Not on filedocumented in this encounter
--- OUTSIDE RECORDS SUMMARY | 2025-05-22 15:31 | XMS_ITS | Clinical Summary ---
Author Organization [facility] Address [address] 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 Sneed, [facility] Myoview 09/2023, abnormal L heart cath 10/2023, normal EF, Borderline LVEDP, medical management Assessment & Plan (01/09/2024 8:22 AM EDT): Follows with Dr. Sneed, cardiology, [facility]. Abnormal myoview 09/2023 followed by normal left heart cath 10/2023 with normal EF and borderline LEVDP, taking Entresto as prescribed by Dr. Sneed, shaheed CP Obesity, Class I, BMI 30-34.9 01/06/2024 [...] (01/09/2024): Followed by ENT, Dr. Steff Sarabia, [facility] Assessment & Plan (01/09/2024 8:18 AM EDT): Bilateral thyroid lobe nodules, as well as a nodule in the isthmus measuring 12 mm. Thyroid labs were performed on September 08, 2023 and TSH level was 1.70 at that time. Patient to continue current Synthroid dosage at 50 mcg p.o. daily. Followed by Dr. Adelina Sarabia, ENT, [facility] Hypertensive disorder 06/05/2021 Overview (01/09/2024): B/P controlled, monitors at home, taking Rx. Entresto. Followed by Dr. Sneed, cardiology, [facility] Assessment & Plan (01/09/2024 8:11 AM [...] Encounters Date Type Department Care Team Description 05/20/2025 Patient Outreach SEP [address] [place], [place] [id number] Laurie Whitt APRN Central Order Completion Outreach (mammogram) 04/01/2025 [place] [address] Danita Caballero PA Medication Refill from Last [...] Colonoscopy 01/19/2021 01/19/2018, 04/04/2015 COVID-19 Vaccine ( season) 2025 Influenza Vaccine (#1) 2025 , [...] Comments MAMMOGRAPHY Routine 05/17/2024 10:21 AM EST HM COLONOSCOPY Routine 01/19/2018 8:51 AM EDT from Last 3 Months or Most Recently Relevant to Health Maintenance Results * HM MAMMOGRAPHY (05/17/2024 10:21 AM EST) [facility] Provider HEALTH MAINTENANCE Final Res ult Performing Organization Address [facility] Co de Phone Number SEP OFFICE * HM COLONOSCOPY (01/19/2018 8:51 AM EDT) [facility] Provider HEALTH MAINTENANCE Final Res ult Performing Organization Address [facility]/State/ZIP Co de Phone Number SEP OFFICE from Last 3 Months or Most Recently Relevant to Health Maintenance Insurance [facility] [place]
--- OUTSIDE RECORDS SUMMARY | 2025-05-22 15:31 | XMS_ITS | Encounter Summary ---
Author Organization [employer] ([place], [place], [place], [place], [place]) Address [address] [place] [address] Care Team Providers Care Commercial Insulator Name Role Phone Unavailable Primary Care Provider Unavailabl e Encounter Details Date Type Department Care Team (Late st Contact Info) Description 08/27/2018 Transcribed Document [facility] [place] [address] [place] [address] ProviderLisbet MD [address] [place] [address] Social History Tobacco Use Types Packs/Day Years Used Date Smoking Tobacco: Never Assessed Comments Unknown Sex and Gender Information Value Date Recorded Sex Assigned at Not on file Legal Sex Female 3:31 PM CDT Gender Identity Not on file Sexual Orientation Not on file documented as of this encounter Miscellaneous Notes * [employer]ner Conversion Note - Historical ProviderMD - 08/27/2018 8:45 PM MACHINE I ENGRAVER Consult Phone Call Documentation Entered On: 08/28/2018 8:22 EST Performed On: 08/27/2018 20:45 EST by Nicole Le [facility] Unit Coord Phone Call for Consults Consult Phone Call/Page Attempt : First call Consult Reason : presyncope, chest pain, a fib, loop monitor Physician Requesting Consult : PAXTON PATTON DO Physician Requested for Consult : SOFIA ANDINO MD-CAR Provider Service Notified Name : Cardiology Additional Information : called office, notified of consult. Nicole Le, [facility] Coord - 08/28/2018 8:20 EST Electronically signed by Mikael [facility] Conversion Airplane Pilot Chief Cerner at 10/19/2022 10:10 AM CDT documented in this encounter Plan of Treatment Not on file documented as of this encounter Visit Diagnoses Not on filedocumented in this encounter
--- OUTSIDE RECORDS SUMMARY | 2025-05-22 15:31 | XMS_ITS | Encounter Summary ---
Author Organization [employer] ([place], [place], [place], [place], [place]) Address [address] [place] [address] Care Team Providers Care Director Trading Name Role Phone Unavailable Primary Care Provider Unavailabl e Encounter Details Date Type Department Care Team (Late st Contact Info) Description 08/28/2018 Transcribed Document [facility] [address] [place] [address] ProviderLisbet MD [address] [place], [place] [address] Social History Tobacco Use Types Packs/Day Years Used Date Smoking Tobacco: Never Assessed Comments Unknown Sex and Gender Information Value Date Recorded Sex Assigned at Not on file Legal Sex Female 3:31 PM CDT Gender Identity Not on file Sexual Orientation Not on file documented as of this encounter Miscellaneous Notes * [employer]ner Conversion Note - Historical ProviderMD - 08/28/2018 5:00 PM HUMAN RESOURCES OFFICER Chart Check - Review Order Profile Entered [...]
--- OUTSIDE RECORDS SUMMARY | 2025-05-22 15:31 | XMS_ITS | Encounter Summary ---
Author Organization [employer] ([place], [place], [place], [place], [place]) Address [address] [place] [address] Care Team Providers Care Resaw Carriage Operator Name Role Phone Unavailable Primary Care Provider Unavailabl e Encounter Details Date Type Department Care Team (Late st Contact Info) Description 08/27/2018 Transcribed Document [facility] [place] [address] [place] [address] ProviderLisbet MD [address] [place] [address] Social History Tobacco Use Types Packs/Day Years Used Date Smoking Tobacco: Never Assessed Comments Unknown Sex and Gender Information Value Date Recorded Sex Assigned at Not on file Legal Sex Female 3:31 PM CDT Gender Identity Not on file Sexual Orientation Not on file documented as of this encounter Miscellaneous Notes * Cerner Conversion Note - Lisbet ProviderMD - 08/27/2018 8:51 PM MOTION PICTURE PROJECTIONIST Spiritual Care Assessment Entered On: 08/28/2018 10:51 EST Performed On: 08/28/2018 10:17 EST by REBECCA REID General Information Initial Visit : Yes Referred by : Patient Referral Reason Comment : Advance directive Ministry Provided to : Patient, Family/Significant other Active in a Confucianism/Yoanna Group : Yes REBECCA REID - 08/28/2018 10:40 EST Spiritual Assessment Patient's Community/Relationship : Strength in patient's life Supportive/Healthy Relationships : Yes Supportive Congregation Community : Yes Spiritual Assessment Comment/Summary Points : Provided advance directive info. to patient, daughter and son in law. Patient supported by her mosque. She plans to discuss living will with . Speck Dyer available as needed. Spirital Assessment Comment/Summary Report : SPIRITUAL ASSESSMENT COMMENT/SUMMARY No qualifying data available. REBECCA REID - 08/28/2018 10:40 EST Interventions Advance Directive Information Provided : Yes Emotional Support : Empathic/Engaged listening, Family/Significant other supported, Information provided Spiritual and Congregation : Verify yoanna group connection, Spiritual/Congregation support provided REBECCA REID - 08/28/2018 10:40 EST Electronically signed by Mikael, [facility] Conversion Instrumentation Technologist Cerner at 10/19/2022 9:43 AM CDT documented in this encounter Plan of Treatment Not on file documented as of this encounter Visit Diagnoses Not on filedocumented in this encounter
--- OUTSIDE RECORDS SUMMARY | 2025-05-22 15:31 | XMS_ITS | Encounter Summary ---
Author Organization [employer] ([place], [place], [place], [place], [place]) Address [address] [place] [address] Care Team Providers Care Counselor Supervisor Name Role Phone Unavailable Primary Care Provider Unavailabl e Encounter Details Date Type Department Care Team (Late st Contact Info) Description 08/27/2018 Transcribed Document [facility] [place] [address] [place] [address] ProviderLisbet MD [address] [place] [address] Social History Tobacco Use Types Packs/Day Years Used Date Smoking Tobacco: Never Assessed Comments Unknown Sex and Gender Information Value Date Recorded Sex Assigned at Not on file Legal Sex Female 3:31 PM CDT Gender Identity Not on file Sexual Orientation Not on file documented as of this encounter Miscellaneous Notes * Cerner Conversion Note - Historical ProviderMD - 08/27/2018 10:25 PM BATTER MIXER HELPER Pain Assessment Entered On: 08/30/2018 5:44 EST [...]
--- OUTSIDE RECORDS SUMMARY | 2025-05-22 15:32 | XMS_ITS | Encounter Summary ---
Author Organization [employer] ([place], [place], [place], [place], [place]) Address [address] [place] [address] Care Team Providers Care Music Arranger Name Role Phone Unavailable Primary Care Provider Unavailabl e Encounter Details Date Type Department Care Team (Late st Contact Info) Description 08/27/2018 Transcribed Document [facility] [place] Medicine [address] [place] [address] ProviderLisbet MD [address], [place] [id number] Social History Tobacco Use Types Packs/Day Years Used Date Smoking Tobacco: Never Assessed Comments Unknown Sex and Gender Information Value Date Recorded Sex Assigned at Not on file Legal Sex Female 3:31 PM CDT Gender Identity Not on file Sexual Orientation Not on file documented as of this encounter Miscellaneous Notes * Cerner Conversion Note - Historical ProviderMD - 08/27/2018 8:01 PM TRIM CREW SUPERVISOR Admission History, Adult Entered On: 08/27/2018 20:51 [...] Ean Support Person/Pt Rep Contact Information : [phone] Want Family/Rep/Phys Notified of Admit : No Emergency Contact #1 : Ean Romero Emergency Contact #1 Emergency Contact #1 Relationship : Emergency Contact #2 : Rosalia Coates Emergency Contact #2 Emergency Contact #2 Relationship : daughter Primary Language : Estonian Communication Barrier : None Susana Brannon RN [...] Scale Risk Level : 25-45 Medium Risk [place] Fall Interventions : Adequate lighting, Assistive devices [...] Weight, Clinical Dosing Weight Entry Format : [place] Clinical Dosing Weight : 100 kg Weight, Pounds : 220 lb Body Surface Area (BSA) : 2.08 m2 Body Mass Index : 35.6 kg/m2 (HI) Susana Brannon RN - 08/28/2018 6:23 EST Height Source : Stated Height Entry Format : [place] Height, Feet : 5 ft(Converted to: 152 cm, 60 Inch) Height, Inches : 6 Inch(Converted to: 0 ft 6 Inch, 15.24 cm) Clinical Height : 167.64 cm Susana Brannon RN - 08/27/2018 20:44 EST Weight Source : Standing scale Susana Brannon RN - 08/28/2018 6:23 EST [place] Body Weight : 59 kg Susana Brannon [...] available. Influenza Immunization, Current Season : Yes Susana Brannon RN - 08/27/2018 20:44 EST Pneumococcal [...] 08/27/2018 20:44 EST Electronically signed by Mikael [facility] Conversion Curatorial Assistant Cerner at 10/19/2022 9:53 AM CDT documented in this encounter Plan of Treatment Not on file documented as of this encounter Visit Diagnoses Not on filedocumented in this encounter
--- OUTSIDE RECORDS SUMMARY | 2025-05-22 15:32 | XMS_ITS | Encounter Summary ---
Author Organization [employer] ([place], [place], [place], [place], [place]) Address [address] [place] [address] Care Team Providers Care Programming Specialist Name Role Phone Unavailable Primary Care Provider Unavailabl e Encounter Details Date Type Department Care Team (Late st Contact Info) Description 08/27/2018 Transcribed Document [facility] [place] [facility] [place] [address] ProviderLisbet MD [address] [place] [address] Social History Tobacco Use Types [...] - Historical ProviderMD - 08/27/2018 8:45 PM CABIN OUTFITTER Evaluation, Physical Therapy Entered On: 08/29/2018 11:58 [...] PT : 52 yo female adm to [facility] 08/27 with c/o chest pains PMHx significant [...] BIJU LLOYD, PT - 08/29/2018 11:30 EST Senior Living Goals Mobility/Bed Mobility LTG PT Grid Goal [...] worse now needs short term PTx for moravian of strength and mobility with least restrictive [...] BIJU LLOYD, PT - 08/29/2018 12:55 EST [place] PT Charges PT Therap. Exercise 15 min : 1 PT Eval Low Complexity : 1 BIJU LLOYD PT - 08/29/2018 12:55 EST Electronically signed by [facility] Conversion Cone Cleaner Cerner at 10/19/2022 9:54 AM CDT documented in this encounter Plan of Treatment Not on file documented as of this encounter Visit Diagnoses Not on filedocumented in this encounter
--- OUTSIDE RECORDS SUMMARY | 2025-05-22 15:32 | XMS_ITS | Encounter Summary ---
Author Organization [employer] ([place], [place], [place], [place], [place]) Address [address] [place] [address] Care Team Providers Care Manager Call Center Name Role Phone Unavailable Primary Care Provider Unavailabl e Encounter Details Date Type Department Care Team (Late st Contact Info) Description 08/27/2018 Transcribed Document [facility] Family Medicine [address] [place] [address] ProviderLisbet MD [address] [place] [address] Social History Tobacco Use Types Packs/Day Years Used Date Smoking Tobacco: Never Assessed Comments Unknown Sex and Gender Information Value Date Recorded Sex Assigned at Not on file Legal Sex Female 3:31 PM CDT Gender Identity Not on file Sexual Orientation Not on file documented as of this encounter Miscellaneous Notes * Cerner Conversion Note - Historical ProviderMD - 08/27/2018 8:49 PM CAMPUS MONITOR Consult Phone Call Documentation Entered On: 08/28/2018 [...]
--- OUTSIDE RECORDS SUMMARY | 2025-05-22 15:32 | XMS_ITS | Encounter Summary ---
Author Organization [employer] ([place], [place], [place], [place], [place]) Address [address] [place] [address] Care Team Providers Care Towel Hemmer Name Role Phone Unavailable Primary Care Provider Unavailabl e Encounter Details Date Type Department Care Team (Late st Contact Info) Description 08/27/2018 Transcribed Document [facility] [place] [address] [place] [address] ProviderLisbet MD [address], [place] [id number] Social History Tobacco Use Types Packs/Day Years Used Date Smoking Tobacco: Never Assessed Comments Unknown Sex and Gender Information Value Date Recorded Sex Assigned at Not on file Legal Sex Female 3:31 PM CDT Gender Identity Not on file Sexual Orientation Not on file documented as of this encounter Miscellaneous Notes * [employer]ner Conversion Note - Historical ProviderMD - 08/27/2018 8:45 PM MARINE RIGGER Pain Assessment Entered On: 08/28/2018 6:24 EST Performed On: 08/28/2018 6:01 EST by Susana Brannon RN Intervention Information: morphine Performed by Susana Brannon RN on 08/28/2018 05:31:00 EST morphine,2mg IV Push,Right Antecubit Mie,Pain (Severe 7-10) Pain Assessment Pain Assessment : [...]
--- OUTSIDE RECORDS SUMMARY | 2025-05-22 15:32 | XMS_ITS | Encounter Summary ---
Author Organization [employer] ([place], [place], [place], [place], [place]) Address [address] [place] [address] Care Team Providers Care Rfp Writer Name Role Phone Unavailable Primary Care Provider Unavailabl e Encounter Details Date Type Department Care Team (Late st Contact Info) Description 08/29/2018 Transcribed Document [facility] Cardiology [address] [place] [address] Henrique Muniz MD [address] [facility] [address] [place] [address] Social History Tobacco Use Types Packs/Day Years [...] of motion, Normal strength. Integumentary: Warm, Dry, Cutter. Neurologic: Alert, Oriented. Psychiatric: Cooperative, Appropriate mood & affect. Results Review Telemetry Admission Weight Todays Weight AUG 28 07:41 143 109 18 / 97 L 3.4 27 0.70 \ AUG 28 07:41 \ 13.7 / 6.5 205 / 39.3 \ Cardiac Markers (Current Encounter/Past 24 Hours) No Cardiac Marker Results Found (Past 24 Hours) Radiology Results (Last 48 hours) [id number] -- 08/27/2018 20:01 MRI Brain WO (08/28/2018 [...]
--- OUTSIDE RECORDS SUMMARY | 2025-05-22 15:32 | XMS_ITS | Encounter Summary ---
Author Organization [employer] ([place], [place], [place], [place], [place]) Address [address] [place] [address] Care Team Providers Care Audiology Technician Name Role Phone Unavailable Primary Care Provider Unavailabl e Encounter Details Date Type Department Care Team (Late st Contact Info) Description 08/27/2018 Transcribed Document [facility] [place] [address] [place] [address] ProviderLisbet MD [address], [place] [id number] Social History Tobacco Use Types Packs/Day Years Used Date Smoking Tobacco: Never Assessed Comments Unknown Sex and Gender Information Value Date Recorded Sex Assigned at Not on file Legal Sex Female 3:31 PM CDT Gender Identity Not on file Sexual Orientation Not on file documented as of this encounter Miscellaneous Notes * [employer] Conversion Note - Historical ProviderMD - 08/27/2018 8:45 PM LASERIST Education-(VTE) / (DVT) Entered On: 08/28/2018 9:03 EST Performed On: 08/28/2018 9:00 EST by MISHA STEWART RN Teaching/Learning Assessment Barriers To Learning : None evident MISHA STEWART RN - 08/28/2018 9:03 EST Electronically signed by Todd Youssef Conversion Drug Abuse Treatment Specialist Cerner at 10/19/2022 10:06 AM CDT documented in this encounter Plan of Treatment Not on file documented as of this encounter Visit Diagnoses Not on filedocumented in this encounter
--- OUTSIDE RECORDS SUMMARY | 2025-05-22 15:32 | XMS_ITS | Encounter Summary ---
Author Organization [employer] ([place], [place], [place], [place], [place]) Address [address] [place] [address] Care Team Providers Care Flange Machine Operator Name Role Phone Unavailable Primary Care Provider Unavailabl e Encounter Details Date Type Department Care Team (Late st Contact Info) Description 08/27/2018 Transcribed Document [facility] [place] [address] [place] [address] ProviderLisbet MD [address], [place] [id number] Social History Tobacco Use Types Packs/Day Years Used Date Smoking Tobacco: Never Assessed Comments Unknown Sex and Gender Information Value Date Recorded Sex Assigned at Not on file Legal Sex Female 3:31 PM CDT Gender Identity Not on file Sexual Orientation Not on file documented as of this encounter Miscellaneous Notes * [employer]ner Conversion Note - Lisbet ProviderMD - 08/27/2018 9:12 PM LABORER AMMUNITION ASSEMBLY Patient: DANYEL ROMERO Age: 52 Years Sex: Female : 1965 Chief Complaint Chest pain, presyncopal episode History of Present Illness Danyel Romero is a 52-year-old female with a past medical history significant for previous CVA, hypothyroidism, hypertension, and GERD who comes to [facility] after near syncopal event with altered mental status at restoration this morning. She was recently admitted to [facility] in June for appears to be an acute CVA. She did have a loop recorder placed by Dr. Samayoa at that time. She reports she had been doing relatively well until this morning. She reports she was at restoration, when she began to feel not like [...] of her recent loop recorder placement at [facility], she was transferred here to be [...]
--- OUTSIDE RECORDS SUMMARY | 2025-05-22 15:32 | XMS_ITS | Encounter Summary ---
Author Organization [employer] ([place], [place], [place], [place], [place]) Address [address] [place] [address] Care Team Providers Care Radiotelegrapher Name Role Phone Unavailable Primary Care Provider Unavailabl e Encounter Details Date Type Department Care Team (Late st Contact Info) Description 08/27/2018 Transcribed Document [facility] [place] Family Medicine [address] [place] [address] ProviderLisbet MD [address], [place] [id number] Social History Tobacco Use Types Packs/Day Years Used Date Smoking Tobacco: Never Assessed Comments Unknown Sex and Gender Information Value Date Recorded Sex Assigned at Not on file Legal Sex Female 3:31 PM CDT Gender Identity Not on file Sexual Orientation Not on file documented as of this encounter Miscellaneous Notes * [employer]ner Conversion Note - Historical ProviderMD - 08/27/2018 8:45 PM PLAYROOM ATTENDANT Evaluation, Occupational Therapy Entered On: 08/29/2018 11:38 EST Performed On: 08/29/2018 11:20 EST by KHLOE PARIKH OTR/Lori General Information, OT Therapy Diagnosis, OT : Decline in ADLs due to weakness. Onset of Problem, OT : 08/29/2018 EST Co-treated by, OT : Physical Therapist KHLOE PARIKH OTR/Lori - 08/29/2018 12:21 EST General Information Comment, OT : Admitted with Chest pain. KHLOE PARIKH OTR/Lori - 08/29/2018 12:23 EST Visit Type, OT [...] Toilet Transfer Assist Level : Assist, minimal KHLOE PARIKH OTR/Lori 08/29/2018 12:23 EST Functional Mobility [...] KHLOE PARIKH OTR/Lori - 08/29/2018 12:23 EST Six Color Press Operator Goals, OT Grooming LTG Grid Goal #1 [...] KHLOE PARIKH OTR/Lori - 08/29/2018 13:12 EST [place] OT Charges OT Ther Activities Ea 15 Min : 1 OT Eval Moderate Complexity : 1 KHLOE PARIKH OTR/Lori - 08/29/2018 13:12 EST Electronically signed by Todd Youssef Conversion Building Illuminating Engineer Cerner at 10/19/2022 9:54 AM CDT documented in this encounter Plan of Treatment Not on file documented as of this encounter Visit Diagnoses Not on filedocumented in this encounter
--- OUTSIDE RECORDS SUMMARY | 2025-05-22 15:33 | XMS_ITS | Encounter Summary ---
Author Organization [employer] ([place], [place], [place], [place], [place]) Address [address] [place] [address] Care Team Providers Care Back Tufter Name Role Phone Unavailable Primary Care Provider Unavailabl e Encounter Details Date Type Department Care Team (Late st Contact Info) Description 08/29/2018 Transcribed Document [facility] [place] [address] [place] [address] ProviderLisbet MD [address] [place] [id number] Social History Tobacco Use Types Packs/Day Years Used Date Smoking Tobacco: Never Assessed Comments Unknown Sex and Gender Information Value Date Recorded Sex Assigned at Not on file Legal Sex Female 3:31 PM CDT Gender Identity Not on file Sexual Orientation Not on file documented as of this encounter Miscellaneous Notes * [employer]ner Conversion Note - Historical ProviderMD - 08/29/2018 5:00 AM INVESTIGATION CLERK Chart Check - Review Order Profile Entered [...]
--- OUTSIDE RECORDS SUMMARY | 2025-05-22 15:33 | XMS_ITS | Encounter Summary ---
Author Organization [employer] ([place], [place], [place], [place], [place]) Address [address] [place] [address] Care Team Providers Care Creeler Name Role Phone Unavailable Primary Care Provider Unavailabl e Encounter Details Date Type Department Care Team (Late st Contact Info) Description 08/30/2018 Transcribed Document [facility] [place] [address] [place] [address] ProviderLisbet MD [address], [place] [id number] Social History Tobacco Use Types Packs/Day Years Used Date Smoking Tobacco: Never Assessed Comments Unknown Sex and Gender Information Value Date Recorded Sex Assigned at Not on file Legal Sex Female 3:31 PM CDT Gender Identity Not on file Sexual Orientation Not on file documented as of this encounter Miscellaneous Notes * Cerner Conversion Note - Historical ProviderMD - 08/30/2018 1:32 PM WINDOW GLASS CUTTER OFF Care Management Assessment/Plan Entered On: 08/30/2018 13:44 EST Performed On: 08/30/2018 13:32 EST by Abeba Whitt Rn-Glass Forming Crew Member Ed Care Management Note Care Management Note [...] Care Management Note Report : LIZ MAY, RN-Glass Forming Crew Member - 08/29/18 14:25:36 Cm reviewed chart. RRS 42. Cm reviewed chart. Pt hx CVA. To hospital event dizzy, chest pain. Her EKGwithout acute ischemia, but did demonstrate a prolonged QT/ ECHO on 08/28, Normal. MRI brain 08/28.. CM discussed DCP. Pt states independent no needs. Denies need for HH. CM will continue to follow. LIZ MAY RN-Glass Forming Crew Member - 08/29/18 14:19:56 Cm reviewed chart. RRS 42. Cm reviewed chart. Pt hx CVA. To hospital event dizzy, chest pain. Her EKGwithout acute ischemia, but did demonstrate a prolonged QT/ ECHO on 08/28, Normal. MRI brain 08/28.. CM discussed DCP. Pt states independent no needs. CM will continue to follow. LIZ MAY RN-Glass Forming Crew Member - 08/28/18 12:29:23 Heather Isaac reviewed chart. RRS 42. Cm explained role of CM. Pt states lives with Ean [phone]. Pt states has a walker at home. Denies DME or HH. Denies homo o2. DM discussed DCP. Pt States is independent no needs. CM will continue to follow for d/c needs. Documentation Status Complete : Yes Abeba Whitt, Rn-Glass Forming Crew Member Ed - 08/30/2018 13:32 EST Electronically signed by Mikael [facility] Conversion Stucco Applicator Cerner at 10/19/2022 9:59 AM CDT documented in this encounter Plan of Treatment Not on file documented as of this encounter Visit Diagnoses Not on filedocumented in this encounter
--- OUTSIDE RECORDS SUMMARY | 2025-05-22 15:33 | XMS_ITS | Encounter Summary ---
Author Organization [employer] ([place], [place], [place], [place], [place]) Address [address] [place] [address] Care Team Providers Care Beverage Distiller Name Role Phone Unavailable Primary Care Provider Unavailabl e Encounter Details Date Type Department Care Team (Late st Contact Info) Description 08/30/2018 Transcribed Document [facility] [place] Family Medicine [address] [place] [address] ProviderLisbet MD [address] [place], [place] [id number] Social History Tobacco Use Types Packs/Day Years Used Date Smoking Tobacco: Never Assessed Comments Unknown Sex and Gender Information Value Date Recorded Sex Assigned at Not on file Legal Sex Female 3:31 PM CDT Gender Identity Not on file Sexual Orientation Not on file documented as of this encounter Miscellaneous Notes * Cerner Conversion Note - Lisbet ProviderMD - 08/30/2018 1:19 PM EQUAL OPPORTUNITY REPRESENTATIVE Patient Education Materials Follows:Medicine How to Take [...] 12/25/2003 Document Revised: 01/07/2017 Document Reviewed: 11/23/2016 [employer] Patient Education ? 2017 [employer] Bradycardia, Adult Bradycardia is a kmdpir-nquf-tghajh heartbeat. A normal resting heart rate for [...] provider. ??? Follow a heart-healthy diet. A customer advisor specialist (dietitian) can help to educate you [...] of hard liquor. General instructions ??? Take xrwy-pmm-fhyddoy and prescription medicines only as told by [...] 03/12/2003 Document Revised: 02/15/2017 Document Reviewed: 12/09/2016 [employer] Patient Education ? 2017 [employer] Neurology Dizziness Dizziness is a common [...] your legs often if you need to saw superintendent one place for a long time. Tighten [...] 06/08/2012 Document Revised: 11/25/2016 Document Reviewed: 06/16/2015 [employer] Patient Education ? 2017 [employer]. Nutrition Heart-Healthy Eating Plan Many factors influence [...] foods can I eat? Grains Breads, including Tajik, white, susanna, wheat, raisin, rye, oatmeal, and Serbian. Tortillas that are neither fried nor made with lard or trans fat. Low-fat rolls, including hotdog and hamburger buns and Swazi muffins. Biscuits. Muffins. Waffles. Pancakes. Light popcorn. Whole-grain cereals. Flatbread. Holmen toast. Pretzels. Breadsticks. Rusks. Low-fat snacks and [...] cheese. Whole milk cheeses, including blue (rickey), [place]kee Reymundo, Brie, Jaciel, Azerbaijani, Havarti, Namibian, cheddar, Camembert, and [place]. Whole or 2% milk that is liquid, [...] that has suet, meat fat, or shortening. Clifton butter, hydrogenated oils, palm oil, coconut oil, [...] 03/29/2009 Document Revised: 01/07/2017 Document Reviewed: 12/12/2014 [employer] Patient Education ? 2017 [employer]. Preventive Medicine How to Take Your Blood [...] contain harmful chemicals. FOR MORE INFORMATION ??? [place] Lung Association: www.lung.org ??? [place] Cancer Society: www.cancer.org This information is not intended to replace advice given to you by your health care provider. Make sure you discuss any questions you have with your health care provider. Document Released: 07/28/2005 Document Revised: 10/11/2016 Document Reviewed: 12/10/2013 Elsevier Interactive Patient Education ? 2017 [employer] documented in this encounter Plan of Treatment Not on file documented as of this encounter Visit Diagnoses Not on filedocumented in this encounter
--- OUTSIDE RECORDS SUMMARY | 2025-05-22 15:33 | XMS_ITS | Encounter Summary ---
Author Organization [employer] ([place], [place], [place], [place], [place]) Address [address] [place] [address] Care Team Providers Care Blueprint Tracer Name Role Phone Unavailable Primary Care Provider Unavailabl e Encounter Details Date Type Department Care Team (Late st Contact Info) Description 08/29/2018 Transcribed Document [facility] [place] Family Medicine [address] [place] [address] ProviderLisbet MD [address], [place] [id number] Social History Tobacco Use Types Packs/Day Years Used Date Smoking Tobacco: Never Assessed Comments Unknown Sex and Gender Information Value Date Recorded Sex Assigned at Not on file Legal Sex Female 3:31 PM CDT Gender Identity Not on file Sexual Orientation Not on file documented as of this encounter Miscellaneous Notes * Cerner Conversion Note - Historical ProviderMD - 08/29/2018 1:12 PM CORRECTIONAL FOOD SERVICE SUPERVISOR Nursing Discharge Summary Entered On: 08/29/2018 13:12 EST Performed On: 08/29/2018 13:12 EST by HUONG OLIVER corporate legal manager Documentation Discharge Date/Time : 08/30/2018 13:58 EST [...] - 08/29/2018 13:12 EST Electronically signed by [facility] Conversion Iron Guardrail Installer Cerner at 10/19/2022 9:51 AM CDT documented in this encounter Plan of Treatment Not on file documented as of this encounter Visit Diagnoses Not on filedocumented in this encounter
--- OUTSIDE RECORDS SUMMARY | 2025-05-22 15:33 | XMS_ITS | Encounter Summary ---
Author Organization [employer] [place] [address] Care Team Providers Care Internet Sales Director Name Role Phone Unavailable Primary Care Provider Unavailabl e Reason for Visit * Reason Onset Date Comments Central Order Completion Outreach 05/20/2025 mammogram Encounter Details Date Type Department Care Team (Late st Contact Info) Description 05/20/2025 Patient Outreach SEP [facility] [address] [place] [address] Laurie Whitt, SLEEVE SETTER [address] [place] [address] Central Order Completion Outreach (mammogram) Social History Tobacco Use Types Packs/Day Years [...] on file documented as of this encounter Progress Notes * Snehal Martinez RN - 05/20/2025 12:08 PM EST SEP Order Completion Outcome Tracking Contact Attempt:: Final Mammogram Outcome:: Patient Declined Patient declined reason:: Not Interested Patient is now going to Dr Varinder COOK. documented in this encounter Plan of Treatment [...]
--- OUTSIDE RECORDS SUMMARY | 2025-05-22 15:33 | XMS_ITS | Clinical Summary ---
Author Organization Healthcare Address [address] [id number] Care Team Providers Care Tube Balancer Name Role Phone April Dorado ROB Primary Care Provider [phone] Encounters Date Type Department Care Team Description 05/22/2025 Orders Only External Location [address] [place] [id number] Provider, External from Last 3 Months Family History Medical History Relation Name Comments Parkinson Disease Father Relation Name Status Comments Father Social History Tobacco Use Types Packs/Day Years Used Date Smoking Tobacco: Former Alcohol Use Standard Drinks/Week Comments No 0 (1 standard drink = 0.6 oz pur e alcohol) Comments Unknown Sex and Gender Information Value Date Recorded Sex Assigned at Not on file Legal Sex Female 6:44 PM EDT Gender Identity Not on file Sexual Orientation Not on file Last Filed Vital Signs Vital Sign Reading Time Taken Comments Blood Pressure 122/71 10/06/2020 11:51 AM EDT Pulse 60 10/06/2020 11:51 AM EDT Temperature 36.3 C (97.3 F) 11/22/2017 10:45 AM EDT Respiratory Rate 16 07/13/2017 12:11 PM EST Oxygen Saturation - - Inhaled Oxygen Concentration - - Weight 104 kg (228 lb 6.3 oz) 10/06/2020 11:51 A M EDT Height 167.6 cm (5' 6 ) 10/06/2020 11:51 AM EDT Body Mass Index 36.86 10/06/2020 11:51 AM EDT Plan of Treatment Health Maintenance Due Date Last Done Comments [facility]-Depression Screening 1965 [facility]-/Child/Adol SDOH Screenings 1965 [facility]- SDOH Screenings 11/04/1981 [facility]-Adult SDOH Screenings 11/04/1981 [facility]-Pap Smear 11/04/1984 [facility]-Cervical Cancer Screening 11/04/1993 [facility]-HPV/Cotest 11/04/1993 CT Colonography 11/04/2008 Colonoscopy 11/04/2008 FIT-DNA 11/04/2008 FIT 11/04/2008 FOBT 11/04/2008 Sigmoidoscopy 11/04/2008 [facility]-Colorectal Cancer Screening 11/04/2008 [facility]-Pneumococcal Vaccine: 50 + Years (1 of 1 - PCV) 11/04/2013 [facility]-Zoster Vaccines (1 of 2) 11/04/2013 ANC-TUKCA-85 Vaccine (1 - 2024- season) 2025 [facility]-Influenza Vaccine (#1) 03/04/202505/13, 04/01/2016, 04/19/2014 [facility]-DTaP,Tdap,and Td Vaccine s (2 - Td or Tdap) 03/18/2026 03/18/2016 [facility]-RSV Vaccine: 60+ Years o r (1 - 1-dose 75+ series) 11/04/2038 HPV Vaccines Aged Out No longer eligi ble based on patient's age to complete this topic [facility]-HIB Vaccines Aged Out No longer e ligible based on patient's age to complete this topic [facility]-Hepatitis A Vaccines Aged Out No longer eligible based on patient's age to complete this topic [facility]-IPV Vaccines Aged Out No longer e ligible based on patient's age to complete this topic [facility]-Rotavirus Vaccines Aged Out No lo nger eligible based on patient's age to complete this topic Procedures Procedure Name Priority Date/Time Associated Diagnosis Comments CT NEURO OUTSIDE IMAGES 05/22/2025 2:05 PM EST from Last 3 Months Results * CT NEURO OUTSIDE IMAGES (05/22/2025 2:05 PM EST) Anatomical Region Laterality Modality Computed Tomogra phy 05/22/2025 2:05 PM EST us External Provider IMG CT PROCEDURES Edited Resul t - Final from Last 3 Months Insurance MEDICAID[place] Care Teams Tube Balancer Relationship Specialty Start Date End Date April Dorado APRN [facility] [place] [address] PCP - General 11/14/20
--- OUTSIDE RECORDS SUMMARY | 2025-05-22 15:33 | XMS_ITS | Encounter Summary ---
Author Organization [employer] ([place], [place], [place], [place], [place]) Address [address] [place] [address] Care Team Providers Care Candle Molder Name Role Phone Unavailable Primary Care Provider Unavailabl e Encounter Details Date Type Department Care Team (Late st Contact Info) Description 08/30/2018 Transcribed Document [facility] [place] [address] [place] [address] ProviderLisbet MD [address], [place] [address] Social History Tobacco Use Types Packs/Day Years Used Date Smoking Tobacco: Never Assessed Comments Unknown Sex and Gender Information Value Date Recorded Sex Assigned at Not on file Legal Sex Female 3:31 PM CDT Gender Identity Not on file Sexual Orientation Not on file documented as of this encounter Miscellaneous Notes * Cerner Conversion Note - Historical ProviderMD - 08/30/2018 2:08 PM RESEARCH LABORATORY SPECIALIST Care Management Assessment/Plan Entered On: 08/30/2018 14:10 EST Performed On: 08/30/2018 14:08 EST by Abeba Whitt Rn-Paradichlorobenzene Tender Ed Care Management Note Care Management Note : CM obtained orders for HH from attending. CM faxed orders to [facility] p [phone] f [phone] for home health. CM spoke with Becca albert, who accepted referral and CM made her aware of discharge to home today. Pt was discharged to home with her spouse/SO. No additional CM needs identified. Care Management Note Report : Abeba Whitt, Rn-Paradichlorobenzene Tender Ed - 08/30/18 13:44:[address] [...] plan for HH following discharge. LIZ MAY, RN-Paradichlorobenzene Tender - 08/29/18 14:25:36 Cm reviewed chart. RRS 42. Cm reviewed chart. Pt hx CVA. To hospital event dizzy, chest pain. Her EKGwithout acute ischemia, but did demonstrate a prolonged QT/ ECHO on 08/28, Normal. MRI brain 08/28.. CM discussed DCP. Pt states independent no needs. Denies need for HH. CM will continue to follow. LIZ MAY RN-Paradichlorobenzene Tender - 08/29/18 14:19:56 Cm reviewed chart. RRS 42. Cm reviewed chart. Pt hx CVA. To hospital event dizzy, chest pain. Her EKGwithout acute ischemia, but did demonstrate a prolonged QT/ ECHO on 08/28, Normal. MRI brain 08/28.. CM discussed DCP. Pt states independent no needs. CM will continue to follow. LIZ MAY RN-Paradichlorobenzene Tender - 08/28/18 12:29:23 Heather Isaac reviewed chart. RRS 42. Cm explained role of CM. Pt states lives with Ean [phone]. Pt states has a walker at home. Denies DME or HH. Denies homo o2. DM discussed DCP. Pt States is independent no needs. CM will continue to follow for d/c needs. Documentation Status Complete : Yes Abeba Whitt, Rn-Paradichlorobenzene Tender Ed - 08/30/2018 14:08 EST Final Discharge Disposition Note-CM Discharge To Care Management : Home Health Services (Related/SOC within 3 days)-06 Name of Receiving Facility/Provider-CM : [facility] p [phone] f [phone] Abeba Whitt, Rn-Paradichlorobenzene Tender Ed - 08/30/2018 14:08 EST Electronically signed by [facility] Conversion Hobbing Press Operator Cerner at 10/19/2022 9:44 AM CDT documented in this encounter Plan of Treatment Not on file documented as of this encounter Visit Diagnoses Not on filedocumented in this encounter
--- OUTSIDE RECORDS SUMMARY | 2025-05-22 15:33 | XMS_ITS | Encounter Summary ---
Author Organization [employer] ([place], [place], [place], [place], [place]) Address [address] [place] [address] Care Team Providers Care Risk Engineer Name Role Phone Unavailable Primary Care Provider Unavailabl e Encounter Details Date Type Department Care Team (Late st Contact Info) Description 08/28/2018 Transcribed Document [facility] [place] Family Medicine [address] [place] [address] ProviderLisbet MD [address] [place] [address] Social History Tobacco Use Types Packs/Day Years Used Date Smoking Tobacco: Never Assessed Comments Unknown Sex and Gender Information Value Date Recorded Sex Assigned at Not on file Legal Sex Female 3:31 PM CDT Gender Identity Not on file Sexual Orientation Not on file documented as of this encounter Miscellaneous Notes * Cerner Conversion Note - Historical ProviderMD - 08/28/2018 10:57 AM CLERICAL CLERK Attempt to Treat, PT Entered On: 08/28/2018 [...]
--- OUTSIDE RECORDS SUMMARY | 2025-05-22 15:33 | XMS_ITS | Encounter Summary ---
Author Organization [employer] ([place], [place], [place], [place], [place]) Address [address] [place] [address] Care Team Providers Care Fiber Optic Assembler Name Role Phone Unavailable Primary Care Provider Unavailabl e Encounter Details Date Type Department Care Team (Late st Contact Info) Description 08/28/2018 Transcribed Document [facility] [place] Family Medicine [address] [place] [address] ProviderLisbet MD [address] [place] [address] Social History Tobacco Use Types Packs/Day Years Used Date Smoking Tobacco: Never Assessed Comments Unknown Sex and Gender Information Value Date Recorded Sex Assigned at Not on file Legal Sex Female 3:31 PM CDT Gender Identity Not on file Sexual Orientation Not on file documented as of this encounter Miscellaneous Notes * Cerner Conversion Note - Historical ProviderMD - 08/28/2018 8:51 AM SUPERVISOR GRAPHITE Consult Phone Call Documentation Entered On: 08/28/2018 [...]
--- OUTSIDE RECORDS SUMMARY | 2025-05-22 15:33 | XMS_ITS | Encounter Summary ---
Author Organization [employer] ([place], [place], [place], [place], [place]) Address [address] [place] [address] Care Team Providers Care Veterinary Radiologist Name Role Phone Unavailable Primary Care Provider Unavailabl e Encounter Details Date Type Department Care Team (Late st Contact Info) Description 08/28/2018 Transcribed Document [facility] [place] Family Medicine [facility] [place] [address] ProviderLisbet MD [address] [place] [address] Social History Tobacco Use Types [...] - Lisbet ProviderMD - 08/28/2018 12:27 PM GEOLOGICAL E LOGGER Care Management Assessment/Plan Entered On: 08/28/2018 12:29 EST Performed On: 08/28/2018 12:27 EST by LIZ MAY RN-Photography SpotterInformation Systems Security Specialist Note Care Management Note : Heather Isaac reviewed chart. RRS 42. Cm explained role of CM. Pt states lives with Ean [phone]. Pt states has a walker at home. Denies DME or HH. Denies homo o2. DM discussed DCP. Pt States is independent no needs. CM will continue to follow for d/c needs. Documentation Status Complete : Yes LIZ MAY RN-Photography Spotter - 08/28/2018 12:27 EST Patient History Emergency [...] of CM. Pt states lives with Ean [phone]. Pt states has a walker at home. Denies DME or HH. DM discussed DCP. Pt States is independent no needs. CM will continue to follow for d/c needs. LIZ MAY RN-Photography Spotter - 08/28/2018 12:27 EST documented in this encounter Plan of Treatment Not on file documented as of this encounter Visit Diagnoses Not on filedocumented in this encounter
--- OUTSIDE RECORDS SUMMARY | 2025-05-22 15:33 | XMS_ITS | Encounter Summary ---
Author Organization [employer] ([place], [place], [place], [place], [place]) Address [address] [place] [address] Care Team Providers Care Second Vp Hr Assessment Name Role Phone Unavailable Primary Care Provider Unavailabl e Encounter Details Date Type Department Care Team (Late st Contact Info) Description 08/29/2018 Transcribed Document [facility] [place] [address] [place] [address] ProviderLisbet MD [address] [place] [address] Social History Tobacco Use Types [...] - Historical ProviderMD - 08/29/2018 12:08 PM BIODIESEL OPERATIONS MANAGER Discharge Instructions Entered On: 08/29/2018 12:08 EST Performed On: 08/29/2018 12:08 EST by SHARON BETANCOURT [facility] DC Instructions [facility] Home Health Services : [facility] p [phone] f [phone] Abeba Whitt, Rn-Chain Saw Operator Ed - 08/30/2018 14:07 EST Stroke/TIA Discharge Ins : N/A Heart Failure Discharge Ins : N/A Warfarin Discharge Ins : N/A Diet After Discharge : Heart healthy diet HUONG OLIVER RN - 08/29/2018 13:12 EST Special Instructions : STOP the following medications: STOP Metoprolol (lopressor) --- Follow up with Cardiology SHARON BETANCOURT [facility] - 08/29/2018 12:08 EST Electronically signed by Mikael [facility] Conversion Wrapper Layer Ita at 10/19/2022 9:52 AM CDT documented in this encounter Plan of Treatment Not on file documented as of this encounter Visit Diagnoses Not on filedocumented in this encounter
--- OUTSIDE RECORDS SUMMARY | 2025-05-22 15:33 | XMS_ITS | Referral Summary ---
Author Organization [employer] ([place], [place], [place], [place], [place]) Address [address] [place] [address] Care Team Providers Care Filling Hauler Weaving Name Role Phone Unavailable Primary Care Provider [...]
--- OUTSIDE RECORDS SUMMARY | 2025-05-22 15:33 | XMS_ITS | Encounter Summary ---
Author Organization [employer] ([place], [place], [place], [place], [place]) Address [address] [place] [address] Care Team Providers Care Arch Cushion Skiving Machine Operator Name Role Phone Unavailable Primary Care Provider Unavailabl e Encounter Details Date Type Department Care Team (Late st Contact Info) Description 08/29/2018 Transcribed Document [facility] Radiology [address] [place] [address] [place] [address] [place] [address] [address] Social History Tobacco Use Types [...] #7. History of fibromyalgia #8. Hypothyroidism Consultation technology training associate Dr. Rajan Procedures Echocardiogram Disposition Home Activity [...] hypothyroidism, hypertension, and GERD who comes to [facility] after near syncopal event with altered mental status at [facility] this morning. She was recently admitted to [facility] in June for appears to be an acute CVA. She did have a loop recorder placed by Dr. Samayoa at that time. She reports she had been doing relatively well until this morning. She reports she was at [facility], when she began to feel not [...] of her recent loop recorder placement at [facility], she was transferred here to be evaluated [...]
--- OUTSIDE RECORDS SUMMARY | 2025-05-22 15:33 | XMS_ITS | Encounter Summary ---
Author Organization [employer] ([place], [place], [place], [place], [place]) Address [address] [place] [address] Care Team Providers Care Casework Specialist Name Role Phone Unavailable Primary Care Provider Unavailabl e Encounter Details Date Type Department Care Team (Late st Contact Info) Description 08/30/2018 Transcribed Document [facility] Family [facility] [place] [address] ProviderLisbet MD [address] [place] [address] Social History Tobacco Use Types [...] - Lisbet ProviderMD - 08/30/2018 2:08 PM PARQUET FLOOR LAYER'S HELPER [address] [address] Patient Copy Patient Information: Name: DANYEL HOGUE Current Date: 08/30/2018 14:08:22 : 1965 Patient Address: [address] [facility] [address] Patient Attending Physician: RICHARD DIAZ MD Primary [...] weeks With: Address: When: SIOMARA LARIOS [address] [facility] [email or web address], [address] [place], [place] [id number] Business (1) Within 1 to 2 weeks Comments: Patient should call for a follow up appointment with [facility]. With: Address: When: CORINNA CROOKS [address] [place], [place] [id number] Business (1) 10:00 AM Comments: Bring discharge instructions with you With: Address: When: SOFIA ANDINO [address] [facility], [address] [place], [place] [id number] Business (1) 1:30 PM Discharge Instructions: Diet after Discharge: Heart healthy diet Home Health Services: [facility] p [phone] f [phone] Immunizations Documented During Stay: No Immunizations Found [...] mg once daily --- Follow up with asset protection agent levothyroxine (levothyroxine 50 mcg (0.05 mg) oral [...] contain harmful chemicals. FOR MORE INFORMATION ??? Monegas[place] Lung Association: www.lung.org ??? Monegas[place] Cancer Society: www.cancer.org This information is not intended to replace advice given to you by your health care provider. Make sure you discuss any questions you have with your health care provider. Document Released: 07/28/2005 Document Revised: 10/11/2016 Document Reviewed: 12/10/2013 ElseMFG.com Interactive Patient Education ? 2017 Digium Inc. Heart-Healthy Eating Plan Many factors influence [...] foods can I eat? Grains Breads, including Kinyarwanda, white, susanna, wheat, raisin, rye, oatmeal, and Pashto. Tortillas that are neither fried nor made with lard or trans fat. Low-fat rolls, including hotdog and hamburger buns and Solomon Islander muffins. Biscuits. Muffins. Waffles. Pancakes. Light popcorn. Whole-grain cereals. Flatbread. [place] toast. Pretzels. Breadsticks. Rusks. Low-fat snacks and [...] cheese. Whole milk cheeses, including blue (rickey), [place] Reymundo, Brie, Jaciel, Monegasque, Havarti, Cape Verdean, cheddar, Camembert, and [place]. Whole or 2% milk that is liquid, [...] that has suet, meat fat, or shortening. Saragosa butter, hydrogenated oils, palm oil, coconut oil, [...] 03/29/2009 Document Revised: 01/07/2017 Document Reviewed: 12/12/2014 Digium Interactive Patient Education ? 2017 Digium Inc. How to Take a Pulse Your [...] 12/25/2003 Document Revised: 01/07/2017 Document Reviewed: 11/23/2016 Digium Interactive Patient Education ? 2017 [employer]ium Inc. How to Take Your Blood Pressure [...] 06/02/2009 Document Revised: 07/11/2015 Document Reviewed: 08/15/2014 Digium Interactive Patient Education ? 2017 [employer]ium Inc. Bradycardia, Adult Bradycardia is a alnfpc-ticz-oqmbwk heartbeat. A normal resting heart rate for [...] provider. ??? Follow a heart-healthy diet. A target protection specialist (dietitian) can help to educate you [...] of hard liquor. General instructions ??? Take pzvw-byj-mjgvzgd and prescription medicines only as told by [...] 03/12/2003 Document Revised: 02/15/2017 Document Reviewed: 12/09/2016 ElseMFG.com Interactive Patient Education ? 2017 Digium Inc. Dizziness Dizziness is a common problem. [...] your legs often if you need to chain sales representative one place for a long time. Tighten [...] 06/08/2012 Document Revised: 11/25/2016 Document Reviewed: 06/16/2015 Digium Interactive Patient Education ? 2017 Digium Inc. Medication Leaflets: metoprolol (me TOE pro [...] may report side effects to FDA at 0-294-JKB-2339. What other drugs will affect metoprolol? Tell [...] may affect metoprolol. This includes prescription and qcez-lur-kozdcbj medicines, vitamins, and herbal products. Not all [...] to ensure that the information provided by Quest app. ('MultiZona.comtum') is accurate, up-to-date, and complete, but no guarantee is made to that effect. Drug information contained herein may be time sensitive. SuccessNexus.com information has been compiled for use by healthcare practitioners and consumers in the [place] and therefore SuccessNexus.com does not warrant that uses outside of the [place] are appropriate, unless specifically indicated otherwise. RECUPYLs drug information does not endorse drugs, diagnose patients or recommend therapy. RECUPYLs drug information is an informational resource designed [...] effective or appropriate for any given patient. SuccessNexus.com does not assume any responsibility for any aspect of healthcare administered with the aid of information SuccessNexus.com provides. The information contained herein is not intended to cover all possible uses, directions, precautions, warnings, drug interactions, allergic reactions, or adverse effects. If you have questions about the drugs you are taking, check with your doctor, nurse or pharmacist. Copyright 7522-1794 Ita Onevest. Version: 17.01. Revision Date: 02/10/2018. CIGARETTE SMOKING: The facts are clear, cigarette smoking will shorten your life. Smoking can cause many illnesses along the way. As a healthcare provider, we recommend that you stop smoking. Assistance with quitting is available by contacting 8-799-WYDH-NOW. This is a free resource providing counseling, [...] Be sure to sign up for the AirPair patient portal, which gives you 24/01 access to your medical information ??? including these discharge instructions ??? using your computer, smartphone, or tablet. Just go to [email or web address] to get started. Questions? Call . [facility] would like to thank you for allowing us to assist you with your healthcare needs. MYKEL Mascorro CAROLYN ELIZABETH, (or livestock sales representative) have received the above patient education materials/instructions and have verbalized understanding: Patient Signature _ Date/Time Patient Infrastructure Administrator Signature (if needed) Date/Time Clinician/Hospital Infrastructure Administrator Signature (if needed) Date/Time documented in this encounter Plan of Treatment Not on file documented as of this encounter Visit Diagnoses Not on filedocumented in this encounter
--- OUTSIDE RECORDS SUMMARY | 2025-05-22 15:33 | XMS_ITS | Encounter Summary ---
Author Organization [employer] ([place], [place], [place], [place], [place]) Address [address] [place] [address] Care Team Providers Care Laborer Orchard Name Role Phone Unavailable Primary Care Provider Unavailabl e Encounter Details Date Type Department Care Team (Late st Contact Info) Description 08/30/2018 Transcribed Document [facility] Family Medicine [address] [place] [address] ProviderLisbet MD [address] [place], [place] [id number] Social History Tobacco Use Types Packs/Day Years Used Date Smoking Tobacco: Never Assessed Comments Unknown Sex and Gender Information Value Date Recorded Sex Assigned at Not on file Legal Sex Female 3:31 PM CDT Gender Identity Not on file Sexual Orientation Not on file documented as of this encounter Miscellaneous Notes * Cerner Conversion Note - Historical ProviderMD - 08/30/2018 5:00 AM HAIR ASSISTANT Chart Check - Review Order Profile Entered [...]
--- OUTSIDE RECORDS SUMMARY | 2025-05-22 15:33 | XMS_ITS | Encounter Summary ---
Author Organization [employer] ([place], [place], [place], [place], [place]) Address [address] [place] [address] Care Team Providers Care Conservation Assistant Name Role Phone Unavailable Primary Care Provider Unavailabl e Encounter Details Date Type Department Care Team (Late st Contact Info) Description 09/01/2018 Transcribed Document [facility] [address] [place] [address] ProviderLisbet MD [address] [place], [place] [id number] Social History Tobacco Use Types Packs/Day Years Used Date Smoking Tobacco: Never Assessed Comments Unknown Sex and Gender Information Value Date Recorded Sex Assigned at Not on file Legal Sex Female 3:31 PM CDT Gender Identity Not on file Sexual Orientation Not on file documented as of this encounter Miscellaneous Notes * Cerner Conversion Note - Historical ProviderMD - 09/01/2018 10:38 AM STOPER Post Visit Phone Call Entered On: 09/01/2018 [...] 09/01/2018 10:38 EST Electronically signed by Interface, [facility] Conversion Fashion Intern Cerner at 10/19/2022 10:07 AM CDT documented in this encounter Plan of Treatment Not on file documented as of this encounter Visit Diagnoses Not on filedocumented in this encounter
--- OUTSIDE RECORDS SUMMARY | 2025-05-22 15:33 | XMS_ITS | Encounter Summary ---
Author Organization [employer] ([place], [place], [place], [place], [place]) Address [address] [place] [address] Care Team Providers Care Stamp Collector Name Role Phone Unavailable Primary Care Provider Unavailabl e Encounter Details Date Type Department Care Team (Late st Contact Info) Description 08/31/2018 Transcribed Document [facility] [place] [facility] [place] [address] ProviderLisbet MD [address] [place] [address] Social History Tobacco Use Types [...] - Lisbet ProviderMD - 08/31/2018 6:07 PM BOND ANALYST [address] [address] Patient Copy Patient Information: Name: DANYEL HOGUE Current Date: 08/31/2018 18:07:00 : 1965 Patient Address: [address] [facility] [address] Patient Attending Physician: RICHARD DIAZ MD Primary [...] weeks With: Address: When: SIOMARA LARIOS [address] [facility] [address], [address] [place], [place] [phone] Business (1) Within 1 to 2 weeks Comments: Patient should call for a follow up appointment with [facility]. With: Address: When: CORINNA CROOKS [address] [place], [place] [phone] Business (1) 10:00 AM Comments: Bring discharge instructions with you With: Address: When: SOFIA ANDINO [address] [facility], [address] [place], [place] [phone] Business (1) 1:30 PM Discharge Instructions: Diet after Discharge: Heart healthy diet Home Health Services: [facility] p [phone] f [phone] Immunizations Documented During Stay: No Immunizations Found [...] mg once daily --- Follow up with spindle plumber levothyroxine (levothyroxine 50 mcg (0.05 mg) oral [...] contain harmful chemicals. FOR MORE INFORMATION ??? [place] Lung Association: www.lung.org ??? [place] Cancer Society: www.cancer.org This information is not intended to replace advice given to you by your health care provider. Make sure you discuss any questions you have with your health care provider. Document Released: 07/28/2005 Document Revised: 10/11/2016 Document Reviewed: 12/10/2013 ElseSET Interactive Patient Education ? 2017 IngBoo Inc. Heart-Healthy Eating Plan Many factors influence [...] foods can I eat? Grains Breads, including Azeri, white, susanna, wheat, raisin, rye, oatmeal, and Maori. Tortillas that are neither fried nor made with lard or trans fat. Low-fat rolls, including hotdog and hamburger buns and Kuwaiti muffins. Biscuits. Muffins. Waffles. Pancakes. Light popcorn. Whole-grain cereals. Flatbread. [place] toast. Pretzels. Breadsticks. Rusks. Low-fat snacks and [...] cheese. Whole milk cheeses, including blue (rickey), Sunflower Reymundo, Brie, Jaciel, Jamaican, Havarti, Slovenian, cheddar, Camembert, and [place]. Whole or 2% milk that is liquid, [...] that has suet, meat fat, or shortening. Pompey butter, hydrogenated oils, palm oil, coconut oil, [...] 03/29/2009 Document Revised: 01/07/2017 Document Reviewed: 12/12/2014 IngBoo Interactive Patient Education ? 2017 IngBoo Inc. How to Take a Pulse Your [...] 12/25/2003 Document Revised: 01/07/2017 Document Reviewed: 11/23/2016 IngBoo Interactive Patient Education ? 2017 IngBoo Inc. How to Take Your Blood Pressure [...] 06/02/2009 Document Revised: 07/11/2015 Document Reviewed: 08/15/2014 IngBoo Interactive Patient Education ? 2017 IngBoo Inc. Bradycardia, Adult Bradycardia is a fbvxtf-eoyk-ttjqhe heartbeat. A normal resting heart rate for [...] provider. ??? Follow a heart-healthy diet. A director of food and nutrition (dietitian) can help to educate you about [...] of hard liquor. General instructions ??? Take ckma-cuj-bwgpufl and prescription medicines only as told by [...] 03/12/2003 Document Revised: 02/15/2017 Document Reviewed: 12/09/2016 ElseSET Interactive Patient Education ? 2017 IngBoo Inc. Dizziness Dizziness is a common problem. [...] your legs often if you need to sharepoint analyst one place for a long time. Tighten [...] 06/08/2012 Document Revised: 11/25/2016 Document Reviewed: 06/16/2015 IngBoo Interactive Patient Education ? 2017 IngBoo Inc. Medication Leaflets: metoprolol (me TOE pro [...] may report side effects to FDA at 6-249-RLU-3384. What other drugs will affect metoprolol? Tell [...] may affect metoprolol. This includes prescription and mlch-yfj-bxyndjq medicines, vitamins, and herbal products. Not all [...] to ensure that the information provided by Alpha Smart Systems. ('No.1 Travellertum') is accurate, up-to-date, and complete, but no guarantee is made to that effect. Drug information contained herein may be time sensitive. PEER information has been compiled for use by healthcare practitioners and consumers in the [place] and therefore PEER does not warrant that uses outside of the [place] are appropriate, unless specifically indicated otherwise. Packetworxs drug information does not endorse drugs, diagnose patients or recommend therapy. Packetworxs drug information is an informational resource designed [...] effective or appropriate for any given patient. PEER does not assume any responsibility for any aspect of healthcare administered with the aid of information PEER provides. The information contained herein is not intended to cover all possible uses, directions, precautions, warnings, drug interactions, allergic reactions, or adverse effects. If you have questions about the drugs you are taking, check with your doctor, nurse or pharmacist. Copyright 3206-1899 Ita Cyber Kiosk Solutions. Version: 17.01. Revision Date: 02/10/2018. CIGARETTE SMOKING: The facts are clear, cigarette smoking will shorten your life. Smoking can cause many illnesses along the way. As a healthcare provider, we recommend that you stop smoking. Assistance with quitting is available by contacting 6-971-YNBI-NOW. This is a free resource providing counseling, [...] Be sure to sign up for the CouponCabin patient portal, which gives you 24/01 access to your medical information ??? including these discharge instructions ??? using your computer, smartphone, or tablet. Just go to Task Spotting Inc..Lattice Power to get started. Questions? Call . [facility] would like to thank you for allowing us to assist you with your healthcare needs. MYKEL Mascorro CAROLYN ELIZABETH, (or wholesale representative) have received the above patient education materials/instructions and have verbalized understanding: Patient Signature _ Date/Time Patient Power Operator Signature (if needed) Date/Time Clinician/Hospital Power Operator Signature (if needed) Date/Time documented in this encounter Plan of Treatment Not on file documented as of this encounter Visit Diagnoses Not on filedocumented in this encounter
--- OUTSIDE RECORDS SUMMARY | 2025-05-22 15:33 | XMS_ITS | Encounter Summary ---
Author Organization [employer] ([place], [place], [place], [place], [place]) Address [address] [place] [address] Care Team Providers Care Editing Clerk Name Role Phone Unavailable Primary Care Provider Unavailabl e Encounter Details Date Type Department Care Team (Late st Contact Info) Description 08/29/2018 Transcribed Document [facility] Family Medicine [facility] [place] [address] ProviderLisbet MD [address] [place], [place] [id number] Social History Tobacco Use Types Packs/Day Years Used Date Smoking Tobacco: Never Assessed Comments Unknown Sex and Gender Information Value Date Recorded Sex Assigned at Not on file Legal Sex Female 3:31 PM CDT Gender Identity Not on file Sexual Orientation Not on file documented as of this encounter Miscellaneous Notes * Cerner Conversion Note - Historical ProviderMD - 08/29/2018 2:25 PM HOUSEKEEPING STAFF Care Management Assessment/Plan Entered On: 08/29/2018 14:25 EST Performed On: 08/29/2018 14:25 EST by LIZ MAY RN-Dental Office ReceptionistThermometer Maker Note Care Management Note : Cm reviewed chart. RRS 42. Cm reviewed chart. Pt hx CVA. To hospital event dizzy, chest pain. Her EKGwithout acute ischemia, but did demonstrate a prolonged QT/ ECHO on 08/28, Normal. MRI brain 08/28.. CM discussed DCP. Pt states independent no needs. Denies need for HH. CM will continue to follow. Care Management Note Report : LIZ MAY RN-Dental Office Receptionist - 08/29/18 14:19:56 Cm reviewed chart. RRS 42. Cm reviewed chart. Pt hx CVA. To hospital event dizzy, chest pain. Her EKGwithout acute ischemia, but did demonstrate a prolonged QT/ ECHO on 08/28, Normal. MRI brain 08/28.. CM discussed DCP. Pt states independent no needs. CM will continue to follow. LIZ MAY, RN-Dental Office Receptionist - 08/28/18 12:29:23 Heather Isaac reviewed chart. RRS 42. Cm explained role of CM. Pt states lives with Ean [phone]. Pt states has a walker at home. Denies DME or HH. Denies homo o2. DM discussed DCP. Pt States is independent no needs. CM will continue to follow for d/c needs. Documentation Status Complete : Yes LIZ MAY, RN-Dental Office Receptionist - 08/29/2018 14:25 EST Electronically signed by [facility], [facility] Conversion Puller Over Cerner at 10/19/2022 10:03 AM CDT documented in this encounter Plan of Treatment Not on file documented as of this encounter Visit Diagnoses Not on filedocumented in this encounter
--- OUTSIDE RECORDS SUMMARY | 2025-05-22 15:33 | XMS_ITS | Encounter Summary ---
Author Organization [employer] ([place], [place], [place], [place], [place]) Address [address] [place] [address] Care Team Providers Care College Advisor Name Role Phone Unavailable Primary Care Provider Unavailabl e Encounter Details Date Type Department Care Team (Late st Contact Info) Description 08/31/2018 Transcribed Document [facility] [address] [place] [address] ProviderLisbet MD [address] [place] [address] Social History Tobacco Use Types Packs/Day Years Used Date Smoking Tobacco: Never Assessed Comments Unknown Sex and Gender Information Value Date Recorded Sex Assigned at Not on file Legal Sex Female 3:31 PM CDT Gender Identity Not on file Sexual Orientation Not on file documented as of this encounter Miscellaneous Notes * Cerner Conversion Note - Historical ProviderMD - 08/31/2018 2:00 PM CHIEF NURSE EXECUTIVE Post Visit Phone Call Entered On: 08/31/2018 [...]
--- OUTSIDE RECORDS SUMMARY | 2025-05-22 15:33 | XMS_ITS | Clinical Summary ---
Author Organization [facility] Address [address] [place] [address] Care Team Providers Care Furniture Upholsterer Name Role Phone Celso Reeder MD Primary Care Provider [phone] Allergies Active Allergy Reactions Criticality Noted Date [...] SCREENING 04/26/2017 INFLUENZA VACCINE 02/01/2025 Insurance [address] Care Teams Furniture Upholsterer Relationship Specialty Start Date End Date Celso Reeder MD [address] [place] [address] PCP - General Family Medicine 04/26/17
--- OUTSIDE RECORDS SUMMARY | 2025-05-22 15:33 | XMS_ITS | Encounter Summary ---
Author Organization [employer] ([place], [place], [place], [place], [place]) Address [address] [place] [address] Care Team Providers Care Fur Tailor Name Role Phone Unavailable Primary Care Provider Unavailabl e Encounter Details Date Type Department Care Team (Late st Contact Info) Description 08/29/2018 Transcribed Document [facility] Family Medicine [address] [place] [address] ProviderLisbet MD [address] [place] [address] Social History Tobacco Use Types Packs/Day Years Used Date Smoking Tobacco: Never Assessed Comments Unknown Sex and Gender Information Value Date Recorded Sex Assigned at Not on file Legal Sex Female 3:31 PM CDT Gender Identity Not on file Sexual Orientation Not on file documented as of this encounter Miscellaneous Notes * Cerner Conversion Note - Historical ProviderMD - 08/29/2018 1:50 PM COLLEGE AND CAREER COUNSELOR Consult Phone Call Documentation Entered On: 08/29/2018 [...]
--- OUTSIDE RECORDS SUMMARY | 2025-05-22 15:33 | XMS_ITS | Encounter Summary ---
Author Organization [employer] ([place], [place], [place], [place], [place]) Address [address] [place] [address] Care Team Providers Care Community Service Aide Name Role Phone Unavailable Primary Care Provider Unavailnghia e Encounter Details Date Type Department Care Team (Late st Contact Info) Description 08/30/2018 Transcribed Document [facility] [place] [address] ProviderLisebt MD [address] [place] [id number] Social History Tobacco Use Types Packs/Day Years Used Date Smoking Tobacco: Never Assessed Comments Unknown Sex and Gender Information Value Date Recorded Sex Assigned at Not on file Legal Sex Female 3:31 PM CDT Gender Identity Not on file Sexual Orientation Not on file documented as of this encounter Miscellaneous Notes * Cerner Conversion Note - Lisbet ProviderMD - 08/30/2018 11:22 AM MOSAIC TECHNICIAN DATE OF CONSULTATION: 08/30/2018 NEUROLOGY CONSULTATION REFERRING PHYSICIAN: Kari Ordonez M.D. HISTORY OF PRESENT ILLNESS: Anastasia Romero is a 52-year-old white female with a past history of hypertension and fibromyalgia, who was transferred to our hospital three days ago on August 27 from the emergency room at [facility] for further evaluation of syncope and/or near-syncope. [...] she was sitting at a pew in [place] and stood up to sing and then [...] transferred here from an emergency room in [place] for evaluation of left-sided weakness that had [...] hospitalization, she has been following up with teacher vocational training, Dr. Samayoa, as an outpatient who did [...] she has been following up with the [facility] physician java spring developer Ankita Duke at least one time. MEDICATIONS: [...] appendectomy. SOCIAL HISTORY: The patient lives in [facility]. She is . She lives with her [...] through 12 were intact. Coordination shows intact gowuvt-ya-jrjh and fhro-le-sxoc. Gait was not tested. LABORATORY DATA: The patient has had an MRI of her brain performed two days ago that shows no acute abnormality. The patient has had an echocardiogram this admission that was technically difficult, but was within normal limits with an ejection fraction of 55%. Apparently, the teacher vocational training has interrogated her loop recorder, which was [...] August 27 from the emergency room at [facility] for further evaluation of syncope and/or near-syncope. [...] with Ankita Duke at the office of [facility]. 3. Consideration could be given to [...]
--- OUTSIDE RECORDS SUMMARY | 2025-05-22 15:33 | XMS_ITS | Encounter Summary ---
Author Organization [employer] ([place], [place], [place], [place], [place]) Address [address] [place] [address] Care Team Providers Care Project Construction Manager Name Role Phone Unavailable Primary Care Provider Unavailabl e Encounter Details Date Type Department Care Team (Late st Contact Info) Description 08/29/2018 Transcribed Document [facility] [place] Family Medicine [address] [place] [address] ProviderLisbet MD [address] [place] [address] Social History Tobacco Use Types [...] - Historical ProviderMD - 08/29/2018 2:19 PM DENTAL OFFICE RECEPTIONIST Care Management Assessment/Plan Entered On: 08/29/2018 14:19 EST Performed On: 08/29/2018 14:19 EST by LIZ MAY RN-Analysis LeadRegistered Dental Hygienist Note Care Management Note : Cm reviewed chart. RRS 42. Cm reviewed chart. Pt hx CVA. To hospital event dizzy, chest pain. Her EKGwithout acute ischemia, but did demonstrate a prolonged QT/ ECHO on 08/28, Normal. MRI brain 08/28.. CM discussed DCP. Pt states independent no needs. CM will continue to follow. Care Management Note Report : LIZ MAY RN-Analysis Lead - 08/28/18 12:29:23 Heather Isaac reviewed chart. RRS 42. Cm explained role of CM. Pt states lives with Ean [phone]. Pt states has a walker at home. Denies DME or HH. Denies homo o2. DM discussed DCP. Pt States is independent no needs. CM will continue to follow for d/c needs. Documentation Status Complete : Yes LIZ MAY, RN-Analysis Lead - 08/29/2018 14:19 EST documented in this encounter Plan of Treatment Not on file documented as of this encounter Visit Diagnoses Not on filedocumented in this encounter
--- OUTSIDE RECORDS SUMMARY | 2025-05-22 15:33 | XMS_ITS | Encounter Summary ---
Author Organization [employer] ([place], [place], [place], [place], [place]) Address [address] [place] [address] Care Team Providers Care Durability Technician Name Role Phone Unavailable Primary Care Provider Unavailabl e Encounter Details Date Type Department Care Team (Late st Contact Info) Description 08/30/2018 Transcribed Document [facility] [place] [address] [place] [address] ProviderLisbet MD [address] [place] [address] Social History Tobacco Use Types [...] - Lisbet ProviderMD - 08/30/2018 2:10 PM PRINCIPAL ARCHITECT [address] [address] Patient Copy Patient Information: Name: DANYEL HOGUE Current Date: 08/30/2018 14:10:42 : 1965 Patient Address: [address] [facility] [address] Patient Attending Physician: RICHARD DIAZ MD Primary [...] weeks With: Address: When: SIOMARA LARIOS [address] [facility] [employer], [address] [place], [place] [id number] Business (1) Within 1 to 2 weeks Comments: Patient should call for a follow up appointment with [facility]. With: Address: When: CORINNA CROOKS [address] [place], [place] [id number] Business (1) 10:00 AM Comments: Bring discharge instructions with you With: Address: When: SOFIA ANDINO [address] [facility], [address] [place], [place] [address] Business (1) 1:30 PM Discharge Instructions: Diet after Discharge: Heart healthy diet Home Health Services: [facility] [phone] f [phone] Immunizations Documented During Stay: No Immunizations Found [...] mg once daily --- Follow up with auto former machine operator levothyroxine (levothyroxine 50 mcg (0.05 mg) oral [...] contain harmful chemicals. FOR MORE INFORMATION ??? [place] [employer]: www.lung.org ??? [place] Cancer Society: www.cancer.org This information is not intended to replace advice given to you by your health care provider. Make sure you discuss any questions you have with your health care provider. Document Released: 07/28/2005 Document Revised: 10/11/2016 Document Reviewed: 12/10/2013 [employer] Interactive Patient Education ? 2017 [employer] Heart-Healthy Eating Plan Many factors influence [...] foods can I eat? Grains Breads, including Nepali, white, susanna, wheat, raisin, rye, oatmeal, and Maltese. Tortillas that are neither fried nor made with lard or trans fat. Low-fat rolls, including hotdog and hamburger buns and North Korean muffins. Biscuits. Muffins. Waffles. Pancakes. Light popcorn. Whole-grain cereals. Flatbread. [place]land toast. Pretzels. Breadsticks. Rusks. Low-fat snacks and [...] cheese. Whole milk cheeses, including blue (rickey), Mariposa Reymundo, Brie, Jaciel, Barbadian, Havarti, Singaporean, cheddar, Camembert, and Mcintosh. Whole or 2% milk that is liquid, [...] that has suet, meat fat, or shortening. [place] butter, hydrogenated oils, palm oil, coconut oil, [...] 03/29/2009 Document Revised: 01/07/2017 Document Reviewed: 12/12/2014 [employer] Interactive Patient Education ? 2017 [employer] How to Take a Pulse Your [...] 12/25/2003 Document Revised: 01/07/2017 Document Reviewed: 11/23/2016 [employer] Interactive Patient Education ? 2017 [employer] How to Take Your Blood Pressure [...] 06/02/2009 Document Revised: 07/11/2015 Document Reviewed: 08/15/2014 [employer] Interactive Patient Education ? 2017 [employer] Bradycardia, Adult Bradycardia is a kkwmyp-sled-mlkwyt heartbeat. A normal resting heart rate for [...] provider. ??? Follow a heart-healthy diet. A nutritional services cook (dietitian) can help to educate you about [...] of hard liquor. General instructions ??? Take xwtd-dok-gpqjvfn and prescription medicines only as told by [...] 03/12/2003 Document Revised: 02/15/2017 Document Reviewed: 12/09/2016 [employer] Interactive Patient Education ? 2017 [employer] Dizziness Dizziness is a common problem. [...] your legs often if you need to vice president of nursing one place for a long time. Tighten [...] 06/08/2012 Document Revised: 11/25/2016 Document Reviewed: 06/16/2015 [employer] Interactive Patient Education ? 2017 [employer] Medication Leaflets: metoprolol (me TOE pro [...] may report side effects to FDA at 4-627-PVJ-3972. What other drugs will affect metoprolol? Tell [...] may affect metoprolol. This includes prescription and tgcj-cqq-snasmuk medicines, vitamins, and herbal products. Not all [...] to ensure that the information provided by [employer] ('[employer]') is accurate, up-to-date, and complete, but no guarantee is made to that effect. Drug information contained herein may be time sensitive. [employer] information has been compiled for use by healthcare practitioners and consumers in the [place] and therefore [employer] does not warrant that uses outside of the [place] are appropriate, unless specifically indicated otherwise. [employer] drug information does not endorse drugs, diagnose patients or recommend therapy. [employer] drug information is an informational resource designed [...] effective or appropriate for any given patient. [employer] does not assume any responsibility for any aspect of healthcare administered with the aid of information [employer] provides. The information contained herein is not intended to cover all possible uses, directions, precautions, warnings, drug interactions, allergic reactions, or adverse effects. If you have questions about the drugs you are taking, check with your doctor, nurse or pharmacist. Copyright 8983-2279 [employer]. Version: 17.01. Revision Date: 02/10/2018. CIGARETTE SMOKING: The facts are clear, cigarette smoking will shorten your life. Smoking can cause many illnesses along the way. As a healthcare provider, we recommend that you stop smoking. Assistance with quitting is available by contacting 3-505-PWQM-NOW. This is a free resource providing counseling, [...] Be sure to sign up for the [employer] patient portal, which gives you 24/01 access to your medical information ??? including these discharge instructions ??? using your computer, smartphone, or tablet. Just go to [employer] to get started. Questions? Call . [facility] would like to thank you for allowing us to assist you with your healthcare needs. MYKEL Mascorro CAROLYN ELIZABETH, (or patient accounting representative) have received the above patient education materials/instructions and have verbalized understanding: Patient Signature _ Date/Time Patient Bus System Operator Signature (if needed) Date/Time Clinician/Hospital Bus System Operator Signature (if needed) Date/Time documented in this encounter Plan of Treatment Not on file documented as of this encounter Visit Diagnoses Not on filedocumented in this encounter
--- OUTSIDE RECORDS SUMMARY | 2025-05-22 15:33 | XMS_ITS | Encounter Summary ---
Author Organization [employer] ([place], [place], [place], [place], [place]) Address [address] [place] [address] Care Team Providers Care Criminal Defense Lawyer Name Role Phone Unavailable Primary Care Provider Unavailabl e Encounter Details Date Type Department Care Team (Late st Contact Info) Description 08/29/2018 Transcribed Document [facility] [place] [address] [place] [address] ProviderLisbet MD [address] [place] [address] Social History Tobacco Use Types [...] - Historical ProviderMD - 08/29/2018 3:11 AM HAIRSPRING TRUING INSPECTOR Height and Weight, Routine Entered On: 08/29/2018 3:11 EST Performed On: 08/29/2018 3:11 EST by Domenica Fish Care AsstHealth Unit Coord Height and Weight, Routine Routine Weight Source : Bed scale Routine Weight Entry Format : Brooks Routine Weight, Pounds : 224 lb Routine Weight, Ounces : 5 oz Routine Weight Calculation : 101.96 kg Height Source : Stated Height Entry Format : Brooks Height, Feet : 5 ft Height, Inches [...]
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
--- OUTSIDE RECORDS SUMMARY | 2025-05-22 15:33 | XMS_ITS | Encounter Summary ---
Author Organization [employer] ([place], [place], [place], [place], [place]) Address [address] [place] [address] Care Team Providers Care Adobe Cq Developer Name Role Phone Unavailable Primary Care Provider Unavailabl e Encounter Details Date Type Department Care Team (Late st Contact Info) Description 08/30/2018 Transcribed Document [facility] [place] [address] [place] [address] ProviderLisbet MD [address] [place], [place] [id number] Social History Tobacco Use Types Packs/Day Years Used Date Smoking Tobacco: Never Assessed Comments Unknown Sex and Gender Information Value Date Recorded Sex Assigned at Not on file Legal Sex Female 3:31 PM CDT Gender Identity Not on file Sexual Orientation Not on file documented as of this encounter Miscellaneous Notes * Cerner Conversion Note - Historical ProviderMD - 08/30/2018 2:00 AM REALTY LOAN SPECIALIST Olive Knocker Details Entered On: 08/30/2018 2:32 EST Performed [...]
--- OUTSIDE RECORDS SUMMARY | 2025-05-22 15:33 | XMS_ITS | Encounter Summary ---
Author Organization [employer] ([place], [place], [place], [place], [place]) Address [address] [place] [address] Care Team Providers Care Catalyst Operator Gasoline Name Role Phone Unavailable Primary Care Provider Unavailabl e Encounter Details Date Type Department Care Team (Late st Contact Info) Description 08/29/2018 Transcribed Document [facility] [place] Family Medicine [address] [place] [address] ProviderLisbet MD [address] [place], [place] [phone] Social History Tobacco Use Types Packs/Day Years Used Date Smoking Tobacco: Never Assessed Comments Unknown Sex and Gender Information Value Date Recorded Sex Assigned at Not on file Legal Sex Female 3:31 PM CDT Gender Identity Not on file Sexual Orientation Not on file documented as of this encounter Miscellaneous Notes * Cerner Conversion Note - Historical ProviderMD - 08/29/2018 2:00 AM POWERHOUSE MECHANIC APPRENTICE Russian Teacher Details Entered On: 08/29/2018 0:19 EST Performed [...]
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
--- OUTSIDE RECORDS SUMMARY | 2025-05-22 15:33 | XMS_ITS | Encounter Summary ---
Author Organization Healthcare Address [address] [place] [address] Care Team Providers Care Shoe Sewing Machine Operator And Tender Name Role Phone April Dorado APRN Primary Care Provider [phone] Encounter Details Date Type Department Care Team ([facility] st Contact Info) Description 05/22/2025 Orders Only External Location [address] [place] [address] Provider, External Social History Tobacco Use Types Packs/Day Years [...] on file documented as of this encounter Plan of Treatment Not on file documented as of this encounter Procedures Procedure Name Priority Date/Time Associated Diagnosis Comments CT NEURO OUTSIDE IMAGES 05/22/2025 2:05 PM EST documented in this encounter Results * CT NEURO OUTSIDE IMAGES (05/22/2025 2:05 PM EST) Anatomical Region Laterality Modality Computed Tomogra phy 05/22/2025 2:05 PM EST us External Provider IMG CT PROCEDURES Edited Resul t - Final documented in this encounter Visit Diagnoses Not on filedocumented in this encounter Care Teams Shoe Sewing Machine Operator And Tender Relationship Specialty Start Date End Date April Dorado APRN [address] [place] [address] PCP - General 11/14/20 documented as of this encounter
--- OUTSIDE RECORDS SUMMARY | 2025-05-22 15:33 | XMS_ITS | Encounter Summary ---
Author Organization [employer] ([place], [place], [place], [place], [place]) Address [address] [place] [address] Care Team Providers Care Plating And Point Assembly Supervisor Name Role Phone Unavailable Primary Care Provider Unavailabl e Encounter Details Date Type Department Care Team (Late st Contact Info) Description 08/30/2018 Transcribed Document [facility] [place] [place] Family Medicine [facility] [place] [address] ProviderLisbet MD [address] [place] [address] Social History Tobacco Use [...] - Lisbet ProviderMD - 08/30/2018 1:19 PM ALL AROUND PATTERNMAKER [address] [address] Patient Copy Patient Information: Name: DANYEL HOGUE Current Date: 08/30/2018 13:19:35 : 1965 Patient Address: [address] [facility] [address] Patient Attending Physician: RICHARD DIAZ MD Primary [...] weeks With: Address: When: SIOMARA LARIOS [address] [email or web address] [address], [address] [place], [place] [id number] Business (1) Within 1 to 2 weeks Comments: Patient should call for a follow up appointment with [facility]. With: Address: When: CORINNA CROOKS [address] [place], [place] [id number] Business (1) 10:00 AM Comments: Bring discharge instructions with you With: Address: When: SOFIA MCMAHONJULIO [address] [facility], [address] [place], [place] [id number] Business (1) 1:30 PM Discharge Instructions: Diet [...] mg once daily --- Follow up with forge tender levothyroxine (levothyroxine 50 mcg (0.05 mg) oral [...] contain harmful chemicals. FOR MORE INFORMATION ??? [place] Lung Association: www.lung.org ??? [place] Cancer Society: www.cancer.org This information is not intended to replace advice given to you by your health care provider. Make sure you discuss any questions you have with your health care provider. Document Released: 07/28/2005 Document Revised: 10/11/2016 Document Reviewed: 12/10/2013 [employer] Interactive Patient Education ? 2017 [employer]. Heart-Healthy Eating Plan Many factors influence [...] foods can I eat? Grains Breads, including Italian, white, susanna, wheat, raisin, rye, oatmeal, and Slovak. Tortillas that are neither fried nor made with lard or trans fat. Low-fat rolls, including hotdog and hamburger buns and Sammarinese muffins. Biscuits. Muffins. Waffles. Pancakes. Light popcorn. [...] cheese. Whole milk cheeses, including blue (rickey), Jerome Reymundo, Brie, Jaciel, Israeli, Havarti, Peruvian, cheddar, Camembert, and [place]. Whole or 2% milk that is liquid, [...] that has suet, meat fat, or shortening. [place] butter, hydrogenated oils, palm oil, coconut oil, [...] 03/29/2009 Document Revised: 01/07/2017 Document Reviewed: 12/12/2014 [employer] Interactive Patient Education ? 2017 [employer]. How to Take a Pulse Your [...] 12/25/2003 Document Revised: 01/07/2017 Document Reviewed: 11/23/2016 [employer] Interactive Patient Education ? 2017 [employer]. How to Take Your Blood Pressure [...] 06/02/2009 Document Revised: 07/11/2015 Document Reviewed: 08/15/2014 [employer] Interactive Patient Education ? 2017 [employer]. Bradycardia, Adult Bradycardia is a wppkpb-nubh-indkmc heartbeat. A normal resting heart rate for [...] ??? Follow a heart-healthy diet. A nutritional chemist (dietitian) can help to educate you about [...] of hard liquor. General instructions ??? Take ybyq-zee-musfpml and prescription medicines only as told by [...] 03/12/2003 Document Revised: 02/15/2017 Document Reviewed: 12/09/2016 [employer] Interactive Patient Education ? 2017 [employer]. Dizziness Dizziness is a common problem. [...] your legs often if you need to apparatus lineman one place for a long time. Tighten [...] 06/08/2012 Document Revised: 11/25/2016 Document Reviewed: 06/16/2015 Elsegloba.ly Interactive Patient Education ? 2017 [employer]. Medication Leaflets: metoprolol (me TOE pro [...] may report side effects to FDA at 5-749-BBX-0466. What other drugs will affect metoprolol? Tell [...] may affect metoprolol. This includes prescription and wrbs-pev-nnvsbjx medicines, vitamins, and herbal products. Not all [...] to ensure that the information provided by [employer]. ('Multum') is accurate, up-to-date, and complete, but no guarantee is made to that effect. Drug information contained herein may be time sensitive. [employer] information has been compiled for use by healthcare practitioners and consumers in the [place] and therefore [employer] does not warrant that uses outside of the [place] are appropriate, unless specifically indicated otherwise. [employer]'s drug information does not endorse drugs, diagnose patients or recommend therapy. [employer] drug information is an informational resource designed [...] effective or appropriate for any given patient. [employer] does not assume any responsibility for any aspect of healthcare administered with the aid of information [employer] provides. The information contained herein is not intended to cover all possible uses, directions, precautions, warnings, drug interactions, allergic reactions, or adverse effects. If you have questions about the drugs you are taking, check with your doctor, nurse or pharmacist. Copyright 1389-5466 [employer]. Version: 17.01. Revision Date: 02/10/2018. CIGARETTE SMOKING: The facts are clear, cigarette smoking will shorten your life. Smoking can cause many illnesses along the way. As a healthcare provider, we recommend that you stop smoking. Assistance with quitting is available by contacting 6-341-HPYD-NOW. This is a free resource providing counseling, [...] Be sure to sign up for the [employer] patient portal, which gives you 24/ access to your medical information ??? including these discharge instructions ??? using your computer, smartphone, or tablet. Just go to [email or web address] to get started. Questions? Call . [facility] would like to thank you for allowing us to assist you with your healthcare needs. MYKEL Mascorro CAROLYN ELIZABETH, (or sales representative public utilities) have received the above patient education materials/instructions and have verbalized understanding: Patient Signature _ Date/Time Patient Accountant Machine Processing Signature (if needed) Date/Time Clinician/Hospital Accountant Machine Processing Signature (if needed) Date/Time Electronically signed by Silvano Youssef Conversion Environmental Engineering Assistant Zananer at 10/19/2022 10:03 AM CDT documented in this encounter Plan of Treatment Not on file documented as of this encounter Visit Diagnoses Not on filedocumented in this encounter
--- OUTSIDE RECORDS SUMMARY | 2025-05-22 15:33 | XMS_ITS | Encounter Summary ---
Author Organization [employer] ([place], [place], [place], [place], [place]) Address [address] [place] [address] Care Team Providers Care Museum Registrar Name Role Phone Unavailable Primary Care Provider Unavailabl e Encounter Details Date Type Department Care Team (Late st Contact Info) Description 08/30/2018 Transcribed Document [facility] [place] Family Medicine [facility] [place] [address] ProviderLisbet MD [address], [place] [id number] Social History Tobacco Use Types Packs/Day Years Used Date Smoking Tobacco: Never Assessed Comments Unknown Sex and Gender Information Value Date Recorded Sex Assigned at Not on file Legal Sex Female 3:31 PM CDT Gender Identity Not on file Sexual Orientation Not on file documented as of this encounter Miscellaneous Notes * [employer]ner Conversion Note - Historical ProviderMD - 08/30/2018 2:25 PM ROUTE JUMPER Discharge Summary, PT Entered On: 08/30/2018 14:26 [...] NADEGE MORA, PT - 08/30/2018 14:25 EST Nursing Home Goals Mobility/Bed Mobility LTG PT Grid [...]
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
--- OUTSIDE RECORDS SUMMARY | 2025-05-22 15:33 | XMS_ITS | Encounter Summary ---
Author Organization [employer] ([place], [place], [place], [place], [place]) Address [address] [place] [address] Care Team Providers Care Maintenance Repairer Name Role Phone Unavailable Primary Care Provider Unavailabl e Encounter Details Date Type Department Care Team (Late st Contact Info) Description 08/29/2018 Transcribed Document [facility] Family Medicine [address] [place] [address] ProviderLisbet MD [address] [place], [place] [id number] Social History Tobacco Use Types Packs/Day Years Used Date Smoking Tobacco: Never Assessed Comments Unknown Sex and Gender Information Value Date Recorded Sex Assigned at Not on file Legal Sex Female 3:31 PM CDT Gender Identity Not on file Sexual Orientation Not on file documented as of this encounter Miscellaneous Notes * Cerner Conversion Note - Historical ProviderMD - 08/29/2018 5:00 PM BUILDING MANAGER Chart Check - Review Order Profile Entered [...]
--- OUTSIDE RECORDS SUMMARY | 2025-05-22 15:33 | XMS_ITS | Encounter Summary ---
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 [address] [place] [address] Patient Copy Patient Information: Name: DANYEL HOGUE Current Date: 08/29/2018 13:17:48 : 1965 Patient Address: [address] [facility] [address] Patient Attending Physician: RICHARD DIAZ MD Primary Care Provider: CORINNA CROOKS APRN Primary Care Provider Discharge Diagnosis: Dizziness Weight on Admission: 220 lb, 0 oz Weight at Discharge: 224 lb, 5 oz Comment: Follow-up Instructions: With: Address: When: CORINNA CROOKS [address] [place] [address] Business (1) 10:00 AM Comments: Bring discharge instructions with you With: Address: When: SOFIA ANDINO [address] [place] [address], [address] [place] [address] Business (1) 1:30 PM Discharge [...] contain harmful chemicals. FOR MORE INFORMATION ??? [place] Lung Association: www.lung.org ??? [place] Cancer Society: www.cancer.org This information is not intended to replace advice given to you by your health care provider. Make sure you discuss any questions you have with your health care provider. Document Released: 07/28/2005 Document Revised: 10/11/2016 Document Reviewed: 12/10/2013 US [employer] Interactive Patient Education ? 2017 US [employer] Inc. Heart-Healthy Eating Plan Many factors influence [...] white, susanna, wheat, raisin, rye, oatmeal, and Colombian. Tortillas that are neither fried nor made with lard or trans fat. Low-fat rolls, including hotdog and hamburger buns and Nigerien muffins. Biscuits. Muffins. Waffles. Pancakes. Light popcorn. [...] cheese. Whole milk cheeses, including blue (rickey), [place] Reymundo, Brie, Jaciel, Nauruan, Havarti, Ugandan, cheddar, Camembert, and [place]. Whole or 2% milk that is liquid, [...] that has suet, meat fat, or shortening. [place] butter, hydrogenated oils, palm oil, coconut oil, [...] 03/29/2009 Document Revised: 01/07/2017 Document Reviewed: 12/12/2014 US [employer] Interactive Patient Education ? 2017 US [employer] Inc. How to Take a Pulse Your [...] 12/25/2003 Document Revised: 01/07/2017 Document Reviewed: 11/23/2016 [employer] Interactive Patient Education ? 2017 [employer] Inc. How to Take Your Blood Pressure [...] 06/02/2009 Document Revised: 07/11/2015 Document Reviewed: 08/15/2014 [employer] Interactive Patient Education ? 2017 [employer] Inc. Bradycardia, Adult Bradycardia is a fysgxc-xffd-dbvqov heartbeat. A normal resting heart rate for [...] provider. ??? Follow a heart-healthy diet. A health and nutrition specialist (dietitian) can help to educate [...] of hard liquor. General instructions ??? Take wctt-ash-nbebfel and prescription medicines only as told by [...] 03/12/2003 Document Revised: 02/15/2017 Document Reviewed: 12/09/2016 US Toxic[employer] Interactive Patient Education ? 2017 [employer] Inc. Dizziness Dizziness is a common problem. [...] your legs often if you need to contract administration coordinator one place for a long time. Tighten [...] 06/08/2012 Document Revised: 11/25/2016 Document Reviewed: 06/16/2015 US T[employer] Interactive Patient Education ? 2017 [employer]. Medication Leaflets: metoprolol (me TOE pro lol) [...] may report side effects to FDA at 3-395-FNM-9642. What other drugs will affect metoprolol? Tell [...] may affect metoprolol. This includes prescription and fpwe-gfz-qkunnfj medicines, vitamins, and herbal products. Not all [...] to ensure that the information provided by [facility]. ('Multum') is accurate, up-to-date, and complete, but no guarantee is made to that effect. Drug information contained herein may be time sensitive. [facility] information has been compiled for use by healthcare practitioners and consumers in the [place] and therefore [facility] does not warrant that uses outside of the [place] are appropriate, unless specifically indicated otherwise. [facility]'s drug information does not endorse drugs, diagnose patients or recommend therapy. [employer] drug information is an informational resource designed [...] effective or appropriate for any given patient. [facility] does not assume any responsibility for any aspect of healthcare administered with the aid of information [facility] provides. The information contained herein is not intended to cover all possible uses, directions, precautions, warnings, drug interactions, allergic reactions, or adverse effects. If you have questions about the drugs you are taking, check with your doctor, nurse or pharmacist. Copyright 3893-1597 [facility]. Version: 17.01. Revision Date: 02/10/2018. CIGARETTE SMOKING: The facts are clear, cigarette smoking will shorten your life. Smoking can cause many illnesses along the way. As a healthcare provider, we recommend that you stop smoking. Assistance with quitting is available by contacting 5-550-QMTA-NOW. This is a free resource providing counseling, [...] Be sure to sign up for the [facility] patient portal, which gives you 24/01 access to your medical information ??? including these discharge instructions ??? using your computer, smartphone, or tablet. Just go to [employer] to get started. Questions? Call . [facility] would like to thank you for allowing us to assist you with your healthcare needs. MKYEL Mascorro CAROLYN ELIZABETH, (or insurance service representative) have received the above patient education materials/instructions and have verbalized understanding: Patient Signature _ Date/Time Patient Facilities Technician Signature (if needed) Date/Time Clinician/Hospital Facilities Technician Signature (if needed) Date/Time Electronically signed by Interface, [facility] Conversion Belt Maker Cerner at 10/19/2022 9:48 AM CDT documented in this encounter Plan of Treatment Not on file documented as of this encounter Visit Diagnoses Not on filedocumented in this encounter
--- OUTSIDE RECORDS SUMMARY | 2025-05-22 15:33 | XMS_ITS | Clinical Summary ---
Author Organization [employer] [facility] ([place], [place], [place], [place], [place]) Address [address] [place] [address] Care Team Providers Care Reference Archivist Name Role Phone Unavailable Primary Care Provider [...]
--- NOTE | 2025-05-22 16:55 | MR_ITS ---
PROCEDURE INFORMATION: Exam: MR Head Without Contrast Exam date and time: 05/22/2025 5:20 PM Age: 59 years old Clinical indication: Pain; Headache; Additional info: TIA, slurred speech TECHNIQUE: Imaging protocol: Magnetic resonance imaging of the head without contrast. COMPARISON: CT ANGIO HEAD 05/22/2025 2:36 PM FINDINGS: Brain: No restricted diffusion. No hemorrhage. No significant white matter disease. No edema. Cerebral ventricles: Normal. No ventriculomegaly. Bones: Unremarkable. Paranasal sinuses: Normal as visualized. No acute sinusitis. Mastoid air cells: Normal as visualized. No mastoid effusion. Orbital cavities: Unremarkable. Soft tissues: Unremarkable. IMPRESSION: No acute findings. No acute infarct.
[2025-05-22] MEDS: diazePAM 10MG/2ML SYRINGE 5 MG IV (17:42)
--- NOTE | 2025-05-22 18:51 | EXP.HP ---
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 Patient states she has been particularly stressed taking care of her mother who has dementia, and has been having on and off chest pains for the past couple days. This morning she had an episode of right-sided chest pain with radiation to her right axilla and right back followed by an episode of nausea around 11 AM. This was followed by an episode of slurred speech that began at 12 PM and resolved on route with EMS around 2 PM. On my evaluation of patient, she seems quite anxious and has been worrying a lot about her mother and her health. Of note, patient states she was told she had a TIA in 2018 when she was found sitting, awake but not responding to commands for an hour. She was evaluated at [facility] in 2018 for apparently a week without significant findings. A loop recorder has been has been placed by Dr. Sneed, unclear if it has been interrogated. No recent medication changes, denies fever/chills, shortness of breath, abdominal pain. Workup in the ED significant for normal troponins, EKG without acute ischemic changes. UA grossly abnormal for UTI. CT head, CTA head/neck unremarkable for acute findings. [facility] was consulted, they recommended starting a statin and obtaining an MRI for further evaluation. Given these findings, ED provider discussed case with me and decided to admit patient for further evaluation management. [facility] Disclaimer: The information contained in this section may have been updated after the patient was seen, as this information can be updated by other users. Medical History (Updated 05/22/25 @ 19:10 by Dale Brooks MD) CVA (cerebral vascular accident) Globus sensation Screening for diabetes mellitus Edema of both lower extremities Hypothyroidism Thyroid nodule Abnormal electrocardiogram [ECG] [EKG] Encounter for pre-operative cardiovascular clearance HLD (hyperlipidemia) CAD (coronary artery disease) Surgical History History of colonoscopy with polypectomy History of foot surgery History of removal of cyst History of appendectomy History of section Family History Other No significant family history Social History (Updated 05/22/25 @ 18:18 by Celestina Bran RN) Smoking Status: Former smoker tobacco type: cigarettes packs per day: 1 second hand exposure: No alcohol intake: never substance use type: denies use current occupational status: other Travel in the last 8 weeks?: None household members: spouse housing: house current occupational exposures/hazards: No caffeine: Yes Have you lived/traveled outside [place] in past 30 days?: No Contact w/someone who lives/traveled outside US past 30 days?: No Exposure to someone with infectious disease in past 14 days?: No Do you have a fever (greater than 100.4 F or 38 C)?: No Have you tested positive for COVID-19?: No Exposed to someone with COVID-19 in past 14 days?: No Do you have a sore throat?: No Do you have a cough?: No Do you have any weakness?: No Are you experiencing any nausea/vomitting?: No Do you have any diarrhea?: No Are you experiencing any unusual bleeding?: No Do you have any muscle aches/pain?: No Do you have any abdominal pain?: No Are you experiencing loss of taste or smell?: No Other Medical History Have you received the Flu Vaccine for this season: Yes Have you received the Pneumonia Vaccine: No Meds Home Medications and Allergies Home Medications ?Medication ?Instructions ?Recorded ?Confirmed ?Type duloxetine 30 mg capsule,delayed 30 mg PO DAILY Depression 05/02/18 05/22/25 History release spironolactone 100 mg tablet 100 mg PO DAILY Fluid 01/01/19 05/22/25 History (Aldactone) aspirin 81 mg tablet,delayed 81 mg PO DAILY heart health 08/19/20 05/22/25 History release nitroglycerin 0.4 mg sublingual 0.4 mg sublingual Q5M PRN chest 09/14/23 05/22/25 Rx tablet pain #25 tabs rosuvastatin 40 mg tablet (Crestor) 40 mg PO DAILY #90 tabs 10/07/23 05/22/25 Rx levocetirizine 5 mg tablet (24HR 10 mg PO DAILY 10/13/23 05/22/25 History Allergy Relief) phentermine 37.5 mg tablet 37.5 mg PO DAILY 12/20/24 05/22/25 History potassium chloride 20 mEq 20 meq PO DAILY PRN supplement 12/20/24 05/22/25 History tablet,extended release(part/cryst) levothyroxine 50 mcg tablet 50 mcg PO DAILY thyroid 90 days 04/04/25 05/22/25 Rx (Synthroid) #90 tabs omeprazole 40 mg capsule,delayed 40 mg PO DAILY 05/22/25 05/22/25 History release sacubitril 24 mg-valsartan 26 mg 1 tab PO BID 05/22/25 05/22/25 History tablet (Entresto) vitamin B complex 1 tab PO DAILY 05/22/25 05/22/25 History New Prescriptions to Start Prescriptions: Allergies Allergy/AdvReac Type Severity Reaction Status Date / Time ketorolac Allergy Mild I-HIVES Verified 04/04/25 10:06 Iodinated Contrast Media Allergy Unknown Verified 04/04/25 10:06 allergy reaction jardiance AdvReac Mild shaky Uncoded 04/04/25 10:06 Exam Data for Last 24 hours Vital signs and Labs for Last 24 Hours: Temp Pulse Resp BP Pulse Ox O2 Del Method 98.2 F 80 20 134/79 96 Room Air 05/22/25 17:25 05/22/25 17:25 05/22/25 17:25 05/22/25 17:25 05/22/25 16:00 05/22/25 18:32 Laboratory Results - last 24 hr 05/22/25 14:00: WBC 6.5, RBC 4.92, Hgb 15.3, Hct 45.0, MCV 91.5, MCH 31.1, MCHC 34.0, RDW 12.7, Plt Count 210, MPV 11.3 H, Neut % (Auto) 58.4, Lymph % (Auto) 26.8, [place] % (Auto) 12.7 H, Eos % (Auto) 1.4, Baso % (Auto) 0.5, Neut # (Auto) 3.8, Lymph # (Auto) 1.8, [place] # (Auto) 0.8, Eos # (Auto) 0.1, Baso # (Auto) 0.0, PT 11.6, INR 1.05, APTT 27.9, Sodium 133 L, Potassium 4.7, Chloride 103, Carbon Dioxide 26, Anion Gap 8.7, BUN 14, Creatinine 0.80, Estimated Creat Clear 102, Estimated GFR 73, Est GFR ( Amer) 88, Glucose 114 H, Calcium 9.4, Total Bilirubin 0.8, AST 43 H, ALT 26, Alkaline Phosphatase 82, Troponin I < 0.01, Total Protein 7.4, Albumin 4.5, Globulin 2.9, Albumin/Globulin Ratio 1.6, Triglycerides 165 H, Cholesterol 104 L, LDL Cholesterol Direct 51.67 L, VLDL Cholesterol 33, HDL Cholesterol 34 L, Cholesterol/HDL Ratio 3.1, Plasma/Serum Alcohol < 10 05/22/25 14:45: Urine Color Yellow, Urine Appearance Clear, Urine pH 7.5, Ur Specific [place] 1.015, Urine Protein Negative, Urine Glucose (UA) Negative, Urine Ketones Negative, Urine Blood Negative, Urine Nitrate Negative, Urine Bilirubin Negative, Urine Urobilinogen 1.0, Ur Leukocyte Esterase 1+ A, Urine RBC None, Urine WBC 5-10, Ur Squamous Epith Cells 5-10, Urine Bacteria 1+, Urine Opiates Screen Negative, Urine Methadone Screen Negative, Ur Barbituates Screen Negative, Ur Phencyclidine Scrn Negative, Ur Amphetamines Screen Negative, U Benzodiazepines Scrn Negative, Urine Cocaine Screen Negative, U Marijuana (THC) Screen Negative I & O for Last 24 hours: Intake & Output 05/19/25 05/20/25 05/21/25 05/22/25 23:59 23:59 23:59 23:59 Weight 108.862 kg Constitutional Constitutional: no acute distress *Routine HEENT Exam Head: Present normocephalic Eye: Present EOMI and PERRL ENT: Present mucous membranes moist *Routine Neck Exam Neck: Present supple; Absent lymphadenopathy *Routine Respiratory Exam Respiratory: Present CTA bilaterally *Routine Cardiovascular Exam Cardiovascular: Present RRR *Routine Abdominal Exam Abdominal: Present soft and normoactive bowel sounds; Absent tenderness *Routine Rectal Exam Rectal:: deferred *Routine Genitalia Exam Genitalia:: deferred *Routine Extremities Exam Extremities: Absent cyanosis, clubbing or edema *Routine Skin Exam Skin: Present warm; Absent rash *Routine Neurological Exam Neurological: Present alert and oriented X3 Routine Psychiatric Exam Psychiatric: Present anxious Assessment and Plan *Assessment and plan (1) Slurred speech: Status: Acute Category: Medical Code(s): R47.81 - Slurred speech Plan Anastasia Romero is a 59-year-old female with a medical history significant for anxiety/depression, hypothyroidism, 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 Patient states she has been particularly stressed taking care of her mother who has dementia, and has been having on and off chest pains for the past couple days. This morning she had an episode of right-sided chest pain with radiation to her right axilla and right back followed by an episode of nausea around 11 AM. This was followed by an episode of slurred speech that began at 12 PM and resolved on route with EMS around 2 PM. On my evaluation of patient, she seems quite anxious and has been worrying a lot about her mother and her health. Of note, patient states she was told she had a TIA in 2018 when she was found sitting, awake but not responding to commands for an hour. She was evaluated at [facility] in 2018 for apparently a week without significant findings. A loop recorder has been has been placed by Dr. Sneed, unclear if it has been interrogated. No recent medication changes, denies fever/chills, shortness of breath, abdominal pain. Workup in the ED significant for normal troponins, EKG without acute ischemic changes. UA grossly abnormal for UTI. CT head, CTA head/neck unremarkable for acute findings. [facility] was consulted, they recommended starting a statin and obtaining an MRI for further evaluation. Given these findings, ED provider discussed case with me and decided to admit patient for further evaluation management. 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 Patient has been particularly stressed recently taking care of her mom with dementia, presents with intermittent right-sided chest pains with radiation to right axilla and had 2-hour episode of slurred speech that self resolved. ? Patient has been previously told she has a TIA syndrome [facility] in 2018. Has been taking aspirin 81 mg. ? No focal neurologic deficits on my exam. Slurred speech resolved. Does seem very anxious. ? Brain MRI after admission did not show acute findings. No LVO on CT angiograms. ? Given concomitant chest pain, slurring of the speech I suspect these constellation of findings may be attributed to stress and psychiatric in nature/functional neurological disorder. ? Continuous cardiac telemetry to evaluate for arrhythmias. ? Follow-up ECHO with bubble study. ? PT/OT consulted, pending further recommendations. Has had a few falls over the past few months. ? Follow-up A1c, lipid panel, TSH. ? Continue home aspirin 81 mg, atorvastatin 40 mg. ? Permissive hypertension, goal BP less than 220/120 until 2 PM tomorrow. #Chest pain ? Has been having intermittent right-sided chest pains radiation to the right axilla. Reproducible over the right breast. ? Fell a few weeks ago, has been having chest pain since then. Chest pain is may also be from uncontrolled anxiety. ? Follow-up ECHO. Troponins, EKG without acute ischemic findings. ? Ibuprofen as needed for chest pain, seems MSK in nature. #UTI ? UA grossly abnormal, had an episode of slurred speech this morning. ? Started ceftriaxone 1 g daily. ? Follow-up urine culture. #Anxiety ? Patient does take phentermine, will hold as this can cause anxiety and arrhythmias. ? Anxiety at this time seems uncontrolled, and chronic in nature. Consider restarting home duloxetine in the morning once reconciled. May benefit from switching to an SSRI. #Nonischemic HFpEF, 40 to 55% ? Currently euvolemic. Continue to monitor. #Hypothyroidism ? Continue home levothyroxine 50 mcg. Follow-up TSH. #GERD ? Continue home PPI. Full code DVT prophylaxis: Lovenox 40 mg
[2025-05-22] MEDS: CEFTRIAXONE 1 GM 1 GM in 0.9 % SODIUM CHLORIDE 50 ML IV (19:39)
[2025-05-22 19:45] LABS: Troponin I < 0.01 ng/ml (0.00-0.034)
[2025-05-22] MEDS: PANTOPRAZOLE 40MG TABLET 40 MG PO (20:40)
[2025-05-22] MEDS: ATORVASTATIN 40MG TABLET 80 MG PO (20:40)
--- NOTE | 2025-05-22 23:18 | ECG_ITS ---
APPROVED REPORT Exam: Resting ECG HR:75 bpm ECG Measurements Heart Rate 75 AXES RI 168 P 53 QRSd 156 QRS -27 QT 458 T 109 QTc 487 Conclusion SINUS RHYTHM WITH OCCASIONAL VENTRICULAR PREMATURE COMPLEXES LEFT BUNDLE BRANCH BLOCK [120+ ms QRS DURATION, 80+ ms Q/S IN V1/V2, 85+ ms R IN I/aVL/V5/V6] ABNORMAL ECG UNCONFIRMED REPORT Electronically signed by : William Mcgee MD 05/23/2025 08:26:31
[2025-05-22 23:20] LABS: Troponin I < 0.01 ng/ml (0.00-0.034)
[2025-05-23] VITALS: BP 122/67; PULSE 80; RESP 14; TEMP 36.7; O2SAT 92
[2025-05-23 04:00] VITALS: BP 109/68; PULSE 61; PULSE 70; RESP 14; TEMP 36.4; O2SAT 98; BMI 34.2
[2025-05-23 04:33] VITALS: PULSE 70
--- NOTE | 2025-05-23 04:35 | PC.NURSE ---
neuro s/sx negative, equal fill manager/pedal strength, sym. face, clear speech, a&ox4. son at bedside. denies chest pain. no acute changes t/o shift.
[2025-05-23 06:30] LABS: Hematocrit 45.7 % (37.0-47.0); Hemoglobin 15.2 g/dL (12.2-16.2); Immature Granulocytes % 0.4 %; Mean Corpuscular HGB Conc 33.3 g/dL (31.8-35.4); Mean Corpuscular Hemoglobin 30.5 pg (27.0-31.2); Mean Corpuscular Volume 91.6 fl (81-99); Nucleated Red Blood Cells % 0 %; Platelet Count 220 K/mm3 (142-424); Red Blood Count 4.99 M/mm3 (4.20-5.40); Red Cell Distribution Width-SD 41.8 fL; White Blood Count 11.3 K/mm3 (4.8-10.8)
[2025-05-23 06:39] LABS: Alanine Aminotransferase 23 U/L (12-78); Albumin Level 4.1 g/dl (3.5-5.0); Albumin/Globulin Ratio 1.6 (1.1-1.8); Alkaline Phosphatase 87 U/L (38-126); Anion Gap 10.1 mEq/L (5-15); Aspartate Amino Transferase 25 U/L (14-36); Bilirubin,Total 0.5 mg/dl (0.2-1.3); Blood Urea Nitrogen 13 mg/dl (7-17); Calcium 9.4 mg/dl (8.4-10.2); Carbon Dioxide 24 mmol/L (22.0-30.0); Chloride 103 mmol/L (98-107); Creatinine Clearance Estimated 87 mL/min (50-200); Creatinine,Serum 0.70 mg/dl (0.52-1.04); Estimated Glomerular Filt Rate 85 ml/min (>60); GFR (African American) 103 ML/MIN (>60); Globulin 2.5 g/dL (1.3-3.2); Glucose 147 mg/dl (74-100); Potassium 4.1 mmoL/L (3.5-5.1); Sodium 133 mmol/L (136-145); Total Protein,Serum 6.6 g/dl (6.3-8.2)
[2025-05-23 07:21] LABS: Free T4 (Free Thyroxine) 0.86 ng/dl (0.78-2.19)
[2025-05-23 07:34] LABS: Thyroid Stimulating Hormone 0.35 uIU/mL (0.465-4.68)
[2025-05-23 08:00] VITALS: BP 113/51; PULSE 53; PULSE 80; RESP 18; TEMP 36.5; O2SAT 99
[2025-05-23 08:43] LABS: Hemoglobin A1C 5.7 % (4.0-6.0)
[2025-05-23] MEDS: LEVOTHYROXINE 50MCG (0.05MG) TAB 50 MCG PO (08:55)
[2025-05-23] MEDS: ASPIRIN EC 81MG TABLET 81 MG PO (08:55)
--- NOTE | 2025-05-23 09:22 | HMH.PTEV ---
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 Patient states she has been particularly stressed taking care of her mother who has dementia, and has been having on and off chest pains for the past couple days. This morning she had an episode of right-sided chest pain with radiation to her right axilla and right back followed by an episode of nausea around 11 AM. This was followed by an episode of slurred speech that began at 12 PM and resolved on route with EMS around 2 PM. On my evaluation of patient, she seems quite anxious and has been worrying a lot about her mother and her health. Of note, patient states she was told she had a TIA in 2018 when she was found sitting, awake but not responding to commands for an hour. She was evaluated at [facility] in 2018 for apparently a week without significant findings. A loop recorder has been has been placed by Dr. Sneed, unclear if it has been interrogated. No recent medication changes, denies fever/chills, shortness of breath, abdominal pain. Workup in the ED significant for normal troponins, EKG without acute ischemic changes. UA grossly abnormal for UTI. CT head, CTA head/neck unremarkable for acute findings. [facility] was consulted, they recommended starting a statin and obtaining an MRI for further evaluation. Given these findings, ED provider discussed case with me and decided to admit patient for further evaluation management. Subjective Subjective Pt reports she lives with her in a SS home with 2 ANISA. Pt is normally IND with all mobility. Pt still drives. [facility] How much help from another person do you currently need... Turning from your None back to your side while in a flat bed without using bedrails? Moving from lying on None back to sitting on the side of a flat bed without using bedrails? Moving to and from a None bed to a chair ( including a wheelchair)? Standing up from a None chair using your arms? (e.g., wheelchair, bedside chair) Walking in hospital None room? Climbing 3-5 steps None with a railing? Mobility Score 24 Mobility Level [facility] Mobility 8 Walk 250 feet or more Mobility Calculator Rehab PT IP Eval Objective Appearance Patient Behavior Appropriate,Cooperative Patient Orientation Person Difficulty following none instructions Speech Pattern Clear Ambulation Patient Able to Yes Ambulate Ambulation Observation IP General Gait No Deviations/Normal Pattern Observation Ambulation Distance 20 (feet) Ambulation Assistive None Device Ambulation Ability Supervision/Stand by Balance Ability to Arise Able, uses arms to help Sitting Balance Steady, safe Standing Balance Steady, wide stance Dynamic Sitting Good Balance Ability Dynamic Standing Good Balance Ability Transfers Bed Transfer Ability Independent Sit to Stand Bed Independent Transfer Ability Rehab PT IP prob,goals,plan Problems Date of Evaluation: 05/23/25 Rehab Potential Rehab Potential Innapropriate for Skilled Therapy Discharge Plan PT Discharge Plan Pt is at her baseline in mobility/IND and is not appropriate for skilled PT at this time. Eval Complexity Eval Charge Codes 19550 - Moderate Complexity PHYSICIAN CERTIFICATION: I certify the specified therapy services for Anastasia Romero are required, authorized, and reviewed every 30 days.
--- NOTE | 2025-05-23 09:36 | HMH.OTEV ---
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 Patient states she has been particularly stressed taking care of her mother who has dementia, and has been having on and off chest pains for the past couple days. This morning she had an episode of right-sided chest pain with radiation to her right axilla and right back followed by an episode of nausea around 11 AM. This was followed by an episode of slurred speech that began at 12 PM and resolved on route with EMS around 2 PM. On my evaluation of patient, she seems quite anxious and has been worrying a lot about her mother and her health. Of note, patient states she was told she had a TIA in 2018 when she was found sitting, awake but not responding to commands for an hour. She was evaluated at [facility] in 2018 for apparently a week without significant findings. A loop recorder has been has been placed by Dr. Sneed, unclear if it has been interrogated. No recent medication changes, denies fever/chills, shortness of breath, abdominal pain. Workup in the ED significant for normal troponins, EKG without acute ischemic changes. UA grossly abnormal for UTI. CT head, CTA head/neck unremarkable for acute findings. [facility] was consulted, they recommended starting a statin and obtaining an MRI for further evaluation. Given these findings, ED provider discussed case with me and decided to admit patient for further evaluation management. Subjective I have been so cold. Pt supine in bed when therapy entered. Pt agreeable to OT eval this AM. Pt orient x3. Pt reported they live with in home with couple steps to enter. Pt reported they are Ind in FM w/o AD use. Pt reported they still drive and are Ind in ADLs and IADLs. Pt reported they have a very supportive that will help out w/o being asked. Pt agreed to FM task. Pt went from supine to EOB Ind. Pt then completed STS with Ind and then completed FM task of aprox 10 ft w/ Ind . Pt' s son then entered room. Pt sat back on EOB and went to supine position with Ind. Pt left supine in bed with call light and all other needs within reach and son present. Objective Patient Orientation Person,Place,Situation Right Upper WFL Extremity Gross ROM Left Upper Extremity WFL Gross ROM Bed Mobility bed mobility-scooting,bed mobility - supine/sit Assist Level Independent Transfer Training Sit/Stand Transfer Assist Level Independent Chair Transfer Independent Ability Chair Transfer Sit to/from Ambulatory Technique Chair Transfer None Assistive Devices Decrease in No Endurance Rehab OT IP prob,goals,plan Problems Date of Evaluation: 05/23/25 Rehab Potential Rehab Potential Innapropriate for Skilled Therapy Discharge Plan OT Discharge Plan At this time, pt is at baseline with functional occupational performance and would not benefit from skilled acute OT services and interventions while admitted at [facility]. Once medically stable, pt is able to DC home and no services warranted. Eval Complexity Eval Charge Codes 37964 - Moderate Complexity PHYSICIAN CERTIFICATION: I certify the specified therapy services for Anastasia Romero are required, authorized, and reviewed every 30 days.
--- NOTE | 2025-05-23 09:39 | HMH.PHAAMS2 ---
- Antimicrobial Stewardship Review culture & sensitivity review Stewardship interventions: culture & sensitivity review, reviewed - no change Comments: urine culture still pending, ceftriaxone empiric therapy
--- NOTE | 2025-05-23 10:34 | P.DS_ITS ---
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 Patient states she has been particularly stressed taking care of her mother who has dementia, and has been having on and off chest pains for the past couple days. This morning she had an episode of right-sided chest pain with radiation to her right axilla and right back followed by an episode of nausea around 11 AM. This was followed by an episode of slurred speech that began at 12 PM and resolved on route with EMS around 2 PM. On my evaluation of patient, she seems quite anxious and has been worrying a lot about her mother and her health. Of note, patient states she was told she had a TIA in 2018 when she was found sitting, awake but not responding to commands for an hour. She was evaluated at [facility] in 2018 for apparently a week without significant findings. A loop recorder has been has been placed by Dr. Sneed, unclear if it has been interrogated. No recent medication changes, denies fever/chills, shortness of breath, abdominal pain. Workup in the ED significant for normal troponins, EKG without acute ischemic changes. UA grossly abnormal for UTI. CT head, CTA head/neck unremarkable for acute findings. [facility]y was consulted, they recommended starting a statin and obtaining an MRI for further evaluation. Given these findings, ED provider discussed case with me and decided to admit patient for further evaluation management. 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 Patient states she has been particularly stressed taking care of her mother who has dementia, and has been having on and off chest pains for the past couple days. This morning she had an episode of right-sided chest pain with radiation to her right axilla and right back followed by an episode of nausea around 11 AM. This was followed by an episode of slurred speech that began at 12 PM and resolved on route with EMS around 2 PM. On my evaluation of patient, she seems quite anxious and has been worrying a lot about her mother and her health. Of note, patient states she was told she had a TIA in 2018 when she was found sitting, awake but not responding to commands for an hour. She was evaluated at [facility] in 2018 for apparently a week without significant findings. A loop recorder has been has been placed by Dr. Sneed, unclear if it has been interrogated. No recent medication changes, denies fever/chills, shortness of breath, abdominal pain. Workup in the ED significant for normal troponins, EKG without acute ischemic changes. UA grossly abnormal for UTI. CT head, CTA head/neck unremarkable for acute findings. [facility] neurology was consulted, they recommended starting a statin and obtaining an MRI for further evaluation. Given these findings, ED provider discussed case with me and decided to admit patient for further evaluation management. 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 Patient has been particularly stressed recently taking care of her mom with dementia, presents with intermittent right-sided chest pains with radiation to right axilla and had 2-hour episode of slurred speech that self resolved. ? Patient has been previously told she has a TIA at [facility] in 2018. Has been taking aspirin 81 mg. ? No focal neurologic deficits on my exam. Slurred speech resolved and resolved prior to arrival. Does seem very anxious on admission. ? Brain MRI after admission did not show acute findings. No LVO on CT angiograms. ? Given concomitant chest pain, slurring of the speech I suspect these constellation of findings may be attributed to stress and psychiatric in nature/functional neurological disorder. ? Additionally, patient was found to have a UTI on admission. Likely also contributed to symptoms. ? Will follow-up ECHO with bubble study. ? PT/OT consulted, did not recommend rehab. ? A1c 5.7, LDL 51, TSH low but free T4 normal. ? Continue home aspirin 81 mg, atorvastatin 40 mg. neurology did not recommend escalating antiplatelet therapy. #Chest pain, likely MSK ? Has been having intermittent right-sided chest pains radiation to the right axilla. Reproducible over the right breast. ? Fell a few weeks ago, has been having chest pain since then. Chest pain is may also be from uncontrolled anxiety. ? Troponins, EKG without acute ischemic findings. ? Ibuprofen as needed for chest pain, seems MSK in nature. Resolved on day of discharge. #UTI ? UA grossly abnormal, had an episode of slurred speech prior to admission. ? Treated with ceftriaxone, discharged with levofloxacin 750 mg for 3 more days. Will follow-up on urine culture. #Anxiety ? Patient does take phentermine, will hold as this can cause anxiety and arrhythmias. ? Continue home duloxetine 30 mg. May benefit from switching to an Lexapro, will follow-up with PCP. #Nonischemic HFpEF, 40 to 55% ? Currently euvolemic. Continue to monitor. #Hypothyroidism ? Continue home levothyroxine 50 mcg. TSH normal. #GERD ? Continue home PPI. Exam Data for Last 24 hours Vital signs and Labs for Last 24 Hours: Temp Pulse Resp BP Pulse Ox O2 Del Method 97.7 F 53 L 18 113/51 L 99 Room Air 05/23/25 08:00 05/23/25 08:00 05/23/25 08:00 05/23/25 08:00 05/23/25 08:00 05/23/25 09:00 Laboratory Results - last 24 hr 05/22/25 14:00: WBC 6.5, RBC 4.92, Hgb 15.3, Hct 45.0, MCV 91.5, MCH 31.1, MCHC 34.0, RDW 12.7, Plt Count 210, MPV 11.3 H, Neut % (Auto) 58.4, Lymph % (Auto) 26.8, [place] % (Auto) 12.7 H, Eos % (Auto) 1.4, Baso % (Auto) 0.5, Neut # (Auto) 3.8, Lymph # (Auto) 1.8, [place] # (Auto) 0.8, Eos # (Auto) 0.1, Baso # (Auto) 0.0, PT 11.6, INR 1.05, APTT 27.9, Sodium 133 L, Potassium 4.7, Chloride 103, Carbon Dioxide 26, Anion Gap 8.7, BUN 14, Creatinine 0.80, Estimated Creat Clear 102, Estimated GFR 73, Est GFR ( Amer) 88, Glucose 114 H, Calcium 9.4, Total Bilirubin 0.8, AST 43 H, ALT 26, Alkaline Phosphatase 82, Troponin I < 0.01, Total Protein 7.4, Albumin 4.5, Globulin 2.9, Albumin/Globulin Ratio 1.6, Triglycerides 165 H, Cholesterol 104 L, LDL Cholesterol Direct 51.67 L, VLDL Cholesterol 33, HDL Cholesterol 34 L, Cholesterol/HDL Ratio 3.1, Plasma/Serum Alcohol < 10 05/22/25 14:45: Urine Color Yellow, Urine Appearance Clear, Urine pH 7.5, Ur Specific [place] 1.015, Urine Protein Negative, Urine Glucose (UA) Negative, Urine Ketones Negative, Urine Blood Negative, Urine Nitrate Negative, Urine Bilirubin Negative, Urine Urobilinogen 1.0, Ur Leukocyte Esterase 1+ A, Urine RBC None, Urine WBC 5-10, Ur Squamous Epith Cells 5-10, Urine Bacteria 1+, Urine Opiates Screen Negative, Urine Methadone Screen Negative, Ur Barbituates Screen Negative, Ur Phencyclidine Scrn Negative, Ur Amphetamines Screen Negative, U Benzodiazepines Scrn Negative, Urine Cocaine Screen Negative, U Marijuana (THC) Screen Negative 05/22/25 19:05: Troponin I < 0.01 05/22/25 22:50: Troponin I < 0.01 05/23/25 05:40: WBC 11.3 H D, RBC 4.99, Hgb 15.2, Hct 45.7, MCV 91.6, MCH 30.5, MCHC 33.3, RDW 12.7, Plt Count 220, MPV 11.7 H, Neut % (Auto) 87.9 H, Lymph % (Auto) 9.8 L, [place] % (Auto) 1.8, Eos % (Auto) 0.0 L, Baso % (Auto) 0.1, Neut # (Auto) 9.9 H, Lymph # (Auto) 1.1, [place] # (Auto) 0.2, Eos # (Auto) 0.0, Baso # (Auto) 0.0, Sodium 133 L, Potassium 4.1, Chloride 103, Carbon Dioxide 24, Anion Gap 10.1, BUN 13, Creatinine 0.70, Estimated Creat Clear 87, Estimated GFR 85, Est GFR ( Amer) 103, Glucose 147 H D, Hemoglobin A1c 5.7, Calcium 9.4, Total Bilirubin 0.5, AST 25 D, ALT 23, Alkaline Phosphatase 87, Total Protein 6.6, Albumin 4.1, Globulin 2.5, Albumin/Globulin Ratio 1.6, TSH 0.35 L, Free T4 0.86 I & O for Last 24 hours: Intake & Output 05/20/25 05/21/25 05/22/25 05/23/25 23:59 23:59 23:59 23:59 Intake Total 50 / 290 600 / 600 Output Total 0 / 0 0 / 0 Balance 50 / 290 600 / 600 Weight 108.862 kg 93.304 kg Constitutional Constitutional: no acute distress and obese *Routine HEENT Exam Head: Present normocephalic Eye: Present EOMI and PERRL ENT: Present mucous membranes moist *Routine Neck Exam Neck: Present supple; Absent lymphadenopathy *Routine Respiratory Exam Respiratory: Present CTA bilaterally *Routine Cardiovascular Exam Cardiovascular: Present RRR *Routine Abdominal Exam Abdominal: Present soft and normoactive bowel sounds; Absent tenderness *Routine Extremities Exam Extremities: Absent cyanosis, clubbing or edema *Routine Skin Exam Skin: Present warm; Absent rash *Routine Neurological Exam Neurological: Present alert and oriented X3 Results Data Completed and Pending Labs on day of discharge: Labs from last 24 hours 05/23/25 05/22/25 05/22/25 05:40 22:50 19:05 WBC 11.3 H D RBC 4.99 Hgb 15.2 Hct 45.7 MCV 91.6 MCH 30.5 MCHC 33.3 RDW 12.7 Plt Count 220 MPV 11.7 H Neut % (Auto) 87.9 H Lymph % (Auto) 9.8 L [place] % (Auto) 1.8 Eos % (Auto) 0.0 L Baso % (Auto) 0.1 Neut # (Auto) 9.9 H Lymph # (Auto) 1.1 [place] # (Auto) 0.2 Eos # (Auto) 0.0 Baso # (Auto) 0.0 PT INR APTT Sodium 133 L Potassium 4.1 Chloride 103 Carbon Dioxide 24 Anion Gap 10.1 BUN 13 Creatinine 0.70 Estimated Creat Clear 87 Estimated GFR 85 Est GFR ( Amer) 103 Glucose 147 H D Hemoglobin A1c 5.7 Calcium 9.4 Total Bilirubin 0.5 AST 25 D ALT 23 Alkaline Phosphatase 87 Troponin I < 0.01 < 0.01 Total Protein 6.6 Albumin 4.1 Globulin 2.5 Albumin/Globulin Ratio 1.6 Triglycerides Cholesterol LDL Cholesterol Direct VLDL Cholesterol HDL Cholesterol Cholesterol/HDL Ratio TSH 0.35 L Free T4 0.86 Urine Color Urine Appearance Urine pH Ur Specific [place] Urine Protein Urine Glucose (UA) Urine Ketones Urine Blood Urine Nitrate Urine Bilirubin Urine Urobilinogen Ur Leukocyte Esterase Urine RBC Urine WBC Ur Squamous Epith Cells Urine Bacteria Urine Opiates Screen Urine Methadone Screen Ur Barbituates Screen Ur Phencyclidine Scrn Ur Amphetamines Screen U Benzodiazepines Scrn Urine Cocaine Screen U Marijuana (THC) Screen Plasma/Serum Alcohol 05/22/25 05/22/25 14:45 14:00 WBC 6.5 RBC 4.92 Hgb 15.3 Hct 45.0 MCV 91.5 MCH 31.1 MCHC 34.0 RDW 12.7 Plt Count 210 MPV 11.3 H Neut % (Auto) 58.4 Lymph % (Auto) 26.8 [place] % (Auto) 12.7 H Eos % (Auto) 1.4 Baso % (Auto) 0.5 Neut # (Auto) 3.8 Lymph # (Auto) 1.8 [place] # (Auto) 0.8 Eos # (Auto) 0.1 Baso # (Auto) 0.0 PT 11.6 INR 1.05 APTT 27.9 Sodium 133 L Potassium 4.7 Chloride 103 Carbon Dioxide 26 Anion Gap 8.7 BUN 14 Creatinine 0.80 Estimated Creat Clear 102 Estimated GFR 73 Est GFR ( Amer) 88 Glucose 114 H Hemoglobin A1c Calcium 9.4 Total Bilirubin 0.8 AST 43 H ALT 26 Alkaline Phosphatase 82 Troponin I < 0.01 Total Protein 7.4 Albumin 4.5 Globulin 2.9 Albumin/Globulin Ratio 1.6 Triglycerides 165 H Cholesterol 104 L LDL Cholesterol Direct 51.67 L VLDL Cholesterol 33 HDL Cholesterol 34 L Cholesterol/HDL Ratio 3.1 TSH Free T4 Urine Color Yellow Urine Appearance Clear Urine pH 7.5 Ur Specific [place] 1.015 Urine Protein Negative Urine Glucose (UA) Negative Urine Ketones Negative Urine Blood Negative Urine Nitrate Negative Urine Bilirubin Negative Urine Urobilinogen 1.0 Ur Leukocyte Esterase 1+ A Urine RBC None Urine WBC 5-10 Ur Squamous Epith Cells 5-10 Urine Bacteria 1+ Urine Opiates Screen Negative Urine Methadone Screen Negative Ur Barbituates Screen Negative Ur Phencyclidine Scrn Negative Ur Amphetamines Screen Negative U Benzodiazepines Scrn Negative Urine Cocaine Screen Negative U Marijuana (THC) Screen Negative Plasma/Serum Alcohol < 10 DS: Diagnosis Discharge Diagnosis (1) Slurred speech: Status: Acute Code(s): R47.81 - Slurred speech Meds Home Medications and Allergies Home Medications ?Medication ?Instructions ?Recorded ?Confirmed ?Type duloxetine 30 mg capsule,delayed 30 mg PO DAILY Depres roxanna 05/02/18 05/22/25 History release spironolactone 100 mg tablet 100 mg PO DAILY Fluid 07/2205/22/25 History (Aldactone) Held on 05/23/25. Instructions: Resume on 06/06/25. Your blood pressures have been stable without this medication, please follow-up with your PCP to discuss restarting. aspirin 81 mg tablet,delayed 81 mg PO DAILY heart heal th 08/19/20 05/22/25 History release nitroglycerin 0.4 mg sublingual 0.4 mg sublingual Q5M PRN chest 09/14/23 05/22/25 Rx tablet pain #25 tabs rosuvastatin 40 mg tablet (Crestor) 40 mg PO DAILY #90 tabs 10/07/23 05/22/25 Rx levocetirizine 5 mg tablet (24HR 10 mg PO DAILY 05/22/25 History Allergy Relief) potassium chloride 20 mEq 20 meq PO DAILY PRN suppleme nt 12/20/24 05/22/25 History tablet,extended release(part/cryst) levothyroxine 50 mcg tablet 50 mcg PO DAILY thyroid 90 days 04/04/25 05/22/25 Rx (Synthroid) #90 tabs omeprazole 40 mg capsule,delayed 40 mg PO DAILY 05/22/25 History release sacubitril 24 mg-valsartan 26 mg 1 tab PO BID 05/22/25 05/22/25 History tablet (Entresto) Held on 05/23/25. Instructions: Resume on 06/06/25. Your blood pressures have been stable without this medication, please follow-up with your PCP to discuss restarting. vitamin B complex 1 tab PO DAILY 05/22/2505/04 History levofloxacin 750 mg tablet 750 mg PO DAILY 3 days #3 t abs 05/23/25 Rx New Prescriptions to Start Prescriptions: levofloxacin Dale Brooks Allergies Allergy/AdvReac Type Severity Reaction Status Date / Time ketorolac Allergy Mild I-HIVES Verified 04/04/25 10:06 Iodinated Contrast Media Allergy Unknown Verified 04/04/25 10:06 allergy reaction empagliflozin (From AdvReac Other Verified 05/23/25 07:15 Jardiance) Discharge Plan Disposition Patient Disposition: Home, Self-Care Condition: Fair Follow up Plan Follow up with: April Dorado APRN [Primary Care Provider, Medical] - 05/29/25 10:00 am Prescriptions/Medication Reconciliation: New levofloxacin 750 mg tablet 750 mg PO DAILY 3 Days Qty: 3 0RF Continued nitroglycerin 0.4 mg tablet, sublingual 0.4 mg sublingual Q5M PRN (Reason: chest pain) Qty: 25 0RF Rx Instructions: do not exceed 3 doses per episode levocetirizine [24HR Allergy Relief] 5 mg tablet 10 mg PO DAILY Patient Comments: TAKE ONE (1) TABLET EVERY DAY BY ORAL ROUTE FOR 90 DAYS. potassium chloride 20 mEq tablet,ER particles/crystals 20 meq PO DAILY PRN (Reason: supplement) levothyroxine [Synthroid] 50 mcg tablet 50 mcg PO DAILY 90 Days Qty: 90 4RF duloxetine 30 mg capsule,delayed release(DR/EC) 30 mg PO DAILY rosuvastatin [Crestor] 40 mg tablet 40 mg PO DAILY Qty: 90 3RF omeprazole 40 mg capsule,delayed release(DR/EC) 40 mg PO DAILY vitamin B complex Tablet 1 tab PO DAILY aspirin 81 MG tablet,delayed release (DR/EC) 81 mg PO DAILY Held spironolactone [Aldactone] 100 mg tablet 100 mg PO DAILY Hold Instructions: Resume on 06/06/25. Your blood pressures have been stable without this medication, please follow-up with your PCP to discuss restarting. sacubitril-valsartan [Entresto] 24-26 mg tablet 1 tab PO BID Hold Instructions: Resume on 06/06/25. Your blood pressures have been stable without this medication, please follow-up with your PCP to discuss restarting. Discontinued phentermine 37.5 mg tablet 37.5 mg PO DAILY Patient Comments: TAKE ONE TABLET BY MOUTH EVERY DAY BEFORE breakfast Problem Reconciliation Problems Reviewed?: Yes Patient Discharge Instructions Patient Instructions: DI for Transient Ischemic Attack, DI for Urinary Tract Infection (UTI) Print Language: Sinhala Providers Primary Care Provider: April Dorado Admit Provider: Dale Brooks Attending Provider: Dale Brooks
[2025-05-23 12:00] VITALS: BP 128/67; PULSE 80; PULSE 81; RESP 18; TEMP 36.9; O2SAT 95
[2025-05-23] MEDS: GUAIFENESIN/DEXTROMETHORPHAN 200MG/20MG 10ML UDC 10 ML PO (12:43)
--- NOTE | 2025-05-23 19:08 | CA_ITS ---
APPROVED REPORT EXAM: Comprehensive 2D, Doppler, and color-flow Echocardiogram Shake Packer: Jenny Mitchell CRT Ht: 5 ft 5 in Wt: 240lbs BSA: 2.14 BP: 134/79 mmHg Indications: TIA, CAD, CVA, HTN, HLD, EX SMOKER Echo Enhancing Agent Indication: Rule out Shunt Agent(s) / Amount(s) Used: Agitated Saline 5 cc Comments: B/S ORDERED FOR SLURRED SPEECH AND ? TIA 2D Dimensions LA Volume 17.00 mL LA Volume Index 7.80 mL/m2 (M/F) 16-34 M-Mode Dimensions RVDd 2.00 cm (0.9-2.6) LA Diam 3.33 cm (1.9-4.0) LVDd 5.00 cm (3.5-5.7) LVDs 3.56 cm (3.5-5.7) IVSd 1.70 cm (0.6-1.1) PWd 0.67 cm (0.6-1.1) EF (Teich) 55.20% FS 28.80% EDV (Teich) 118.20 mL TAPSE 2.24 (<1.7) ESV (Teich) 53.00 mL LV Diastology E Decel Time 150 (160-240 msec) E/A Ratio 0.68 MED A' 12.90 cm/s LAT A' 15.00 cm/s Aortic Valve AO Peak GR. 6.10 mmHg Mitral Valve MV E Max Carlos. 67.0 (40-130 cm/s) MV A Velocity 99.0 (40-130 cm/s) E/A Ratio 0.68 MV PHT 44.0 ms Pulmonary Valve PV Peak Velocity 176.0 (50-150 cm/s) Tricuspid Valve TR P. Velocity 287.00 cm/s RAP Estimate 10.00 mmHg RVSP 42.90 mmHg Left Ventricle The left ventricle is normal size. Left ventricular systolic function is mildly to moderately reduced. There is increased left ventricular wall thickness. The septum is asynchronous. The septal, anteroseptal, and inferoseptal LV back are moderately hypokinetic. The left ventricular diastolic function is indeterminate. LVEF is 40% Right Ventricle The right ventricle is mildly dilated. The right ventricular systolic function is normal. Atria Left atrium is mildly dilated. Right atrium is mildly dilated. There is no color Doppler evidence of interatrial shunt. Agitated saline administration demonstrates on evidence of interatrial shunt. Aortic Valve The aortic valve mildly thickened. There is no hemodynamically significant aortic valvular stenosis. Trace aortic regurgitation is present. Mitral Valve The mitral valve is normal in structure. No evidence of mitral valve stenosis. Mild mitral regurgitation is present. Tricuspid Valve The tricuspid valve leaflets are thin and pliable. Mild tricuspid regurgitation. RVSP is 30-35 mmHg. Pulmonic Valve The pulmonary valve is grossly normal in structure. Trace pulmonic valve regurgitation is present. Great Vessels The aortic root is normal in size. IVC is normal in size and collapses >50% with inspiration. Pericardium There is no pericardial effusion. Other Information Study Quality: Fair Conclusion Mild to moderate reduction in LV systolic function (LVEF 40%). The septal, anteroseptal, and inferoseptal LV back are moderately hypokinetic. Mild RV dilation with normal RV function. Biatrial dilation. Mild MR, mild TR. There is no color Doppler evidence of interatrial shunt. Agitated saline administration demonstrates on evidence of interatrial shunt. In the setting of stroke/TIA work-up and with reduced LV systolic function, further evaluation is suggested with limited TTE + ultrasound enhancing agent to evaluate for LV thrombus. Electronically signed by : Mackenzie Jama MD 05/25/2025 17:02:24
--- NOTE | 2025-05-24 11:03 | SW/DCPLANNER ---
Spoke with patient on the phone. Patient stated that she feels bad and has a Dr appointment today. Patient stated that she is aware of her upcoming appointment. 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 Patient stated that she has no concerns or questions at this time. Kelli Hart
== END 2025-05-23 15:39 | disposition home or self-care (01) ==
LOC: ER 16:53 → 2ND 17:12
PROVIDERS: Admitting Provider Student in an Organized Health Care Education/Training Program; Emergency Provider Student in an Organized Health Care Education/Training Program; PCP Nurse Practitioner; Visit Provider Student in an Organized Health Care Education/Training Program
DX: R47.81 Slurred speech (principal); I25.10 Atherosclerotic heart disease of native coronary artery without angina pectoris; Z86.73 Personal history of transient ischemic attack (TIA), and cerebral infarction without residual deficits; E78.5 Hyperlipidemia, unspecified; E03.9 Hypothyroidism, unspecified; Z87.891 Personal history of nicotine dependence; Z88.8 Allergy status to other drugs, medicaments and biological substances; Z91.041 Radiographic dye allergy status; Z79.82 Long term (current) use of aspirin; Z79.899 Other long term (current) drug therapy; Z79.890 Hormone replacement therapy; I50.32 Chronic diastolic (congestive) heart failure; K21.9 Gastro-esophageal reflux disease without esophagitis; F41.9 Anxiety disorder, unspecified; N39.0 Urinary tract infection, site not specified
CPT/HCPCS: 36415; 70450; 70496; 70498; 70551; 80053; 80061; 80307; 80320; 81001; 83036; 84439; 84443; 84484; 85025; 85610; 85730; 87086; 93005; 93306; 97162; 97166; 99285; G0378; J0696; J1200; J1308; J1650; J2919; J3360; Q9967